=== PATIENT | male | born 1940 | race Caucasian/White ===

== ENCOUNTER 2017-12-23 12:30 | Outpatient (RCR) | payer MEDICARE, SELFPAY ==
--- NOTE | 2017-11-25 11:57 | HP.PTEVAL_ITS ---
Patient's Visit Information ANNEMARIE OROSCO is a 77 year old M referred to Physical Therapy by Wilfredo RILEY with a diagnosis of CERVICALOGENIC HEADACHES. Date of Evaluation: 11/25/17 Physical Therapist: Lloyd Rush PT, - Visit Plan Frequency: 2x /Week Duration: 4 Weeks Plan: MANUAL THERAPY -CERVICAL TRACTION ,STM,US,MHP/CP,POSTURAL EX'S/CERVICAL ROM - Subjective Subjective: This 77 y/o nale presenst to physical therpy with cervicogenic headaches. Patient has had RUBY for about 13 months and worse past 8months. Location of symtoms change and intermmtant ,currently to p of head but can nove occiput,temporal/frontal. Symptoms worse are not specfic. Symptoms not better with nothing. Patient denies nausea/tinnitus/light/noise. Patient bsleeping okay at night. Denies parathersia/tingling. Patient has seen chiropractor didnt help. All test are inconclusive ,CATSCAN -. VOCATION: ritired. SOCAIL: retired - Pain Bilateral Neck Pain Intensity (Out of 10): 2 Pain Intensity Range: 10 - Objective POSTURE: mild foward head ,head foward. NUERO: denies parathesia/tingling , reflexes C5-6-7 1/. AROM: BUE WFL. CERVICAL AROM: flexion min loss,extension mod loss,lateral flexion/rotation mod loss. PALAPTION: UT/LEVATOR/PARASPINALS - Special Tests C/S Radiculapathy - Left Upper limb tension test: Negative C/S Radiculapathy - Right Upper limb tension test: Negative C/S Radiculapathy - Left Spurlings: Negative C/S Radiculapathy - Right Spurlings: Negative C/S Radiculapathy - Left Cervical distraction: Negative C/S Radiculapathy - Right Cervical distraction: Negative C/S Radiculapathy - Left Relief test: Negative C/S Radiculapathy - Right Relief test: Negative Sharp Astrid: Negative Vertebral Artery Test: Negative Alar Ligament Test: Negative Cervical Sitting: Protrusion - Mechanical Response: No effect Cervical Sitting: Protrusion - Symptoms During Testing: No effect Cervical Sitting: Protrusion - Symptoms After Testing: No effect Cervical Sitting: Retraction - Mechanical Response: No effect Cervical Sitting: Retraction - Symptoms During Testing: No effect Cervical Sitting: Retraction - Symptoms After Testing: No effect - Goals Goal 1:: Independat with HEP Goal Time Frame: 4-6 Weeks Goal 2:: Independant with posture for ADL Goal Time Frame: 4-6 Weeks Goal 3:: Decrease RUBY by 50% or greater to improve function. Goal Time Frame: 4-6 Weeks Goal 4:: Patient to improve cervical ROM to diminish episodes of RUBY. Goal Time Frame: 4-6 Weeks - Rehabilitation Potential Physical Therapy Diagnosis: Patient has cerviacl RUBY for past 13 months with etiology unknown ,thus impairs function and ADLS' thus benifit from skilled PT Rehabilitation Potential: Good - Anticipated Interventions Patient/Client Instruction: Educate patient on: Condition, Plan of Care For the Purpose of:: To decrease pain, To increase ROM, To improve muscle performance and motor function, To increase tolerance to activity/condition/ position, To improve gait and locomotor functions, To improve health of tissue, To decrease soft tissue restriction, To increase flexibility/ROM, To improve ability to perform tasks related to life management Therapeutic Exercise to Include: Strength training, Flexibilty training, Passive ROM, Active ROM For the Purpose of:: To decrease pain, To increase ROM, To improve nutrient delivery to tissue, To increase oxygenation perfusion, To improve muscle performance and motor function, To increase tolerance to activity/condition/ position, To improve ability of physical actions for home/community/work/leisure , To improve health of tissue, To decrease soft tissue restriction, To increase flexibility/ROM, To reduce risk of recurrence Manual Therapy Techniques to Include: Mobilization Comment: CERVICAL TRACTION For the Purpose of:: To decrease pain, To increase ROM, To improve nutrient delivery to tissue, To increase oxygenation perfusion, To improve health of tissue, To decrease soft tissue restriction, To increase flexibility/ROM IF ES: Yes Cryotherapy (ice pack, ice massage): Yes Thermo therapy (hot pack): Yes Ultrasound (thermal/non thermal): Yes For the Purpose of:: To decrease pain, To improve health of tissue, To decrease soft tissue restriction, To improve ability to perform tasks related to life management Thank you for the opportunity to evaluate your patient. For Medicare and Medicare HMO plans, please review the plan of care and approve it. It will need to be FAXED BACK to us at [phone] for Medicare purposes. Please let me know if there are questions or concerns regarding this plan of care. Physician Signature: Date:
--- NOTE | 2017-12-23 13:11 | HP.PTDCSUM ---
HP - PT D/C Summary It has been my pleasure to treat ANNEMARIE OROSCO under orders from DR.VVELAS Shi for the diagnosis of CERVICALOGENIC HEADACHES for a total of 10 visit(s). Discharge Date: 12/23/17 Please see the following information for a summary of their discharge status. - Subjective Subjective: Doing better. less RUBY. Improved posture - Pain Bilateral Neck Pain Intensity (Out of 10): 1 RUBY Pain Intensity (Out of 10): 1 - Overall Improvement % Improvement: 60 - Objective Objective/Function: POSTURE: foward head. NEURO: incat ,reflexes 1/3 C5-6-7. PALPATION: tender OCCIPUT. AROM: BUE WFL. MMT: grossly 4/5. CERVICAL ROM: flexion,min loss,ext mod ,lateral/flexion. mod loss - Goals Goal 1:: Independat with HEP Goal Progress: Goal Met Goal 2:: Independant with posture for ADL Goal Progress: Goal Met Goal 3:: Decrease RUBY by 50% or greater to improve function. Goal Progress: Goal Met Goal 4:: Patient to improve cervical ROM to diminish episodes of RUBY. Goal Progress: Goal Met - Plan Plan: D/C TO HEP - D/C Information Discharge Comments: D/C TO HEP If there are questions or concerns regarding this patient's physical therapy, please feel free to call me at [phone]. Thank you for the referral of this patient. Sincerely, Lloyd Rush, PT,
== END 2017-12-23 19:00 | disposition home or self-care (01) ==
LOC: PT 12:30
PROVIDERS: Family Provider Internal Medicine; PCP Internal Medicine; Visit Provider Internal Medicine
DX: R51 Headache (principal)
CPT/HCPCS: 97012; 97035; 97110; 97140; 97162; 97530

== ENCOUNTER 2018-01-23 05:45 | Emergency (ER) | payer MEDICARE, SELFPAY ==
[2018-01-23] VITALS (8 sets, daily range): BP systolic 129–150; BP diastolic 78–99; PULSE 65–85; RESP 16–19; TEMP 36.6; O2SAT 94–98; BMI 27.3
--- NOTE | 2018-01-23 05:48 | EKG12_ITS ---
Test Reason : SOB Blood Pressure : / mmHG Vent. Rate : 069 BPM Atrial Rate : 094 BPM P-R Int : 000 ms QRS Dur : 088 ms QT Int : 376 ms P-R-T Axes : 000 057 062 degrees QTc Int : 402 ms Atrial fibrillation Abnormal ECG Confirmed by RENETTA SANTIAGO, FELIX ([id number]), rewrite editor RADHA STEPHEN ([id number]) on 01/25/2018 2:57:55 PM Referred By: SUAD Confirmed By:FELIX JACKSON MD
--- NOTE | 2018-01-23 05:50 | RAD_ITS ---
STUDY: X-RAY CHEST REASON FOR EXAM: Male, 77 years old. Shortness of breath. History of COPD TECHNIQUE: AP portable chest. COMPARISON: July 15, 2014. FINDINGS: The lungs are clear and expanded. There is no demonstrated pleural abnormality. Normal size heart. Normal mediastinum and janet. Normal visualized pulmonary arteries. Normal visualized aortic arch and descending thoracic aorta. Normal visualized thoracic spine. Old right posterior rib fractures present previously. There is no demonstrated abnormality of the visualized soft tissue structures of the upper abdomen. RAD/Chest 1 View (Portable) IMPRESSION: No acute cardiopulmonary disease. Old right posterior rib fractures. Electronically Signed: Edgar Jarrett MD at 6:26 EDT , Service support ,
[2018-01-23 06:13] LABS: Absolute Lymphocyte Count 2.63 X10^3/ul (0.83-4.51); Absolute Neutrophil Count 3.3 X10^3/uL (2.0-7.7); Basophil# 0.06 X10^3/uL; Basophil% 0.8 % (0-1); Eosinophil# 0.51 X10^3/uL; Eosinophils% 7.1 % (0-5); Hematocrit 45.8 % (40-54); Hemoglobin 15.2 g/dl (13.0-16.5); Lymphocyte # 2.63 X10^3/ul (4.0); Lymphocyte % 36.4 % (19-41); Mean Corp Hgb Conc 33.2 g/gl (32-36); Mean Corpuscular Hgb 30.6 pg (27.0-32.0); Mean Corpuscular Volume 92.3 fL (80-94); Mean Platelet Vol. 9.6 fl (6.2-12.0); Monocyte# 0.74 X10^3/uL; Monocyte% 10.2 % (0-10); Neutrophil # 3.26 X10^3/uL (2.7-7.7); Neutrophil % 45.2 % (47-70); Platelet Count 253 K/mm3 (150-450); RBC Distribution Width CV 14.2 % (11.6-14.6); RBC Distribution Width SD 47.7 fl (35.1-43.9); Red Blood Count 4.96 M/mm3 (4.6-6.2); White Blood Count 7.2 K/mm3 (4.4-11.0)
[2018-01-23 06:15] LABS: POSITIVE COUNT NO; POSITIVE DIFFERENTIAL NO; POSITIVE MORPHOLOGY NO
--- NOTE | 2018-01-23 06:22 | ED.VISSUMM ---
- ER Visit Summary Date of Service: 01/23/18 Chief Complaint: Shortness of breath. History of Present Illness: The patient is a [address] of COPD not on home O2 prior GI bleed. Hiatal hernia and sleep apnea. No reported cardiac history other than A. fib states that for the last several months she has been short of breath. This is occurred intermittently. Last night he became increasingly short of breath. Denies chest pain. Denies fever. He is a chronic nonproductive cough. The mild hemoptysis. He is never had a DVT or PE he has not recently been hospitalized denies calf pain or tenderness. Physical Examination: Older male in mild respiratory distress vital signs are stable pulse ox is 98 % that was on oxygen. The squad picked him at his home is pulse ox was 85%. HEENT exam unremarkable. Neck nontender no JVD. Lungs prolonged expiration phase. Diminished breath sounds. Expiratory wheezing. Equal symmetrical. No rhonchi. No rales. Heart irregularly irregular rate about 70 no murmur. History of A. fib. Chest nontender. Abdomen soft nontender nondistended no giving or masses normal bowel sounds no peritoneal signs. He is moving all 4 extremities his calves are nontender without edema no cords. Neurologically is awake and alert with no focal deficits. Test Results: Chest x-ray shows chronic changes no acute process read both by myself the radiologist. EKG is in A. fib rate is 69 with no acute abnormality. CBC unremarkable. BMP unremarkable. Troponin normal. BNP pending. Emergency Department Course and Treatment: Solu-Medrol IV and breathing treatments. Repeat exam the patient is improved. However he still requires admission for his overall respiratory status and hypoxia. I spoke to the hospitalist Dr. Ko segura. Treatment Plan: Admission for hypoxia. Disposition: Admission Impression: Hypoxia Exacerbation COPD Chronic A. fib This note was generated with [employer] dictation software. It may contain incorrect words, spelling, and punctuation that were not noted in review of the chart prior to signing ED Disposition - Plan for ED Patient: Chief Complaint: Shortness of Breath Referrals: Wilfredo Up MD [Primary Care Provider] -
[2018-01-23 06:27] LABS: Anion Gap 7 (5-15); BUN 10 mg/dL (7-18); BUN/Creat Ratio 14.9 RATIO (10-20); Calcium,Total 8.5 mg/dL (8.5-10.1); Chloride 100 mmol/L (98-107); Creatinine, Serum 0.67 mg/dL (0.70-1.30); EST Glomerular Filtration Rate 121 mL/min (>60); Est Glom Filt Rate - Afr Amer 147 mL/min (>60); Estimated Creatinine Clearance 57.95 ml/min; Glucose 115 mg/dL (74-106); Potassium 3.9 mmol/L (3.5-5.1); Sodium Level 137 mmol/L (136-145)
[2018-01-23] MEDS: Albuterol 2.5 MG/3 ML VIAL.NEB. INHALATION ×2 (06:34)
[2018-01-23] MEDS: Ipratropium/Albuterol Sulfate 3 ML AMPUL.NEB INHALATION (06:34)
[2018-01-23] MEDS: MethylPREDNISolone 125 MG/2 ML Vial IV (06:37)
[2018-01-23 07:55] LABS: BNP,B-Type NATRIURETIC PEPTIDE 38.4 pg/mL (0-100)
--- NOTE | 2018-01-23 08:10 | DCINST_ITS ---
You will use the following diet at home:: No restrictions Your food should be the consistency of: Regular Your liquids should be the consistency of: Regular/Thin Discharge Activity: Return to Normal Activity Call your doctor if you observe: - - worsening shortness of breath. Allergies/Adverse Reactions: Allergies No Known Allergies Allergy (Verified 01/23/18 05:45) Medications to take at Discharge Albuterol IH (ProAir) [Proair Hfa] 2 puff INHALATION Q4H PRN PRN 01/23/18 Amlodipine [Norvasc] 5 mg PO DAILY 01/23/18 Apixaban [Eliquis] 5 mg PO BID 01/23/18 Brimonidine 0.15% [Alphagan P 0.15%] 1 drop EACH EYE BID 01/23/18 Ferrous Sulfate 325 mg PO DAILY@0800 01/23/18 Gabapentin [Neurontin] 2 tab PO BREAKFAST 01/23/18 Gabapentin [Neurontin] 2 tab PO QHS 01/23/18 Gabapentin [Neurontin] 100 mg PO LUNCH 01/23/18 Hydrochlorothiazide [Hctz] 25 mg PO DAILY 01/23/18 Ipratropium/Albuterol Respimat [Combivent Respimat Inhal [place]] 1 puff INHALATION BID 01/23/18 Latanoprost 0.005% [Xalatan Opthalmic] 1 drop EACH EYE QHS 01/23/18 Lisinopril [Zestril] 20 mg PO DAILY 01/23/18 Omeprazole 40 mg PO BID 01/23/18 Simvastatin [Zocor] 20 mg PO QHS 01/23/18 Primary Care Physician: Wilfredo Up MD [Primary Care Provider] - Please follow up with your Primary Care Physician in: in 1-2 weeks Please Follow Up With: Jinny - for possible vocal cord dysfunction When: 2-4 weeks Proposed Discharge Date: 01/23/18
--- NOTE | 2018-01-23 08:10 | PCM.CONS.GEN ---
Problem List (1) Glaucoma Status: Chronic (2) Benign prostate hyperplasia Status: Chronic (3) Paiz esophagus Status: Chronic (4) Acid reflux Status: Chronic (5) COPD (chronic obstructive pulmonary disease) Status: Chronic (6) Hyperlipemia Status: Chronic (7) Atrial fibrillation Status: Chronic (8) Actinic keratosis Status: Chronic (9) Hiatal hernia Status: Chronic (10) Hypertension Status: Chronic (11) Sleep apnea Status: Chronic (12) Vocal cord dysfunction Status: Acute Comment: suspected Reason for Consult Date of Consultation: 01/23/18 Reason for Consultation: shortness of breath. History of Present Illness: The patient is a 77 year old M who was up this morning and became very suddenly short of breath. It persisted and called EMS. Apparently patient's pulse ox was 85% the patient was able to walk to the ambulance as they apparently did not go over the bridge that is in her [place] yard. Since arrival patient was notably not hypoxic. Patient is 95% on room air when he arrived. Patient states that he has had other episodes of this sudden shortness of breath that is very short-lived begins abruptly and then goes away quickly. I was asked to evaluate patient for possible admission for a COPD exacerbation. Patient did receive aerosols as well as Solu-Medrol in the emergency room. [] Past Medical History Past Medical History (Chronic Problems): Chronic Problems Glaucoma (Chronic) Benign prostate hyperplasia (Chronic) Paiz esophagus (Chronic) Acid reflux (Chronic) COPD (chronic obstructive pulmonary disease) (Chronic) Hyperlipemia (Chronic) Atrial fibrillation (Chronic) Actinic keratosis (Chronic) Hiatal hernia (Chronic) Hypertension (Chronic) Sleep apnea (Chronic) Allergies No Known Allergies Allergy (Verified 01/23/18 05:45) Home Medications: Ambulatory Orders Medication Instructions Recorded Albuterol IH (ProAir) [Proair Hfa] 2 puff INHALATION Q4H PRN PRN 01/23/18 Amlodipine [Norvasc] 5 mg PO DAILY 01/23/18 Apixaban [Eliquis] 5 mg PO BID 01/23/18 Brimonidine 0.15% [Alphagan P 1 drop EACH EYE BID 01/23/18 0.15%] Ferrous Sulfate 325 mg PO DAILY@0800 01/23/18 Gabapentin [Neurontin] 2 tab PO BREAKFAST 01/23/18 Gabapentin [Neurontin] 2 tab PO QHS 01/23/18 Gabapentin [Neurontin] 100 mg PO LUNCH 01/23/18 Hydrochlorothiazide [Hctz] 25 mg PO DAILY 01/23/18 Ipratropium/Albuterol Respimat 1 puff INHALATION BID 01/23/18 [Combivent Respimat Inhal [place]] Latanoprost 0.005% [Xalatan 1 drop EACH EYE QHS 01/23/18 Opthalmic] Lisinopril [Zestril] 20 mg PO DAILY 01/23/18 Omeprazole 40 mg PO BID 01/23/18 Simvastatin [Zocor] 20 mg PO QHS 01/23/18 Surgical History: tonsillectomy, - - colonoscopy EGD. Issac fundoplication. Psychiatric History: No pertinent psych hx Lives: Spouse/ Significant Other Smoking Status: Former smoker Tobacco Use: Non-smoker Alcohol: None Drugs: None - *Family History Paternal History Items: Pulmonary Disease - Asthma Review of Systems Constitutional: Denies: Chills, Fever, Weight Change Eyes: Denies: Blurred vision, Double vision HEENT: Reports: Difficulty Hearing Cardiovascular: Denies: Chest Pain, Palpitations Respiratory: Reports: Shortness of Breath. Denies: Cough Gastrointestinal: Denies: Abdominal Pain, Nausea, Vomiting Genitourinary: Reports: Dysuria Musculoskeletal: Denies: Joint Pain, Joint Tenderness Skin: Denies: Rash, Wounds Neurological: Denies: Numbness, Tingling, Focal weakness Psychiatric: Denies: Anxiety, Depression, Homicidal Ideations, Suicidal Ideations Hematologic/ Lymphatic: Denies: Easy Bruising, Easy Bleeding, Hx of blood clot Patient Problems: Active and Suspected Problems Vocal cord dysfunction (Acute) suspected - Physical Exam General: Alert, Oriented x3, Cooperative HEENT: Atraumatic, Normocephalic Oral: Moist Mucosa Neck: No Nodes, Thyroid Normal Size and Texture Lungs: Normal air movement, No rhonchi, - - Upper respiratory wheeze Cardiovascular: Regular rate, Regular Rhythm, Normal S1, Normal S2, No murmurs Abdomen: Bowel Sounds Present, Soft, Non Tender, Non-Distended, No Hepato-splenomegaly Extremities: No edema, No Calf Tenderness Skin: No rashes, No breakdown Psych/Mental Status: Normal Affect, Appropriate Comment: Patient was ambulated to the bathroom and when he came back patient was not Vital Signs Temp Pulse Resp BP Pulse Ox 36.6 C 76 18 148/88 H 98 01/23/18 06:43 01/23/18 07:31 01/23/18 07:31 01/23/18 07:31 01/23/18 07:31 Oxygen Flow Rate (L/min) 2 Oxygen Delivery Method Nasal Cannula Weight: 81.5 kg Body Mass Index (BMI) 27.3 Laboratory Tests Past 24 Hrs 01/23/18 01/23/18 01/23/18 05:50 05:50 05:50 WBC 7.2 RBC 4.96 Hgb 15.2 Hct 45.8 MCV 92.3 MCH 30.6 MCHC 33.2 RDW 14.2 RDW Differential 47.7 H Plt Count 253 MPV 9.6 Immature Gran % (Auto) 0.300 Neut % (Auto) 45.2 L Lymph % (Auto) 36.4 [place] % (Auto) 10.2 H Eos % (Auto) 7.1 H Baso % (Auto) 0.8 Absolute Neuts (auto) 3.3 Absolute Lymphs (auto) 2.63 Total Counted Not Reportable Sodium 137 Potassium 3.9 Chloride 100 Carbon Dioxide 30.0 Anion Gap 7 BUN 10 Creatinine 0.67 L Estim Creat Clear Calc 57.95 Est GFR (MDRD) Af Amer 147 Est GFR (MDRD) Non-Af 121 BUN/Creatinine Ratio 14.9 Glucose 115 H Calcium 8.5 Troponin I < 0.02 B-Natriuretic Peptide 38.4 EKG reviewed and showed atrial fibrillation. Chest x-ray reviewed and showed a flattening of the diaphragms but no acute process. Assessment/Plan Active and Suspected Problems Vocal cord dysfunction (Acute) suspected 1. Suspected vocal cord dysfunction This is not a new process from the patient describes but this seem to be 1 1 of his more advanced episodes. I do not feel the patient needs steroids nor do I feel that he needs an additional inpatient evaluation for this. Patient is established with Dr. Stearns and I have recommended patient follow-up with Dr. Stearns in the coming weeks for laryngoscopy to evaluate for any kind of vocal cord dysfunction I have discussed this extensively with the patient and his who expressed understanding and they are are in agreement with current plan for the patient to be discharged and to follow-up with Dr. Stearns. I did provide some information about vocal cord dysfunction to the patient's . 2. COPD: Stable Continue with home medications 3. Atrial fibrillation, chronic Stable Continue with Eliquis. Patient not had any rate controlling medications but patient will need follow-up with cardiology if that would be necessary. Patient will be discharged home with follow-ups with Dr. Up and Dr. Stearns. Code Visit Office Visits / Consults: [id number] OP Consult L3
--- NOTE | 2018-01-23 08:18 | CON.PCM_ITS ---
Problem List (1) Glaucoma Status: Chronic (2) Benign prostate hyperplasia Status: Chronic (3) Paiz esophagus Status: Chronic (4) Acid reflux Status: Chronic (5) COPD (chronic obstructive pulmonary disease) Status: Chronic (6) Hyperlipemia Status: Chronic (7) Atrial fibrillation Status: Chronic (8) Actinic keratosis Status: Chronic (9) Hiatal hernia Status: Chronic (10) Hypertension Status: Chronic (11) Sleep apnea Status: Chronic (12) Vocal cord dysfunction Status: Acute Comment: suspected Reason for Consult Date of Consultation: 01/23/18 Reason for Consultation: shortness of breath. History of Present Illness: The patient is a 77 year old M who was up this morning and became very suddenly short of breath. It persisted and called EMS. Apparently patient's pulse ox was 85% the patient was able to walk to the ambulance as they apparently did not go over the bridge that is in [place] yard. Since arrival patient was notably not hypoxic. Patient is 95% on room air when he arrived. Patient states that he has had other episodes of this sudden shortness of breath that is very short-lived begins abruptly and then goes away quickly. I was asked to evaluate patient for possible admission for a COPD exacerbation. Patient did receive aerosols as well as Solu-Medrol in the emergency room. [] Past Medical History Past Medical History (Chronic Problems): Chronic Problems Glaucoma (Chronic) Benign prostate hyperplasia (Chronic) Paiz esophagus (Chronic) Acid reflux (Chronic) COPD (chronic obstructive pulmonary disease) (Chronic) Hyperlipemia (Chronic) Atrial fibrillation (Chronic) Actinic keratosis (Chronic) Hiatal hernia (Chronic) Hypertension (Chronic) Sleep apnea (Chronic) Allergies No Known Allergies Allergy (Verified 01/23/18 05:45) Home Medications: Ambulatory Orders Medication Instructions Recorded Albuterol IH (ProAir) [Proair Hfa] 2 puff INHALATION Q4H PRN PRN 01/23/18 Amlodipine [Norvasc] 5 mg PO DAILY 01/23/18 Apixaban [Eliquis] 5 mg PO BID 01/23/18 Brimonidine 0.15% [Alphagan P 1 drop EACH EYE BID 01/23/18 0.15%] Ferrous Sulfate 325 mg PO DAILY@0800 01/23/18 Gabapentin [Neurontin] 2 tab PO BREAKFAST 01/23/18 Gabapentin [Neurontin] 2 tab PO QHS 01/23/18 Gabapentin [Neurontin] 100 mg PO LUNCH 01/23/18 Hydrochlorothiazide [Hctz] 25 mg PO DAILY 01/23/18 Ipratropium/Albuterol Respimat 1 puff INHALATION BID 01/23/18 [Combivent Respimat Inhal [place]] Latanoprost 0.005% [Xalatan 1 drop EACH EYE QHS 01/23/18 Opthalmic] Lisinopril [Zestril] 20 mg PO DAILY 01/23/18 Omeprazole 40 mg PO BID 01/23/18 Simvastatin [Zocor] 20 mg PO QHS 01/23/18 Surgical History: tonsillectomy, - - colonoscopy EGD. Issac fundoplication. Psychiatric History: No pertinent psych hx Lives: Spouse/ Significant Other Smoking Status: Former smoker Tobacco Use: Non-smoker Alcohol: None Drugs: None - *Family History Paternal History Items: Pulmonary Disease - Asthma Review of Systems Constitutional: Denies: Chills, Fever, Weight Change Eyes: Denies: Blurred vision, Double vision HEENT: Reports: Difficulty Hearing Cardiovascular: Denies: Chest Pain, Palpitations Respiratory: Reports: Shortness of Breath. Denies: Cough Gastrointestinal: Denies: Abdominal Pain, Nausea, Vomiting Genitourinary: Reports: Dysuria Musculoskeletal: Denies: Joint Pain, Joint Tenderness Skin: Denies: Rash, Wounds Neurological: Denies: Numbness, Tingling, Focal weakness Psychiatric: Denies: Anxiety, Depression, Homicidal Ideations, Suicidal Ideations Hematologic/ Lymphatic: Denies: Easy Bruising, Easy Bleeding, Hx of blood clot Patient Problems: Active and Suspected Problems Vocal cord dysfunction (Acute) suspected - Physical Exam General: Alert, Oriented x3, Cooperative HEENT: Atraumatic, Normocephalic Oral: Moist Mucosa Neck: No Nodes, Thyroid Normal Size and Texture Lungs: Normal air movement, No rhonchi, - - Upper respiratory wheeze Cardiovascular: Regular rate, Regular Rhythm, Normal S1, Normal S2, No murmurs Abdomen: Bowel Sounds Present, Soft, Non Tender, Non-Distended, No Hepato- splenomegaly Extremities: No edema, No Calf Tenderness Skin: No rashes, No breakdown Psych/Mental Status: Normal Affect, Appropriate Comment: Patient was ambulated to the bathroom and when he came back patient was not Vital Signs Temp Pulse Resp BP Pulse Ox 36.6 C 76 18 148/88 H 98 01/23/18 06:43 01/23/18 07:31 01/23/18 07:31 01/23/18 07:31 01/23/18 07:31 Oxygen Flow Rate (L/min) 2 Oxygen Delivery Method Nasal Cannula Weight: 81.5 kg Body Mass Index (BMI) 27.3 Laboratory Tests Past 24 Hrs 01/23/18 01/23/18 01/23/18 05:50 05:50 05:50 WBC 7.2 RBC 4.96 Hgb 15.2 Hct 45.8 MCV 92.3 MCH 30.6 MCHC 33.2 RDW 14.2 RDW Differential 47.7 H Plt Count 253 MPV 9.6 Immature Gran % (Auto) 0.300 Neut % (Auto) 45.2 L Lymph % (Auto) 36.4 [place] % (Auto) 10.2 H Eos % (Auto) 7.1 H Baso % (Auto) 0.8 Absolute Neuts (auto) 3.3 Absolute Lymphs (auto) 2.63 Total Counted Not Reportable Sodium 137 Potassium 3.9 Chloride 100 Carbon Dioxide 30.0 Anion Gap 7 BUN 10 Creatinine 0.67 L Estim Creat Clear Calc 57.95 Est GFR (MDRD) Af Amer 147 Est GFR (MDRD) Non-Af 121 BUN/Creatinine Ratio 14.9 Glucose 115 H Calcium 8.5 Troponin I < 0.02 B-Natriuretic Peptide 38.4 EKG reviewed and showed atrial fibrillation. Chest x-ray reviewed and showed a flattening of the diaphragms but no acute process. Assessment/Plan Active and Suspected Problems Vocal cord dysfunction (Acute) suspected 1. Suspected vocal cord dysfunction * This is not a new process from the patient describes but this seem to be 1 1 of his more advanced episodes. * I do not feel the patient needs steroids nor do I feel that he needs an additional inpatient evaluation for this. Patient is established with Dr. Stearns and I have recommended patient follow-up with Dr. Stearns in the coming weeks for laryngoscopy to evaluate for any kind of vocal cord dysfunction * I have discussed this extensively with the patient and his who expressed understanding and they are are in agreement with current plan for the patient to be discharged and to follow-up with Dr. Stearns. I did provide some information about vocal cord dysfunction to the patient's . 2. COPD: * Stable * Continue with home medications 3. Atrial fibrillation, chronic * Stable * Continue with Eliquis. Patient not had any rate controlling medications but patient will need follow-up with cardiology if that would be necessary. Patient will be discharged home with follow-ups with Dr. Up and Dr. Stearns. Code Visit Office Visits / Consults: [id number] OP Consult L3
--- NOTE | 2018-01-24 12:40 | CM.ED ---
ED CALLBACK: Patient's answered the phone and states her is not available. 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 Stearns, for this week. She states they were pleased with the care they received in the ED.
== END 2018-01-23 09:22 | disposition home or self-care (01) ==
PROVIDERS: Emergency Provider Emergency Medicine; Family Provider Internal Medicine; PCP Internal Medicine
DX: R09.02 Hypoxemia (principal); J44.1 Chronic obstructive pulmonary disease with (acute) exacerbation; I48.2 Chronic atrial fibrillation; I10 Essential (primary) hypertension; E78.5 Hyperlipidemia, unspecified; G47.30 Sleep apnea, unspecified; K21.0 Gastro-esophageal reflux disease with esophagitis; N40.0 Benign prostatic hyperplasia without lower urinary tract symptoms; H40.9 Unspecified glaucoma; Z79.01 Long term (current) use of anticoagulants; Z79.899 Other long term (current) drug therapy; Z87.19 Personal history of other diseases of the digestive system; Z87.891 Personal history of nicotine dependence
CPT/HCPCS: 71045; 80048; 83880; 84484; 85025; 93005; 94640; 96374; 99285; A4216

== ENCOUNTER 2018-01-31 22:38 | Emergency (ER) | payer MEDICARE, SELFPAY ==
[2018-01-31 22:39] VITALS: BP 196/137; PULSE 88; RESP 31; TEMP 36.5; O2SAT 80; BMI 27.3
[2018-01-31 22:40] VITALS: O2SAT 99
--- NOTE | 2018-01-31 22:46 | EKG12_ITS ---
Test Reason : SOB Blood Pressure : / mmHG Vent. Rate : 082 BPM Atrial Rate : 051 BPM P-R Int : 000 ms QRS Dur : 094 ms QT Int : 350 ms P-R-T Axes : 000 039 062 degrees QTc Int : 408 ms Atrial fibrillation Low voltage QRS (LIMB LEADS) Septal CT, age undetermined, cannot be excluded Confirmed by RENU BUSCH ([id number]), city editor RADHA STEPHEN ([id number]) on 02/02/2018 9:32:02 AM Referred By: SUKUMAR Confirmed By:RENU BUSCH
--- NOTE | 2018-01-31 22:46 | RAD_ITS ---
STUDY: X-RAY CHEST REASON FOR EXAM: Male, 77 years old. Cough. TECHNIQUE: AP portable COMPARISON: January 23, 2018 FINDINGS: The lungs are clear and expanded. There is no demonstrated pleural abnormality. Normal size heart. Normal mediastinum and janet. Normal visualized pulmonary arteries. Normal visualized aortic arch and descending thoracic aorta. There are diffuse degenerative changes of the visualized thoracic spine. There are stable right posterior rib deformities consistent with healed fractures. There is no demonstrated abnormality of the visualized soft tissue structures of the upper abdomen. RAD/Chest 1 View (Portable) IMPRESSION: No acute cardiopulmonary process. Electronically Signed: Minnie Mahoney MD at 23:27 EDT Tel , Service support ,
[2018-01-31 22:54] VITALS: PULSE 82; RESP 20
[2018-01-31] MEDS: Ipratropium/Albuterol Sulfate 3 ML AMPUL.NEB INHALATION (22:54)
[2018-01-31] MEDS: Albuterol 2.5 MG/3 ML VIAL.NEB. INHALATION ×3 (22:54)
[2018-01-31] MEDS: MethylPREDNISolone 125 MG/2 ML Vial IV (22:54)
[2018-01-31] MEDS: 0.9% Normal Saline 1,000 ML 150 ML IV (22:55)
--- NOTE | 2018-01-31 22:55 | ED.DCSUM_ITS ---
- ER Visit Summary Date of Service: 01/31/18 Chief Complaint: Shortness of breath History of Present Illness: The patient is a 77 M resents to the emergency department shortness of breath. Patient is a history of atrial fibrillation and COPD. He is not on oxygen at home. States that tonight, he got rather short of breath rather acutely. States he was coughing with some scant sputum. He did get a breathing treatment by squad which he states helped him. The patient is currently being evaluated for vocal cord dysfunction. He states that he did have a scope by Dr. Stearns and was told that his vocal cords were normal, but was also told that if he was asymptomatic at the time it will be nondiagnostic. The patient was seen here about a week ago. He was seen by the hospitalist and thought to be safe for outpatient management. He states he been doing well until tonight. He denies any chest pain. He denies orthopnea. Physical Examination: Vital signs reviewed General: Well-nourished, well-developed Head: Normocephalic, atraumatic Eyes: Pupils equal and reactive, extraocular muscles intact Neck, supple, no lymphadenopathy Heart: Regular rate and rhythm Respiratory: Mild tachypnea, wheezing in all lung dyson, no stridor. Abdomen: Soft, nontender, nondistended, no peritoneal signs Back: Nontender Extremities: Nontender, no edema, no cords Skin: Normal color no rash Neuro: Alert and oriented, no focal or lateralizing deficits Test Results: [] Emergency Department Course and Treatment: EKG was obtained on patient arrival. It does show evidence of atrial fibrillation but no acute ischemic change. Chest x-ray does not show focal infiltrate. Screening labs relatively unremarkable. The patient was given steroids and breathing treatments. On reevaluation, he is resting more comfortably. He still has some persistent bronchospasm. At this time, given his increasing dyspnea and increased work of breathing, I do for the patient will benefit from admission for COPD exacerbation. He was covered with steroids and azithromycin. Patient was discussed with the hospitalist and will be admitted. Treatment Plan: [] Disposition: Vision Impression: 1. Acute COPD exacerbation This note was generated with Lingdong.comation software. It may contain incorrect words, spelling, and punctuation that were not noted in review of the chart prior to signing ED Disposition - Plan for ED Patient: Chief Complaint: Shortness of Breath Referrals: Up,Wilfredo, MD [Primary Care Provider] -
[2018-01-31 22:58] VITALS: O2SAT 98
[2018-01-31 23:12] LABS: Absolute Lymphocyte Count 4.18 X10^3/ul (0.83-4.51); Absolute Neutrophil Count 4.1 X10^3/uL (2.0-7.7); Basophil% 0.9 % (0-1); Eosinophil# 0.68 X10^3/uL; Eosinophils% 6.5 % (0-5); Hematocrit 45.3 % (40-54); Lymphocyte # 4.18 X10^3/ul (4.0); Lymphocyte % 39.7 % (19-41); Mean Corp Hgb Conc 33.1 g/gl (32-36); Mean Corpuscular Hgb 30.7 pg (27.0-32.0); Mean Corpuscular Volume 92.6 fL (80-94); Mean Platelet Vol. 9.7 fl (6.2-12.0); Monocyte# 1.48 X10^3/uL; Monocyte% 14.1 % (0-10); Neutrophil # 4.06 X10^3/uL (2.7-7.7); Neutrophil % 38.5 % (47-70); Platelet Count 256 K/mm3 (150-450); RBC Distribution Width CV 14.1 % (11.6-14.6); RBC Distribution Width SD 47.4 fl (35.1-43.9); Red Blood Count 4.89 M/mm3 (4.6-6.2); White Blood Count 10.5 K/mm3 (4.4-11.0)
[2018-01-31 23:13] LABS: POSITIVE COUNT NO; POSITIVE DIFFERENTIAL NO; POSITIVE MORPHOLOGY NO
[2018-01-31 23:56] LABS: BNP,B-Type NATRIURETIC PEPTIDE 66.7 pg/mL (0-100)
[2018-02-01 00:05] LABS: Lactic Acid 1.2 mmol/L (0.4-2.0)
[2018-02-01 00:06] LABS: Anion Gap 7 (5-15); BUN 14 mg/dL (7-18); BUN/Creat Ratio 19.6 RATIO (10-20); Calcium,Total 8.1 mg/dL (8.5-10.1); Chloride 99 mmol/L (98-107); Creatinine, Serum 0.72 mg/dL (0.70-1.30); EST Glomerular Filtration Rate 113 mL/min (>60); Est Glom Filt Rate - Afr Amer 136 mL/min (>60); Estimated Creatinine Clearance 57.95 ml/min; Glucose 103 mg/dL (74-106); Potassium 3.4 mmol/L (3.5-5.1); Sodium Level 132 mmol/L (136-145)
[2018-02-01 00:37] VITALS: BP 133/72; PULSE 65; RESP 19; O2SAT 97
[2018-02-01 00:39] VITALS: BP 133/72; PULSE 74; RESP 15; TEMP 36.6; O2SAT 95
--- NOTE | 2018-02-01 01:58 | ED.DCSUM_ITS ---
- ER Visit Summary Date of Service: 02/01/18 Chief Complaint: [] History of Present Illness: The patient is a 77 M [] Physical Examination: [] Test Results: [] Emergency Department Course and Treatment: [] Treatment Plan: [] Disposition: [] Impression: [] This note was generated with CodeBaby dictation software. It may contain incorrect words, spelling, and punctuation that were not noted in review of the chart prior to signing ED Disposition - Plan for ED Patient: Chief Complaint: Shortness of Breath Instructions: ED COPD Flare Prescriptions: Azithromycin [Zithromax] 250 mg PO DAILY #4 tab Prednisone 10 mg PO DAILY #63 tab Referrals: Wilfredo Up MD [Primary Care Provider] -
--- NOTE | 2018-02-01 16:26 | CM.ED ---
ED Callback: Follow-up call placed to patient. Person who answers the phone states the patient is unavailable at this time. She stated that the patient is feeling better.
== END 2018-02-01 02:25 | disposition home or self-care (01) ==
PROVIDERS: Emergency Provider Emergency Medicine; Family Provider Internal Medicine; PCP Internal Medicine
DX: J44.1 Chronic obstructive pulmonary disease with (acute) exacerbation (principal); I48.91 Unspecified atrial fibrillation; Z79.01 Long term (current) use of anticoagulants; Z79.899 Other long term (current) drug therapy; Z87.891 Personal history of nicotine dependence
CPT/HCPCS: 71045; 80048; 83605; 83880; 84484; 85025; 93005; 94640; 96361; 96365; 96375; 99284; J7030; A4216

== ENCOUNTER 2018-02-10 08:53 | Outpatient (RCR) | payer MEDICARE, SELFPAY ==
--- NOTE | 2018-02-11 08:25 | HP.SP.AD_ITS ---
History - History Date of Eval: 02/10/18 Referring Doctor: Dr. 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 Hiatal hernia. Status post Issac fundoplication. Acid reflux. Sleep apnea. Hyperlipemia. Atrial fibrillation. Actinic keratosis. Hypertension. Glaucoma. 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 Patient reports waking on 01/23/2018 at night to utilize the facilities, reports becoming short of breath during ambulation back to bed, intermittent wheezing, tightness in chest, and difficulties with exhalation, with the Patients calling for ambulance. Workup at [facility] on ; hospitalist suspecting vocal fold dysfunction. 01/23/2018 CXR revealed no acute cardiopulmonary process. Patient again presenting to [facility] Emergency Department on 01/31/2018 due to shortness of breath, with suspicion for chronic obstructive pulmonary disease exacerbation; was to be admitted, though requested to be discharged against medical advice. 01/31/2018 CXR revealed no acute cardiopulmonary process. Patient reports a prolonged period of smoking states he smoked from a VERY EARLY age (born 1940, started to smoke ?during WWII?, important to note the Patient does not appear confused or delirious); further reports persistent mild headaches that has been mentioned to multiple care providers (consistent since September 2017) in addition to a stiff neck, reports feeling frustrated that no answers have been provided. Subjective Clinical Impression - Non-Phonatory Behaviors/Respiration Limited breath support for speech: Present Expiratory wheezing: Present Plan - Plan Plan: Patient reporting some symptoms similar in nature to PVFM (shortness of breath, shortness of breath with exertion / exertional dyspnea, intermittent tightness in chest, wheezing), and symptoms that are not in line with PVMF ( reports difficulty with expiration during episodes; would typically present with difficulty during inspiration; improvement in symptoms with aerosols provided by squad in route to hospital), with symptoms associated with PVMF occurring OUTSIDE of the recently encountered episodes. Patient noted to become somewhat short of breath during ambulation to therapy room, intermittently throughout session. Patient denies any recent psychosocial changes or stressors , no exposure to chemical irritants that may provoke laryngeal hyperrepsoiveness , no apparent neurological anomalies. Patient reporting workup via ENT pending , though Patient reports recent endoscopy completed 1-2 weeks prior to initial incident was unremarkable (report not available at time of assessment). Patient does report past medical history significant for chronic obstructive pulmonary disease which may present with similar symptoms. At this time, there is insufficient information to determine need / appropriateness for speech- language intervention targeting paradoxical vocal fold malfunction, with best practices indicating workup via ENT prior to initiation of intervention to establish a diagnosis and to determine appropriateness for intervention. Will plan to proceed with intervention FOLLOWING completion of ENT workup if deemed medically appropriate. Patient additionally reporting prior radiological examination targeting the Patient?s swallowing abilities, from description sounds similar to a modified barium swallow study (though more likely participated in a barium swallow / esophagram associated with Paiz?s esophagus / hiatal hernia / gastroesophageal reflux), reports that he ?failed? it, though no change in diet textures, postural adjustments, or follow up intervention was completed. Patient is notably at higher risk of aspiration ( particularly silent aspiration) with the diagnosis of chronic obstructive pulmonary disease; may consider a repeat modified barium swallow study if deemed medically appropriate. Discussed intervention strategies, with Patient in agreement with tentative treatment plan. - Recommendations Treatment Warranted: Yes - Frequency Frequency: 1x/Week Duration: 6 Weeks - Prognosis Prognosis: Excellent - Goals that are Established: Determination:: Goals will be added/modified as deemed necessary and appropriate. Therapy will be discontinued when results of re-evaluation indicate therapy is no longer needed or lack of progress has been documented. - Goal #1-5 Goal #1: Pt. will participate in further workup via ENT targeting the diagnosis of paradoxical vocal fold malfunction, with further treatment plan development pending results. Goal #2: Goal adjustment as needed. Education - Patient Instruction Patient Education: Diagnosis, Treatment Plan Person Taught: Patient Teaching Method: Discussion Response to teaching: Verbalize understanding
--- NOTE | 2018-05-19 16:36 | HP.SP.DC ---
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 At the time of assessment, the Patient had reported some symptoms similar in nature to PVFM (shortness of breath, shortness of breath with exertion / exertional dyspnea, intermittent tightness in chest, wheezing), and symptoms that are not in line with PVMF (reports difficulty with expiration during episodes; would typically present with difficulty during inspiration; improvement in symptoms with aerosols provided by squad in route to hospital), with symptoms associated with PVMF occurring OUTSIDE of the recently encountered episodes. During the assessment, the Patient was noted to become somewhat short of breath during ambulation to therapy room, intermittently throughout session. At the completion of the assessment, it was determined that there was insufficient information to determine need / appropriateness for speech-language intervention targeting paradoxical vocal fold malfunction, with best practices indicating workup via cart attendant prior to initiation of intervention to establish a diagnosis and to determine appropriateness for intervention, with plans to proceed with intervention FOLLOWING completion of workup via cart attendant if deemed medically appropriate. At this time, the Patient has not scheduled any follow up sessions after his initial intervention session. Will discharge the Patient from the caseload at this time, though would be more than willing to re-initiate intervention after obtaining a physicians order if further intervention is desired.
== END 2018-02-10 19:00 | disposition home or self-care (01) ==
LOC: SP 08:53
PROVIDERS: Family Provider Internal Medicine; PCP Internal Medicine; Visit Provider Otolaryngology
DX: J38.3 Other diseases of vocal cords (principal)
CPT/HCPCS: 92523

== ENCOUNTER 2018-04-02 22:40 | Emergency (ER) | payer MEDICARE, SELFPAY ==
[2018-04-02 22:41] VITALS: BP 133/102; PULSE 79; RESP 18; TEMP 36.7; O2SAT 95; BMI 27.7
--- NOTE | 2018-04-02 23:04 | RAD_ITS ---
STUDY: X-RAY CHEST REASON FOR EXAM: Male, 77 years old. Cough, COPD, atrial fibrillation. TECHNIQUE: PA and lateral chest. COMPARISON: January 31, 2018. July 15, 2014. FINDINGS: The lungs are clear and expanded. There is no demonstrated pleural abnormality. No pneumothorax. Moderate-sized hiatal hernia unchanged. Mild cardiomegaly. Normal mediastinum and janet. Normal visualized pulmonary arteries. Normal visualized aortic arch and descending thoracic aorta. Normal visualized thoracic spine. Old right mid posterior rib fractures. There is no demonstrated abnormality of the visualized soft tissue structures of the upper abdomen. RAD/Chest PA and Lateral IMPRESSION: No acute cardiopulmonary disease. Stable mild cardiomegaly. Hiatal hernia. Old right posterior rib fractures. Electronically Signed: Edgar Jarrett MD at 0:17 EDT , Service support ,
--- NOTE | 2018-04-02 23:04 | EKG12_ITS ---
Test Reason : SOB Blood Pressure : / mmHG Vent. Rate : 052 BPM Atrial Rate : 326 BPM P-R Int : 000 ms QRS Dur : 090 ms QT Int : 408 ms P-R-T Axes : 000 -06 018 degrees QTc Int : 379 ms Atrial fibrillation Abnormal ECG Confirmed by JAMIL SANTIAGO, WARD ([id number]), editor trade journal RADHA STEPHEN ([id number]) on 04/07/2018 3:35:21 PM Referred By: RUCIH Confirmed By:WARD NEGRON MD
--- NOTE | 2018-04-02 23:04 | RAD_ITS ---
STUDY: X-RAY - RIGHT WRIST REASON FOR EXAM: Male, 77 years old. Pain, no history of trauma. TECHNIQUE: 3 view(s) of the wrist were obtained. COMPARISON: None. FINDINGS: Normal visualized distal radius and ulna. Normal radiocarpal articulation. Normal distal radioulnar articulation. Normal carpal bones. Chondrocalcinosis lunate triquetral joint. Normal carpometacarpal articulation of the thumb. Normal second through fifth carpometacarpal articulations. Normal visualized metacarpal bones. Minimal soft tissue swelling dorsum the wrist. Calcification distal to the ulna suggestive of an old tear of the triangular fibrocartilage complex. RAD/Wrist min 3 Views IMPRESSION: Mild soft tissue swelling. Degenerative and old posttraumatic changes. Electronically Signed: Edgar Jarrett MD at 0:21 EDT , Service support ,
[2018-04-02 23:17] VITALS: PULSE 62; RESP 18
[2018-04-02] MEDS: Ipratropium/Albuterol Sulfate 3 ML AMPUL.NEB INHALATION (23:17)
[2018-04-02] MEDS: predniSONE 20 MG Tablet 60 MG PO (23:21)
[2018-04-02] MEDS: 0.9% Normal Saline 1,000 ML 150 ML IV (23:21)
[2018-04-02 23:36] LABS: Absolute Lymphocyte Count 1.75 X10^3/ul (0.83-4.51); Absolute Neutrophil Count 4.7 X10^3/uL (2.0-7.7); Basophil# 0.09 X10^3/uL; Basophil% 1.1 % (0-1); Eosinophils% 8.3 % (0-5); Hematocrit 40.5 % (40-54); Lymphocyte # 1.75 X10^3/ul (4.0); Lymphocyte % 20.9 % (19-41); Mean Corp Hgb Conc 34.6 g/gl (32-36); Mean Corpuscular Hgb 31.3 pg (27.0-32.0); Mean Corpuscular Volume 90.6 fL (80-94); Mean Platelet Vol. 9.6 fl (6.2-12.0); Monocyte# 1.18 X10^3/uL; Monocyte% 14.1 % (0-10); Neutrophil # 4.66 X10^3/uL (2.7-7.7); Neutrophil % 55.5 % (47-70); Platelet Count 236 K/mm3 (150-450); RBC Distribution Width CV 13.8 % (11.6-14.6); RBC Distribution Width SD 44.9 fl (35.1-43.9); Red Blood Count 4.47 M/mm3 (4.6-6.2); White Blood Count 8.4 K/mm3 (4.4-11.0)
[2018-04-02 23:38] LABS: POSITIVE COUNT NO; POSITIVE DIFFERENTIAL NO; POSITIVE MORPHOLOGY NO
[2018-04-02 23:44] LABS: Anion Gap 9 (5-15); BUN 8 mg/dL (7-18); BUN/Creat Ratio 13.1 RATIO (10-20); Calcium,Total 8.2 mg/dL (8.5-10.1); Chloride 99 mmol/L (98-107); Creatinine, Serum 0.61 mg/dL (0.70-1.30); EST Glomerular Filtration Rate 135 mL/min (>60); Est Glom Filt Rate - Afr Amer 163 mL/min (>60); Estimated Creatinine Clearance 57.95 ml/min; Glucose 116 mg/dL (74-106); Potassium 3.7 mmol/L (3.5-5.1); Sodium Level 134 mmol/L (136-145)
--- NOTE | 2018-04-03 00:40 | ED.DCSUM_ITS ---
- ER Visit Summary Date of Service: 04/03/18 Chief Complaint: Shortness of breath History of Present Illness: The patient is a [address] Up and Dr. Hansen. He reports he is shortness of breath that is chronic but worsened gradually over the course the past 4 months. Reports that currently is not short of breath at all. His shortness of breath is severe at worst. Is worsened by coughing or bending over. Is unchanged with lying flat. Reports he has a chronic cough that is productive of occasional clear sputum without blood. No fever, chills, or chest pain. reports that he typically has to use his rescue inhaler every 4 hours. Today throughout the day he needs this every 3 hours. Tonight he needed after 1 hour and she thought that he should be evaluated in the emergency department. Patient really denies any complaints at this time. Patient also complains of right wrist pain that began yesterday. He denies any injury. No fall, MVA, or change in activity. Physical Examination: Vitals: Stable. Afebrile. General: Well-nourished and well-developed. Head: Normocephalic atraumatic. Neck: Supple, no lymphadenopathy. No JVD. Nontender. Cardiovascular: Regular rate and rhythm. No murmurs. Respiratory: No respiratory distress. Mild wheezing bilaterally with good air movement. Abdominal: Soft, nontender, nondistended, normal bowel sounds. No guarding, rebound, or peritoneal signs. Back: Nontender. Extremities: Nontender, no edema. Right wrist has no overlying erythema or warmth to suggest a septic joint. He has full range of motion without any difficulty. Skin: Normal color, no rash. Neurologic: Alert and oriented ?3. Cranial nerves II through XII are intact. Normal strength and sensation. Psych: Normal affect. Test Results: EKG is A. fib at 52 with no acute changes. Is unchanged from January of this year. Chest x-ray shows chronic changes. Right wrist x-ray shows degenerative changes. CBC is marked for eosinophils of 8 monocytes 14. Chem-7 is more for sodium 134, creatinine 0.61, glucose 116, calcium 8.2. Emergency Department Course and Treatment: Patient was treated albuterol and Atrovent aerosols. His wheezing has resolved as has his dyspnea. He was given prednisone p.o. Treatment Plan: Patient be discharged on a prednisone taper. Instructed follow- up Dr. Up in 3-5 days if not improving. Follow-up with his instructor bridge previously scheduled. Return to the emergency department for any worsening symptoms. Disposition: To home in improved and stable condition. Impression: 1. COPD exacerbation. 2. Arthritis right wrist. 3. Coagulopathy on Eliquis. This note was generated with ChirpVision dictation software. It may contain incorrect words, spelling, and punctuation that were not noted in review of the chart prior to signing ED Disposition - Plan for ED Patient: Disposition: Home or Assisted Living Chief Complaint: Shortness of Breath Instructions: ED COPD Flare Prescriptions: Prednisone 10 mg PO DAILY #63 tablet Referrals: Wilfredo Up MD [Primary Care Provider] - 3-5 Days if not improving
[2018-04-03 00:52] VITALS: PULSE 72; RESP 18; O2SAT 99
== END 2018-04-03 00:52 | disposition home or self-care (01) ==
LOC: ED 23:29
PROVIDERS: Emergency Provider Emergency Medicine; Family Provider Internal Medicine; PCP Internal Medicine
DX: J44.1 Chronic obstructive pulmonary disease with (acute) exacerbation (principal); M19.031 Primary osteoarthritis, right wrist; R79.1 Abnormal coagulation profile; T45.515A Adverse effect of anticoagulants, initial encounter; Y92.9 Unspecified place or not applicable; R51 Headache; I48.91 Unspecified atrial fibrillation; I10 Essential (primary) hypertension; H40.9 Unspecified glaucoma; N40.0 Benign prostatic hyperplasia without lower urinary tract symptoms; G47.33 Obstructive sleep apnea (adult) (pediatric); K21.9 Gastro-esophageal reflux disease without esophagitis; Z79.01 Long term (current) use of anticoagulants; Z79.899 Other long term (current) drug therapy
CPT/HCPCS: 71046; 73110; 80048; 85025; 93005; 94640; 96360; 99284; J7030; A4216

== ENCOUNTER 2018-06-03 04:07 | Emergency (ER) | payer MEDICARE, SELFPAY ==
[2018-06-03 04:09] VITALS: BP 191/117; PULSE 78; RESP 18; TEMP 36.9; O2SAT 95; BMI 27.0
[2018-06-03] MEDS: Lidocaine Jelly 2% 20 ML Syringe (URO-JET) 20 APPLIC TOPICAL (05:24)
[2018-06-03 05:29] LABS: Bacteria 0 SEEN /hpf (None Seen); Mucous, Urine 0 SEEN /hpf (<or=2+); Red Blood Cells-Urine 0 SEEN /hpf (0-5); Squamous Epithelial Cells - UA 0 SEEN /hpf (0-5); White Blood Cells 0 SEEN /hpf (0-5)
[2018-06-03 05:34] LABS: Color, Urine Straw (Yellow); Glucose, Dipstick Normal (Normal); Ketone-Dipstick 5 mg/dl (Negative); Leukocyte Esterase-Dipstick Negative /ul (Negative); Nitrite-Dipstick Negative (Negative); Occult Blood-Urine 25 /ul (Negative); Protein-Dipstick 15 mg/dl (Negative); Urine Bilirubin Dipstick Negative (Negative); Urine Clarity Clear (Clear); Urine Urobilinogen Normal (Normal)
[2018-06-03 05:37] LABS: Anion Gap 12 (5-15); BUN 5 mg/dL (7-18); BUN/Creat Ratio 8.6 RATIO (10-20); Calcium,Total 8.7 mg/dL (8.5-10.1); Chloride 87 mmol/L (98-107); Creatinine, Serum 0.58 mg/dL (0.70-1.30); EST Glomerular Filtration Rate 143 mL/min (>60); Est Glom Filt Rate - Afr Amer 172 mL/min (>60); Estimated Creatinine Clearance 61.85 ml/min; Glucose 112 mg/dL (74-106); Potassium 3.9 mmol/L (3.5-5.1); Sodium Level 125 mmol/L (136-145)
[2018-06-03 05:39] LABS: Absolute Lymphocyte Count 1.98 X10^3/ul (0.83-4.51); Absolute Neutrophil Count 5.6 X10^3/uL (2.0-7.7); Basophil# 0.05 X10^3/uL; Basophil% 0.5 % (0-1); Eosinophil# 0.32 X10^3/uL; Eosinophils% 3.4 % (0-5); Hematocrit 44.4 % (40-54); Hemoglobin 16.1 g/dl (13.0-16.5); Lymphocyte # 1.98 X10^3/ul (4.0); Lymphocyte % 20.9 % (19-41); Mean Corp Hgb Conc 36.3 g/gl (32-36); Mean Corpuscular Hgb 31.4 pg (27.0-32.0); Mean Corpuscular Volume 86.5 fL (80-94); Mean Platelet Vol. 9.6 fl (6.2-12.0); Monocyte# 1.54 X10^3/uL; Monocyte% 16.2 % (0-10); Neutrophil # 5.57 X10^3/uL (2.7-7.7); Neutrophil % 58.8 % (47-70); Platelet Count 240 K/mm3 (150-450); RBC Distribution Width CV 13.2 % (11.6-14.6); RBC Distribution Width SD 41.6 fl (35.1-43.9); Red Blood Count 5.13 M/mm3 (4.6-6.2); White Blood Count 9.5 K/mm3 (4.4-11.0)
[2018-06-03 05:40] LABS: Differential Indicated SCAN CRITERIA MET; POSITIVE COUNT NO; POSITIVE DIFFERENTIAL YES; POSITIVE MORPHOLOGY NO
--- NOTE | 2018-06-03 06:33 | ED.VISSUMM ---
- ER Visit Summary Date of Service: 06/03/18 Chief Complaint: Urinary retention History of Present Illness: The patient is a 77 M increased urinary urgency since 7 PM 10 hours prior to arrival. No dysuria. States sweats due to her symptoms. Saw PCP office on Wednesday states a trouble urinating was taken off amitriptyline. History of BPH, is not on Flomax. Does not see a urologist. Patient takes Eliquis for history of atrial fibrillation. Presents here with significant other. Several other states had labs drawn by pulmonology to couple weeks ago was told sodium was low unclear the number. Also was told that creatinine was elevated. Physical Examination: General: Alert and oriented ?3, no acute distress HEENT: Normocephalic, atraumatic. Moist mucosa membranes Neck: supple, nontender. Cardiovascular: Regular rate and rhythm, no murmurs Respiratory: Normal breath sounds, symmetric, no distress Abdomen: Soft, suprapubic distention with mild tenderness. No guarding or rebound. Extremities: Nontender, no edema, pulses intact ?4 Neuro: no focal neurological deficits. Test Results: White count 9.5 hemoglobin 16.1. Creatinine 0.58. Sodium 125. UA with blood and ketones. No leukocytes nitrates or white blood cell counts. Emergency Department Course and Treatment: Patient with distended bladder on exam. Kirk cath was placed, urine output was 1400 mL. Significant improved symptoms. There is no infection in the urine. Due to reported kidney insufficiency history of did check labs, creatinine 0.58. Sodium 125. White count 9.5. Unclear on what his last reported sodium was. However from records in March is 134. He has no nausea or vomiting. No confusion. Discussed with patient's him other follow-up with his doctors for reevaluation due to reported low sodium history. He will maintain Kirk for 3 days, started on Flomax. Is given follow-up with urology. Discussed the cannot get in to either urology his PCP 3 days and return for Kirk catheter removal. All questions are answered. Treatment Plan: [] Disposition: Discharge Impression: 1. Urine retention 2. Hyponatremia This note was generated with vBrandation software. It may contain incorrect words, spelling, and punctuation that were not noted in review of the chart prior to signing ED Disposition - Plan for ED Patient: Disposition: Home or Assisted Living Chief Complaint: Complaint Diagnosis: Urine retention Instructions: ED Hyponatremia, ED Retention Urinary Male Prescriptions: Tamsulosin HCl [Flomax] 0.4 mg PO DAILY #7 cap.er.24h Referrals: Wilfredo Up MD [Primary Care Provider] - 3-5 Days Darin Sharma MD [STAFF PHYSICIAN] - 3-5 Days
[2018-06-03 06:51] VITALS: BP 152/99; PULSE 61; RESP 18; O2SAT 96
== END 2018-06-03 06:53 | disposition home or self-care (01) ==
PROVIDERS: Emergency Provider Emergency Medicine; Family Provider Internal Medicine; PCP Internal Medicine
DX: N40.1 Benign prostatic hyperplasia with lower urinary tract symptoms (principal); R33.8 Other retention of urine; R39.15 Urgency of urination; E87.1 Hypo-osmolality and hyponatremia; I48.91 Unspecified atrial fibrillation; I10 Essential (primary) hypertension; K21.9 Gastro-esophageal reflux disease without esophagitis; G47.33 Obstructive sleep apnea (adult) (pediatric); Z79.01 Long term (current) use of anticoagulants; Z79.899 Other long term (current) drug therapy
CPT/HCPCS: 51702; 80048; 81001; 85025; 99285; A4216

== ENCOUNTER 2018-07-08 08:34 | Emergency (ER) | payer MEDICARE, SELFPAY ==
[2018-07-08 08:35] VITALS: BP 154/85; PULSE 80; RESP 16; TEMP 36.2; O2SAT 99; BMI 28.0
[2018-07-08 08:49] VITALS: BP 157/94; PULSE 66; RESP 16; O2SAT 99
--- NOTE | 2018-07-08 09:05 | ED.VISSUMM ---
- ER Visit Summary Date of Service: 07/08/18 Chief Complaint: Elevated blood pressure History of Present Illness: The patient is a 77 M history of hypertension, glaucoma, A. fib, prior GI bleed and COPD. Patient currently is on blood pressure medications. This morning his blood pressure was running high at home at 194/104 and he had a mild headache. He denied any chest pain or shortness of breath. Took his normal morning medications. Currently he is feeling fine. He denies any headache, chest pain or shortness of breath currently. Physical Examination: Older male accompanied by his vital signs are stable afebrile. His initial blood pressure currently is 154/85. He has no complaints. H EENT exam unremarkable. Neck nontender. Lungs clear to auscultation bilaterally. Heart irregularly irregular rate about 80. Abdomen soft nontender. He is moving all 4 extremities. They are neurovascularly intact. He has normal motor function in both upper and lower extremities. 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 Dorsi and plantar flexion are intact. Neurologically is awake and alert. Normal speech. No facial droop. Fingertip to nose all within normal limits. He has no focal motor or sensory deficits currently. Test Results: None Emergency Department Course and Treatment: Long discussion with the patient is we went in for blood pressure and his medications. He does not need any testing done at this time. He has had lab work recently with normal renal function. He is going to log his blood pressures for the next 1-2 weeks. Continue to take his medications as prescribed and follow-up with his customer service cashier to have his blood pressure medications evaluated. Treatment Plan: Follow-up with his customer service cashier. Disposition: Discharge Impression: Acute on chronic hypertension This note was generated with Supersolid dictation software. It may contain incorrect words, spelling, and punctuation that were not noted in review of the chart prior to signing ED Disposition - Plan for ED Patient: Chief Complaint: Hypertension Referrals: Wilfredo Up MD [Primary Care Provider] -
--- NOTE | 2018-07-08 09:08 | ED.DCSUM_ITS ---
- ER Visit Summary Date of Service: 07/08/18 Chief Complaint: Elevated blood pressure History of Present Illness: The patient is a 77 M history of hypertension, glaucoma, A. fib, prior GI bleed and COPD. Patient currently is on blood pressure medications. This morning his blood pressure was running high at home at 194/104 and he had a mild headache. He denied any chest pain or shortness of breath. Took his normal morning medications. Currently he is feeling fine. He denies any headache, chest pain or shortness of breath currently. Physical Examination: Older male accompanied by his vital signs are stable afebrile. His initial blood pressure currently is 154/85. He has no complaints. H EENT exam unremarkable. Neck nontender. Lungs clear to auscultation bilaterally. Heart irregularly irregular rate about 80. Abdomen soft nontender. He is moving all 4 extremities. They are neurovascularly intact. He has normal motor function in both upper and lower extremities. 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 Dorsi and plantar flexion are intact. Neurologically is awake and alert. Normal speech. No facial droop. Fingertip to nose all within normal limits. He has no focal motor or sensory deficits currently. Test Results: None Emergency Department Course and Treatment: Long discussion with the patient is we went in for blood pressure and his medications. He does not need any testing done at this time. He has had lab work recently with normal renal function. He is going to log his blood pressures for the next 1-2 weeks. 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 Treatment Plan: Follow-up with his locomotive crane operator helper. Disposition: Discharge Impression: Acute on chronic hypertension This note was generated with [email or web address] dictation software. It may contain incorrect words, spelling, and punctuation that were not noted in review of the chart prior to signing ED Disposition - Plan for ED Patient: Chief Complaint: Hypertension Referrals: Wilfredo Up MD [Primary Care Provider] -
--- NOTE | 2018-07-08 09:08 | ED.DEP ---
ED Disposition - Plan for ED Patient: Disposition: Home or Assisted Living Chief Complaint: Hypertension Instructions: ED Hypertension Conf Out Of Control Referrals: Jared Holder MD [[facility]] - 1-2 Weeks Additional Instructions: Continue current medications as prescribed. Log blood pressures twice daily and follow-up with your linseed oil temperer to see if you need any medications adjusted or changed.
== END 2018-07-08 09:13 | disposition home or self-care (01) ==
PROVIDERS: Emergency Provider Emergency Medicine; Family Provider Internal Medicine; PCP Internal Medicine
DX: I10 Essential (primary) hypertension (principal); I48.91 Unspecified atrial fibrillation; J44.9 Chronic obstructive pulmonary disease, unspecified; H40.9 Unspecified glaucoma; K21.9 Gastro-esophageal reflux disease without esophagitis; Z87.19 Personal history of other diseases of the digestive system; Z79.01 Long term (current) use of anticoagulants; Z79.899 Other long term (current) drug therapy; Z87.891 Personal history of nicotine dependence
CPT/HCPCS: 99282

== ENCOUNTER → 2019-06-29 10:18 | Outpatient (CLI) | payer MEDICARE, SELFPAY ==
[2019-06-15 10:45] VITALS: BMI 28.4
--- NOTE | 2019-06-29 10:21 | STEWCON_ITS ---
Reason For Study: Atrial Fibrillation; Chest Pain Stress Results Protocol: Modified Jose Protocol Maximum Predicted HR: 140 bpm Target HR: 119 bpm % Maximum Predicted HR: 101 % DurationHeart Rate Stage (mm:ss) (bpm) BP Comment Baseline 61 118/70No Chest Pain; 4 ML Diluted Definity Given Modified Jose Protocol Stage 0 3:00 110 130/74No Chest Pain Modified Jose Protocol Stage 1/2 3:00 109 140/72No Chest Pain Modified Jose Protocol Stage 1 3:00 126 152/72No Chest Pain; Mild Dyspnea Modified Jose Protocol Stage 2 1:30 141 / No Chest Pain; Mild to Moderate Dyspnea Recovery 69 130/74No Chest Pain Stress Duration: 10:30 mm:ss Maximum Stress HR: 141 bpm METS: 7 Baseline Echocardiogram Findings The estimated ejection fraction is 65 %. Stress Echo Wall motion Data Resting WM Intermediate WM Stress WM Resting Wall Motion Wall Motion Stress No regional wall motion No regional wall motion abnormalities noted. abnormalities noted. EKG Data Atrial fibrillation with controlled ventricular response. During stress, there were no ST or T wave changes noted to suggest ischemia. No clinical angina was noted. Interpretation Summary The estimated ejection fraction is 65 %. Normal, adequate, modified Jose treadmill echocardiogram. Negative for ischemia by EKG and echocardiographic criteria. No anginal symptoms noted. Baseline atrial fibrillation with controlled ventricular response with adequate heart rate response to exercise. Appropriate blood pressure response to exercise. Average exercise capacity for age. Test terminated due to the attainment of target heart rate. Decreased sensitivity due to poor echo windows requiring Definity agent. Final LVEF is 75%. No complications. The study was technically difficult. Contrast injection was performed. Ordering Physician: Brenden Borden Referring Physician: Wilfredo Up Performed By: Cody Bunn RCS
== END ==
PROVIDERS: Family Provider Internal Medicine; PCP Internal Medicine; Referring Provider Internal Medicine Cardiovascular Disease; Visit Provider Internal Medicine Cardiovascular Disease
DX: R07.9 Chest pain, unspecified (principal); I48.91 Unspecified atrial fibrillation
CPT/HCPCS: 93017; 93350; Q9957; A4216; C8928

== ENCOUNTER → 2019-10-26 06:57 | Outpatient (CLI) | payer MEDICARE, SELFPAY ==
[2019-10-19 11:15] VITALS: BMI 28.8
[2019-10-26 07:42] LABS: AST(SGOT) 30 U/L (15-37); Alanine Aminotransfer ALT/SGPT 29 U/L (16-61); Albumin, Serum 3.3 g/dL (3.2-5.0); Alkaline Phosphatase 52 U/L (45-117); Bilirubin, Direct 0.19 mg/dL (0.00-0.30); Cholesterol 120 mg/dL (200); Globulin 3.6 g/dL (2.2-4.2); High Density Lipoprotein 69 mg/dL; Protein, Total 6.9 g/dL (6.4-8.2); Triglycerides 52 mg/dL; Very Low Density Lipoprotein 10 mg/dL (5-40)
== END ==
PROVIDERS: PCP Internal Medicine; Referring Provider Internal Medicine Cardiovascular Disease; Visit Provider Internal Medicine Cardiovascular Disease
DX: E78.5 Hyperlipidemia, unspecified (principal)
CPT/HCPCS: 36415; 80061; 80076

== ENCOUNTER → 2019-11-07 12:51 | Outpatient (CLI) | payer MEDICARE, SELFPAY ==
[2019-10-19 11:15] VITALS: BMI 28.8
--- NOTE | 2019-11-07 12:52 | ECHOD_ITS ---
Reason For Study: VALVE REPLACEMENT EVAL, GABBIE Procedure This was a 2D Doppler, Color Flow transthoracic echocardiogram. Exam performed in department. Left Ventricle Moderate concentric left ventricular hypertrophy. The estimated ejection fraction is 65-75 %. Unable to assess diastolic dysfunction due to arrhythmia. No regional wall motion abnormalities noted. Right Ventricle Moderately dilated right ventricle. Normal systolic function. Atria The left atrium is severely enlarged. The right atrium is severely enlarged. Normal atrial septum. Mitral Valve Moderate focal mitral valve thickening. Mild mitral valve stenosis. Trivial mitral valve insufficiency. Tricuspid Valve Normal tricuspid valve. Mild (1+) tricuspid valve insufficiency. Right ventricular systolic pressure estimated to be 55 mmHg. Moderate pulmonary hypertension. Aortic Valve Trisinus/trileaflet aortic valve. Moderate focal aortic valve thickening. There is no aortic stenosis. Pulmonic Valve Normal pulmonic valve. Trivial pulmonic valve insufficiency. Great Vessels Normal aortic root. Normal arch. Normal inferior vena cava. Inferior vena cava collapse with sniff. Pericardium/Pleural Trivial pericardial effusion. There are no echocardiographic indications of cardiac tamponade. MMode/2D Measurements & Calculations LVIDd: 4.7 cm IVSd: 1.4 cm Ao root diam: 3.6 cm LVIDs: 2.7 cm LVPWd: 1.2 cm RVDd: 4.0 cm FS: 41.8 % LAV(MOD-bp): 134.8 ml LA A4 area: 29.0 cm2 LA dimension(2D): 5.1 cm LAV(MOD-bp) Indexed: 67.4 ml/m2 LAV(MOD-sp2): 156.1 ml LAV(MOD-sp4): 102.9 ml RA A4 area: 25.5 cm2 Doppler Measurements & Calculations MV E max nidia: 135.3 cm/sec MV V2 max: 172.0 cm/sec Ao V2 max: 146.1 cm/sec MV max P.9 mmHg Ao max P.6 mmHg MV V2 mean: 77.5 cm/sec MV mean P.3 mmHg MV V2 VTI: 37.5 cm LV V1 max: 94.5 cm/sec PA V2 max: 87.1 cm/sec PI end-d nidia: 111.9 cm/sec LV V1 max P.6 mmHg TR max nidia: 311.1 cm/sec TR max P.8 mmHg Interpretation Summary Moderate concentric left ventricular hypertrophy. The estimated ejection fraction is 65-75 %. Unable to assess diastolic dysfunction due to arrhythmia. Moderately dilated right ventricle. The left atrium is severely enlarged. The right atrium is severely enlarged. Trivial mitral valve insufficiency. Mild (1+) tricuspid valve insufficiency. Right ventricular systolic pressure estimated to be 55 mmHg. Moderate pulmonary hypertension. Moderate focal aortic valve thickening on noncoronary cusp. Mild mitral valve stenosis. Trivial posterior pericardial effusion. There are no echocardiographic indications of cardiac tamponade. Patient appears to be in atrial fibrillation. There is no comparison study available. Ordering Physician: Michi^Brenden^^^ Referring Physician: Wilfredo Up Performed By: Jennyfer Hunter, INNA, RVT
== END ==
PROVIDERS: PCP Internal Medicine; Referring Provider Internal Medicine Cardiovascular Disease; Visit Provider Internal Medicine Cardiovascular Disease
DX: G47.33 Obstructive sleep apnea (adult) (pediatric) (principal)
CPT/HCPCS: 93306

== ENCOUNTER → 2020-08-16 08:00 | Outpatient (CLI) | payer MEDICARE, SELFPAY ==
[2020-08-14 09:22] VITALS: BMI 28.4
[2020-08-16 12:56] LABS: Absolute Lymphocyte Count 1.98 X10^3/uL (0.83-4.51); Absolute Neutrophil Count 3.4 X10^3/uL (2.0-7.7); Basophil# 0.03 X10^3/uL; Basophil% 0.5 % (0-1); Eosinophil# 0.08 X10^3/uL; Eosinophils% 1.3 % (0-5); Hematocrit 47.9 % (40-54); Hemoglobin 15.6 g/dL (13.0-16.5); Lymphocyte # 1.98 X10^3/ul (4.0); Lymphocyte % 31.3 % (19-41); Mean Corp Hgb Conc 32.6 g/dL (32-36); Mean Corpuscular Hgb 31.1 pg (27.0-32.0); Mean Corpuscular Volume 95.4 fL (80-94); Monocyte# 0.85 X10^3/uL; Monocyte% 13.4 % (0-10); NRBC Flagged by Analyzer 0 % (0-5); Neutrophil # 3.36 X10^3/uL (2.7-7.7); Platelet Count 271 K/mm3 (150-450); RBC Distribution Width CV 14.1 % (11.6-14.6); RBC Distribution Width SD 49.6 fl (35.1-43.9); Red Blood Count 5.02 M/mm3 (4.6-6.2); White Blood Count 6.3 K/mm3 (4.4-11.0)
[2020-08-16 13:11] LABS: AST(SGOT) 33 U/L (15-37); Alanine Aminotransfer ALT/SGPT 36 U/L (16-61); Albumin, Serum 3.6 g/dL (3.2-5.0); Alkaline Phosphatase 62 U/L (45-117); Anion Gap 5 (5-15); BUN 10 mg/dL (7-18); BUN/Creat Ratio 15.2 RATIO (10-20); Calcium,Total 8.8 mg/dL (8.5-10.1); Chloride 100 mmol/L (98-107); Cholesterol 136 mg/dL (200); Creatinine, Serum 0.66 mg/dL (0.70-1.30); EST Glomerular Filtration Rate 123 mL/min (>60); Est Glom Filt Rate - Afr Amer 149 mL/min (>60); Globulin 3.7 g/dL (2.2-4.2); Glucose 100 mg/dL (74-106); High Density Lipoprotein 71 mg/dL; PSA,Total - Annual Screen 1.91 ng/mL (0.00-4.00); Potassium 4.2 mmol/L (3.5-5.1); Protein, Total 7.3 g/dL (6.4-8.2); Sodium Level 136 mmol/L (136-145); Triglycerides 61 mg/dL; Very Low Density Lipoprotein 12 mg/dL (5-40)
== END ==
PROVIDERS: PCP Internal Medicine; Referring Provider Internal Medicine; Visit Provider Internal Medicine
DX: I48.91 Unspecified atrial fibrillation (principal); E78.5 Hyperlipidemia, unspecified; I10 Essential (primary) hypertension; N40.1 Benign prostatic hyperplasia with lower urinary tract symptoms; N13.8 Other obstructive and reflux uropathy; K21.9 Gastro-esophageal reflux disease without esophagitis; G47.33 Obstructive sleep apnea (adult) (pediatric)
CPT/HCPCS: 36415; 80053; 80061; 84153; 84443; 85025; G0103

== ENCOUNTER 2020-10-24 13:19 | Outpatient (RCR) | payer MEDICARE, SELFPAY ==
[2020-08-14 09:22] VITALS: BMI 28.4
== END 2020-10-24 23:59 ==
LOC: IMMUN 13:19
PROVIDERS: PCP Internal Medicine; Visit Provider Family Medicine
DX: Z23 Encounter for immunization (principal)
CPT/HCPCS: 0011A; 0012A; 91301

== ENCOUNTER → 2020-12-11 15:10 | Outpatient (CLI) | payer MEDICARE, SELFPAY ==
[2020-12-11 09:56] VITALS: BMI 28.4
[2020-12-11 17:18] LABS: Erythrocyte Sedimentation Rate 10 mm/hr (0-20)
[2020-12-11 17:40] LABS: CRP < 2.90 mg/L (0.0-3.0)
== END ==
PROVIDERS: PCP Internal Medicine; Referring Provider Internal Medicine; Visit Provider Internal Medicine
DX: R51.9 Headache, unspecified (principal)
CPT/HCPCS: 36415; 85652; 86140

== ENCOUNTER → 2021-01-02 06:38 | Outpatient (CLI) | payer MEDICARE, SELFPAY ==
[2020-12-19 09:59] VITALS: BMI 29.0
--- NOTE | 2021-01-02 10:56 | STRESSREP_ITS ---
Stress Test Report Exercise myocardial perfusion stress test. 80-year-old man with a history of chest pain. Stress protocol: Resting EKG demonstrates atrial fibrillation with a rate of 66 bpm normal intervals are noted resting blood pressure 130/78 mmHg. The patient exercised according to the modified Jose protocol for a total duration of 11 minutes. T he maximum heart rate attained was 153 bpm which was other than 10% of max impacted heart rate the maximum workload was 7 metabolic equivalents. The patient maintained atrial fibrillation throughout the recording. At rest there were no ST or T wave changes noted to suggest ischemia and at peak exercise upsloping ST changes were noted with did not meet the criteria for ischemia. No clinical angina was noted the test was terminated due to dyspnea. Myocardial perfusion protocol. 11.6 mCi of technetium 99m sestamibi was injected at rest. The patient exercised according to the modified Jose protocol and at peak exercise 33.7 mCi of technetium 99m sestamibi was injected stress images were obtained stress and rest images were reconstructed and compared in the short axis vertical long and horizontal long axis. Gated images were also obtained. Perfusion SPECT analysis: Review of the stress images demonstrate normal uptake of tracer noted in all areas of the myocardium. The resting images similarly demonstrate normal uptake of tracer noted in all areas of the myocardium. No reversibility is noted to suggest ischemia. Gated SPECT analysis: The gated ejection fraction is 78%. Conclusion: Normal exercise myocardial perfusion stress test at a moderate workload. Atrial fibrillation noted. Preserved ejection fraction.
== END ==
PROVIDERS: PCP Internal Medicine; Referring Provider Internal Medicine Cardiovascular Disease; Visit Provider Internal Medicine Cardiovascular Disease
DX: I25.10 Atherosclerotic heart disease of native coronary artery without angina pectoris (principal); I48.11 Longstanding persistent atrial fibrillation; R07.9 Chest pain, unspecified
CPT/HCPCS: 78452; 93017; A9500; A4216

== ENCOUNTER 2021-04-04 08:14 | Day surgery (SDC) | payer MEDICARE, SELFPAY ==
[2021-03-11 14:21] VITALS: BMI 28.7
[2021-04-04] VITALS (7 sets, daily range): BP systolic 122–148; BP diastolic 73–93; PULSE 57–85; RESP 16–18; TEMP 36.1–36.5; O2SAT 94–99; BMI 27.6
[2021-04-04] MEDS: Lactated Ringers 1,000 ML 100 ML IV (08:35)
--- NOTE | 2021-04-04 08:50 | HP.PCM_ITS ---
History and Physical Date of Admission: 04/04/21 Intake Visit Reasons: EGD Chief Complaint: repeat EGD Emulsion Operator Required: No Accompanied by: Is patient in pain?: No Allergies ondansetron [From Zofran] Adverse Reaction (Intermediate, Verified 03/11/21 14:23) Restless legs, twitchy Medications albuterol sulfate 2 puff INHALATION Q4H PRN PRN 01/23/18 [History Confirmed 02/20/21] brimonidine 1 drp EACH EYE BID 01/23/18 [History Confirmed 03/11/21] ipratropium-albuterol 1 puff INHALATION BID 01/23/18 [History Confirmed 02/20] latanoprost 1 drp EACH EYE QHS 01/23/18 [History Confirmed 03/11/21] omeprazole 40 mg PO BID 01/23/18 [History Confirmed 03/11/21] tamsulosin 0.4 mg PO DAILY #7 cap.er.24h 06/03/18 [Rx Confirmed 03/11/21] aspirin 81 mg tablet,delayed release 81 mg PO DAILY 01/30/19 [History Confirmed 03/11/21] nitroglycerin 0.4 mg sublingual tablet 0.4 mg SUBLINGUAL Q5-15M PRN 01/30/19 [History Confirmed 03/11/21] riboflavin (vitamin B2) 100 mg tablet 100 mg PO DAILY 02/03/19 [History Confirmed 03/11/21] budesonide-formoterol HFA 160 mcg-4.5 mcg/actuation aerosol inhaler 2 puff INHALATION BID 06/15/19 [History Confirmed 03/11/21] tiotropium bromide 18 mcg capsule with inhalation device 1 cap INHALATION DAILY 06/15/19 [History Confirmed 03/11/21] apixaban 5 mg tablet 5 mg PO BID #180 tab 10/19/19 [Rx Confirmed 03/11/21] simvastatin 20 mg tablet 20 mg PO DAILY 08/15/20 [History Confirmed 03/11/21] hydrochlorothiazide 12.5 mg tablet 12.5 mg PO DAILY #90 tab 11/06/20 [Rx Confirmed 03/11/21] gabapentin 100 mg capsule 100 mg PO .COMPLEX #150 cap 12/19/20 [Rx Confirmed 03/11/21] isosorbide mononitrate 30 mg tablet,extended release 24 hr 30 mg PO DAILY #90 tab 12/19/20 [Rx Confirmed 03/11/21] magnesium 250 mg tablet 250 mg PO BID tab 12/19/20 [History Confirmed 03/11/21] amlodipine 10 mg tablet 10 mg PO DAILY #90 tablet 01/17/21 [Rx Confirmed 03/11/21] lisinopril 30 mg tablet 30 mg PO DAILY #90 tab 02/12/21 [Rx Confirmed 03/11/21] compress.stocking,knee,reg,med #2 ea 02/20/21 [Rx Confirmed 03/11/21] ferrous sulfate 325 mg (65 mg iron) tablet 325 mg PO DAILY 03/11/21 [History Confirmed 03/11/21] fluorometholone 0.1 % eye drops,suspension 1 drp OPHTHALMIC (EYE) BID ml 03/11/21 [History Confirmed 03/11/21] triamcinolone acetonide 55 mcg/actuation nasal spray,aerosol mcg INTRANASAL 03/11/21 [History Confirmed 03/11/21] FOR[facility]LY [facility], [facility] Medical History (Updated 03/11/21 @ 16:[address] Andrei Gupta MD) Actinic keratosis Arthritis Paiz esophagus Benign prostate hyperplasia Carotid artery disease COPD (chronic obstructive pulmonary disease) Essential (primary) hypertension GERD (gastroesophageal reflux disease) Glaucoma Hiatal hernia History of upper gastrointestinal bleeding (12/2013) Hyperlipidemia Longstanding persistent atrial fibrillation Obstructive sleep apnea Secondary pulmonary arterial hypertension Sleep apnea SOB (shortness of breath) Vocal cord dysfunction Surgical History (Updated 03/11/21 @ 14:19 by Annie Torres) History of esophagogastroduodenoscopy (EGD) History of repair of hiatal hernia Hx of tonsillectomy Family History Father Asthma CVA (cerebral vascular accident) Mother Hypertension Cancer Sister Hypertension Diabetes Grandfather Myocardial infarction Social History (Updated 03/11/21 @ 14:32 by Annie Torres) Smoking Status: Former smoker quit date: 10/04/94 second hand exposure: No alcohol intake: current alcohol intake frequency: a few times a month Alcohol type: beer substance use type: does not use caffeine: Yes what type of physical activity do you participate in: none frequency: does not exercise HPI HPI HPI: ANNEMARIE OROSCO, is a 80 M who presents to the office today for surgical consultation because of a personal history of Paiz's esophagus. The patient is referred by his primary care physician Dr. Mariaa Collazo intermittent copy my from surgical consult will be returned to him. The patient has been able to achieve full vaccination to COVID-19. It is of particular note that he is on anticoagulation in the form of aspirin 81 g daily and Eliquis 5 mg twice daily. The Eliquis is in treatment of atrial fibrillation. The patient a previous echocardiogram November 07, 2019 with an ejection fraction of 65 to 75% moderate concentric left ventricular hypertrophy His most recent upper endoscopy was performed by Dr. Corey Lenz on March 07, 2018. That demonstrated findings consistent with short segment Paiz's esophagus 1 cm in length. The patient also had a colonoscopy at that time and no further colonoscopy was felt to be indicated. It was but recommended the patient however that he have a follow-up upper endoscopy in 2 years. COVID-19 did interfere with that scheduling. The pathology from the biopsies showed focal erosion with reactive epithelial change and inflamed cardiac fundic type mucosa The patient goes on to describe previous surgery that he had at [facility]. He states that because of the size of his hernia and his chronic pulmonary disease that I referred him several years back to the clinic. The patient however states that he has severe reflux symptoms and vomiting if he does not stay on his omeprazole. I do not have access to the procedure that was performed. ROS General General: No weight change, appetite, fatigue, colon cancer or breast cancer HEENT HEENT: No difficulty swallowing, eye injury, eye surgery, swollen glands or hoarseness Endo Endocrine: No thyroid disease, diabetes mellitus, thyroid cancer, Hair loss, heat intolerance or cold intolerance Skin Skin: No rash or changing moles Musc Musculoskeletal: Yes arthritis; No back problems, rheumatoid arthritis, gout or joint pain Cardio Cardiovascular: Yes atrial fibrillation and high blood pressure; No murmur, pacemaker, heart disease, heart attack, heart stent, palpitations, shortness of breat with exertion or chest pain Psych Psychiatric: No depression, anxiety or hearing voices Resp Respiratory: Yes shortness of breath, Yes sleep apnea, No cough, Yes COPD, No asthma, Yes emphysema and No wheezing Gastro Gastrointestinal: No abdominal pain, No nausea or vomiting, No diarrhea, Yes constipation, No blood in stool, Yes acid reflux, No hemorrhoids, No ulcers, No gallbladder problem and No black,tarry stools Lucius Hematologic: Yes blood thinners, No blood disorders, No bleeding, No anemia and No blood clots Exam Const General: cooperative, comfortable and no acute distress Orientation: alert, awake and oriented x3 HENMT Head: normal to inspection Eyes General: appearance normal, both eyes and all related structures Chest Other: Increased anterior posterior diameter Resp Other: Slightly diminished respiratory excursion bilaterally, Cardio Rate: regular rate Rhythm: regular rhythm Other: 2/6 systolic ejection murmur GI Palpation: soft and no hepatosplenomegaly Auscultation: normal bowel sounds Musc Other: Mild cervical kyphosis Skin General: no rashes or lesions noted Neuro General: patient alert and patient awake Extrem General: no calf tenderness bilaterally Psych Appearance: grossly normal COVID (Procedure Consent) Procedure Criteria Procedure Criteria: Yes Elective The surgeon/proceduralist and patient have discussed in detail the risk of exposure to and/or potential harm posed by the COVID-19 virus with having a surgery/procedure at this time versus the risk of delaying the surgery/procedure. It is not possible to know either the risk of delaying the surgery or procedure or chance of getting an infection with perfect accuracy, but a joint decision was made between the patient and the surgeon/proceduralist to proceed at this time with the scheduled surgery/procedure as indicated on the consent form. Assessment and Plan Assessment and Plan (1) History of repair of hiatal hernia: Status: Acute (2) Paiz esophagus: Status: Chronic Qualifiers: Paiz's esophagus type: without dysplasia Qualified Code(s): K22.70 - Paiz's esophagus without dysplasia Plan Details Additional Comments: 80-year-old gentleman with biopsy-proven Paiz's esophagus short segment. 2-year follow-up recommended from his March 2018 upper endoscopy. Covid-19 interfered with appropriate scheduling. I recommended the patient a esophagogastroduodenoscopy with biopsy. He is aware of the technique, benefit, risk, alternatives. He has had an opportunity to ask and have questions answered. We will schedule proceed at his discretion. He does carry increased interventional risk. We will proceed with monitored anesthesia care. We will have him hold his Eliquis 2 days preprocedure. He may remain on his aspirin therapy. I appreciate the opportunity of assisting with the surgical care. Copy: Dr. Mariaa Gupta M.D., Dg [place] have re-examined the patient. There are no clinical changes since date of exam.
--- NOTE | 2021-04-04 09:30 | IMM_PTH ---
PATIENT: ANNEMARIE OROSCO LOC: [facility] U#:[id number] AGE/SX: 80/M ROOM: RE04/04/[address]: Dr. Andrei Gupta MD : 1940 BED: DIS: 04/04/2021 SPEC #: [id number] RECD: 04/04/21 14:10 STATUS: ALYSSA KATHERINE #: [id number] DICK: 04/04/21 09:[address]: Andrei Gupta DEPT: IMMUNOHISTOCHEMISTRY RECD BY: Kristy Mohr ENTERED: 04/04/21 14:10 SP TYPE: IMMUNO OTHR DR: Dr. Mariaa Collazo MD Tissues: B - Stomach, NOS Procedures: H Pylori (initial) PHYSICIAN & INSTITUTION [place] [address] SPECIMEN INFORMATION: Tissue Source: B ? Antrum biopsy Clinical Info: Paiz?s esophagus Specimen Number: [id number] CPT code: 86220 METHODOLOGY: Deparaffinized sections of prefer/formalin-fixed tissue or PAP/DQ stained slides are incubated with monoclonal/polyclonal antibodies/oligonucleotide probes. Localization is made via biotin free immunoperoxidase method. Appropriate controls are performed and reacted as expected. Results on target cell population are indicated in the following table: RESULTS: ANTIBODY / CLONE RESULT Block B H Pylori (polyclonal) negative These tests were developed and their performance characteristics determined by [facility]. They may not have been cleared or approved by the U.S. Food and Drug Administration. The FDA has determined that such clearance or approval is not necessary. INTERPRETATION: B. Antrum biopsy: Negative for Helicobacter pylori organisms. AM:nanette 04/08/2021
--- NOTE | 2021-04-04 09:30 | EGD_PTH ---
PATIENT: ANNEMARIE OROSCO LOC: EN U#:[id number] AGE/SX: 80/M ROOM: RE04/04/[address]: Dr. Andrei Gupta MD : 1940 BED: DIS: 04/04/2021 SPEC #: [id number] RECD: 04/04/21 13:07 STATUS: ALYSSA BAPTISTEDamir #: [id number] DICK: 04/04/21 09:[address]: Andrei Gupta DEPT: SURGICAL PATHOLOGY RECD BY: Chrystal Spence ENTERED: 04/04/21 13:22 SP TYPE: EGD BIOPSY OT DR: Dr. Mariaa Collazo MD Tissues: A - Duodenum, NOS B - Gastric mucous membrane C - Esophagus, NOS Procedures: Special Stain Group II Special Stain Group I Surgery Specimen Level IV GMS Stain (control) Alcian Blue/PAS (control) HEADER OPERATION: EGD (MAC) PRE-OP DIAGNOSIS: Paiz?s esophagus TISSUE SUBMITTED: A - Duodenum biopsy, B - Antrum biopsy for histo and H. pylori, C - Distal esophagus biopsy MICROSCOPIC DIAGNOSIS A. Duodenum, biopsy: Minimal nonspecific chronic inflammation. B. Gastric antrum, biopsy: Chronic gastritis. See comment. C. Distal esophagus biopsy: Focal changes of reflux. Gastroesophageal junction mucosa with acute and chronic inflammation. No evidence of intestinal metaplasia. See comment. AM:nanette 04/08/2021 COMMENT B. The results of immunohistochemistry for Helicobacter pylori will be reported separately ([id number]). C. Alcian blue/PAS stain with matched control supports the above diagnosis. GMS stain with matched control was used in the evaluation of this case. MICROSCOPIC DESCRIPTION Slides are reviewed. GROSS DESCRIPTION A - Received in fixative is one container labeled with the patient's name and designated duodenum biopsy. The specimen consists of one irregular fragment of light frausto soft tissue that measures 0.3 x 0.3 x 0.1 cm. The specimen is totally submitted in one cassette. B - Received in fixative is one container labeled with the patient's name and designated antrum biopsy. The specimen consists of one irregular fragment of light frausto soft tissue that measures 0.6 x 0.2 x 0.1 cm. The specimen is totally submitted in one cassette. C - Received in fixative is one container labeled with the patient's name and designated distal esophagus biopsy. The specimen consists of multiple irregular fragments of light frausto soft tissue that in aggregate measure 2 x 0.5 x 0.1 cm. The specimen is totally submitted in one cassette. / SJ:rg 04/04/21 TC:2 CPT: 00337 x3, 75128, 47887
--- NOTE | 2021-04-04 09:54 | OP.CCLET_ITS ---
04/04/2021 Mariaa Collazo [facility] [address] [place] [address] Re : Upper GI endoscopy procedure for Eddi Suggs Dear Dr. Collazo This procedure was performed on Sunday, April 04, 2021. My impressions and recommendations are as follows: Impressions : - Esophageal mucosal changes consistent with short-segment Paiz's esophagus. Biopsied. - Small hiatal hernia. - Food in the middle third of the esophagus and in the lower third of the esophagus. - Erythematous mucosa in the antrum. Biopsied. - A large amount of food (residue) in the stomach. - Normal examined duodenum. Biopsied. Recommendations : - Discharge patient to home. - Resume previous diet. - Continue present medications. - Telephone my office for pathology results in 1 week. My findings are described in the full procedure note, which is enclosed. If I can be of further assistance, please feel free to contact me at Doctor phone number(s): Work: . Sincerely, Andrei Gupta MD 04/04/2021 9:54:09 AM This report has been signed electronically.
--- NOTE | 2021-04-04 09:54 | OP.EGD_ITS ---
Patient Name: Eddi Suggs Procedure Date: 04/04/2021 9:28 AM Date of : 1940 Age: 80 Procedure: Upper GI endoscopy Indications: Follow-up of Paiz's esophagus Providers: Andrei Gupta MD Referring MD: Mariaa Collazo Medicines: See the Anesthesia note for documentation of the administered medications Complications: No immediate complications. Procedure: Pre-Anesthesia Assessment: - Prior to the procedure, a History and Physical was performed, and patient medications and allergies were reviewed. The patient's tolerance of previous anesthesia was also reviewed. The risks and benefits of the procedure and the sedation options and risks were discussed with the patient. All questions were answered, and informed consent was obtained. Prior Anticoagulants: The patient has taken no previous anticoagulant or antiplatelet agents. ASA Grade Assessment: II - A patient with mild systemic disease. After reviewing the risks and benefits, the patient was deemed in satisfactory condition to undergo the procedure. After obtaining informed consent, the endoscope was passed under direct vision. Throughout the procedure, the patient's blood pressure, pulse, and oxygen saturations were monitored continuously. The gastroscope was introduced through the mouth, and advanced to the second part of duodenum. The upper GI endoscopy was accomplished without difficulty. The patient tolerated the procedure well. Scope In: 9:37:11 AM Scope Out: 9:47:58 AM Total Procedure Duration Time 0 hours 10 minutes 47 seconds Findings: There were esophageal mucosal changes consistent with short-segment Paiz's esophagus present at the gastroesophageal junction. The maximum longitudinal extent of these mucosal changes was 1 cm in length. Mucosa was biopsied with a cold forceps for histology. A small hiatal hernia was present. Food was found in the middle third of the esophagus and in the lower third of the esophagus. Diffuse mildly erythematous mucosa without bleeding was found in the gastric antrum. Biopsies were taken with a cold forceps for histology. A large amount of food (residue) was found in the entire examined stomach. The examined duodenum was normal. Biopsies were taken with a cold forceps for histology. Impression: - Esophageal mucosal changes consistent with short-segment Paiz's esophagus. Biopsied. - Small hiatal hernia. - Food in the middle third of the esophagus and in the lower third of the esophagus. - Erythematous mucosa in the antrum. Biopsied. - A large amount of food (residue) in the stomach. - Normal examined duodenum. Biopsied. Recommendation: - Discharge patient to home. - Resume previous diet. - Continue present medications. - Telephone my office for pathology results in 1 week. Procedure Code(s): --- Professional --- 39848, Esophagogastroduodenoscopy, flexible, transoral; with biopsy, single or multiple Diagnosis Code(s): --- Professional --- K22.70, Paiz's esophagus without dysplasia K44.9, Diaphragmatic hernia without obstruction or gangrene T18.128A, Food in esophagus causing other injury, initial encounter K31.89, Other diseases of stomach and duodenum CPT copyright 2017 [employer]. All rights reserved. The codes documented in this report are preliminary and upon academic services coordinator review may be revised to meet current compliance requirements. Andrei Gupta MD 04/04/2021 9:54:09 AM This report has been signed electronically. Number of Addenda: 0 Note Initiated On: 04/04/2021 9:28 AM
== END 2021-04-04 11:00 ==
LOC: EN 08:14 → AC 08:16
PROVIDERS: PCP Internal Medicine; Referring Provider Internal Medicine; Visit Provider Surgery
PROC: 0DJ08ZZ Inspection of Upper Intestinal Tract, Via Natural or Artificial Opening Endoscopic (ICD-10-PCS; CPT 43235; principal; 2021-04-04 09:25)
DX: K22.70 Barrett's esophagus without dysplasia (principal); K29.50 Unspecified chronic gastritis without bleeding; K44.9 Diaphragmatic hernia without obstruction or gangrene; J44.9 Chronic obstructive pulmonary disease, unspecified; I48.11 Longstanding persistent atrial fibrillation; I27.21 Secondary pulmonary arterial hypertension; E78.5 Hyperlipidemia, unspecified; N40.0 Benign prostatic hyperplasia without lower urinary tract symptoms; M19.90 Unspecified osteoarthritis, unspecified site; G47.33 Obstructive sleep apnea (adult) (pediatric); K21.9 Gastro-esophageal reflux disease without esophagitis; Z79.01 Long term (current) use of anticoagulants; Z79.82 Long term (current) use of aspirin; Z79.899 Other long term (current) drug therapy; Z87.891 Personal history of nicotine dependence; Z87.19 Personal history of other diseases of the digestive system
CPT/HCPCS: 43239; 88305; 88312; 88313; 88342; J7120; J2405

== ENCOUNTER → 2021-08-18 08:02 | Outpatient (CLI) | payer MEDICARE, SELFPAY ==
[2021-08-18 12:28] LABS: Vitamin D,25 Hydroxy 13.4 ng/mL
[2021-08-18 12:30] LABS: Absolute Lymphocyte Count 1.43 X10^3/uL (0.83-4.51); Absolute Neutrophil Count 3.7 X10^3/uL (2.0-7.7); Basophil# 0.04 X10^3/uL; Basophil% 0.7 % (0-1); Eosinophil# 0.09 X10^3/uL; Eosinophils% 1.5 % (0-5); Hematocrit 42.5 % (40-54); Hemoglobin 14.6 g/dL (13.0-16.5); Lymphocyte # 1.43 X10^3/ul (0.83-4.51); Lymphocyte % 23.3 % (19-41); Mean Corp Hgb Conc 34.4 g/dL (32-36); Mean Corpuscular Volume 90.2 fL (80-94); Mean Platelet Vol. 9.6 fl (6.2-12.0); Monocyte# 0.88 X10^3/uL; Monocyte% 14.3 % (0-10); NRBC Flagged by Analyzer 0 % (0-5); Neutrophil # 3.68 X10^3/uL (2.7-7.7); Neutrophil % 59.9 % (47-70); Platelet Count 288 K/mm3 (150-450); RBC Distribution Width SD 46.3 fl (35.1-43.9); Red Blood Count 4.71 M/mm3 (4.6-6.2); White Blood Count 6.1 K/mm3 (4.4-11.0)
[2021-08-18 12:39] LABS: ALB/GLOB Ratio 0.9 RATIO (0.9-2.4); AST(SGOT) 33 U/L (15-37); Alanine Aminotransfer ALT/SGPT 32 U/L (16-61); Albumin, Serum 3.2 g/dL (3.2-5.0); Alkaline Phosphatase 57 U/L (45-117); Anion Gap 6 (5-15); BUN 11 mg/dL (7-18); Calcium,Total 8.7 mg/dL (8.5-10.1); Chloride 99 mmol/L (98-107); Cholesterol 122 mg/dL (200); Creatinine, Serum 0.61 mg/dL (0.70-1.30); EST Glomerular Filtration Rate 134 mL/min (>60); Est Glom Filt Rate - Afr Amer 162 mL/min (>60); Ferritin 53 ng/mL (26-388); Globulin 3.6 g/dL (2.2-4.2); Glucose 97 mg/dL (74-106); High Density Lipoprotein 70 mg/dL; Iron 86 ug/dL (65-175); Iron Binding Capacity,Total 390 ug/dL (250-450); PERCENT IRON SATURATION 22.1 % (15.0-55.0); PSA,Total - Annual Screen 2.26 ng/mL (0.00-4.00); Protein, Total 6.8 g/dL (6.4-8.2); Sodium Level 132 mmol/L (136-145); Triglycerides 48 mg/dL; Very Low Density Lipoprotein 10 mg/dL (5-40)
== END ==
PROVIDERS: PCP Internal Medicine; Referring Provider Internal Medicine; Visit Provider Internal Medicine
DX: I10 Essential (primary) hypertension (principal); E78.5 Hyperlipidemia, unspecified; E55.9 Vitamin D deficiency, unspecified; Z12.5 Encounter for screening for malignant neoplasm of prostate; I27.21 Secondary pulmonary arterial hypertension; I48.11 Longstanding persistent atrial fibrillation; J44.9 Chronic obstructive pulmonary disease, unspecified; K22.70 Barrett's esophagus without dysplasia; G47.33 Obstructive sleep apnea (adult) (pediatric); Z86.39 Personal history of other endocrine, nutritional and metabolic disease
CPT/HCPCS: 36415; 80053; 80061; 82306; 82728; 83540; 83550; 84153; 84443; 85025; G0103

== ENCOUNTER → 2022-02-11 | Outpatient (CLI) | payer MEDICARE, SELFPAY ==
[2022-02-11 12:32] LABS: Absolute Lymphocyte Count 2.11 X10^3/uL (0.83-4.51); Absolute Neutrophil Count 3.6 X10^3/uL (2.0-7.7); Basophil# 0.05 X10^3/uL; Basophil% 0.7 % (0-1); Eosinophil# 0.11 X10^3/uL; Eosinophils% 1.6 % (0-5); Hematocrit 43.7 % (40-54); Hemoglobin 14.5 g/dL (13.0-16.5); Lymphocyte # 2.11 X10^3/ul (0.83-4.51); Lymphocyte % 30.9 % (19-41); Mean Corp Hgb Conc 33.2 g/dL (32-36); Mean Corpuscular Hgb 30.7 pg (27.0-32.0); Mean Corpuscular Volume 92.6 fL (80-94); Mean Platelet Vol. 9.7 fl (6.2-12.0); Monocyte# 0.98 X10^3/uL; Monocyte% 14.4 % (0-10); NRBC Flagged by Analyzer 0 % (0-5); Neutrophil # 3.56 X10^3/uL (2.7-7.7); Neutrophil % 52.3 % (47-70); Platelet Count 237 K/mm3 (150-450); RBC Distribution Width CV 13.6 % (11.6-14.6); RBC Distribution Width SD 46.5 fl (35.1-43.9); Red Blood Count 4.72 M/mm3 (4.6-6.2); White Blood Count 6.8 K/mm3 (4.4-11.0)
[2022-02-11 12:46] LABS: ALB/GLOB Ratio 1.1 RATIO (0.9-2.4); AST(SGOT) 31 U/L (15-37); Alanine Aminotransfer ALT/SGPT 35 U/L (16-61); Albumin, Serum 3.6 g/dL (3.2-5.0); Alkaline Phosphatase 59 U/L (45-117); Anion Gap 5 (5-15); BUN 14 mg/dL (7-18); BUN/Creat Ratio 22.4 RATIO (10-20); Calcium,Total 9.2 mg/dL (8.5-10.1); Chloride 98 mmol/L (98-107); Creatinine, Serum 0.62 mg/dL (0.70-1.30); EST Glomerular Filtration Rate 131 mL/min (>60); Est Glom Filt Rate - Afr Amer 158 mL/min (>60); Globulin 3.4 g/dL (2.2-4.2); Glucose 104 mg/dL (74-106); Potassium 4.4 mmol/L (3.5-5.1); Sodium Level 134 mmol/L (136-145)
== END | disposition home or self-care (01) ==
LOC: BIMLAB 11:11
PROVIDERS: PCP Internal Medicine; Referring Provider Internal Medicine; Visit Provider Internal Medicine
DX: R06.00 Dyspnea, unspecified (principal); J44.9 Chronic obstructive pulmonary disease, unspecified; I48.11 Longstanding persistent atrial fibrillation; I10 Essential (primary) hypertension; E78.5 Hyperlipidemia, unspecified; E55.9 Vitamin D deficiency, unspecified; Z86.39 Personal history of other endocrine, nutritional and metabolic disease
CPT/HCPCS: 36415; 80053; 82306; 85025

== ENCOUNTER → 2022-09-02 | Outpatient (CLI) | payer MEDICARE, SELFPAY ==
[2022-09-02 08:00] LABS: Absolute Lymphocyte Count 1.78 X10^3/uL (0.83-4.51); Absolute Neutrophil Count 4.2 X10^3/uL (2.0-7.7); Basophil# 0.05 X10^3/uL; Basophil% 0.7 % (0-1); Eosinophils% 1.4 % (0-5); Hematocrit 46.2 % (40-54); Hemoglobin 15.2 g/dL (13.0-16.5); Lymphocyte # 1.78 X10^3/ul (0.83-4.51); Lymphocyte % 24.9 % (19-41); Mean Corp Hgb Conc 32.9 g/dL (32-36); Mean Corpuscular Hgb 30.5 pg (27.0-32.0); Mean Corpuscular Volume 92.8 fL (80-94); Mean Platelet Vol. 9.4 fl (6.2-12.0); Monocyte# 1.04 X10^3/uL; Monocyte% 14.5 % (0-10); NRBC Flagged by Analyzer 0 % (0-5); Neutrophil # 4.15 X10^3/uL (2.7-7.7); Neutrophil % 57.9 % (47-70); Platelet Count 223 K/mm3 (150-450); RBC Distribution Width CV 13.9 % (11.6-14.6); RBC Distribution Width SD 47.4 fl (35.1-43.9); Red Blood Count 4.98 M/mm3 (4.6-6.2); White Blood Count 7.2 K/mm3 (4.4-11.0)
[2022-09-02 08:35] LABS: ALB/GLOB Ratio 0.9 RATIO (0.9-2.4); AST(SGOT) 27 U/L (15-37); Alanine Aminotransfer ALT/SGPT 36 U/L (16-61); Albumin, Serum 3.3 g/dL (3.2-5.0); Alkaline Phosphatase 59 U/L (45-117); Anion Gap 3 (5-15); BUN 10 mg/dL (7-18); BUN/Creat Ratio 15.1 RATIO (10-20); Calcium,Total 8.9 mg/dL (8.5-10.1); Chloride 100 mmol/L (98-107); Cholesterol 150 mg/dL (200); Creatinine, Serum 0.66 mg/dL (0.70-1.30); EST Glomerular Filtration Rate 121 mL/min (>60); Est Glom Filt Rate - Afr Amer 147 mL/min (>60); Globulin 3.6 g/dL (2.2-4.2); Glucose 109 mg/dL (74-106); High Density Lipoprotein 83 mg/dL; PSA,Total - Annual Screen 2.12 ng/mL (0.00-4.00); Protein, Total 6.9 g/dL (6.4-8.2); Sodium Level 136 mmol/L (136-145); Triglycerides 43 mg/dL; Very Low Density Lipoprotein 9 mg/dL (5-40)
[2022-09-02 08:49] LABS: Vitamin D,25 Hydroxy 28.6 ng/mL
== END | disposition home or self-care (01) ==
LOC: LAB 07:32
PROVIDERS: PCP Internal Medicine; Visit Provider Internal Medicine
DX: E78.5 Hyperlipidemia, unspecified (principal); J44.9 Chronic obstructive pulmonary disease, unspecified; I48.11 Longstanding persistent atrial fibrillation; M19.90 Unspecified osteoarthritis, unspecified site; I10 Essential (primary) hypertension; Z86.39 Personal history of other endocrine, nutritional and metabolic disease; Z79.01 Long term (current) use of anticoagulants; Z12.5 Encounter for screening for malignant neoplasm of prostate; E55.9 Vitamin D deficiency, unspecified
CPT/HCPCS: 36415; 80053; 80061; 82306; 84153; 85025; G0103

== ENCOUNTER 2022-12-07 09:19 | Emergency (ER) | payer MEDICARE, SELFPAY ==
[2022-12-07 09:20] VITALS: BP 150/84; PULSE 70; RESP 18; TEMP 35.6; O2SAT 92; BMI 27.9
--- NOTE | 2022-12-07 09:34 | EKG12_ITS ---
Test Reason : Blood Pressure : / mmHG Vent. Rate : 076 BPM Atrial Rate : 000 BPM P-R Int : 000 ms QRS Dur : 094 ms QT Int : 382 ms P-R-T Axes : 000 -29 015 degrees QTc Int : 429 ms Atrial fibrillation with premature ventricular or aberrantly conducted complexes Incomplete right bundle branch block Cannot rule out Anterior infarct , age undetermined Abnormal ECG Confirmed by JAMIL SANTIAGO, WARD ([id number]), scientific editor OLIVIA FRAIRE ([id number]) on 12/08/2022 7:59:26 AM Referred By: MALVIN Confirmed By:WARD NEGRON MD
[2022-12-07 10:08] VITALS: PULSE 88; RESP 20
[2022-12-07] MEDS: Ipratropium/Albuterol Sulfate 3 ML AMPUL.NEB INHALATION (10:08)
--- NOTE | 2022-12-07 10:30 | RAD_ITS ---
STUDY: X-RAY CHEST REASON FOR EXAM: Male, 82 years old. Shortness of breath TECHNIQUE: Single AP portable view of the chest. COMPARISON: Comparison is made with prior study dated April 02, 2018. FINDINGS: EKG electrodes are seen. Hyperinflation. Mild degree of increased linear markings at the lung bases suggestive of a atelectasis and/or scarring. There is no demonstrated pleural abnormality. There is moderate cardiac enlargement. Normal mediastinum and janet. Normal visualized pulmonary arteries. There is atherosclerotic calcification of the aortic arch with tortuosity. There are diffuse degenerative changes of the visualized thoracic spine. Healed right rib fractures. There is degenerative osteoarthritis of the bilateral shoulders. Hiatal hernia. RAD/Chest 1 View (Portable) IMPRESSION: Cardiomegaly. Hyperinflation. Increased interstitial markings at the lung bases suggestive of mild atelectasis and/or scarring. Electronically Signed: Yakov Dc MD at 10:50 EST ,
[2022-12-07 10:39] LABS: Absolute Lymphocyte Count 1.48 X10^3/uL (0.83-4.51); Absolute Neutrophil Count 4.4 X10^3/uL (2.0-7.7); Basophil# 0.04 X10^3/uL; Basophil% 0.6 % (0-1); Eosinophil# 0.02 X10^3/uL; Eosinophils% 0.3 % (0-5); Hematocrit 39.8 % (40-54); Hemoglobin 14.1 g/dL (13.0-16.5); Lymphocyte # 1.48 X10^3/ul (0.83-4.51); Lymphocyte % 20.6 % (19-41); Mean Corp Hgb Conc 35.4 g/dL (32-36); Mean Corpuscular Hgb 31.3 pg (27.0-32.0); Mean Corpuscular Volume 88.4 fL (80-94); Mean Platelet Vol. 9.5 fl (6.2-12.0); Monocyte# 1.27 X10^3/uL; Monocyte% 17.7 % (0-10); NRBC Flagged by Analyzer 0 % (0-5); Neutrophil # 4.36 X10^3/uL (2.7-7.7); Neutrophil % 60.5 % (47-70); Platelet Count 195 K/mm3 (150-450); RBC Distribution Width CV 13.4 % (11.6-14.6); RBC Distribution Width SD 44.2 fl (35.1-43.9); White Blood Count 7.2 K/mm3 (4.4-11.0)
[2022-12-07 10:53] LABS: Anion Gap 8 (5-15); BNP,B-Type NATRIURETIC PEPTIDE 98.3 pg/mL (0-100); BUN 12 mg/dL (7-18); BUN/Creat Ratio 23.8 RATIO (10-20); Calcium,Total 8.6 mg/dL (8.5-10.1); Chloride 94 mmol/L (98-107); EST Glomerular Filtration Rate 166 mL/min (>60); Est Glom Filt Rate - Afr Amer 201 mL/min (>60); Glucose 135 mg/dL (74-106); Potassium 3.8 mmol/L (3.5-5.1); Sodium Level 128 mmol/L (136-145)
[2022-12-07 11:08] VITALS: PULSE 67; RESP 22; O2SAT 95
[2022-12-07 11:11] VITALS: BP 136/92; PULSE 77; RESP 20; TEMP 35.5; O2SAT 95
[2022-12-07] MEDS: 0.9% Normal Saline 1,000 ML 999 ML IV (12:07)
[2022-12-07 12:18] VITALS: BP 146/82; PULSE 79; RESP 20; O2SAT 94
[2022-12-07 13:13] VITALS: O2SAT 94
--- NOTE | 2022-12-07 13:27 | EDS_ITS ---
HPI History of Present Illness Chief Complaint: Shortness of Breath Narrative Narrative: 82-year-old male past medical history of COPD, atrial fibrillation, presents with increasing shortness of breath. Has had a cough, but his main concern is that he feels more short of breath over the last few days. There are sick contacts in his home. He is coughing more. He denies any chest pain but states he is also having dyspnea on exertion. No leg swelling. His is concerned that he may have pneumonia. [facility] Medical History Actinic keratosis Alcohol use Anemia Arthritis Asthma Paiz esophagus Benign prostate hyperplasia Cardiology follow-up encounter Carotid artery disease COPD (chronic obstructive pulmonary disease) COPD (chronic obstructive pulmonary disease) CPAP (continuous positive airway pressure) dependence Essential (primary) hypertension Former smoker GERD (gastroesophageal reflux disease) Glaucoma Hiatal hernia High cholesterol History of atrial fibrillation History of edema History of stress test History of upper gastrointestinal bleeding (12/2013) Hx of echocardiogram Hyperlipidemia Hypertension Longstanding persistent atrial fibrillation Loss of hearing Obstructive sleep apnea Secondary pulmonary arterial hypertension Shortness of breath on exertion Sleep apnea SOB (shortness of breath) Vocal cord dysfunction Wears glasses Home Medications albuterol sulfate 90 mcg/actuation aerosol inhaler 2 puff inhalation Q4H PRN PRN WHEEZING/SOB 01/23/18 [History Last Taken 04/04/21 05:30] brimonidine 0.15 % eye drops 1 drp EACH EYE BID 01/23/18 [History Last Taken Unknown] latanoprost 0.005 % eye drops 1 drp EACH EYE QHS 01/23/18 [History Last Taken Unknown] aspirin 81 mg tablet,delayed release (Adult Aspirin Regimen) 81 mg PO DAILY 01/30/19 [History Last Taken Unknown] riboflavin (vitamin B2) 100 mg tablet 100 mg PO DAILY 02/03/19 [History Last Taken Unknown] magnesium 250 mg tablet 250 mg PO BID 12/19/20 [History Last Taken Unknown] compress.stocking,knee,reg,med #2 ea 02/20/21 [Rx Last Taken Unknown] fluorometholone 0.1 % eye drops,suspension 1 drp ophthalmic (eye) BID 03/11/21 [History Last Taken Unknown] cholecalciferol (vitamin D3) 25 mcg (1,000 unit) capsule 25 mcg PO DAILY 12/18/21 [History Last Taken Unknown] multivitamin with minerals 1 tab PO DAILY 12/18/21 [History Last Taken Unknown] isosorbide mononitrate 30 mg tablet,extended release 24 hr 30 mg PO DAILY #90 tabs 03/05/22 [Rx Last Taken Unknown] lisinopril 30 mg tablet 30 mg PO DAILY #90 tabs 03/05/22 [Rx Last Taken Unknown] simvastatin 20 mg tablet 20 mg PO DAILY #90 tabs 05/07/22 [Rx Last Taken Unknown] omeprazole 40 mg capsule,delayed release 40 mg PO BID #180 caps 06/16/22 [Rx Last Taken Unknown] apixaban 5 mg tablet 5 mg PO BID #180 tabs 06/29/22 [Rx Last Taken Unknown] hydrochlorothiazide 12.5 mg tablet 12.5 mg PO DAILY #90 tabs 08/07/22 [Rx Last Taken Unknown] budesonide-formoterol HFA 160 mcg-4.5 mcg/actuation aerosol inhaler (Symbicort) 2 puff inhalation BID 90 days #30.4 grams 08/17/22 [Rx Last Taken Unknown] ipratropium 20 mcg-albuterol 100 mcg/actuation mist for inhalation 1 puff inhalation BID #4 grams 09/23/22 [Rx Last Taken Unknown] amlodipine 10 mg tablet 5 mg PO DAILY #90 tabs 10/16/22 [Rx Last Taken Unknown] nitroglycerin 0.4 mg sublingual tablet 0.4 mg sublingual Q5-15M PRN CP #25 tabs 10/16/22 [Rx Last Taken Unknown] tiotropium bromide 18 mcg capsule with inhalation device (Spiriva with HandiHaler) 1 cap inhalation DAILY #90 inhalations 11/12/22 [Rx Last Taken Unknown] gabapentin 100 mg capsule See Rx Instructions PO .COMPLEX #150 caps 11/16/22 [Rx Last Taken Unknown] Allergy/AdvReac Type Severity Reaction Status Date / Time ondansetron [From Zofran] AdvReac Intermediate Restless Verified 08/26/22 10:02 legs, twitchy Family History Father Asthma CVA (cerebral vascular accident) Mother Hypertension Cancer Sister Hypertension Diabetes Grandfather Myocardial infarction Surgical History History of esophagogastroduodenoscopy (EGD) History of repair of hiatal hernia Hx of oral surgery Hx of tonsillectomy Social History Smoking Status: Former smoker quit date: 10/04/94 second hand exposure: No alcohol intake: current alcohol intake frequency: a few times a month Alcohol type: beer substance use type: does not use caffeine: Yes Type: tea Number of servings: 1 what type of physical activity do you participate in: none frequency: does not exercise ROS ROS ED ROS Narrative Constitutional: No fever, no chills. HEENT: No sore throat. No neck pain. No loss of vision. No rhinorrhea. Cardiovascular: No chest pain. No palpitations. No pedal edema. Respiratory: Positive cough, increasing shortness of breath. Abdominal: No abdominal pain. No nausea. No vomiting. Genitourinary: No dysuria. No hematuria. Musculoskeletal: No myalgias. No arthralgias. Neurologic: No headaches. No dizziness. No lightheadedness. Skin: No rash. No change in color. Psychiatric: No depression. No anxiety. EXAM Physical Exam Narrative Exam Narrative: Afebrile. Vital signs noted. HEENT: Normocephalic. Atraumatic. PERRL, EOMI. Neck soft and supple. No point tenderness or step off. Cardiovascular: Regular rate and rhythm. No murmurs, rubs, or gallops appreciated. Respiratory: No tachypnea. Moving a good amount of air. No accessory muscle use. Occasional expiratory wheeze. Gastrointestinal: Abdomen soft, nontender, with normoactive bowel sounds. No rebound or guarding. Neurological: Awake. Alert. Nonfocal, nonlateralizing. Skin: No rash. Normal color. No pallor. Musculoskeletal: No pedal edema. Full range of motion extremities. Const Vital Signs: 12/07/22 09:20 12/07/22 11:08 12/07/22 11:10 Temperature 96.0 F L Temperature Source Temporal Pulse Rate 70 67 Respiratory Rate 18 22 H Respiratory Effort Normal Non-Labored Respiratory Depth Normal Respiratory Pattern Normal Blood Pressure 150/84 H Blood Pressure Mean 106 Pulse Ox 92 95 Oxygen Delivery Method Room Air Room Air 12/07/22 11:11 12/07/22 10:08 12/07/22 12:18 Temperature 96 F L Temperature Source Temporal Pulse Rate 77 88 79 Respiratory Rate 20 H 20 H 20 H Respiratory Effort Respiratory Depth Respiratory Pattern Normal Blood Pressure 136/92 H 146/82 H Blood Pressure Mean 106 103 Pulse Ox 95 94 Oxygen Delivery Method Room Air MDM MDM MDM Narrative Medical decision making narrative: In the differential diagnosis is COPD exacerbation versus pneumonia versus upper respiratory infection that is viral. Given his age, I will perform laboratory work. Laboratory work was obtained and reviewed, he has a normal white count of 7.2, hemoglobin normal at 14.1. I do not feel anemia is the cause of his shortness of breath. He has a normal platelet count of 13.4. Patient is mildly dehydrated with a sodium of 128 and a chloride of 94. He was bolused normal saline 1 L intravenously. Glucose is appropriately elevated at 135 with a normal anion gap of 8. BNP to rule out CHF was obtained along with chest x-ray, and BNP is normal at 98. Patient tolerated his fluid bolus well. Chest x-ray in 1 view was interpreted by myself which shows hyperinflation and chronic changes/scarring. I reviewed the radiology report which confirms my independent interpretation. EKG was also obtained and interpreted by myself which shows atrial fibrillation with PVCs at 76 bpm, rate controlled, no significant change from EKG dated April 02, 2018. After DuoNeb aerosolized treatment, patient states he feels improved. He was able to ambulate without significant drop in his pulse ox. I feel he be discharged safely home with follow-up to his primary care provider. He states that he prefers nebulizer treatments, so he was told to discuss this with his primary care provider. He was also told that he may need follow-up with a microwave technician. I do not feel antibiotics are indicated. Once again, I feel he can be discharged safely home with follow-up. Return instructions to the emergency department were reviewed. Disposition is discharged home in stable condition. History & Record Review Discussion w/independent historian: Patient and Significant other Additional record(s) reviewed:: Prior ED visit and Prior labs Lab Data Labs: Laboratory Results - last 24 hr 12/07/22 12/07/22 12/07/22 10:25 10:25 10:25 WBC 7.2 RBC 4.50 L Hgb 14.1 Hct 39.8 L MCV 88.4 MCH 31.3 MCHC 35.4 RDW Std Deviation 44.2 H RDW Coeff of [place] 13.4 Plt Count 195 MPV 9.5 Immature Gran % (Auto) 0.300 Neut % (Auto) 60.5 Lymph % (Auto) 20.6 [place] % (Auto) 17.7 H Eos % (Auto) 0.3 Baso % (Auto) 0.6 Absolute Neuts (auto) 4.4 Absolute Lymphs (auto) 1.48 Nucleated RBC % 0 Sodium 128 L Potassium 3.8 Chloride 94 L Carbon Dioxide 26.0 Anion Gap 8 BUN 12 Creatinine 0.50 L Estim Creat Clear Calc 53.20 Est GFR (MDRD) Af Amer 201 Est GFR (MDRD) Non-Af 166 BUN/Creatinine Ratio 23.8 H Glucose 135 H Calcium 8.6 B-Natriuretic Peptide 98.3 Radiography Diagnostic Testing: Clinical Impression(s) from Imaging Studies Chest X-Ray 12/07/22 10:30 IMPRESSION: Cardiomegaly. Hyperinflation. Increased interstitial markings at the lung bases suggestive of mild atelectasis and/or scarring. Electronically Signed: Yakov Dc MD at 10:50 EST , Discharge Plan Triage Chief Complaint: Shortness of Breath ED Provider: Jan Kaba Dx/Rx/DC Orders Clinical Impression: COPD exacerbation, Dehydration, SOB (shortness of breath) Instructions: ED COPD Flare, ED Dehydration (Adult), ED Dyspnea Prescriptions: No Action aspirin [Adult Aspirin Regimen] 81 mg tablet,delayed release (DR/EC) 81 mg PO DAILY riboflavin (vitamin B2) 100 mg tablet 100 mg PO DAILY magnesium 250 mg tablet 250 mg PO BID (DME) compress.stocking,knee,reg,med Misc See Rx Instructions .ROUTE .MEDSUPPLY Qty: 2 0RF Rx Instructions: On AM, off bedtime. fluorometholone 0.1 % drops,suspension 1 drp ophthalmic (eye) BID multivitamin with minerals Tablet 1 tab PO DAILY cholecalciferol (vitamin D3) 25 mcg (1,000 unit) capsule 25 mcg PO DAILY latanoprost 1 DROP bottle 1 drp EACH EYE QHS albuterol sulfate 1 PUFF inhaler 2 puff inhalation Q4H PRN PRN (Reason: WHEEZING/SOB) brimonidine 1 DROP bottle 1 drp EACH EYE BID isosorbide mononitrate 30 mg tablet extended release 24 hr 30 mg PO DAILY Qty: 90 3RF lisinopril 30 mg tablet 30 mg PO DAILY Qty: 90 3RF simvastatin 20 mg tablet 20 mg PO DAILY Qty: 90 3RF omeprazole 40 mg capsule,delayed release(DR/EC) 40 mg PO BID Qty: 180 3RF apixaban 5 mg tablet 5 mg PO BID Qty: 180 3RF hydrochlorothiazide 12.5 mg tablet 12.5 mg PO DAILY Qty: 90 3RF Symbicort 160-4.5 mcg/actuation HFA aerosol inhaler 2 puff INHALATION BID 90 Days Qty: 30.4 3RF Hold Instructions: side effects ipratropium-albuterol 20-100 mcg/actuation mist 1 puff inhalation BID Qty: 4 3RF amlodipine 10 mg tablet 5 mg PO DAILY Qty: 90 3RF nitroglycerin 0.4 mg tablet, sublingual 0.4 mg SUBLINGUAL Q5-15M PRN (Reason: CP) Qty: 25 2RF Spiriva with HandiHaler 18 mcg capsule, w/inhalation device 1 cap INHALATION DAILY Qty: 90 3RF gabapentin 100 mg capsule See Rx Instructions PO .COMPLEX Qty: 150 3RF Rx Instructions: Take two 100 mg capsules in the AM, 1 capsule mid day, and 2 capsules at bedtime; Primary Care Provider: Mariaa Collazo Referrals: Mariaa Collazo MD [Primary Care Provider] - 3-5 Days if not improving Activity Restrictions/Additional Instructions: You may use [id number] cough medication like Robitussin as needed. Use your albuterol inhaler every 4-6 hours, 1 to 2 puffs inhaled. Speak with your primary care provider about home nebulizer treatments. Disposition Disposition: Home, Self Care
== END 2022-12-07 13:33 | disposition home or self-care (01) ==
PROVIDERS: Emergency Provider Emergency Medicine; PCP Internal Medicine; Visit Provider Emergency Medicine
DX: J44.1 Chronic obstructive pulmonary disease with (acute) exacerbation (principal); I48.91 Unspecified atrial fibrillation; E86.0 Dehydration; E78.00 Pure hypercholesterolemia, unspecified; I10 Essential (primary) hypertension; Z87.891 Personal history of nicotine dependence
CPT/HCPCS: 71045; 80048; 83880; 85025; 87428; 93005; 94640; 96360; 99283; J7030

== ENCOUNTER 2022-12-28 13:42 | Emergency (ER) | payer MEDICARE, SELFPAY ==
[2022-12-28 13:42] VITALS: BP 122/81; PULSE 75; RESP 16; TEMP 36.4; O2SAT 98; BMI 27.2
--- NOTE | 2022-12-28 14:23 | EX.ED.GENINJ ---
HPI History of Present Illness Chief Complaint: Head Injury Informant: patient Onset/Context/Timing Onset: Days (3) Mechanism/Context: Fall Quality of Pain: Dull Location: Right frontal scalp Worsened by: Nothing Relieved by: Nothing Associated Symptoms Associated Symptoms: Negative for Parasthesias, Weakness, Loss of function, Inability to ambulate, Loss of consciousness or Amnesia Narrative Narrative: Patient presents with a fall that occurred 3 days ago. Patient fell forward and hit his head. Patient also landed on his knees. Patient denies any loss of consciousness. Patient fell forward and hit the front of his head. Patient noted increased bruising to his forehead and periorbital areas over the last couple days. Patient denies any paresthesias or weakness. Patient denies any difficulty ambulating. Patient denies any neck or back pain. Patient denies any chest pain or shortness of breath. [facility] Medical History Actinic keratosis Alcohol use Anemia Arthritis Asthma Paiz esophagus Benign prostate hyperplasia Cardiology follow-up encounter Carotid artery disease COPD (chronic obstructive pulmonary disease) COPD (chronic obstructive pulmonary disease) CPAP (continuous positive airway pressure) dependence Essential (primary) hypertension Former smoker GERD (gastroesophageal reflux disease) Glaucoma Hiatal hernia High cholesterol History of atrial fibrillation History of edema History of stress test History of upper gastrointestinal bleeding (12/2013) Hx of echocardiogram Hyperlipidemia Hypertension Longstanding persistent atrial fibrillation Loss of hearing Obstructive sleep apnea Secondary pulmonary arterial hypertension Shortness of breath on exertion Sleep apnea SOB (shortness of breath) Vocal cord dysfunction Wears glasses Home Medications albuterol sulfate 90 mcg/actuation aerosol inhaler 2 puff inhalation Q4H PRN PRN WHEEZING/SOB 01/23/18 [History Last Taken 04/04/21 05:30] latanoprost 0.005 % eye drops 1 drp EACH EYE QHS 01/23/18 [History Last Taken Unknown] aspirin 81 mg tablet,delayed release (Adult Aspirin Regimen) 81 mg PO DAILY 01/30/19 [History Last Taken Unknown] riboflavin (vitamin B2) 100 mg tablet 100 mg PO DAILY 02/03/19 [History Last Taken Unknown] compress.stocking,knee,reg,med #2 ea 02/20/21 [Rx Last Taken Unknown] fluorometholone 0.1 % eye drops,suspension 1 drp ophthalmic (eye) BID 03/11/21 [History Last Taken Unknown] cholecalciferol (vitamin D3) 25 mcg (1,000 unit) capsule 25 mcg PO DAILY 12/18/21 [History Last Taken Unknown] multivitamin with minerals 1 tab PO DAILY 12/18/21 [History Last Taken Unknown] isosorbide mononitrate 30 mg tablet,extended release 24 hr 30 mg PO DAILY #90 tabs 03/05/22 [Rx Last Taken Unknown] lisinopril 30 mg tablet 30 mg PO DAILY #90 tabs 03/05/22 [Rx Last Taken Unknown] simvastatin 20 mg tablet 20 mg PO DAILY #90 tabs 05/07/22 [Rx Last Taken Unknown] omeprazole 40 mg capsule,delayed release 40 mg PO BID #180 caps 06/16/22 [Rx Last Taken Unknown] apixaban 5 mg tablet 5 mg PO BID #180 tabs 06/29/22 [Rx Last Taken Unknown] hydrochlorothiazide 12.5 mg tablet 12.5 mg PO DAILY #90 tabs 08/07/22 [Rx Last Taken Unknown] budesonide-formoterol HFA 160 mcg-4.5 mcg/actuation aerosol inhaler (Symbicort) 2 puff inhalation BID 90 days #30.4 grams 08/17/22 [Rx Last Taken Unknown] ipratropium 20 mcg-albuterol 100 mcg/actuation mist for inhalation 1 puff inhalation BID #4 grams 09/23/22 [Rx Last Taken Unknown] amlodipine 10 mg tablet 5 mg PO DAILY #90 tabs 10/16/22 [Rx Last Taken Unknown] nitroglycerin 0.4 mg sublingual tablet 0.4 mg sublingual Q5-15M PRN CP #25 tabs 10/16/22 [Rx Last Taken Unknown] tiotropium bromide 18 mcg capsule with inhalation device (Spiriva with HandiHaler) 1 cap inhalation DAILY #90 inhalations 11/12/22 [Rx Last Taken Unknown] gabapentin 100 mg capsule See Rx Instructions PO .COMPLEX #150 caps 11/16/22 [Rx Last Taken Unknown] ascorbic acid (vitamin C) 500 mg tablet 500 mg PO DAILY 12/24/22 [History Last Taken Unknown] carboxymethylcellulose 0.5 %-glycerin 0.9 % eye drops (Refresh Relieva) 1 drp ophthalmic (eye) BID-QID PRN 12/24/22 [History Last Taken Unknown] magnesium 250 mg tablet 250 mg PO DAILY 12/24/22 [History Last Taken Unknown] tamsulosin 0.4 mg capsule 0.4 mg PO QHS 12/24/22 [History Last Taken Unknown] triamcinolone acetonide 55 mcg nasal spray aerosol (Nasacort) 1 spray intranasal DAILY 12/24/22 [History Last Taken Unknown] Allergy/AdvReac Type Severity Reaction Status Date / Time ondansetron [From Zofran] AdvReac Intermediate Restless Verified 12/28/22 13:47 legs, twitchy Family History Father Asthma CVA (cerebral vascular accident) Mother Hypertension Cancer Sister Hypertension Diabetes Grandfather Myocardial infarction Surgical History History of bilateral cataract extraction History of esophagogastroduodenoscopy (EGD) History of repair of hiatal hernia Hx of oral surgery Hx of tonsillectomy Social History Smoking Status: Former smoker quit date: 10/04/94 second hand exposure: No alcohol intake: current alcohol intake frequency: a few times a month Alcohol type: beer substance use type: does not use caffeine: Yes Type: tea Number of servings: 1 what type of physical activity do you participate in: none frequency: does not exercise ROS ROS ED Constitutional Constitutional ED: Denies chills or fever(s) Eyes Eyes: Denies blurry vision or change in vision ENT ENT ED: Denies rhinorrhea or sore throat Cardiovascular Cardiovascular: Denies chest pain or palpitations Respiratory/Chest Respiratory/Chest: Denies cough or dyspnea Gastrointestinal Gastrointestinal: Denies nausea or vomiting Genitourinary Genitourinary ED: Reports urinary frequency; Denies dysuria or hematuria Musculoskeletal Musculoskeletal: Denies back pain or neck pain Integumentary Reports Abrasions; Denies abscess or rash Neurologic Neurologic: Denies headache(s) or weakness Allergic/Immunologic Allergic/Immunologic ED: Denies mouth swelling or urticaria EXAM Physical Exam Const Vital Signs: 12/28/22 13:42 12/28/22 14:31 Temperature 97.6 F L Temperature Source Temporal Pulse Rate 75 Respiratory Rate 16 Respiratory Effort Normal Non-Labored Respiratory Depth Normal Respiratory Pattern Normal Blood Pressure 122/81 H Blood Pressure Mean 94 Pulse Ox 98 Oxygen Delivery Method Room Air Positive well nourished and well developed General Appearance ED: well developed and NAD HEENT HEENT Narrative: There is a superficial abrasion over the right frontal scalp. There is no active bleeding noted. There is a small hematoma over the forehead. There is some periorbital ecchymosis. There is no bony crepitance or step-off. Eyes PERRL and EOMs intact bilaterally Neck full ROM Resp normal respiratory effort and clear to auscultation bilaterally Cardio Rate: regular rate Rhythm: abnormal rhythm irregularly irregular GI non-tender and non-distended Palpation: soft Back/Spine no thoracic nor lumbar tenderness Lumbar Spine / Lower Back: straight leg raise negative bilaterally Extremity Extremity Narrative: There are superficial abrasions to the anterior aspect of the right knee. There is no active bleeding. There is no effusion. There is full range of motion of the lower extremities bilaterally. Strength is 5/5 bilaterally in the lower extremities. Sensation was intact to light touch bilaterally in the lower extremities. Neuro oriented x3, CN's II-XII intact bilaterally, moves all extremities, no focal motor deficits and no sensory deficits noted Mateo Coma Scale: document GCS findings Spontaneous Obeys Commands Oriented 15 Sensorium / Orientation: alert Motor Exam: strength 5/5 throughout Psych mental status grossly normal MDM MDM MDM Narrative Medical decision making narrative: Differential diagnosis includes intracranial bleeding, closed head injury, and COPD exacerbation. CT scan of the brain will be obtained to assess for intracranial bleeding. Chest x-ray will be obtained to assess for COPD and pneumonia. CBC will be obtained to assess for anemia and leukocytosis. Basic metabolic profile will be obtained to assess for electrolyte abnormality and renal function. PT was INR will be obtained to assess for coagulopathy due to Eliquis. Lab Data Attestation: I reviewed the patient's lab results. Lab results narrative: CBC was reviewed and was within normal limits. Basic metabolic profile was reviewed. There is a mild hyponatremia of 131. The remainder was within normal limits. PT was INR was reviewed. PT was 15.0 and INR is 1.2. Labs: Laboratory Results - last 24 hr 12/28/22 12/28/22 12/28/22 14:43 14:43 14:43 WBC 5.6 RBC 4.37 L Hgb 13.6 Hct 39.7 L MCV 90.8 MCH 31.1 MCHC 34.3 RDW Std Deviation 46.1 H RDW Coeff of [place] 13.8 Plt Count 213 MPV 8.9 Immature Gran % (Auto) 0.500 Neut % (Auto) 58.4 Lymph % (Auto) 25.0 [place] % (Auto) 14.7 H Eos % (Auto) 0.9 Baso % (Auto) 0.5 Absolute Neuts (auto) 3.3 Absolute Lymphs (auto) 1.41 Nucleated RBC % 0 PT 15.0 H INR 1.2 Sodium 131 L Potassium 4.2 Chloride 99 Carbon Dioxide 27.0 Anion Gap 5 BUN 9 Creatinine 0.46 L Estim Creat Clear Calc 53.20 Est GFR (MDRD) Af Amer 221 Est GFR (MDRD) Non-Af 183 BUN/Creatinine Ratio 19.4 Glucose 94 Calcium 8.4 L Radiography Diagnostic Testing: Clinical Impression(s) from Imaging Studies Brain CT 12/28/22 14:29 IMPRESSION: Chronic involutional changes of the brain. Sinusitis. Scalp hematoma overlying the right frontal bone. Electronically Signed: Yakov Dc MD at 15:38 EDT , Chest X-Ray 12/28/22 14:52 IMPRESSION: Hyperinflation. Cardiomegaly. I''ll hernia. Electronically Signed: Yakov Dc MD at 15:10 EDT , PA and lateral chest x-ray was obtained. There are 2 views. On my independent interpretation, lung dyson are clear. There is cardiomegaly noted. There is a hiatal hernia noted. Bony thorax is normal. There is no acute process noted. Radiologist also interpreted the x-ray and agrees. CT scan of the brain was obtained. There is no acute intracranial abnormality. There are chronic involutional changes noted. There is a scalp hematoma noted. This was interpreted by the radiologist and was also independently reviewed by myself. Discharge Plan Triage Chief Complaint: Head Injury ED Provider: Sony Carlisle Dx/Rx/DC Orders Clinical Impression: Closed head injury, Longstanding persistent atrial fibrillation, Head contusion, Fall, Chronic anticoagulation Instructions: ED Head Injury (Adult) Prescriptions: No Action aspirin [Adult Aspirin Regimen] 81 mg tablet,delayed release (DR/EC) 81 mg PO DAILY riboflavin (vitamin B2) 100 mg tablet 100 mg PO DAILY magnesium 250 mg tablet 250 mg PO DAILY (DME) compress.stocking,knee,reg,med Misc See Rx Instructions .ROUTE .MEDSUPPLY Qty: 2 0RF Rx Instructions: On AM, off bedtime. fluorometholone 0.1 % drops,suspension 1 drp ophthalmic (eye) BID multivitamin with minerals Tablet 1 tab PO DAILY cholecalciferol (vitamin D3) 25 mcg (1,000 unit) capsule 25 mcg PO DAILY ascorbic acid (vitamin C) 500 mg tablet 500 mg PO DAILY tamsulosin 0.4 mg capsule 0.4 mg PO QHS triamcinolone acetonide [Nasacort] 55 mcg aerosol,spray 1 spray intranasal DAILY Rx Instructions: administer into each nostril Refresh Relieva 0.5-0.9 % drops 1 drp ophthalmic (eye) BID-QID PRN latanoprost 1 DROP bottle 1 drp EACH EYE QHS albuterol sulfate 1 PUFF inhaler 2 puff inhalation Q4H PRN PRN (Reason: WHEEZING/SOB) isosorbide mononitrate 30 mg tablet extended release 24 hr 30 mg PO DAILY Qty: 90 3RF lisinopril 30 mg tablet 30 mg PO DAILY Qty: 90 3RF simvastatin 20 mg tablet 20 mg PO DAILY Qty: 90 3RF omeprazole 40 mg capsule,delayed release(DR/EC) 40 mg PO BID Qty: 180 3RF apixaban 5 mg tablet 5 mg PO BID Qty: 180 3RF hydrochlorothiazide 12.5 mg tablet 12.5 mg PO DAILY Qty: 90 3RF Symbicort 160-4.5 mcg/actuation HFA aerosol inhaler 2 puff INHALATION BID 90 Days Qty: 30.4 3RF Hold Instructions: side effects ipratropium-albuterol 20-100 mcg/actuation mist 1 puff inhalation BID Qty: 4 3RF amlodipine 10 mg tablet 5 mg PO DAILY Qty: 90 3RF nitroglycerin 0.4 mg tablet, sublingual 0.4 mg SUBLINGUAL Q5-15M PRN (Reason: CP) Qty: 25 2RF Spiriva with HandiHaler 18 mcg capsule, w/inhalation device 1 cap INHALATION DAILY Qty: 90 3RF gabapentin 100 mg capsule See Rx Instructions PO .COMPLEX Qty: 150 3RF Rx Instructions: Take two 100 mg capsules in the AM, 1 capsule mid day, and 2 capsules at bedtime; Primary Care Provider: Mariaa Collazo Referrals: Mariaa Collazo MD [Primary Care Provider] - 5-7 Days Disposition Disposition: Home, Self Care
--- NOTE | 2022-12-28 14:29 | CT_ITS ---
STUDY: CT BRAIN WITHOUT CONTRAST REASON FOR EXAM: Male, 82 years old. Facial injury due to a fall. Patient is on anticoagulation. RADIATION DOSAGE (If Supplied By Facility): CTDIvol = ( 47.06 ) mGy, DLP = ( 925.62 ) mGycm TECHNIQUE: Transaxial CT imaging of the brain was performed without administration of intravenous contrast material. Individualized dose optimization techniques were used for this CT. COMPARISON: No relevant priors. FINDINGS: Scalp hematoma overlying the right frontal bone. Normal calvarium. There is mild cerebral atrophy with widening of the extra-axial spaces and ventricular dilatation. There are areas of decreased attenuation within the white matter tracts of the supratentorial brain, consistent with microvascular disease changes. Normal basal ganglia and thalami. Normal brainstem. Normal cerebellum. There is no intracranial hemorrhage. There are no findings of an acute ischemic infarction. Partial opacification of the maxillary sinuses bilaterally. Air-fluid levels in both maxillary sinuses. Partial opacification of the ethmoid sinuses bilaterally. CT/Brain/Head without Contrast IMPRESSION: Chronic involutional changes of the brain. Sinusitis. Scalp hematoma overlying the right frontal bone. Electronically Signed: Yakov Dc MD at 15:38 EDT ,
[2022-12-28 14:48] LABS: Absolute Lymphocyte Count 1.41 X10^3/uL (0.83-4.51); Absolute Neutrophil Count 3.3 X10^3/uL (2.0-7.7); Basophil# 0.03 X10^3/uL; Basophil% 0.5 % (0-1); Eosinophil# 0.05 X10^3/uL; Eosinophils% 0.9 % (0-5); Hematocrit 39.7 % (40-54); Hemoglobin 13.6 g/dL (13.0-16.5); Lymphocyte # 1.41 X10^3/ul (0.83-4.51); Mean Corp Hgb Conc 34.3 g/dL (32-36); Mean Corpuscular Hgb 31.1 pg (27.0-32.0); Mean Corpuscular Volume 90.8 fL (80-94); Mean Platelet Vol. 8.9 fl (6.2-12.0); Monocyte# 0.83 X10^3/uL; Monocyte% 14.7 % (0-10); NRBC Flagged by Analyzer 0 % (0-5); Neutrophil # 3.28 X10^3/uL (2.7-7.7); Neutrophil % 58.4 % (47-70); Platelet Count 213 K/mm3 (150-450); RBC Distribution Width CV 13.8 % (11.6-14.6); RBC Distribution Width SD 46.1 fl (35.1-43.9); Red Blood Count 4.37 M/mm3 (4.6-6.2); White Blood Count 5.6 K/mm3 (4.4-11.0)
--- NOTE | 2022-12-28 14:52 | RAD_ITS ---
STUDY: X-RAY CHEST REASON FOR EXAM: Male, 82 years old. Cough TECHNIQUE: AP and lateral views of the chest. COMPARISON: Comparison is made with prior study dated December 07, 2022. FINDINGS: Hyperinflation. There is no demonstrated pleural abnormality. There is moderate cardiac enlargement. Normal mediastinum and janet. Normal visualized pulmonary arteries. There is atherosclerotic calcification of the aortic arch with tortuosity. Normal visualized thoracic spine. There is degenerative osteoarthritis of the bilateral shoulders. Healed right rib fractures. Large hiatal hernia. RAD/Chest PA and Lateral IMPRESSION: Hyperinflation. Cardiomegaly. I''ll hernia. Electronically Signed: Yakov Dc MD at 15:10 EDT ,
[2022-12-28 14:58] LABS: International Normalized Ratio 1.2
[2022-12-28 15:01] LABS: Anion Gap 5 (5-15); BUN 9 mg/dL (7-18); BUN/Creat Ratio 19.4 RATIO (10-20); Calcium,Total 8.4 mg/dL (8.5-10.1); Chloride 99 mmol/L (98-107); Creatinine, Serum 0.46 mg/dL (0.70-1.30); EST Glomerular Filtration Rate 183 mL/min (>60); Est Glom Filt Rate - Afr Amer 221 mL/min (>60); Glucose 94 mg/dL (74-106); Potassium 4.2 mmol/L (3.5-5.1); Sodium Level 131 mmol/L (136-145)
== END 2022-12-28 16:09 | disposition home or self-care (01) ==
PROVIDERS: Emergency Provider Emergency Medicine; PCP Internal Medicine; Visit Provider Emergency Medicine
DX: S00.03XA Contusion of scalp, initial encounter (principal); J44.9 Chronic obstructive pulmonary disease, unspecified; I48.19 Other persistent atrial fibrillation; Z87.891 Personal history of nicotine dependence; E78.00 Pure hypercholesterolemia, unspecified; I10 Essential (primary) hypertension; R35.0 Frequency of micturition; Z79.01 Long term (current) use of anticoagulants; W19.XXXA Unspecified fall, initial encounter
CPT/HCPCS: 70450; 71046; 80048; 85025; 85610; 99283; A4216

== ENCOUNTER 2023-01-30 16:52 | Emergency (ER) | payer MEDICARE, SELFPAY ==
[2023-01-30 16:53] VITALS: BP 151/98; PULSE 76; RESP 16; TEMP 36.9; O2SAT 96; BMI 27.9
--- NOTE | 2023-01-30 17:35 | EDS_ITS ---
HPI <TEJAL Lemus - Last Filed: 01/30/23 18:38> History of Present Illness Chief Complaint: Edema Narrative Narrative: Patient is a 82-year-old male with history of atrial fibrillation on Eliquis, COPD, hyperlipidemia, frequent falls who presents to the emergency department with 2 weeks of worsening pain to the left foot. Patient states that over the last 3 to 4 days began much worse. Is more swollen. Patient states got more red. He states the pain is not all the time however he does have severe shooting pains. He does have history of neuropathy however he states this is different and more severe. He denies any fever or chills. Denies any nausea or vomiting. He is here with his [facility] <TEJAL Lemus - Last Filed: 01/30/23 18:38> [facility] Medical History Actinic keratosis Alcohol use Anemia Arthritis Asthma Paiz esophagus Benign prostate hyperplasia Cardiology follow-up encounter Carotid artery disease COPD (chronic obstructive pulmonary disease) COPD (chronic obstructive pulmonary disease) CPAP (continuous positive airway pressure) dependence Essential (primary) hypertension Former smoker GERD (gastroesophageal reflux disease) Glaucoma Hiatal hernia High cholesterol History of atrial fibrillation History of edema History of stress test History of upper gastrointestinal bleeding (12/2013) Hx of echocardiogram Hyperlipidemia Hypertension Longstanding persistent atrial fibrillation Loss of hearing Obstructive sleep apnea Secondary pulmonary arterial hypertension Shortness of breath on exertion Sleep apnea SOB (shortness of breath) Vocal cord dysfunction Wears glasses Home Medications albuterol sulfate 90 mcg/actuation aerosol inhaler 2 puff inhalation Q4H PRN PRN WHEEZING/SOB 01/23/18 [History Last Taken 04/04/21 05:30] aspirin 81 mg tablet,delayed release (Adult Aspirin Regimen) 81 mg PO DAILY 01/30/19 [History Last Taken Unknown] riboflavin (vitamin B2) 100 mg tablet 100 mg PO DAILY 02/03/19 [History Last Taken Unknown] compress.stocking,knee,reg,med #2 ea 02/20/21 [Rx Last Taken Unknown] fluorometholone 0.1 % eye drops,suspension 1 drp ophthalmic (eye) BID 03/11/21 [History Last Taken Unknown] cholecalciferol (vitamin D3) 25 mcg (1,000 unit) capsule 25 mcg PO DAILY 12/18/21 [History Last Taken Unknown] multivitamin with minerals 1 tab PO DAILY 12/18/21 [History Last Taken Unknown] isosorbide mononitrate 30 mg tablet,extended release 24 hr 30 mg PO DAILY #90 tabs 03/05/22 [Rx Last Taken Unknown] lisinopril 30 mg tablet 30 mg PO DAILY #90 tabs 03/05/22 [Rx Last Taken Unknown] simvastatin 20 mg tablet 20 mg PO DAILY #90 tabs 05/07/22 [Rx Last Taken Unknown] omeprazole 40 mg capsule,delayed release 40 mg PO BID #180 caps 06/16/22 [Rx Last Taken Unknown] apixaban 5 mg tablet 5 mg PO BID #180 tabs 06/29/22 [Rx Last Taken Unknown] hydrochlorothiazide 12.5 mg tablet 12.5 mg PO DAILY #90 tabs 08/07/22 [Rx Last Taken Unknown] budesonide-formoterol HFA 160 mcg-4.5 mcg/actuation aerosol inhaler (Symbicort) 2 puff inhalation BID 90 days #30.4 grams 08/17/22 [Rx Last Taken Unknown] ipratropium 20 mcg-albuterol 100 mcg/actuation mist for inhalation 1 puff inhalation BID #4 grams 09/23/22 [Rx Last Taken Unknown] amlodipine 10 mg tablet 5 mg PO DAILY #90 tabs 10/16/22 [Rx Last Taken Unknown] nitroglycerin 0.4 mg sublingual tablet 0.4 mg sublingual Q5-15M PRN CP #25 tabs 10/16/22 [Rx Last Taken Unknown] tiotropium bromide 18 mcg capsule with inhalation device (Spiriva with HandiHaler) 1 cap inhalation DAILY #90 inhalations 11/12/22 [Rx Last Taken Unknown] gabapentin 100 mg capsule See Rx Instructions PO .COMPLEX #150 caps 11/16/22 [Rx Last Taken Unknown] ascorbic acid (vitamin C) 500 mg tablet 500 mg PO DAILY 12/24/22 [History Last Taken Unknown] magnesium 250 mg tablet 250 mg PO DAILY 12/24/22 [History Last Taken Unknown] tamsulosin 0.4 mg capsule 0.4 mg PO QHS 12/24/22 [History Last Taken Unknown] triamcinolone acetonide 55 mcg nasal spray aerosol (Nasacort) 1 spray intranasal DAILY 12/24/22 [History Last Taken Unknown] cephalexin 500 mg capsule 500 mg PO Q6 #40 CAPSULES 01/30/23 [Rx Last Taken Unknown] Allergy/AdvReac Type Severity Reaction Status Date / Time ondansetron [From Zofran] AdvReac Intermediate Restless Verified 01/30/23 16:56 legs, twitchy Family History Father Asthma CVA (cerebral vascular accident) Mother Hypertension Cancer Sister Hypertension Diabetes Grandfather Myocardial infarction Surgical History History of bilateral cataract extraction History of esophagogastroduodenoscopy (EGD) History of repair of hiatal hernia Hx of oral surgery Hx of tonsillectomy Social History Smoking Status: Former smoker quit date: 10/04/94 second hand exposure: No alcohol intake: current alcohol intake frequency: a few times a month Alcohol type: beer substance use type: does not use caffeine: Yes Type: tea Number of servings: 1 what type of physical activity do you participate in: none frequency: does not exercise ROS <TEJAL Lemus - Last Filed: 01/30/23 18:38> ROS ED ROS Narrative Constitutional: Negative for fever, chills, weight loss, weakness Eyes: Negative for vision loss, vision change, double vision ENT: Negative for any sore throat, ear pain, congestion Cardiovascular: Negative for any chest pain, tightness, palpitations Respiratory: Negative for any cough, sputum production, hemoptysis, dyspnea, dyspnea on exertion, orthopnea Gastrointestinal: Negative for any abdominal pain, nausea, vomiting, diarrhea, constipation, blood in stool, blood in vomit : Negative for any urinary frequency, dysuria, retention, blood in urine Muscle skeletal: Negative for any muscle joint pain, stiffness, myalgias, arthralgias, neck pain, back pain. Positive for left foot pain, left foot swelling Neurological: Negative for any headache, syncope, numbness or tingling, dizziness Skin: Negative for any rashes, lumps, itching, abrasions, lacerations Psychiatric: Negative for any depression, anxiety, stress, suicidal ideation, homicidal ideation Hematologic: Negative for any easy bruising, excessive bruising, easy bleeding Allergies: Negative for any eczema, hives, rash EXAM <TEJAL Lemus - Last Filed: 01/30/23 18:38> Physical Exam Narrative Exam Narrative: Vital signs reviewed. HEET: Head normocephalic atraumatic, TMs clear bilaterally. Posterior pharynx is clear, moist mucous membranes. Nares clear bilaterally. Neck: Supple with no lymphadenopathy or tenderness. No signs of meningismus, negative jolt sign. Cardiac: Regular rate and rhythm no murmurs gallops or rubs, equal peripheral pulses bilaterally. Respiratory: Lungs clear to auscultation bilaterally. No chest tenderness. Abdomen: Soft, nontender, nondistended. No abdominal bruit or pulsatile masses. No hepatosplenomegaly Extremities: Patient does have some edema pitting to the left foot. It is slightly larger than the right foot. There is some redness and warmth. Concern for cellulitis versus inflammation. Patient does have edema up to the knee. However this is bilateral. Patient has +2 pitting edema to the left foot however +1 pitting edema to bilateral shins, there is no obvious sign of gross drainage. Patient has minimal pain on palpation. Patient has full range of motion good feeling no numbness or tingling. No signs of gross trauma or deformity. Active full range of motion of all extremities. Neuro: Cranial nerves II through XII intact, no focal neurological deficits. Skin: Clean dry and intact with no rash, purpura, petechiae, vesicles or pustules. Backs/flank: No CVA tenderness, no midline spinal tenderness, no deformity. Psych: Normal mood and affect. No SI, HI or acute psychosis. Const Vital Signs: 01/30/23 16:53 01/30/23 17:25 Temperature 98.4 F Temperature Source Temporal Pulse Rate 76 Respiratory Rate 16 Respiratory Pattern Normal Blood Pressure 151/98 H Blood Pressure Mean 115 Pulse Ox 96 Oxygen Delivery Method Room Air <Dr. Sony Carlisle DO - Last Filed: 01/30/23 19:01> Physical Exam Const Vital Signs: 01/30/23 16:53 01/30/23 17:25 Temperature 98.4 F Temperature Source Temporal Pulse Rate 76 Respiratory Rate 16 Respiratory Pattern Normal Blood Pressure 151/98 H Blood Pressure Mean 115 Pulse Ox 96 Oxygen Delivery Method Room Air MDM <TEJAL Lemus - Last Filed: 01/30/23 18:38> MDM Lab Data Labs: Laboratory Results - last 24 hr 01/30/23 01/30/23 17:44 17:44 WBC 6.0 RBC 4.66 Hgb 14.2 Hct 42.9 MCV 92.1 MCH 30.5 MCHC 33.1 RDW Std Deviation 47.9 H RDW Coeff of Polo 14.3 Plt Count 215 MPV 9.6 Immature Gran % (Auto) 0.700 Neut % (Auto) 52.2 Lymph % (Auto) 27.0 Sumner % (Auto) 17.9 H Eos % (Auto) 1.5 Baso % (Auto) 0.7 Absolute Neuts (auto) 3.2 Absolute Lymphs (auto) 1.63 Nucleated RBC % 0 Sodium 131 L Potassium 4.5 Chloride 96 L Carbon Dioxide 27.0 Anion Gap 8 BUN 13 Creatinine 0.63 L Estim Creat Clear Calc 53.20 Est GFR (MDRD) Af Amer 156 Est GFR (MDRD) Non-Af 129 BUN/Creatinine Ratio 20.7 H Glucose 117 H Calcium 8.5 Radiography Diagnostic Testing: Clinical Impression(s) from Imaging Studies Foot X-Ray 01/30/23 17:45 IMPRESSION: No acute fracture or dislocation. Electronically Signed: Parag Snow MD at 18:35 EDT , Treatment and Re-Evaluation :: All radiologic examinations were read, reviewed by the emergency department attending. From these reads, a plan of care will be put in place. Patient's x-ray of the left foot was unremarkable, did show some soft tissue swelling. Patient's lab values showed no leukocytosis, normal CBC, normal chemistries, patient did have some slight hyponatremia however this is chronic over the last year. Glucose is 117. At this time, I do believe that the physical examination is consistent with a cellulitis. Differential diagnosis include fracture, DVT. These are unlikely secondary to be no trauma as well as the patient being on Eliquis. The pain could be likely coming from the infection, he placed on Keflex 4 times a day for 10 days. He was given 1 g of IV Ancef here. He will follow-up closely with his PCP. I I was able speak with the patient as well as the patient's . All questions answered, return precautions given. <Dr. Sony Carlisle, DO - Last Filed: 01/30/23 19:01> [facility] Narrative Medical decision making narrative: I have personally performed a face to face assessment of the patient and have reviewed the DHAVAL Note. I performed a substantive portion of the visit including all aspects of the following. My jensen findings include: History: Patient presents with redness and swelling to his left foot that has been getting progressively worse. Patient denies any fevers or chills. Patient states he fell a couple weeks ago and was seen here at that time. Patient states that his foot did not hurt at that time and x-rays were not done. Patient states the pain is getting progressively worse. Patient states it is worse with ambulation. Patient denies any recent trauma or injury. Patient denies any fevers or chills. Patient noted some redness to his left foot. Patient denies any discharge or drainage. Exam: Vital signs are stable. Patient is afebrile. Patient is in no acute distress. There is erythema and warmth over the dorsal medial aspect of the left foot. There is no abscess formation. There is no fluctuance. Pedal pulses are equal bilaterally. Sensation was intact to light touch in all digits. Capillary refill was less than 2 seconds in all digits. There is good range of motion of the left foot and ankle. There is no obvious deformity noted. Medical Decision Making: Differential diagnosis includes cellulitis, sprain, and fracture. X-rays of the left foot will be obtained to assess for fracture. CBC will be obtained to assess for leukocytosis and anemia. Basic metabolic profile will be obtained to assess for electrolyte abnormality and renal function. Patient was given a dose of Ancef here. CBC was reviewed and was within normal limits. Basic metabolic profile was reviewed. Sodium was slightly low at 131. Chloride was 96. Glucose was borderline at 117. X-rays of the right foot were obtained. There are 3 views. On my independent interpretation, there is no acute fracture or dislocation. There is no evidence of osteomyelitis. There is no soft tissue swelling. Radiologist also interpreted the x-rays and agrees. Patient was given a dose of Ancef here. Patient was given a prescription for Keflex. Patient was instructed to follow-up with his primary care physician in 5 to 7 days. Patient understood and was agreeable with the plan. All questions were answered. Lab Data Labs: Laboratory Results - last 24 hr 01/30/23 01/30/23 17:44 17:44 WBC 6.0 RBC 4.66 Hgb 14.2 Hct 42.9 MCV 92.1 MCH 30.5 MCHC 33.1 RDW Std Deviation 47.9 H RDW Coeff of Polo 14.3 Plt Count 215 MPV 9.6 Immature Gran % (Auto) 0.700 Neut % (Auto) 52.2 Lymph % (Auto) 27.0 Sumner % (Auto) 17.9 H Eos % (Auto) 1.5 Baso % (Auto) 0.7 Absolute Neuts (auto) 3.2 Absolute Lymphs (auto) 1.63 Nucleated RBC % 0 Sodium 131 L Potassium 4.5 Chloride 96 L Carbon Dioxide 27.0 Anion Gap 8 BUN 13 Creatinine 0.63 L Estim Creat Clear Calc 53.20 Est GFR (MDRD) Af Amer 156 Est GFR (MDRD) Non-Af 129 BUN/Creatinine Ratio 20.7 H Glucose 117 H Calcium 8.5 Radiography Diagnostic Testing: Clinical Impression(s) from Imaging Studies Foot X-Ray 01/30/23 17:45 IMPRESSION: No acute fracture or dislocation. Electronically Signed: Parag Snow MD at 18:35 EDT , Discharge Plan Triage Chief Complaint: Edema ED Midlevel Provider: Ariel De Leon ED Provider: Sony Carlisle Dx/Rx/DC Orders Clinical Impression: Cellulitis of foot Instructions: ED Cellulitis Prescriptions: New cephalexin 500 mg capsule 500 mg PO Q6 Qty: 40 0RF No Action aspirin [Adult Aspirin Regimen] 81 mg tablet,delayed release (DR/EC) 81 mg PO DAILY riboflavin (vitamin B2) 100 mg tablet 100 mg PO DAILY magnesium 250 mg tablet 250 mg PO DAILY (DME) compress.stocking,knee,reg,med Misc See Rx Instructions .ROUTE .MEDSUPPLY Qty: 2 0RF Rx Instructions: On AM, off bedtime. fluorometholone 0.1 % drops,suspension 1 drp ophthalmic (eye) BID multivitamin with minerals Tablet 1 tab PO DAILY cholecalciferol (vitamin D3) 25 mcg (1,000 unit) capsule 25 mcg PO DAILY ascorbic acid (vitamin C) 500 mg tablet 500 mg PO DAILY tamsulosin 0.4 mg capsule 0.4 mg PO QHS triamcinolone acetonide [Nasacort] 55 mcg aerosol,spray 1 spray intranasal DAILY Rx Instructions: administer into each nostril albuterol sulfate 1 PUFF inhaler 2 puff inhalation Q4H PRN PRN (Reason: WHEEZING/SOB) isosorbide mononitrate 30 mg tablet extended release 24 hr 30 mg PO DAILY Qty: 90 3RF lisinopril 30 mg tablet 30 mg PO DAILY Qty: 90 3RF simvastatin 20 mg tablet 20 mg PO DAILY Qty: 90 3RF omeprazole 40 mg capsule,delayed release(DR/EC) 40 mg PO BID Qty: 180 3RF apixaban 5 mg tablet 5 mg PO BID Qty: 180 3RF hydrochlorothiazide 12.5 mg tablet 12.5 mg PO DAILY Qty: 90 3RF Symbicort 160-4.5 mcg/actuation HFA aerosol inhaler 2 puff INHALATION BID 90 Days Qty: 30.4 3RF Hold Instructions: side effects ipratropium-albuterol 20-100 mcg/actuation mist 1 puff inhalation BID Qty: 4 3RF amlodipine 10 mg tablet 5 mg PO DAILY Qty: 90 3RF nitroglycerin 0.4 mg tablet, sublingual 0.4 mg SUBLINGUAL Q5-15M PRN (Reason: CP) Qty: 25 2RF Spiriva with HandiHaler 18 mcg capsule, w/inhalation device 1 cap INHALATION DAILY Qty: 90 3RF gabapentin 100 mg capsule See Rx Instructions PO .COMPLEX Qty: 150 3RF Rx Instructions: Take two 100 mg capsules in the AM, 1 capsule mid day, and 2 capsules at bedtime; Primary Care Provider: Mariaa Collazo Referrals: Mariaa Collazo MD [Primary Care Provider] - Activity Restrictions/Additional Instructions: Take antibiotics as prescribed, breakfast lunch dinner as well as at nighttime. Please follow-up with her PCP Disposition Disposition: Home, Self Care
--- NOTE | 2023-01-30 17:45 | RAD_ITS ---
STUDY: X-RAY - LEFT FOOT CLINICAL: Male, 82 years old. swelling TECHNIQUE: 3 view(s) of the foot. COMPARISON: None. FINDINGS: No definite fracture or dislocation. Normal talus, and tarsal bones. Prominent heterogeneity of the calcaneus which could represent previous fracture. 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 Normal visualized subtalar, talonavicular, calcaneocuboid, tarsal and tarsometatarsal articulations. Normal metatarsi. 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 Moderately prominent bunion. Normal tibial and fibular sesamoid bones. Normal interphalangeal joint of the great toe. Normal phalanges of the great toe. Normal second through fifth metatarsophalangeal joints. Normal interphalangeal joints and phalanges of the lesser toes. The soft tissue structures are unremarkable. There is no demonstrated fracture. RAD/Foot min 3 Views IMPRESSION: No acute fracture or dislocation. Electronically Signed: Parag Snow MD at 18:35 EDT ,
[2023-01-30 18:00] LABS: Absolute Lymphocyte Count 1.63 X10^3/uL (0.83-4.51); Absolute Neutrophil Count 3.2 X10^3/uL (2.0-7.7); Basophil# 0.04 X10^3/uL; Basophil% 0.7 % (0-1); Eosinophil# 0.09 X10^3/uL; Eosinophils% 1.5 % (0-5); Hematocrit 42.9 % (40-54); Hemoglobin 14.2 g/dL (13.0-16.5); Lymphocyte # 1.63 X10^3/ul (0.83-4.51); Mean Corp Hgb Conc 33.1 g/dL (32-36); Mean Corpuscular Hgb 30.5 pg (27.0-32.0); Mean Corpuscular Volume 92.1 fL (80-94); Mean Platelet Vol. 9.6 fl (6.2-12.0); Monocyte# 1.08 X10^3/uL; Monocyte% 17.9 % (0-10); NRBC Flagged by Analyzer 0 % (0-5); Neutrophil # 3.15 X10^3/uL (2.7-7.7); Neutrophil % 52.2 % (47-70); Platelet Count 215 K/mm3 (150-450); RBC Distribution Width CV 14.3 % (11.6-14.6); RBC Distribution Width SD 47.9 fl (35.1-43.9); Red Blood Count 4.66 M/mm3 (4.6-6.2)
[2023-01-30 18:06] LABS: Anion Gap 8 (5-15); BUN 13 mg/dL (7-18); BUN/Creat Ratio 20.7 RATIO (10-20); Calcium,Total 8.5 mg/dL (8.5-10.1); Chloride 96 mmol/L (98-107); Creatinine, Serum 0.63 mg/dL (0.70-1.30); EST Glomerular Filtration Rate 129 mL/min (>60); Est Glom Filt Rate - Afr Amer 156 mL/min (>60); Glucose 117 mg/dL (74-106); Potassium 4.5 mmol/L (3.5-5.1); Sodium Level 131 mmol/L (136-145)
[2023-01-30] MEDS: Cefazolin 1 GM/50 ML BAG IV (18:31)
== END 2023-01-30 19:05 | disposition home or self-care (01) ==
PROVIDERS: Nurse Practitioner; Emergency Provider Emergency Medicine; PCP Internal Medicine; Visit Provider Emergency Medicine
DX: L03.116 Cellulitis of left lower limb (principal); J44.9 Chronic obstructive pulmonary disease, unspecified; I27.21 Secondary pulmonary arterial hypertension; I48.11 Longstanding persistent atrial fibrillation; R29.6 Repeated falls; E78.00 Pure hypercholesterolemia, unspecified; R60.9 Edema, unspecified; I10 Essential (primary) hypertension; J45.909 Unspecified asthma, uncomplicated; N40.0 Benign prostatic hyperplasia without lower urinary tract symptoms; G47.33 Obstructive sleep apnea (adult) (pediatric); Z79.01 Long term (current) use of anticoagulants; Z79.82 Long term (current) use of aspirin; Z79.899 Other long term (current) drug therapy; Z87.891 Personal history of nicotine dependence
CPT/HCPCS: 73630; 80048; 85025; 96365; 99282; A4216

== ENCOUNTER 2023-02-05 12:22 | Emergency (ER) | payer MEDICARE, SELFPAY ==
[2023-02-05 12:23] VITALS: BP 131/92; PULSE 104; RESP 16; TEMP 35.8; O2SAT 96; BMI 27.8
[2023-02-05 12:47] VITALS: BP 137/75; PULSE 57; RESP 18; TEMP 36.6; O2SAT 97
--- NOTE | 2023-02-05 13:02 | VDLE_ITS ---
Reason For Study: LLE PAIN RIGHT LEFT CFV is compressible, spontaneous, phasic, GSV is normal. competent and demonstrates normal CFV is compressible, spontaneous, phasic, augmentation. competent, and demonstrates normal Procedure augmentation. This is a venous duplex using B-mode, color FV is compressible, spontaneous, phasic, flow and spectral Doppler. competent and demonstrates normal Exam performed portable in ED. augmentation. The study was technically difficult. POP V is compressible, spontaneous, phasic, A preliminary report was called and/or faxed competent and demonstrates normal to DR. Ornelas @ 1:45 pm. augmentation. T/P Trunk is compressible. PTV is compressible. LT PerV is compressible. VL/Venous Duplex US, Unilateral Interpretation Summary Deep veins of the left lower extremity are patent and compressible segmentally. There is no evidence of left lower extremity deep vein thrombosis. Valvular competence appears intac t within the proximal deep venous system on the left . The left great saphenous vein appears patent a nd compressible segmentally. The right common femoral vein is patent and compressible . Ordering Physician: Seda Ornelas Referring Physician: Mariaa Collazo Performed By: Jennyfer Hunter, INNA, RVT
--- NOTE | 2023-02-05 13:32 | EX.ED.DYSGE1 ---
HPI History of Present Illness Chief Complaint: Cellulitis Informant: patient and spouse/S.O. Narrative Narrative: Blake is an 82 year old male with history of atrial fibrillation on Eliquis, hyperlipidemia, hypertension, COPD and osteoarthritis presenting with continued swelling, redness and warmth of his left ankle/foot. Patient was seen in our ER about 1 week ago on 01/30 for the same complaint. That time he had a work-up including blood work and an x-ray which was largely normal. He had edema as well as skin changes to the top of his foot and was placed on Keflex. He took that course of antibiotics however is not really improved completely so the family came back for further evaluation. He continues to have episodes of sharp pain in his ankle however they have been improving since he has been taking Tylenol. They note the redness on the top of his foot is better but it still red and warm on the inside of his foot/ankle area and his foot is still swollen. Patient states has not missed any doses of his Eliquis. Denies any trauma but did have a fall about 3 weeks ago. His symptoms overall started about 3 weeks ago. No systemic complaints such as fever, chills or change in appetite. [facility] Medical History Actinic keratosis Alcohol use Anemia Arthritis Asthma Paiz esophagus Benign prostate hyperplasia Cardiology follow-up encounter Carotid artery disease COPD (chronic obstructive pulmonary disease) COPD (chronic obstructive pulmonary disease) CPAP (continuous positive airway pressure) dependence Essential (primary) hypertension Former smoker GERD (gastroesophageal reflux disease) Glaucoma Hiatal hernia High cholesterol History of atrial fibrillation History of edema History of stress test History of upper gastrointestinal bleeding (12/2013) Hx of echocardiogram Hyperlipidemia Hypertension Longstanding persistent atrial fibrillation Loss of hearing Obstructive sleep apnea Secondary pulmonary arterial hypertension Shortness of breath on exertion Sleep apnea SOB (shortness of breath) Vocal cord dysfunction Wears glasses Home Medications albuterol sulfate 90 mcg/actuation aerosol inhaler 2 puff inhalation Q4H PRN PRN WHEEZING/SOB 01/23/18 [History Last Taken 04/04/21 05:30] aspirin 81 mg tablet,delayed release (Adult Aspirin Regimen) 81 mg PO DAILY 01/30/19 [History Last Taken Unknown] riboflavin (vitamin B2) 100 mg tablet 100 mg PO DAILY 05/03/19 [History Last Taken Unknown] compress.stocking,knee,reg,med #2 ea 02/20/21 [Rx Last Taken Unknown] fluorometholone 0.1 % eye drops,suspension 1 drp ophthalmic (eye) BID 03/11/21 [History Last Taken Unknown] cholecalciferol (vitamin D3) 25 mcg (1,000 unit) capsule 25 mcg PO DAILY 12/18/21 [History Last Taken Unknown] multivitamin with minerals 1 tab PO DAILY 12/18/21 [History Last Taken Unknown] isosorbide mononitrate 30 mg tablet,extended release 24 hr 30 mg PO DAILY #90 tabs 03/05/22 [Rx Last Taken Unknown] lisinopril 30 mg tablet 30 mg PO DAILY #90 tabs 03/05/22 [Rx Last Taken Unknown] simvastatin 20 mg tablet 20 mg PO DAILY #90 tabs 05/07/22 [Rx Last Taken Unknown] omeprazole 40 mg capsule,delayed release 40 mg PO BID #180 caps 06/16/22 [Rx Last Taken Unknown] apixaban 5 mg tablet 5 mg PO BID #180 tabs 06/29/22 [Rx Last Taken Unknown] hydrochlorothiazide 12.5 mg tablet 12.5 mg PO DAILY #90 tabs 08/07/22 [Rx Last Taken Unknown] budesonide-formoterol HFA 160 mcg-4.5 mcg/actuation aerosol inhaler (Symbicort) 2 puff inhalation BID 90 days #30.4 grams 08/17/22 [Rx Last Taken Unknown] ipratropium 20 mcg-albuterol 100 mcg/actuation mist for inhalation 1 puff inhalation BID #4 grams 09/23/22 [Rx Last Taken Unknown] amlodipine 10 mg tablet 5 mg PO DAILY #90 tabs 10/16/22 [Rx Last Taken Unknown] nitroglycerin 0.4 mg sublingual tablet 0.4 mg sublingual Q5-15M PRN CP #25 tabs 10/16/22 [Rx Last Taken Unknown] tiotropium bromide 18 mcg capsule with inhalation device (Spiriva with HandiHaler) 1 cap inhalation DAILY #90 inhalations 11/12/22 [Rx Last Taken Unknown] gabapentin 100 mg capsule See Rx Instructions PO .COMPLEX #150 caps 11/16/22 [Rx Last Taken Unknown] ascorbic acid (vitamin C) 500 mg tablet 500 mg PO DAILY 12/24/22 [History Last Taken Unknown] magnesium 250 mg tablet 250 mg PO DAILY 12/24/22 [History Last Taken Unknown] tamsulosin 0.4 mg capsule 0.4 mg PO QHS 12/24/22 [History Last Taken Unknown] triamcinolone acetonide 55 mcg nasal spray aerosol (Nasacort) 1 spray intranasal DAILY 12/24/22 [History Last Taken Unknown] cephalexin 500 mg capsule 500 mg PO Q6 #40 CAPSULES 01/30/23 [Rx Last Taken Unknown] doxycycline hyclate 100 mg capsule 100 mg PO BID #20 caps 02/05/23 [Rx Last Taken Unknown] Allergy/AdvReac Type Severity Reaction Status Date / Time ondansetron [From Zofran] AdvReac Intermediate Restless Verified 02/05/23 12:47 legs, twitchy Family History Father Asthma CVA (cerebral vascular accident) Mother Hypertension Cancer Sister Hypertension Diabetes Grandfather Myocardial infarction Surgical History History of bilateral cataract extraction History of esophagogastroduodenoscopy (EGD) History of repair of hiatal hernia Hx of oral surgery Hx of tonsillectomy Social History Smoking Status: Former smoker quit date: 10/04/94 second hand exposure: No alcohol intake: current alcohol intake frequency: a few times a month Alcohol type: beer substance use type: does not use caffeine: Yes Type: tea Number of servings: 1 what type of physical activity do you participate in: none frequency: does not exercise ROS ROS ED Constitutional Constitutional ED: Denies chills or fever(s) Cardiovascular Cardiovascular: Denies chest pain or palpitations Respiratory/Chest Respiratory/Chest: Denies cough Gastrointestinal Gastrointestinal: Denies abdominal pain, nausea or vomiting Musculoskeletal Musculoskeletal: Reports other Details: left ankle pain Integumentary Reports rash Neurologic Neurologic: Denies headache(s), paresthesias or weakness Psychiatric Psychiatric: Denies anxiety Hematologic/Lymphatic Hematologic/Lymphatic: Reports easy bleeding and easy bruising EXAM Physical Exam Const Vital Signs: 02/05/23 12:23 02/05/23 12:47 02/05/23 14:51 Temperature 96.5 F L 97.9 F 98.2 F Temperature Source Temporal Oral Oral Pulse Rate 104 H 57 L 64 Respiratory Rate 16 18 18 Blood Pressure 131/92 H 137/75 H 150/103 H Blood Pressure Mean 105 95 118 Pulse Ox 96 97 98 Oxygen Delivery Method Room Air Room Air Room Air Positive well nourished and well developed General Appearance ED: well developed and NAD HEENT Reports moist mucous membranes HEENT Narrative: healing ecchymosis to bilateral cheeks from fall 3 weeks ago. Eyes PERRL and EOMs intact bilaterally Neck supple and no JVD Resp normal respiratory effort and clear to auscultation bilaterally Cardio regular rate GI normal to inspection, nondistended, normoactive bowel sounds Extremity Extremity Narrative: nonpitting edema of the left lower leg up to the mid hurt. No short arch ROM pain with the left ankle. No deformity. Mild TTP of the medial malleolus and the head of the first metatarsal General Extremety ED: Yes edema and tenderness General Extremity: edema Neuro oriented x3 Sensorium / Orientation: alert Motor Exam: strength 5/5 throughout; Negative for general weakness Psych mental status grossly normal Skin Skin Narrative: Erythema with slight warmth localized around the left medial ankle and medial proximal foot. It is blanching. There is a small area of ecchymosis tracking down to the base of the left foot. No tenderness with light palpation of the skin. No associated lymphangitic streaking. No well demarcated edges. MDM MDM MDM Narrative Medical decision making narrative: Patient is evaluated for continued redness and pain of his left ankle. Patient had a fall about 3 weeks ago and the pain did seem to start around then. He has been on 6 days of Keflex. Its not getting worse but he also feels is not getting better. He continues to have pain. This is improved with Tylenol. Patient cannot take NSAIDs secondary to his anticoagulation with Eliquis. On exam he does have erythema and also some ecchymosis and I am not sure if this is more inflammatory changes versus true infection. I also considered gout however he does not have pain with light touch. I did check a uric acid as well as a CRP, ESR and white blood cell count. These were all normal. No significant electrolyte abnormalities. He has no short arc range of motion pain I do not suspect septic joint. Discussed that since he is chronically anticoagulated I think the risk of performing arthrocentesis to truly diagnose or exclude gout outweigh the benefits due to the risk of hemarthrosis. Patient and verbalized agreement understanding with this. Given that he is not has no systemic symptoms his labs are normal I think we can just switch him to doxycycline for the time being. 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 They do know how to contact her. Instructed to follow-up on Wednesday. As patient is chronically anticoagulated on Eliquis I think DVT is less likely however venous duplex was obtained just to double check. This was also negative. Patient is given an Kush wrap as well to help with the swelling. We will continue to wear his compression stockings. Counseled on using ice and RICe therapy. Patient and verbalized agreement understands plan. Patient discharged home in stable condition. Lab Data Attestation: I reviewed the patient's lab results. Labs: Laboratory Results - last 24 hr 02/05/23 02/05/23 02/05/23 13:27 13:27 14:10 WBC 5.5 RBC 4.51 L Hgb 13.9 Hct 41.1 MCV 91.1 MCH 30.8 MCHC 33.8 RDW Std Deviation 48.2 H RDW Coeff of Polo 14.3 Plt Count 207 MPV 9.5 Immature Gran % (Auto) 0.400 Neut % (Auto) 60.0 Lymph % (Auto) 23.1 Clark % (Auto) 14.9 H Eos % (Auto) 0.9 Baso % (Auto) 0.7 Absolute Neuts (auto) 3.3 Absolute Lymphs (auto) 1.27 Nucleated RBC % 0 ESR 8 Sodium Cancelled 132 L Potassium Cancelled 4.1 Chloride Cancelled 98 Carbon Dioxide Cancelled 27.0 Anion Gap Cancelled 7 BUN Cancelled 10 Creatinine Cancelled 0.55 L Estim Creat Clear Calc Cancelled 53.20 Est GFR (MDRD) Af Amer Cancelled 184 Est GFR (MDRD) Non-Af Cancelled 152 BUN/Creatinine Ratio Cancelled 18.3 Glucose Cancelled 102 Uric Acid Cancelled 4.1 Calcium Cancelled 8.6 C-React Prot Ext Range Cancelled < 2.90 Discharge Plan Triage Chief Complaint: Cellulitis ED Provider: Seda Ornelas Dx/Rx/DC Orders Clinical Impression: Edema of left lower extremity, Ankle pain, left, Cellulitis of foot without toes, left Instructions: ED Bandage Elastic Wrap, ED Arthralgia, ED Cellulitis Prescriptions: New doxycycline hyclate 100 mg capsule 100 mg PO BID Qty: 20 0RF No Action aspirin [Adult Aspirin Regimen] 81 mg tablet,delayed release (DR/EC) 81 mg PO DAILY riboflavin (vitamin B2) 100 mg tablet 100 mg PO DAILY magnesium 250 mg tablet 250 mg PO DAILY (DME) compress.stocking,knee,reg,med Misc See Rx Instructions .ROUTE .MEDSUPPLY Qty: 2 0RF Rx Instructions: On AM, off bedtime. fluorometholone 0.1 % drops,suspension 1 drp ophthalmic (eye) BID multivitamin with minerals Tablet 1 tab PO DAILY cholecalciferol (vitamin D3) 25 mcg (1,000 unit) capsule 25 mcg PO DAILY ascorbic acid (vitamin C) 500 mg tablet 500 mg PO DAILY tamsulosin 0.4 mg capsule 0.4 mg PO QHS triamcinolone acetonide [Nasacort] 55 mcg aerosol,spray 1 spray intranasal DAILY Rx Instructions: administer into each nostril albuterol sulfate 1 PUFF inhaler 2 puff inhalation Q4H PRN PRN (Reason: WHEEZING/SOB) cephalexin 500 mg capsule 500 mg PO Q6 Qty: 40 0RF isosorbide mononitrate 30 mg tablet extended release 24 hr 30 mg PO DAILY Qty: 90 3RF lisinopril 30 mg tablet 30 mg PO DAILY Qty: 90 3RF simvastatin 20 mg tablet 20 mg PO DAILY Qty: 90 3RF omeprazole 40 mg capsule,delayed release(DR/EC) 40 mg PO BID Qty: 180 3RF apixaban 5 mg tablet 5 mg PO BID Qty: 180 3RF hydrochlorothiazide 12.5 mg tablet 12.5 mg PO DAILY Qty: 90 3RF Symbicort 160-4.5 mcg/actuation HFA aerosol inhaler 2 puff INHALATION BID 90 Days Qty: 30.4 3RF Hold Instructions: side effects ipratropium-albuterol 20-100 mcg/actuation mist 1 puff inhalation BID Qty: 4 3RF amlodipine 10 mg tablet 5 mg PO DAILY Qty: 90 3RF nitroglycerin 0.4 mg tablet, sublingual 0.4 mg SUBLINGUAL Q5-15M PRN (Reason: CP) Qty: 25 2RF Spiriva with HandiHaler 18 mcg capsule, w/inhalation device 1 cap INHALATION DAILY Qty: 90 3RF gabapentin 100 mg capsule See Rx Instructions PO .COMPLEX Qty: 150 3RF Rx Instructions: Take two 100 mg capsules in the AM, 1 capsule mid day, and 2 capsules at bedtime; Primary Care Provider: Mariaa Collazo Referrals: Mariaa Collazo MD [Primary Care Provider] - Activity Restrictions/Additional Instructions: Stop taking the initial antibiotic, Keflex (cephalexin). Take the next dose of doxycycline tomorrow morning. Please call your evaporator operator molasses this afternoon or Wednesday to arrange for close outpatient follow-up and a wound check. Your DVT study was negative today and your lab work was are largely normal. Continue take Tylenol, ice your ankle, use Kush wrap/compression and elevate your leg. It is okay for you to walk on it. Disposition Disposition: Home, Self Care
[2023-02-05 13:36] LABS: Absolute Lymphocyte Count 1.27 X10^3/uL (0.83-4.51); Absolute Neutrophil Count 3.3 X10^3/uL (2.0-7.7); Basophil# 0.04 X10^3/uL; Basophil% 0.7 % (0-1); Eosinophil# 0.05 X10^3/uL; Eosinophils% 0.9 % (0-5); Hematocrit 41.1 % (40-54); Hemoglobin 13.9 g/dL (13.0-16.5); Lymphocyte # 1.27 X10^3/ul (0.83-4.51); Lymphocyte % 23.1 % (19-41); Mean Corp Hgb Conc 33.8 g/dL (32-36); Mean Corpuscular Hgb 30.8 pg (27.0-32.0); Mean Corpuscular Volume 91.1 fL (80-94); Mean Platelet Vol. 9.5 fl (6.2-12.0); Monocyte# 0.82 X10^3/uL; Monocyte% 14.9 % (0-10); NRBC Flagged by Analyzer 0 % (0-5); Platelet Count 207 K/mm3 (150-450); RBC Distribution Width CV 14.3 % (11.6-14.6); RBC Distribution Width SD 48.2 fl (35.1-43.9); Red Blood Count 4.51 M/mm3 (4.6-6.2); White Blood Count 5.5 K/mm3 (4.4-11.0)
[2023-02-05 13:57] LABS: Erythrocyte Sedimentation Rate 8 mm/hr (0-20)
[2023-02-05 14:42] LABS: Anion Gap 7 (5-15); BUN 10 mg/dL (7-18); BUN/Creat Ratio 18.3 RATIO (10-20); CRP < 2.90 mg/L (0.0-3.0); Calcium,Total 8.6 mg/dL (8.5-10.1); Chloride 98 mmol/L (98-107); Creatinine, Serum 0.55 mg/dL (0.70-1.30); EST Glomerular Filtration Rate 152 mL/min (>60); Est Glom Filt Rate - Afr Amer 184 mL/min (>60); Glucose 102 mg/dL (74-106); Potassium 4.1 mmol/L (3.5-5.1); Sodium Level 132 mmol/L (136-145); Uric Acid 4.1 mg/dL (3.5-7.2)
[2023-02-05 14:51] VITALS: BP 150/103; PULSE 64; RESP 18; TEMP 36.8; O2SAT 98
[2023-02-05] MEDS: Doxycycline 100 MG CAPSULE PO (15:19)
== END 2023-02-05 15:30 | disposition home or self-care (01) ==
PROVIDERS: Emergency Provider Emergency Medicine; PCP Internal Medicine; Visit Provider Emergency Medicine
DX: L03.116 Cellulitis of left lower limb (principal); J44.9 Chronic obstructive pulmonary disease, unspecified; I27.21 Secondary pulmonary arterial hypertension; I48.11 Longstanding persistent atrial fibrillation; R60.0 Localized edema; I10 Essential (primary) hypertension; M25.572 Pain in left ankle and joints of left foot; E78.00 Pure hypercholesterolemia, unspecified; G47.33 Obstructive sleep apnea (adult) (pediatric); Z79.82 Long term (current) use of aspirin; Z79.01 Long term (current) use of anticoagulants; Z87.891 Personal history of nicotine dependence
CPT/HCPCS: 36415; 80048; 84550; 85025; 85652; 86140; 93971; 99283; A4216

== ENCOUNTER → 2023-03-15 | Outpatient (CLI) | payer MEDICARE, SELFPAY ==
--- NOTE | 2023-03-15 14:53 | ART_ITS ---
Reason For Study: PVD Procedure A bilateral lower extremity continuous wave Doppler with analog waveform analysis,segmental pressures,and ankle brachial indexes without exercise. Left Segmental Pressures Left brachial= 135mmHg. Left posterior tibial artery = 155mmHg. Left dorsalis pedis artery = 161mmHg. Left digit = 124 mmHg. The left posterior tibial artery waveforms are triphasic. The left dorsalis pedis waveforms are biphasic. Right Segmental Pressures Right brachial= 127mmHg. Right posterior tibial artery = 175mmHg. Right dorsalis pedis artery = 140mmHg. Right digit = 139 mmHg. The right posterior tibial artery waveforms are triphasic. The right dorsalis pedis waveforms are biphasic. Indices The right ankle brachial index by the posterior tibial artery is 1.30. The right ankle brachial index by the dorsalis pedis is 1.04. The right digital-brachial index is 1.03. The left ankle brachial index by the posterior tibial artery is 1.15. The left ankle brachial index by the dorsalis pedis is 1.19. The left digital-brachial index is 0.92. VL/Lower Ext Art Exam w/o Exercis Interpretation Summary Triphasic and biphasic Doppler waveforms are noted at ankle level bilaterally. Pulse-volume recordings appear satisfactory at all levels bilaterally. Resting ankle-brachia l indices are normal bilaterally. Digital-brachial indices are normal bilaterally. There is no evidence of significant arterial occlusive disease in the lower ext remities bilaterally. Ordering Physician: Rachele Plata Referring Physician: Mariaa Collazo M.D. Performed By: Sandeep Ortiz RVT
== END | disposition home or self-care (01) ==
LOC: CVS 14:44
PROVIDERS: PCP Internal Medicine; Referring Provider Podiatrist; Visit Provider Podiatrist
DX: I73.9 Peripheral vascular disease, unspecified (principal)
CPT/HCPCS: 93923

== ENCOUNTER 2023-04-07 11:30 | Outpatient (RCR) | payer MEDICARE, SELFPAY ==
--- NOTE | 2023-01-15 12:54 | HP.PTEVAL ---
Patient's Visit Information ANNEMARIE OROSCO is a 82 year old M referred to Physical Therapy by Dr. Rachele Plata DPM with a diagnosis of UNSTABLE GAIT. Date of Evaluation: 01/15/23 Physical Therapist: Lloyd Rush, PT, Cert MDT, [facility] - Visit Plan Frequency: 2x /Week Duration: 4 Weeks Plan: PT INTERVETIONS BALANCE PROGRAM ,ENDURANCE TRAINING ,BLE STRENGTHENIG AND FUNCTIONAL STRENGTHENING - Subjective This 82 y/o male presents to physical therapy with unstable gait. Patient fell ~ 2weeks ago falling in driveway mechanical fall . Patient hit face ,patient ER at [facility] after calling . Patient had CATSCAN - ,x-rays -. Patient also had blood work. Patient developed bruising on face and around eyes. Patient denies dizziness/RUBY/tinnitus/nausea. Patient denies pain. Patient denies paresthesia/tingling . Patient doesn't use device for gait. Patient lines 1 story home with one step. Patient is is I with dress and bathing. Patient sleeps good. Patient gaols to increase balance. SOCIAL: . VOCATION: retired - Objective POSTURE: hips/knees flexed ,bilateral knee valgus. GAIT: reciprocal pattern with mild forward posture mild unsteady bilateral knee Varus wider JEAN. STAIRS: one step at time with rail. MMT: quads 4/5 , hamstrings 4/5 ,hip flexion 4-/5 ,hip abduction 4-/5 ,ankle 4/5. FLEXABILITY: hamstrings min tight - Balance/Special Test Scores Functional Gait Assessment Score: 15 % Disability: 50.0000 CATSIB Score (Max score 120 seconds): 54 Lower Extremity Functional Score: 29 - Goals Goal 1:: Patient to be I with HEP strengthening and balance Goal Time Frame: 4-6 Weeks Goal 2:: Patient to demonstrate 50% improvement with improved balance Goal Time Frame: 4-6 Weeks Goal 3:: Patient to improve gait CATSIB by 10 points to decrease risk of falls Goal Time Frame: 4-6 Weeks Goal 4:: Patient to improve functional gait assessment score by 5-10 points to decrease risk of falls Goal Time Frame: 4-6 Weeks Goal 5:: Patient to improve LFES score by 5-10points to improve gait and decrease risk of falls Goal Time Frame: 4-6 Weeks - Rehabilitation Potential Physical Therapy Diagnosis: Patient displays with decrease balance ,decrease CATSIB ,functional gait assessment with a unsteady gait pattern thus will benefit from skilled PT Rehabilitation Potential: Good - Anticipated Interventions Patient/Client Instruction: Educate patient on: Condition, Plan of Care For the Purpose of:: To decrease pain, To increase ROM, To improve muscle performance and motor function, To improve ability to perform ADL's, To increase tolerance to activity/condition/position, To improve ability of physical actions for home/community/work/leisure, To improve health of tissue, To decrease soft tissue restriction, To increase flexibility/ROM Therapeutic Exercise to Include: Strength training, Endurance training, Balance training, Postural training, Gait and locomotor training, Active ROM Comment: BLE For the Purpose of:: To decrease pain, To increase ROM, To improve muscle performance and motor function, To increase tolerance to activity/condition/position, To improve ability of physical actions for home/community/work/leisure, To improve health of tissue, To decrease soft tissue restriction, To increase flexibility/ROM, To improve endurance Thank you for the opportunity to evaluate your patient. For Medicare and Medicare HMO plans, please review the plan of care and approve it. It will need to be FAXED BACK to us at [phone] for Medicare purposes. For Medicare only, by signing this I certify the plan of care. Please let me know if there are questions or concerns regarding this plan of care. Physician Signature: Date:
--- NOTE | 2023-03-08 12:26 | HP.PTREVAL_ITS ---
Dr. Rachele Plata, DPM, It has been my pleasure to treat ANNEMARIE OROSCO over the last 11 visits for UNSTABLE GAIT. Please see the progress note below for an update on the physical therapy plan of care! Subjective: Doing okay Objective/Function: POSTURE: hips/knees flexed ,bilateral knee valgus. GAIT: reciprocal pattern with mild forward posture mild unsteady bilateral knee Varus wider JEAN. STAIRS: one step at time with rail. MMT: quads 4/5 , hamstrings 4/5 ,hip flexion 4-/5 ,hip abduction 4-/5 ,ankle 4/5. FLEXABILITY: hamstrings min tight Plan Plan: cont with POC. PT INTERVETIONS BALANCE PROGRAM, ENDURANCE TRAINING, BLE STRENGTHENIG AND FUNCTIONAL STRENGTHENING Balance/Gait/Functional tests - Balance/Special Test Scores Functional Gait Assessment Score: 16 % Disability: 46.6700 CATSIB Score (Max score 120 seconds): 60 Lower Extremity Functional Score: 30 Goals Goal 1:: Patient to be I with HEP strengthening and balance Goal Time Frame: 4-6 Weeks Goal Progress: Progressing Goal 2:: Patient to demonstrate 80% improvement with improved balance. ( New Goal) Goal Time Frame: 4-6 Weeks Goal 3:: Patient to improve gait CATSIB by 10 points to decrease risk of falls Goal Time Frame: 4-6 Weeks Goal Progress: Progressing Goal 4:: Patient to improve functional gait assessment score by 5-10 points to d ecrease risk of falls Goal Time Frame: 4-6 Weeks Goal Progress: Progressing Goal 5:: Patient to improve LFES score by 5-10points to improve gait and decrease risk of falls Goal Time Frame: 4-6 Weeks Goal Progress: Progressing Anticipated Interventions Patient/Client Instruction: Educate patient on: Condition, Plan of Care For the Purpose of:: To decrease pain, To increase ROM, To improve muscle performance and motor function, To improve ability to perform ADL's, To increase tolerance to activity/condition/position, To improve ability of physical actions for home/community/work/leisure, To improve health of tissue, To decrease soft tissue restriction, To increase flexibility/ROM Therapeutic Exercise to Include: Strength training, Endurance training, Balance training, Postural training, Gait and locomotor training, Active ROM Comment: BLE For the Purpose of:: To decrease pain, To increase ROM, To improve muscle performance and motor function, To increase tolerance to activity/condition/position, To improve ability of physical actions for home/community/work/leisure, To improve health of tissue, To decrease soft tissue restriction, To increase flexibility/ROM, To improve endurance Please do not hesitate to contact me at [phone] by phone or if you have questions or concerns regarding this new plan of care! Sincerely, Lloyd Rush, PT, Cert MDT, OCS
--- NOTE | 2023-04-07 12:05 | HP.PTDCSUM ---
Discharge Summary D/C summary: It has been my pleasure to treat ANNEMARIE OROSCO referred by Dr. Rachele Plata, MATTY, with the diagnosis of UNSTABLE GAIT for a total of 20 visit(s). Discharge Date: 04/07/23 Please see the following information for a summary of their discharge status. Subjective Subjective: Ready for d/c Pain Left foot/ankle: Pain Intensity (Out of 10): 0 Overall Improvement % Improvement: 80 Objective Objective/Function: OSTURE: hips/knees flexed ,bilateral knee valgus. GAIT: reciprocal pattern with mild forward posture mild unsteady bilateral knee Varus wider JEAN. STAIRS: one step at time with rail. MMT: quads 4/5 , hamstrings 4/5 ,hip flexion 4-/5 ,hip abduction 4-/5 ,ankle 4/5. FLEXABILITY: hamstrings min tight Goals Goal 1:: Patient to be I with HEP strengthening and balance Goal Progress: Goal Met Goal 2:: Patient to demonstrate 80% improvement with improved balance ( New Goal) Goal Progress: Goal Met Goal 3:: Patient to improve gait CATSIB by 10 points to decrease risk of falls Goal Progress: Goal Met Goal 4:: Patient to improve functional gait assessment score by 5-10 points to decrease risk of falls Goal Progress: Goal Met Goal 5:: Patient to improve LFES score by 5-10points to improve gait and decrease risk of falls Goal Progress: Goal Met Plan Plan: D/C TO HEP D/C Information Discharge Comments: HEP d/c sentence: If there are questions or concerns regarding this patient's physical therapy, please feel free to call me at [phone]. Thank you for the referral of this patient. Sincerely, Lloyd Rush, PT, Cert MDT, OCS Balance/Gait/Functional tests Balance/Special Test Scores Functional Gait Assessment Score: 16 % Disability: 100 CATSIB Score (Max score 120 seconds): 110 Lower Extremity Functional Score: 39 TUG Test Time Seconds: 9.71 Tug Test: <10 sec.=free mobile 30 Second Chair Rise Test Seconds: 15
== END 2023-04-07 19:00 | disposition home or self-care (01) ==
LOC: PT 11:30
PROVIDERS: PCP Internal Medicine; Referring Provider Podiatrist; Visit Provider Podiatrist
DX: R26.89 Other abnormalities of gait and mobility (principal)
CPT/HCPCS: 97110; 97162; 97164; 97530

== ENCOUNTER 2023-04-19 15:51 | Emergency (ER) | payer MEDICARE, SELFPAY ==
[2023-04-19 15:52] VITALS: BP 139/77; PULSE 54; RESP 16; TEMP 36.7; O2SAT 95; BMI 27.6
--- NOTE | 2023-04-19 16:16 | EDS_ITS ---
HPI History of Present Illness HPI Narrative: Patient presents with redness and swelling to his left great toe that has been getting worse over the past few days. Patient states it is gradually getting worse. Patient states it is constant. Patient states the redness started to spread to the proximal phalanx of his left great toe. Patient denies any fevers or chills. Patient describes his pain as mild. Patient states it is dull. Patient denies any paresthesias or weakness. Patient denies any trauma or injury. Chief Complaint: Wound Informant: patient Onset/Context/Timing Onset: Days Context: Gradual Onset Timing: Continuous Quality of Pain: Dull Location: Left great toe Current Severity: Mild Maximum Severity: Mild Worsened by: Nothing Relieved by: Nothing Associated Symptoms Associated Symptoms: Negative for Parasthesia, Weakness or Loss of Funtion PFSH PFSH Medical History Actinic keratosis Alcohol use Anemia Arthritis Asthma Paiz esophagus Benign prostate hyperplasia Cardiology follow-up encounter Carotid artery disease COPD (chronic obstructive pulmonary disease) COPD (chronic obstructive pulmonary disease) CPAP (continuous positive airway pressure) dependence Essential (primary) hypertension Former smoker GERD (gastroesophageal reflux disease) Glaucoma Hiatal hernia High cholesterol History of atrial fibrillation History of edema History of stress test History of upper gastrointestinal bleeding (12/2013) Hx of echocardiogram Hyperlipidemia Hypertension Longstanding persistent atrial fibrillation Loss of hearing Obstructive sleep apnea Secondary pulmonary arterial hypertension Shortness of breath on exertion Sleep apnea SOB (shortness of breath) Vocal cord dysfunction Wears glasses Home Medications albuterol sulfate 90 mcg/actuation aerosol inhaler 2 puff inhalation Q4H PRN PRN WHEEZING/SOB 01/23/18 [History Last Taken 04/04/21 05:30] aspirin 81 mg tablet,delayed release (Adult Aspirin Regimen) 81 mg PO DAILY 01/30/19 [History Last Taken Unknown] riboflavin (vitamin B2) 100 mg tablet 100 mg PO DAILY 02/03/19 [History Last Taken Unknown] compress.stocking,knee,reg,med #2 ea 02/20/21 [Rx Last Taken Unknown] fluorometholone 0.1 % eye drops,suspension 1 drp ophthalmic (eye) BID 03/11/21 [History Last Taken Unknown] cholecalciferol (vitamin D3) 25 mcg (1,000 unit) capsule 25 mcg PO DAILY 12/18/21 [History Last Taken Unknown] multivitamin with minerals 1 tab PO DAILY 12/18/21 [History Last Taken Unknown] simvastatin 20 mg tablet 20 mg PO DAILY #90 tabs 05/07/22 [Rx Last Taken Unknown] omeprazole 40 mg capsule,delayed release 40 mg PO BID #180 caps 06/16/22 [Rx Last Taken Unknown] apixaban 5 mg tablet 5 mg PO BID #180 tabs 06/29/22 [Rx Last Taken Unknown] hydrochlorothiazide 12.5 mg tablet 12.5 mg PO DAILY #90 tabs 08/07/22 [Rx Last Taken Unknown] budesonide-formoterol HFA 160 mcg-4.5 mcg/actuation aerosol inhaler (Symbicort) 2 puff inhalation BID 90 days #30.4 grams 08/17/22 [Rx Last Taken Unknown] ipratropium 20 mcg-albuterol 100 mcg/actuation mist for inhalation 1 puff inhalation BID #4 grams 09/23/22 [Rx Last Taken Unknown] amlodipine 10 mg tablet 5 mg (1/2 x 10 mg) PO DAILY #90 tabs 10/16/22 [Rx Last Taken Unknown] nitroglycerin 0.4 mg sublingual tablet 0.4 mg sublingual Q5-15M PRN CP #25 tabs 10/16/22 [Rx Last Taken Unknown] tiotropium bromide 18 mcg capsule with inhalation device (Spiriva with HandiHaler) 1 cap inhalation DAILY #90 inhalations 11/12/22 [Rx Last Taken Unknown] ascorbic acid (vitamin C) 500 mg tablet 500 mg PO DAILY 12/24/22 [History Last Taken Unknown] magnesium 250 mg tablet 250 mg PO DAILY 12/24/22 [History Last Taken Unknown] tamsulosin 0.4 mg capsule 0.4 mg PO QHS 12/24/22 [History Last Taken Unknown] triamcinolone acetonide 55 mcg nasal spray aerosol (Nasacort) 1 spray intranasal DAILY 12/24/22 [History Last Taken Unknown] doxycycline hyclate 100 mg capsule 100 mg PO BID #20 caps 02/05/23 [Rx Last Taken Unknown] isosorbide mononitrate 30 mg tablet,extended release 24 hr 30 mg PO DAILY #90 tabs 02/24/23 [Rx Last Taken Unknown] lisinopril 30 mg tablet 30 mg PO DAILY #90 tabs 03/10/23 [Rx Last Taken Unknown] gabapentin 100 mg capsule See Rx Instructions PO .COMPLEX #150 caps 03/29/23 [Rx Last Taken Unknown] doxycycline monohydrate 100 mg capsule 100 mg PO BID #20 CAPSULES 04/19/23 [Rx Last Taken Unknown] Allergy/AdvReac Type Severity Reaction Status Date / Time ondansetron [From Zofran] AdvReac Intermediate Restless Verified 04/19/23 15:54 legs, twitchy Family History Father Asthma CVA (cerebral vascular accident) Mother Hypertension Cancer Sister Hypertension Diabetes Grandfather Myocardial infarction Surgical History History of bilateral cataract extraction History of esophagogastroduodenoscopy (EGD) History of repair of hiatal hernia Hx of oral surgery Hx of tonsillectomy Social History Smoking Status: Former smoker quit date: 10/04/94 second hand exposure: No alcohol intake: current alcohol intake frequency: a few times a month Alcohol type: beer substance use type: does not use caffeine: Yes Type: tea Number of servings: 1 what type of physical activity do you participate in: none frequency: does not exercise ROS ROS ED Constitutional Constitutional ED: Denies chills or fever(s) Eyes Eyes: Denies blurry vision or change in vision ENT ENT ED: Denies rhinorrhea or sore throat Cardiovascular Cardiovascular: Denies chest pain or palpitations Respiratory/Chest Respiratory/Chest: Denies cough or dyspnea Gastrointestinal Gastrointestinal: Denies nausea or vomiting Genitourinary Genitourinary ED: Denies dysuria or hematuria Musculoskeletal Musculoskeletal: Denies back pain or neck pain Integumentary Denies abscess or rash Neurologic Neurologic: Denies headache(s) or weakness Allergic/Immunologic Allergic/Immunologic ED: Denies mouth swelling or urticaria EXAM Physical Exam Const Vital Signs: 04/19/23 15:52 Temperature 98.1 F Temperature Source Temporal Pulse Rate 54 L Respiratory Rate 16 Blood Pressure 139/77 H Blood Pressure Mean 97 Pulse Ox 95 Oxygen Delivery Method Room Air Positive well nourished and well developed General Appearance ED: well developed and NAD HEENT Reports moist mucous membranes Neck full ROM and supple Extremity Extremity Narrative: There is some erythema and tenderness over the left great toe. There is mild wa rmth over the left great toe and distal first metatarsal. There is questionable fluctuance along the eponychium. There is no active discharge or drainage. Sensation was intact to light touch in all digits. Capillary refill is less than 2 seconds in all digits. There is full range of motion of all digits. Pedal pulses are equal bilaterally. Neuro oriented x3, CN's II-XII intact bilaterally, moves all extremities and no sensory deficits noted Sensorium / Orientation: alert Motor Exam: strength 5/5 throughout MDM MDM MDM Narrative Medical decision making narrative: Differential diagnosis includes osteomyelitis, cellulitis, and paronychia. X- rays of the left foot will be obtained to assess for osteomyelitis. CBC will be obtained to assess for leukocytosis and anemia. Basic metabolic profile will be obtained to assess for electrolyte abnormality and renal function. Blood cultures were obtained to assess for bacteremia and sepsis. History & Record Review Discussion w/independent historian: Patient and Family Lab Data Attestation: I reviewed the patient's lab results. Lab results narrative: CBC was reviewed and was within normal limits. Basic metabolic profile was reviewed. Sodium was slightly low at 132. The remainder is within normal limits. Labs: Laboratory Results - last 24 hr 04/19/23 16:20 WBC 5.0 RBC 4.43 L Hgb 13.6 Hct 40.7 MCV 91.9 MCH 30.7 MCHC 33.4 RDW Std Deviation 46.4 H RDW Coeff of Polo 13.6 Plt Count 205 MPV 9.4 Immature Gran % (Auto) 0.400 Neut % (Auto) 51.7 Lymph % (Auto) 30.5 [place] % (Auto) 15.2 H Eos % (Auto) 1.4 Baso % (Auto) 0.8 Absolute Neuts (auto) 2.6 Absolute Lymphs (auto) 1.53 Nucleated RBC % 0 Sodium 132 L Potassium 4.0 Chloride 101 Carbon Dioxide 27.0 Anion Gap 4 L BUN 10 Creatinine 0.58 L Estim Creat Clear Calc 53.20 Est GFR (MDRD) Af Amer 173 Est GFR (MDRD) Non-Af 143 BUN/Creatinine Ratio 17.4 Glucose 116 H Calcium 8.6 Radiography Diagnostic Testing: Clinical Impression(s) from Imaging Studies Foot X-Ray 04/19/23 16:25 IMPRESSION: 1. No acute osseous abnormalities. There has been no significant change from the reference exam. 2. Stable moderate hallux valgus deformity. There is also deformity of the calcaneus which may be fracture. There are degenerative changes in the posterior talocalcaneal joint. Electronically Signed: Harvey Michael MD at 16:55 EDT , X-rays of the left foot were obtained. There are 3 views. On my independent interpretation, there is no acute fracture. There is no evidence of osteomyelitis. There is no soft tissue swelling. Radiologist also interpreted the x-ray and agrees. Treatment and Re-Evaluation Narrative: Patient was given a dose of Unasyn here. The eponychia of the left great toe was cleaned and prepped in a sterile manner. A small incision was made using the tip of an 18-gauge needle. Some bloody drainage was expressed. There is no purulent drainage noted. Dressing was applied. Patient was given a prescription for doxycycline. Patient was instructed to follow-up with his primary care physician and patient access representative in 5 to 7 days. Patient was instructed return if worse in any way. Patient understood and was agreeable with the plan. All questions were answered. Discharge Plan Triage Chief Complaint: Wound ED Provider: Sony Carlisle Dx/Rx/DC Orders Clinical Impression: Cellulitis of great toe of left foot Instructions: ED Cellulitis Prescriptions: New doxycycline monohydrate 100 mg capsule 100 mg PO BID Qty: 20 0RF No Action aspirin [Adult Aspirin Regimen] 81 mg tablet,delayed release (DR/EC) 81 mg PO DAILY riboflavin (vitamin B2) 100 mg tablet 100 mg PO DAILY magnesium 250 mg tablet 250 mg PO DAILY (DME) compress.stocking,knee,reg,med Misc See Rx Instructions .ROUTE .MEDSUPPLY Qty: 2 0RF Rx Instructions: On AM, off bedtime. fluorometholone 0.1 % drops,suspension 1 drp ophthalmic (eye) BID multivitamin with minerals Tablet 1 tab PO DAILY cholecalciferol (vitamin D3) 25 mcg (1,000 unit) capsule 25 mcg PO DAILY ascorbic acid (vitamin C) 500 mg tablet 500 mg PO DAILY tamsulosin 0.4 mg capsule 0.4 mg PO QHS triamcinolone acetonide [Nasacort] 55 mcg aerosol,spray 1 spray intranasal DAILY Rx Instructions: administer into each nostril albuterol sulfate 1 PUFF inhaler 2 puff inhalation Q4H PRN PRN (Reason: WHEEZING/SOB) doxycycline hyclate 100 mg capsule 100 mg PO BID Qty: 20 0RF simvastatin 20 mg tablet 20 mg PO DAILY Qty: 90 3RF omeprazole 40 mg capsule,delayed release(DR/EC) 40 mg PO BID Qty: 180 3RF apixaban 5 mg tablet 5 mg PO BID Qty: 180 3RF hydrochlorothiazide 12.5 mg tablet 12.5 mg PO DAILY Qty: 90 3RF Symbicort 160-4.5 mcg/actuation HFA aerosol inhaler 2 puff INHALATION BID 90 Days Qty: 30.4 3RF Hold Instructions: side effects ipratropium-albuterol 20-100 mcg/actuation mist 1 puff inhalation BID Qty: 4 3RF amlodipine 10 mg tablet 5 mg PO DAILY Qty: 90 3RF nitroglycerin 0.4 mg tablet, sublingual 0.4 mg SUBLINGUAL Q5-15M PRN (Reason: CP) Qty: 25 2RF Spiriva with HandiHaler 18 mcg capsule, w/inhalation device 1 cap INHALATION DAILY Qty: 90 3RF isosorbide mononitrate 30 mg tablet extended release 24 hr 30 mg PO DAILY Qty: 90 3RF lisinopril 30 mg tablet 30 mg PO DAILY Qty: 90 3RF gabapentin 100 mg capsule See Rx Instructions PO .COMPLEX Qty: 150 3RF Rx Instructions: Take two 100 mg capsules in the AM, 1 capsule mid day, and 2 capsules at bedtime; Primary Care Provider: Mariaa Collazo Referrals: Mariaa Collazo MD [Primary Care Provider] - 5-7 Days Rachele Plata DPM [Med Staff - Active Staff] - 3-5 Days Disposition Disposition: Home, Self Care
--- NOTE | 2023-04-19 16:25 | RAD_ITS ---
EXAM: XR LEFT FOOT COMPLETE, 3 OR MORE VIEWS CLINICAL INDICATION: Injury/Pain TECHNIQUE: Frontal, lateral and oblique views of the left foot. COMPARISON: 01/30/2023 FINDINGS: BONES/JOINTS: There is a moderate hallux valgus deformity. Bones are osteopenic. Preliminary arthritic change in the posterior talocalcaneal joint possibly from an old calcaneal fracture. No sclerotic or destructive changes observed. SOFT TISSUES: Unremarkable. No soft tissue swelling or gas. No radiopaque foreign body. RAD/Foot min 3 Views IMPRESSION: 1. No acute osseous abnormalities. There has been no significant change from the reference exam. 2. Stable moderate hallux valgus deformity. There is also deformity of the calcaneus which may be fracture. There are degenerative changes in the posterior talocalcaneal joint. Electronically Signed: Harvey Michael MD at 16:55 EDT ,
[2023-04-19 16:40] LABS: Absolute Lymphocyte Count 1.53 X10^3/uL (0.83-4.51); Absolute Neutrophil Count 2.6 X10^3/uL (2.0-7.7); Basophil# 0.04 X10^3/uL; Basophil% 0.8 % (0-1); Eosinophil# 0.07 X10^3/uL; Eosinophils% 1.4 % (0-5); Hematocrit 40.7 % (40-54); Hemoglobin 13.6 g/dL (13.0-16.5); Lymphocyte # 1.53 X10^3/ul (0.83-4.51); Lymphocyte % 30.5 % (19-41); Mean Corp Hgb Conc 33.4 g/dL (32-36); Mean Corpuscular Hgb 30.7 pg (27.0-32.0); Mean Corpuscular Volume 91.9 fL (80-94); Mean Platelet Vol. 9.4 fl (6.2-12.0); Monocyte# 0.76 X10^3/uL; Monocyte% 15.2 % (0-10); NRBC Flagged by Analyzer 0 % (0-5); Neutrophil # 2.59 X10^3/uL (2.7-7.7); Neutrophil % 51.7 % (47-70); Platelet Count 205 K/mm3 (150-450); RBC Distribution Width CV 13.6 % (11.6-14.6); RBC Distribution Width SD 46.4 fl (35.1-43.9); Red Blood Count 4.43 M/mm3 (4.6-6.2)
[2023-04-19 16:44] LABS: Anion Gap 4 (5-15); BUN 10 mg/dL (7-18); BUN/Creat Ratio 17.4 RATIO (10-20); Calcium,Total 8.6 mg/dL (8.5-10.1); Chloride 101 mmol/L (98-107); Creatinine, Serum 0.58 mg/dL (0.70-1.30); EST Glomerular Filtration Rate 143 mL/min (>60); Est Glom Filt Rate - Afr Amer 173 mL/min (>60); Glucose 116 mg/dL (74-106); Sodium Level 132 mmol/L (136-145)
[2023-04-19 19:11] VITALS: BP 181/88; PULSE 60; RESP 16; O2SAT 99
== END 2023-04-19 19:11 | disposition home or self-care (01) ==
PROVIDERS: Emergency Provider Emergency Medicine; PCP Internal Medicine; Visit Provider Emergency Medicine
DX: L03.116 Cellulitis of left lower limb (principal); J44.9 Chronic obstructive pulmonary disease, unspecified; I27.20 Pulmonary hypertension, unspecified; I48.11 Longstanding persistent atrial fibrillation; Q84.6 Other congenital malformations of nails; I10 Essential (primary) hypertension; E78.00 Pure hypercholesterolemia, unspecified; Z79.01 Long term (current) use of anticoagulants; Z79.82 Long term (current) use of aspirin; Z79.899 Other long term (current) drug therapy; Z87.891 Personal history of nicotine dependence
CPT/HCPCS: 10060; 73630; 80048; 85025; 87040; 96365; 99283; J7050; A4216; J0295

== ENCOUNTER → 2023-08-31 | Outpatient (CLI) | payer MEDICARE, SELFPAY ==
[2023-08-31 14:24] LABS: Absolute Lymphocyte Count 1.65 X10^3/uL (0.83-4.51); Absolute Neutrophil Count 4.1 X10^3/uL (2.0-7.7); Basophil# 0.04 X10^3/uL; Basophil% 0.6 % (0-1); Eosinophil# 0.09 X10^3/uL; Eosinophils% 1.3 % (0-5); Hematocrit 42.7 % (40-54); Hemoglobin 14.7 g/dL (13.0-16.5); Lymphocyte # 1.65 X10^3/ul (0.83-4.51); Lymphocyte % 23.8 % (19-41); Mean Corp Hgb Conc 34.4 g/dL (32-36); Mean Corpuscular Hgb 32.4 pg (27.0-32.0); Mean Corpuscular Volume 94.1 fL (80-94); Mean Platelet Vol. 9.1 fl (6.2-12.0); Monocyte# 1.01 X10^3/uL; Monocyte% 14.6 % (0-10); NRBC Flagged by Analyzer 0 % (0-5); Neutrophil # 4.11 X10^3/uL (2.7-7.7); Neutrophil % 59.3 % (47-70); Platelet Count 253 K/mm3 (150-450); RBC Distribution Width SD 48.3 fl (35.1-43.9); Red Blood Count 4.54 M/mm3 (4.6-6.2); White Blood Count 6.9 K/mm3 (4.4-11.0)
[2023-08-31 14:51] LABS: BNP,B-Type NATRIURETIC PEPTIDE 86.3 pg/mL (0-100)
[2023-08-31 14:58] LABS: Anion Gap 3 (5-15); BUN 16 mg/dL (7-18); BUN/Creat Ratio 22.3 RATIO (10-20); Calcium,Total 8.8 mg/dL (8.5-10.1); Chloride 97 mmol/L (98-107); Creatinine, Serum 0.72 mg/dL (0.70-1.30); EST Glomerular Filtration Rate 111 mL/min (>60); Est Glom Filt Rate - Afr Amer 134 mL/min (>60); Glucose 111 mg/dL (74-106); Potassium 4.3 mmol/L (3.5-5.1); Sodium Level 130 mmol/L (136-145); Thyroid Stim Hormone (TSH) 1.19 uIU/mL (0.358-3.74)
== END | disposition home or self-care (01) ==
LOC: LAB 14:03
PROVIDERS: PCP Internal Medicine; Visit Provider Nurse Practitioner Gerontology
DX: R06.09 Other forms of dyspnea (principal); R53.83 Other fatigue
CPT/HCPCS: 36415; 80048; 83880; 84443; 85025

== ENCOUNTER → 2023-09-01 | Outpatient (CLI) | payer MEDICARE, SELFPAY ==
[2023-09-01 10:31] LABS: AST(SGOT) 29 U/L (15-37); Alanine Aminotransfer ALT/SGPT 34 U/L (16-61); Albumin, Serum 3.1 g/dL (3.2-5.0); Alkaline Phosphatase 55 U/L (45-117); Bilirubin, Direct 0.24 mg/dL (0.00-0.30); Cholesterol 124 mg/dL (200); Globulin 3.6 g/dL (2.2-4.2); High Density Lipoprotein 78 mg/dL; Protein, Total 6.7 g/dL (6.4-8.2); Triglycerides 34 mg/dL; Very Low Density Lipoprotein 7 mg/dL (5-40)
== END | disposition home or self-care (01) ==
LOC: LAB 08:20
PROVIDERS: PCP Internal Medicine; Referring Provider Nurse Practitioner Gerontology; Visit Provider Nurse Practitioner Gerontology
DX: E78.5 Hyperlipidemia, unspecified (principal)
CPT/HCPCS: 36415; 80061; 80076

== ENCOUNTER → 2023-09-07 | Outpatient (CLI) | payer MEDICARE, SELFPAY ==
[2023-09-07 09:45] LABS: Anion Gap 4 (5-15); BUN 13 mg/dL (7-18); BUN/Creat Ratio 19.9 RATIO (10-20); Calcium,Total 8.8 mg/dL (8.5-10.1); Chloride 101 mmol/L (98-107); Creatinine, Serum 0.65 mg/dL (0.70-1.30); EST Glomerular Filtration Rate 123 mL/min (>60); Est Glom Filt Rate - Afr Amer 149 mL/min (>60); Glucose 101 mg/dL (74-106); Sodium Level 132 mmol/L (136-145)
== END | disposition home or self-care (01) ==
LOC: LAB 07:58
PROVIDERS: PCP Internal Medicine; Referring Provider Nurse Practitioner Gerontology; Visit Provider Nurse Practitioner Gerontology
DX: E87.1 Hypo-osmolality and hyponatremia (principal)
CPT/HCPCS: 36415; 80048

== ENCOUNTER → 2023-10-11 | Outpatient (CLI) | payer MEDICARE, SELFPAY ==
--- NOTE | 2023-10-11 08:36 | ECHOD_ITS ---
Reason For Study: SOB, Chronic A. fib Procedure This was a 2D Doppler, Color Flow transthoracic echocardiogram. Exam performed in department. Left Ventricle Normal LV size. Severe concentric left ventricular hypertrophy. Left ventricular systolic function is normal. The estimated ejection fraction is 65 %. No regional wall motion abnormalities noted. Right Ventricle Normal RV size. Normal systolic function. Atria The left atrium is severely enlarged. The right atrium is severely enlarged. 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 Mitral Valve There is mild to moderate mitral annular calcification. Moderate focal mitral valve calcification. Mild (1+) eccentric mitral valve insufficiency. Tricuspid Valve Normal tricuspid valve. Mild to moderate (1-2+) tricuspid valve insufficiency. Pulmonary artery systolic pressure is 50 mmHg. Moderate pulmonary hypertension. Aortic Valve Trisinus/trileaflet aortic valve. Mild focal aortic valve calcification. Peak aortic valve gradient 15.6 mmHg. Mean aortic valve gradient 8 mmHg. Pulmonic Valve Normal pulmonic valve. Mild (1+) pulmonic valve insufficiency. Great Vessels Calcified aortic root. The pulmonary artery is normal size. Pericardium/Pleural Moderate pericardial effusion. MMode/2D Measurements & Calculations LVIDd: 3.1 cm IVSd: 2.0 cm LVOT diam: 1.9 cm LVIDs: 2.2 cm LVPWd: 2.1 cm LVOT area: 3.0 cm2 RVDd: 3.8 cm FS: 29.2 % Ao root diam: 3.8 cm LAV(MOD-bp): 167.6 ml LVAd ap4: 28.2 cm2 LAV(MOD-bp) Indexed: 84.8 ml/m2 LVLd ap4: 7.7 cm LAV(MOD-sp2): 133.9 ml EDV(MOD-sp4): 83.4 ml LAV(MOD-sp4): 193.6 ml EDV(sp4-el): 86.9 ml LVAs ap4: 15.3 cm2 LVLs ap4: 7.0 cm ESV(MOD-sp4): 29.7 ml ESV(sp4-el): 28.6 ml EF(MOD-sp4): 64.4 % EF(sp4-el): 67.0 % LVAd ap2: 28.7 cm2 SV(MOD-sp4): 53.7 ml SV(MOD-sp2): 48.3 ml LVLd ap2: 8.9 cm EDV(MOD-sp2): 77.0 ml EDV(sp2-el): 78.3 ml LVAs ap2: 16.0 cm2 LVLs ap2: 8.1 cm ESV(MOD-sp2): 28.7 ml ESV(sp2-el): 26.9 ml EF(MOD-sp2): 62.7 % SV(sp4-el): 58.2 ml LA dimension(2D): 5.6 cm LA A4 area: 43.2 cm2 RA A4 area: 31.1 cm2 TAPSE: 1.1 cm Time Measurements MV dec time: 0.19 sec Doppler Measurements & Calculations MV E max nidia: 128.4 cm/sec MV V2 max: 166.3 cm/sec MV P1/2t max nidia: 162.7 cm/sec MV max P.1 mmHg MV P1/2t: 74.2 msec MV V2 mean: 67.9 cm/sec MV mean P.9 mmHg MV dec slope: 642.4 cm/sec2 MV V2 VTI: 34.3 cm MVA(P1/2t): 3.0 cm2 MVA(VTI): 1.5 cm2 Ao V2 max: 196.5 cm/sec LV V1 max: 93.5 cm/sec SV(LVOT): 52.6 ml Ao max P.6 mmHg LV V1 max P.6 mmHg Ao V2 mean: 131.1 cm/sec LV V1 mean P.7 mmHg Ao mean P.9 mmHg LV V1 mean: 59.8 cm/sec Ao V2 VTI: 38.4 cm LV V1 VTI: 17.8 cm AV (velocity ratio): 0.46 ROSALINDA(I,D): 1.4 cm2 ROSALINDA(V,D): 1.4 cm2 PA V2 max: 84.1 cm/sec TR max nidia: 339.2 cm/sec TR max P.0 mmHg ECHO/Echo Complete Interpretation Summary Normal LV size. Severe concentric left ventricular hypertrophy. Left ventricular systolic function is normal. The estimated ejection fraction is 65 %. The left atrium is severely enlarged. The right atrium is severely enlarged. Moderate pulmonary hypertension. Moderate pericardial effusion. Ordering Physician: Mattie Reyes Referring Physician: Mariaa Collazo Performed By: Kanwal Canas RDCS
--- OUTSIDE RECORDS SUMMARY | 2023-10-11 08:54 | XMS RPT_ITS | CCD ---
Author Name Unknown Address [address] [place] [address] Organization [facility] Care Team Providers Care Disbursement Clerk Name Role Phone VJ COPE Attending Unavailable VJ COPE Referring Unavailable Up, Wilfredo Primary Care Unavailable VJ COPE Attending Unavailable VJ COPE Referring Unavailable Up, Wilfredo Primary Care Unavailable AMANDA JAVIER Attending Unavailable Up, Wilfredo Referring Unavailable Up, Wilfredo Primary Care Unavailable AMANDA JAVIER Referring Unavailable Up, Wilfredo Primary Care Unavailable AMANDA JAVIER Referring Unavailable Up, Wilfredo Primary Care Unavailable Mariaa Collazo MD Primary Care Provider MARIAA COLLAZO Primary Care Unavailable Allergies Allergy Classification Reported Allergen(s) Allergy Type Date of Onset Reaction(s) Facility (4 sources) Ondansetron; Translations: [ONDANSETRON HCL (PF)] Drug Allergy 4 Other: See Comments [facility] (4 sources) PINEAPPLE; Translations: [PINEAPPLE] Propensity to adverse reactions (disorder) 9 Intolerance [facility] Medications Current Medications Medication Drug Class(es) Dates Sig (Normalized) Sig (Original) valACYclovir 1000 mg oral tablet (2 sources) Herpesvirus Nucleoside Analog DNA Polymerase Inhibitor, Herpes Simplex Virus Nucleoside Analog DNA Polymerase Inhibitor, Herpes Zoster Virus Nucleoside Analog DNA Polymerase Inhibitor Start: 06-14-2023 End: 06-21-2023 take 1 tablet by mouth twice daily valACYclovir (VALTREX) 1 gram Take 1 tablet by mouth twice daily for 7 days. 14 tablet 0 06/14/2023 06/21/2023 Active Completed/Discontinued Medications Medication Drug Class(es) Dates Sig (Normalized) Sig (Original) 120 actuat albuterol 0.1 mg/actuat / ipratropium bromide 0.02 mg/actuat inhalation spray (2 sources) Anticholinergic, beta2-Adrenergic Agonist Start: 04-24-2020 take 20-100 ug by inhalation four times daily as needed ipratropium 20 mcg-albuterol 100 mcg (COMBIVENT RESPIMAT) 20-100 mcg/actuation inhaler Indications: Chronic obstructive pulmonary disease, unspecified COPD type (HCC) Inhale 1 Puff as instructed four times daily as needed. 3 Inhaler 3 04/24/2020 Active Problems Active Problems Problem Classification Problem Date Documented Date Episodic/Chronic Cardiac dysrhythmias (2 sources) Chronic atrial fibrillation; Translations: [Chronic atrial fibrillation, unspecified] Onset: 08-30-2015 08-30-2015 Chronic Chronic obstructive pulmonary disease and bronchiectasis (2 sources) Chronic obstructive lung disease; Translations: [Chronic obstructive pulmonary disease, unspecified] Onset: 06-15-2013 05-24-2018 Chronic Disorders of lipid metabolism (2 sources) Hyperlipidemia; Translations: [Hyperlipidemia, unspecified] Onset: 01-18-2009 08-30-2015 Chronic Esophageal disorders (2 sources) Paiz's esophagus; Translations: [Paiz's esophagus without dysplasia] 02-24-2013 Chronic Essential hypertension (2 sources) Essential hypertension; Translations: [Essential (primary) hypertension] Onset: 02-14-2016 02-14-2016 Chronic Glaucoma (2 sources) Glaucoma; Translations: [Unspecified glaucoma] Onset: 12-12-2009 12-12-2009 Chronic Headache; including migraine (2 sources) Headache; including migraine Onset: 10-26-2017 Hyperplasia of prostate (2 sources) Benign prostatic hypertrophy with outflow obstruction; Translations: [Benign prostatic hyperplasia with lower urinary tract symptoms] Onset: 04-08-2006 09-24-2017 Chronic Osteoarthritis (2 sources) Bilateral arthritis of knees; Translations: [Bilateral primary osteoarthritis of knee] Onset: 07-30-2014 07-30-2014 Chronic Other nervous system disorders (2 sources) Peripheral nerve disease ; Translations: [Polyneuropathy, unspecified] Onset: 11-23-2011 01-31-2013 Chronic Other skin disorders (1 source) Eruption; Translations: [Rash and other nonspecific skin eruption] 06-14-2023 Episodic Other upper respiratory disease (2 sources) Chronic rhinitis; Translations: [Chronic rhinitis] Onset: 01-15-2009 01-15-2009 Chronic Residual codes; unclassified (2 sources) Obstructive sleep apnea syndrome; Translations: [Obstructive sleep apnea (adult) (pediatric)] Onset: 01-15-2009 06-27-2014 Chronic Past or Other Problems Problem Classification Problem Date Documented Date Episodic/Chronic Abdominal hernia (2 sources) Paraesophageal hernia; Translations: [Diaphragmatic hernia without obstruction or gangrene] Onset: 04-27-2013 04-27-2013 Episodic Headache; including migraine (2 sources) Headache; Translations: [Chronic nonintractable headache] Onset: 10-26-2017 10-26-2017 Episodic Other disorders of stomach and duodenum (2 sources) Gastroparesis syndrome; Translations: [Gastroparesis] Onset: 03-16-2017 03-16-2017 Episodic Other skin disorders (2 sources) Actinic keratosis; Translations: [Actinic keratosis] Onset: 01-21-2010 09-29-2021 Episodic Other skin disorders (2 sources) Seborrheic keratosis; Translations: [Other seborrheic keratosis] Onset: 01-21-2010 12-09-2011 Episodic Results Test Name Value Interpretation Reference Range Facil ity Vital Signs Date Time Vital Sign Value Performing Clinician Faci lity 06-14-2023 16:26-0400 Body temperature 97.5 [degF] Joy Claire PALLET SORTER.POST ADOPTION COORDINATOR Work Phone: [facility] 06-14-2023 16:26-0400 Body weight 83.73 kg Joy Claire PALLET SORTER.POST ADOPTION COORDINATOR Work Phone: [facility] 06-14-2023 16:26-0400 Diastolic blood pressure 72 mm[Hg] Joy Claire PALLET SORTER.POST ADOPTION COORDINATOR Work Phone: [facility] 06-14-2023 16:26-0400 Heart rate 70 /min Joy Claire PALLET SORTER.POST ADOPTION COORDINATOR Work Phone: [facility] 06-14-2023 16:26-0400 Respiratory rate 20 /min Joy Claire PALLET SORTER.POST ADOPTION COORDINATOR Work Phone: [facility] 06-14-2023 16:26-0400 SaO2% (BldA) [Mass fraction] 95 % Joy Claire PALLET SORTER.POST ADOPTION COORDINATOR Work Phone: [facility] 06-14-2023 16:26-0400 Systolic blood pressure 110 mm[Hg] Joy Claire PALLET SORTER.POST ADOPTION COORDINATOR Work Phone: [facility] Encounters Encounter Date Encounter Type Care Provider Facility Start: 06-14-2023 End: 06-14-2023 ambulatory MARIAA Hernandez JOHANNY Facility:[facility] Start: 06-14-2023 End: 06-14-2023 Patient encounter procedure Joybrenna Claire PALLET SORTER.POST ADOPTION COORDINATOR Work Phone: [facility] Plan of Treatment Date Care Activity Detail Author Start: 06-14-2023 End: 08-14-2023 Herpes simplex virus+Varicella zoster virus DNA [Presence] in Unspecified specimen by RIAN with probe detection [facility] Work Phone: Immunizations Immunization Date Immunization Notes Care Provider Fa cility 06-17-2022 influenza virus vacc ine, unspecified formulation Joy Claire PALLET SORTER.POST ADOPTION COORDINATOR Work Phone: [facility] 06-28-2019 influenza, high dose seasonal, preservative-free Joy Claire PALLET SORTER.POST ADOPTION COORDINATOR Work Phone: [facility] 06-13-2019 zoster vaccine recombinant Joy Claire PALLET SORTER.POST ADOPTION COORDINATOR Work Phone: [facility] Work Phone: 02-03-2019 zoster vaccine recombinant Joy Claire PALLET SORTER.POST ADOPTION COORDINATOR Work Phone: [facility] Work Phone: 06-29-2018 influenza, high dose seasonal, preservative-free Joy Claire PALLET SORTER.POST ADOPTION COORDINATOR Work Phone: [facility] 07-10-2017 influenza, high dose seasonal, preservative-free Joy Claire PALLET SORTER.POST ADOPTION COORDINATOR Work Phone: [facility] Work Phone: 07-28-2016 influenza, seasonal, injectable Joy Claire PALLET SORTER.POST ADOPTION COORDINATOR Work Phone: [facility] 07-02-2015 influenza, high dose seasonal, preservative-free Joy Claire PALLET SORTER.POST ADOPTION COORDINATOR Work Phone: [facility] 03-04-2015 pneumococcal conjuga te vaccine, 13 valent Joy Claire PALLET SORTER.POST ADOPTION COORDINATOR Work Phone: [facility] 06-07-2014 influenza, high dose seasonal, preservative-free Joy Claire PALLET SORTER.POST ADOPTION COORDINATOR Work Phone: [facility] 07-02-2013 influenza virus vacc ine, unspecified formulation Joy Claire PALLET SORTER.POST ADOPTION COORDINATOR Work Phone: [facility] 07-02-2012 influenza virus vacc ine, unspecified formulation Joy Claire PALLET SORTER.[facility] Work Phone: [facility] 07-06-2011 zoster vaccine, live Joy Claire PALLET SORTER.[facility] Work Phone: [facility] Work Phone: 06-19-2011 influenza virus vacc ine, unspecified formulation Joy Claire PALLET SORTER.[facility] Work Phone: [facility] Work Phone: 07-08-2010 influenza virus vacc ine, unspecified formulation Joy Claire PALLET SORTER.[facility] Work Phone: [facility] 01-15-2009 tetanus and diphther ia toxoids, adsorbed, preservative free, for adult use (2 Lf of tetanus toxoid and 2 Lf of diphtheria toxoid) Joy Claire PALLET SORTER.[facility] Work Phone: [facility] Work Phone: 09-13-2008 influenza virus vacc ine, unspecified formulation Joy Claire PALLET SORTER.POST ADOPTION COORDINATOR Work Phone: [facility] 09-14-2007 influenza virus vacc ine, unspecified formulation Joy Claire PALLET SORTER.[facility] Work Phone: [facility] 09-17-2006 influenza virus vacc ine, unspecified formulation Joy Claire PALLET SORTER.[facility] Work Phone: [facility] Work Phone: 09-18-2005 influenza virus vacc ine, unspecified formulation Joy Claire PALLET SORTER.POST ADOPTION COORDINATOR Work Phone: [facility] Work Phone: 09-18-2005 pneumococcal polysaccharide vaccine, 23 valent Joy Claire PALLET SORTER.POST ADOPTION COORDINATOR Work Phone: [facility] Work Phone: Payers Date Payer Category Payer Medicare AETNA MEDICARE A ETNA MEDICARE PPO [id number] 2017-Present [phone] [address] [place] [address] PPO [id number] 2017 Medicare [id number] 1940 Unknown [id number] 1940 Unknown [id number] 1940 Unknown [id number] 1940 Unknown [id number] 1940 Unknown [id number] Medicare [id number] Social History Date Type Detail Facility Start: [facility]14-2023 [facility] Start: 1960 End: 10-04-1994 History of tobacco use Current smoker [facility] Start: 1960 End: 10-04-1994 History of tobacco use Cigarette Smoker [facility] History of tobacco use Pipe Smoker [facility] Start: 09-10-2020 End: 06-14-2023 Cigarettes smoked current (pack per day) - Reported 1 [facility] Start: 06-14-2023 Tobacco use and exposure Smoke less tobacco non-user [facility] Start: 06-14-2023 Alcohol intake Current drinke r of alcohol (finding) [facility] Start: 09-10-2020 End: 06-14-2023 Tobacco use panel [facility] Adult Depression Scr eening Assessment 0 [facility] Start: 06-14-2023 Tobacco Comment Father smoked in childhood home. [facility] Start: 03-04-2015 Alcohol Comment 2 beers per month [facility] Start: 1940 [facility] Assigned At [facility] Progress note 06-14-2023 Note Date & Type Note Facility 06-14-2023 Note HNO ID: [id number] Author: Joy Claire APRN.POST ADOPTION COORDINATOR Service: ? Author Type: Nurse Practitioner Type: Progress Notes Filed: 06/14/2023 5:09 PM Note Text: This note was created using NoteWriter. Subjective Eddi Suggs is a 82 year old male. 82 year old male with PMH COPD, afib (Eliquis), HTN, hyperlipidemia, BPH, gastroparesis, and arthritis presents for complaints of rash. Acute onset today @ 1100 Left anterior chest States it started as red +painful Denies trauma or injury Denies fever or chills Denies URI sx Denies malaise or fatigue Denies new lotions, soaps or medicines The history is provided by the patient. No foreign language stenographer was used. Rash This is a new problem. The current episode started today. The problem is unchanged. Location: left chest. The rash is characterized by pain and redness. He was exposed to nothing. Pertinent negatives include no anorexia, congestion, cough, diarrhea, eye pain, facial edema, fatigue, fever, joint pain, nail changes, rhinorrhea, shortness of breath, sore throat or vomiting. Past treatments include nothing. The treatment provided no relief. There is no history of allergies, asthma, eczema or varicella. PAST MEDICAL HISTORY Diagnosis Date Acid reflux 09/16/2010 Anemia, unspecified Atrial fibrillation (HCC) Paiz's esophagus Benign neoplasm of colon Bladder neck obstruction 04/08/2006 Chronic rhinitis 01/15/2009 Declined the need for nasal steroids as of 01-10 COPD (chronic obstructive pulmonary disease) (HCC) 06/15/2013 05/16/18 FEV1 1.44L, 54%. Diverticulitis of colon (without mention of hemorrhage)(562.11) Diverticulosis of colon (without mention of hemorrhage) Esophagitis, unspecified GI bleed EGD 12/2013 with pablo reyez Glaucoma 12/12/2009 Dr. Mccoy HYPERLIPIDEMIA NEC/NOS 01/18/2009 Hypertension HYPERTROPHY PROSTATE WITH OBST 04/08/2006 PSA 1 in 05-11, 1.4 in 04-11 Internal hemorrhoids without mention of complication GABBIE on CPAP x 15 yrs. 01/15/2009 Using CPAP since about age 58 Overweight(278.02) 04/17/2009 Pt lost 15 pounds as of 04-11: pt's goal is 160 pounds Peripheral neuropathy 11/23/2011 Personal history of colonic polyps SLEEP APNEA NOS 01/15/2009 Using CPAP since about age 58 Snoring Tobacco use disorder 01/15/2009 Smoked a pipe for more than 35 years: he did not inhale it CXR 04-11: large hiatal hernia with old right sided rib fractures Unspecified disorder of skin and subcutaneous tissue Unspecified essential hypertension PAST SURGICAL HISTORY Procedure Laterality Date COLONOSCOPY FLX DX W/COLLJ SPEC WHEN PFRMD 01/12/00 Colonoscopy COLONOSCOPY FLX DX W/COLLJ SPEC WHEN PFRMD 03/13/02 Colonoscopy COLONOSCOPY FLX DX W/COLLJ SPEC WHEN PFRMD 12/16/07 COLONOSCOPY FLX DX W/COLLJ SPEC WHEN PFRMD 02/20/13 Colonoscopy COLONOSCOPY FLX DX W/COLLJ SPEC WHEN PFRMD 03/07/2018 Colonoscopy EGD TRANSORAL BIOPSY SINGLE/MULTIPLE 12/20/13 paraesophageal hernia and ulcer EGD TRANSORAL BIOPSY SINGLE/MULTIPLE 12/22/2016 gastritis ESOPHAGOGASTRODUODENOSCOPY TRANSORAL DIAGNOSTIC 01/02/00 EGD ESOPHAGOGASTRODUODENOSCOPY TRANSORAL DIAGNOSTIC 02/20/13 EGD ESOPHAGOGASTRODUODENOSCOPY TRANSORAL DIAGNOSTIC 12/19/13 blood in stomach, no active bleeding ESOPHAGOGASTRODUODENOSCOPY TRANSORAL DIAGNOSTIC 04/01/2014 EGD ESOPHAGOGASTRODUODENOSCOPY TRANSORAL DIAGNOSTIC 03/07/2018 EGD PAST SURGICAL HISTORY OF polyps removed under lip PAST SURGICAL HISTORY OF 06/19/2014 pulled stomach down TONSILLECTOMY PRIMARY/SECONDARY Tonsillectomy ALLERGIES Pineapple and Zofran [Ondansetron Hcl (Pf)] MEDICATIONS isosorbide mononitrate ER (IMDUR) 30 mg 24 hr tablet Take by mouth. fluorometholone (FML LIQUID FILM) 0.1 % ophthalmic suspension Use in eyes. Cholecalciferol, Vitamin D3, 25 mcg (1,000 unit) cap Take by mouth. omeprazole (PRILOSEC) 40 mg capsule Take 1 capsule by mouth twice daily. tamsulosin ER (FLOMAX) 0.4 mg Take 1 capsule by mouth once daily. gabapentin (NEURONTIN) 100 mg capsule Take 2 tablets morning and 1 tablet midday and 2 tablets at evening bedtime. apixaban (ELIQUIS) 5 mg tab(s) Take 1 tablet by mouth twice daily. simvastatin (ZOCOR) 20 mg tablet Take 1 tablet by mouth daily at bedtime. tiotropium (SPIRIVA WITH HANDIHALER) 18 mcg inhalation capsule Inhale 1 capsule as instructed once daily. USE WITH HANDIHALER. ipratropium 20 mcg-albuterol 100 mcg (COMBIVENT RESPIMAT) 20-100 mcg/actuation inhaler Inhale 1 Puff as instructed four times daily as needed. budesonide-formoterol (SYMBICORT) 160-4.5 mcg/actuation inhaler Inhale 2 Puffs as instructed twice daily. amLODIPine (NORVASC) 10 mg tablet Take 1 tablet by mouth once daily. hydroCHLOROthiazide (HYDRODIURIL, ESIDRIX) 12.5 mg tablet Take 1 tablet by mouth once daily. lisinopril (ZESTRIL,PRINIVIL) 30 mg tablet Take 1 tablet by mouth once daily. nitroglycerin sublingual (NITROQUICK) 0.4 mg SL tablet Dissolve 1 tablet (more content not included)... [facility] History of Present illness Narrative 06-14-2023 Joy Claire APRN.[facility] - 06/14/2023 4:32 PM EDT Note Date & Type Note Facility 06-14-2023 History of Presen t illness Narrative This note was created using NoteWriter. Subjective Eddi Suggs is a 82 year old male. 82 year old male with PMH COPD, afib (Eliquis), HTN, hyperlipidemia, BPH, gastroparesis, and arthritis presents for complaints of rash. Acute onset today @ 1100 Left anterior chest States it started as red +painful Denies trauma or injury Denies fever or chills Denies URI sx Denies malaise or fatigue Denies new lotions, soaps or medicines The history is provided by the patient. No foreign language stenographer was used. Rash This is a new problem. The current episode started today. The problem is unchanged. Location: left chest. The rash is characterized by pain and redness. He was exposed to nothing. Pertinent negatives include no anorexia, congestion, cough, diarrhea, eye pain, facial edema, fatigue, fever, joint pain, nail changes, rhinorrhea, shortness of breath, sore throat or vomiting. Past treatments include nothing. The treatment provided no relief. There is no history of allergies, asthma, eczema or varicella. PAST MEDICAL HISTORY Diagnosis Date Acid reflux 09/16/2010 Anemia, unspecified Atrial fibrillation (HCC) Paiz's esophagus Benign neoplasm of colon Bladder neck obstruction 04/08/2006 Chronic rhinitis 01/15/2009 Declined the need for nasal steroids as of 01-10 COPD (chronic obstructive pulmonary disease) ([facility]) 06/15/2013 05/16/18 FEV1 1.44L, 54%. Diverticulitis of colon (without mention of hemorrhage)(562.11) Diverticulosis of colon (without mention of hemorrhage) Esophagitis, unspecified GI bleed EGD 12/2013 with pablo reyez Glaucoma 12/12/2009 Dr. Mccoy HYPERLIPIDEMIA NEC/NOS 01/18/2009 Hypertension HYPERTROPHY PROSTATE WITH OBST 04/08/2006 PSA 1 in 05-11, 1.4 in 04-11 Internal hemorrhoids without mention of complication GABBIE on CPAP x 15 yrs. 01/15/2009 Using CPAP since about age 58 Overweight(278.02) 04/17/2009 Pt lost 15 pounds as of 04-11: pt's goal is 160 pounds Peripheral neuropathy 11/23/2011 Personal history of colonic polyps SLEEP APNEA NOS 01/15/2009 Using CPAP since about age 58 Snoring Tobacco use disorder 01/15/2009 Smoked a pipe for more than 35 years: he did not inhale it CXR 04-11: large hiatal hernia with old right sided rib fractures Unspecified disorder of skin and subcutaneous tissue Unspecified essential hypertension PAST SURGICAL HISTORY Procedure Laterality Date COLONOSCOPY FLX DX W/COLLJ SPEC WHEN PFRMD 01/12/00 Colonoscopy COLONOSCOPY FLX DX W/COLLJ SPEC WHEN PFRMD 03/13/02 Colonoscopy COLONOSCOPY FLX DX W/COLLJ SPEC WHEN PFRMD 12/16/07 COLONOSCOPY FLX DX W/COLLJ SPEC WHEN PFRMD 02/20/13 Colonoscopy COLONOSCOPY FLX DX W/COLLJ SPEC WHEN PFRMD 03/07/2018 Colonoscopy EGD TRANSORAL BIOPSY SINGLE/MULTIPLE 12/20/13 paraesophageal hernia and ulcer EGD TRANSORAL BIOPSY SINGLE/MULTIPLE 12/22/2016 gastritis ESOPHAGOGASTRODUODENOSCOPY TRANSORAL DIAGNOSTIC 01/02/00 EGD ESOPHAGOGASTRODUODENOSCOPY TRANSORAL DIAGNOSTIC 02/20/13 EGD ESOPHAGOGASTRODUODENOSCOPY TRANSORAL DIAGNOSTIC 12/19/13 blood in stomach, no active bleeding ESOPHAGOGASTRODUODENOSCOPY TRANSORAL DIAGNOSTIC 04/01/2014 EGD ESOPHAGOGASTRODUODENOSCOPY TRANSORAL DIAGNOSTIC 03/07/2018 EGD PAST SURGICAL HISTORY OF polyps removed under lip PAST SURGICAL HISTORY OF 06/19/2014 pulled stomach down TONSILLECTOMY PRIMARY/SECONDARY <AGE 10 1948 Tonsillectomy ALLERGIES Pineapple and Zofran [Ondansetron Hcl (Pf)] MEDICATIONS isosorbide mononitrate ER (IMDUR) 30 mg 24 hr tablet Take by mouth. fluorometholone (FML LIQUID FILM) 0.1 % ophthalmic suspension Use in eyes. Cholecalciferol, Vitamin D3, 25 mcg (1,000 unit) cap Take by mouth. omeprazole (PRILOSEC) 40 mg capsule Take 1 capsule by mouth twice daily. tamsulosin ER (FLOMAX) 0.4 mg Take 1 capsule by mouth once daily. gabapentin (NEURONTIN) 100 mg capsule Take 2 tablets morning and 1 tablet midday and 2 tablets at evening bedtime. apixaban (ELIQUIS) 5 mg tab(s) Take 1 tablet by mouth twice daily. simvastatin (ZOCOR) 20 mg tablet Take 1 tablet by mouth daily at bedtime. tiotropium (SPIRIVA WITH HANDIHALER) 18 mcg inhalation capsule Inhale 1 capsule as instructed once daily. USE WITH HANDIHALER. ipratropium 20 mcg-albuterol 100 mcg (COMBIVENT RESPIMAT) 20-100 mcg/actuation inhaler Inhale 1 Puff as instructed four times daily as needed. budesonide-formoterol (SYMBICORT) 160-4.5 mcg/actuation inhaler Inhale 2 Puffs as instructed twice daily. amLODIPine (NORVASC) 10 mg tablet Take 1 tablet by mouth once daily. hydroCHLOROthiazide (HYDRODIURIL, ESIDRIX) 12.5 mg tablet Take 1 tablet by mouth once daily. lisinopril (ZESTRIL,PRINIVIL) 30 mg tablet Take 1 tablet by mouth once daily. nitroglycerin sublingual (NITROQUICK) 0.4 mg SL tablet Dissolve 1 tablet under the tongue as needed. FOR CHEST PAIN. IF NO RELIEF CALL 911 aspirin, enteric coated (ECOTRIN LOW STRENGTH) 81 mg EC tablet Take 1 tablet by mouth once daily. CPAP valACYclovir (VALTREX) 1 gram Take 1 tablet by mouth twice daily for 7 days. latanoprost (XALATAN) 0.005 % ophthalmic solution Use 1 Drop in both eyes daily at bedtime. TO AFFECTED EYE(S) (Patient not taking: Reported on 06/14/2023) brimonidine (ALPHAGAN P) 0.1 % OPHTHALMIC Drop Use 1 Drop in both eyes twice daily. (Patient not taking: Reported on 06/14/2023) FERROUS SULFATE 325 MG (65 MG IRON) TAB Take one(1) tablet daily with food BY MOUTH. (Patient not taking: Reported on 06/14/2023) FAMILY HISTORY Problem Relation Age of Onset Asthma Father Stroke Father Hypertension Mother Cancer Mother liver, GB cancer, Hypertension Sister Social History Tobacco Use Smoking status: Former Packs/day: 1.00 Years: 37.00 Additional pack years: 0.00 Total pack years: 37.00 Types: Cigarettes, Pipe Start date: 1960 Quit date: 10/04/1994 Years since quittin.7 Smokeless tobacco: Never Tobacco comments: Father smoked in childhood home. Substance Use Topics Alcohol use: Yes Alcohol/week: 0.0 standard drinks of alcohol Comment: 2 beers per month Drug use: No Review of Systems Constitutional: Negative for fatigue and fever. HENT: Negative for congestion, mouth sores, rhinorrhea and sore throat. Eyes: Negative for pain. Respiratory: Negative for apnea, cough, chest tightness and shortness of breath. Cardiovascular: Negative for chest pain, palpitations and leg swelling. Gastrointestinal: Negative for abdominal pain, anorexia, diarrhea and vomiting. Musculoskeletal: Negative for back pain, gait problem and joint pain. Skin: Positive for rash. Negative for color change, nail changes and pallor. Neurological: Negative for dizziness, seizures, facial asymmetry, light-headedness, numbness and headaches. Hematological: Negative for adenopathy. Does not bruise/bleed easily. Psychiatric/Behavioral: Negative for agitation and behavioral problems. Objective BP 110/72 Pulse 70 Temp 36.4 C (97.5 F) Resp 20 Wt 83.7 kg (184 lb 9.6 oz) SpO2 95% BMI 28.07 kg/m Physical Exam Vitals and nursing note reviewed. Constitutional: General: He is not in acute distress. Appearance: Normal appearance. He is not ill-appearing, toxic-appearing or diaphoretic. HENT: Head: Normocephalic and atraumatic. Right Ear: External ear normal. Left Ear: External ear normal. Nose: Nose normal. No congestion or rhinorrhea. Mouth/Throat: Mouth: Mucous membranes are moist. Pharynx: Oropharynx is clear. No oropharyngeal exudate or posterior oropharyngeal erythema. Eyes: General: Right eye: No discharge. Left eye: No discharge. Extraocular Movements: Extraocular movements intact. Conjunctiva/sclera: Conjunctivae normal. Pupils: Pupils are equal, round, and reactive to light. Cardiovascular: Rate and Rhythm: Normal rate and regular rhythm. Pulses: Normal pulses. Heart sounds: Normal heart sounds. No murmur heard. No friction rub. No gallop. Pulmonary: Effort: Pulmonary effort is normal. No respiratory distress. Breath sounds: Normal breath sounds. No stridor. No wheezing, rhonchi or rales. Chest: Chest wall: No tenderness. Abdominal: General: Abdomen is flat. There is no distension. Palpations: Abdomen is soft. There is no mass. Tenderness: There is no abdominal tenderness. There is no guarding or rebound. Hernia: No hernia is present. Musculoskeletal: General: No swelling, tenderness, deformity or signs of injury. Normal range of motion. Cervical back: Normal range of motion and neck supple. No rigidity or tenderness. Right lower leg: No edema. Left lower leg: No edema. Lymphadenopathy: Cervical: No cervical adenopathy. Skin: General: Skin is warm and dry. Capillary Refill: Capillary refill takes less than 2 seconds. Coloration: Skin is not jaundiced or pale. Findings: Rash (left anterior chest wtih grouped vesicles to erythematous base) present. No bruising or lesion. Neurological: General: No focal deficit present. Mental Status: He is alert and oriented to person, place, and time. Cranial Nerves: No cranial nerve deficit. Sensory: No sensory deficit. Motor: No weakness. Coordination: Coordination normal. Gait: Gait normal. Deep Tendon Reflexes: Reflexes normal. Psychiatric: Mood and Affect: Mood normal. Behavior: Behavior normal. Thought Content: Thought content normal. Assessment and Plan ASSESSMENT/PLAN: 1. Rash - ICD9: 782.1, ICD10: R21 Acute onset today @ 1100 Left anterior chest with x 1 grouped on erythematous base. 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,2/VZV NAAT LESION-obtained and pending RX Valtrex Supportive measures Follow up with PCP Jyo Claire APRN.POST ADOPTION COORDINATOR documented in this encounter [facility] History of Past illness Narrative 02-15-2018 Note Date & Type Note Facility documented as of this encounter (statuses as of 06/15/2023) [facility] History of Past illness Narrative 02-15-2018 Note Date & Type Note Facility documented as of this encounter (statuses as of 06/15/2023) [facility] Evaluation note Note Date & Type Note Facility documented in this encounter [facility] Summary Purpose Family History No Family History Records FoundNo Family History Records FoundNo Family History Records Found Advance Directives No Advanced Directives Records FoundNo Advanced Directives Records FoundNo Advanced Directives Records Found Additional Source Comments (unrecognized sect ion and content) No Status Records FoundNo Status Records FoundNo Status Records Found INFORMATION SOURCE (unrecogn ized section and content) DATE CREATED AUTHOR AUTHOR'S ORGANIZ ATION 06/11/2019 [facility] DATE CREATED AUTHOR AUTHOR'S ORGANIZ ATION 06/15/2023 [facility] Source Comments (unrecognize d section and content) In the event this informatio n is protected by the Federal Confidentiality of Alcohol and Drug Abuse Patient Records regulations: The Federal rules restrict any use of the information to criminally investigate or prosecute any alcohol or drug abuse patient.[facility] the event this information is protected by the Federal Confidentiality of Alcohol and Drug Abuse Patient Records regulations: The Federal rules restrict any use of the information to criminally investigate or prosecute any alcohol or drug abuse patient.[facility] Reason for Visit (unrecogniz ed section and content) Reason Comments Refill Request Care Teams (unrecognized sec tion and content) Disbursement Clerk Relationship Specialty Start Date End Date Mariaa Collazo MD [address] [place] [address] PCP - General Internal Medicine 02/19/21 FOR RECORDS PERTAINING TO PATIENTS WHO ARE OR HAVE BEEN ENROLLED IN A CHEMICAL DEPENDENCY/SUBSTANCEABUSE PROGRAM, SOME INFORMATION MAY BE OMITTED. This clinical summary was aggregated from multiple sources. Caution should be exercised in using it in the provision of clinical care. This summary normalizes information from multiple sources, and as a consequence, information in this document may materially change the coding, format and clinical context of patient data. In addition, data may be omitted in some cases. CLINICAL DECISIONS SHOULD BE BASED ON THE PRIMARY CLINICAL RECORDS. [employer] [facility]. provides no warranty or guarantee of the accuracy or completeness of information in this document.
== END | disposition home or self-care (01) ==
LOC: CVS 08:33
PROVIDERS: PCP Internal Medicine; Referring Provider Nurse Practitioner Gerontology; Visit Provider Nurse Practitioner Gerontology
DX: R06.02 Shortness of breath (principal); I48.11 Longstanding persistent atrial fibrillation
CPT/HCPCS: 93306

== ENCOUNTER → 2023-10-20 | Outpatient (CLI) | payer MEDICARE, SELFPAY ==
--- OUTSIDE RECORDS SUMMARY | 2023-10-20 12:25 | XMS RPT_ITS | CCD ---
Author Name Unknown Address [address] [place] [address] Organization [facility] Care Team Providers Care Gamma Facilities Operator Name Role Phone JV COPE Attending Unavailable VJ COPE Referring Unavailable Up, Wilfredo Primary Care Unavailable VJ COPE Attending Unavailable VJ COPE Referring Unavailable Up, Wilfredo Primary Care Unavailable AMANDA JAVIER Attending Unavailable Up, Wilfredo Referring Unavailable Up, Wilfredo Primary Care Unavailable AMANDA JAVIER Referring Unavailable Up, Wilfredo Primary Care Unavailable AMANDA JAVIER Referring Unavailable Up, Wilfredo Primary Care Unavailable Mariaa Collazo MD Primary Care Provider [phone] MARIAA COLLAZO Primary Care Unavailable Allergies Allergy Classification Reported Allergen(s) Allergy Type Date of Onset Reaction(s) Facility (4 sources) Ondansetron; Translations: [ONDANSETRON HCL (PF)] Drug Allergy 4 Other: See Comments [facility] Repository (4 sources) PINEAPPLE; Translations: [PINEAPPLE] Propensity to adverse reactions (disorder) 9 Intolerance [facility] Repository Medications Current Medications Medication Drug Class(es) [...] 16:26-0400 Body temperature 97.5 [degF] Joy Claire SQL PROGRAMMER.[employer] Work Phone: [facility] 06-14-2023 16:26-0400 Body weight 83.73 kg Joy Claire SQL PROGRAMMER.[employer] Work Phone: [facility] 06-14-2023 16:26-0400 Diastolic blood pressure 72 mm[Hg] Joy Claire SQL PROGRAMMER.[employer] Work Phone: [facility] 06-14-2023 16:26-0400 Heart rate 70 /min Joy Claire SQL PROGRAMMER.[employer] Work Phone: [facility] 06-14-2023 16:26-0400 Respiratory rate 20 /min Joy Claire SQL PROGRAMMER.[employer] Work Phone: [facility] 06-14-2023 16:26-0400 SaO2% (BldA) [Mass fraction] 95 % Joy Claire SQL PROGRAMMER.[employer] Work Phone: [facility] 06-14-2023 16:26-0400 Systolic blood pressure 110 mm[Hg] Joy Claire SQL PROGRAMMER.[employer] Work Phone: [facility] Encounters Encounter Date Encounter Type Care Provider Facility Start: 06-14-2023 End: 06-14-2023 ambulatory MARIAA Hernandez JOHANNY Facility:[facility] Start: 06-14-2023 End: 06-14-2023 Patient encounter procedure Joybrenna Claire SQL PROGRAMMER.HOOKER LASTER Work Phone: [facility] Plan of Treatment Date Care Activity Detail Author Start: 06-14-2023 End: 08-14-2023 Herpes simplex virus+Varicella zoster virus DNA [Presence] in Unspecified specimen by RIAN with probe detection [facility] Work Phone: Immunizations Immunization Date Immunization Notes Care Provider Fa cility 06-17-2022 influenza virus vacc ine, unspecified formulation Joy Claire SQL PROGRAMMER.[employer] Work Phone: [facility] 06-28-2019 influenza, high dose seasonal, preservative-free Joy Claire SQL PROGRAMMER.[employer] Work Phone: [facility] 06-13-2019 zoster vaccine recombinant Joy Claire SQL PROGRAMMER.[employer] Work Phone: [facility] Work Phone: 02-03-2019 zoster vaccine recombinant Joy Claire SQL PROGRAMMER.[employer] Work Phone: [facility] Work Phone: 06-29-2018 influenza, high dose seasonal, preservative-free Joy Claire SQL PROGRAMMER.[employer] Work Phone: [facility] 07-10-2017 influenza, high dose seasonal, preservative-free Joy Claire SQL PROGRAMMER.[employer] Work Phone: [facility] Work Phone: 07-28-2016 influenza, seasonal, injectable Joy Claire SQL PROGRAMMER.[employer] Work Phone: [facility] 07-02-2015 influenza, high dose seasonal, preservative-free Joy Claire SQL PROGRAMMER.[employer] Work Phone: [facility] 03-04-2015 pneumococcal conjuga te vaccine, 13 valent Joy Claire SQL PROGRAMMER.[employer] Work Phone: [facility] 06-07-2014 influenza, high dose seasonal, preservative-free Joy Claire SQL PROGRAMMER.[employer] Work Phone: [facility] 07-02-2013 influenza virus vacc ine, unspecified formulation Joy Claire SQL PROGRAMMER.[employer] Work Phone: [facility] 07-02-2012 influenza virus vacc ine, unspecified formulation Joy Claire SQL PROGRAMMER.[facility] Work Phone: [facility] 07-06-2011 zoster vaccine, live Joy Claire SQL PROGRAMMER.[facility] Work Phone: [facility] Work Phone: 06-19-2011 influenza virus vacc ine, unspecified formulation Joy Claire SQL PROGRAMMER.[facility] Work Phone: [facility] Work Phone: 07-08-2010 influenza virus vacc ine, unspecified formulation Joy Claire SQL PROGRAMMER.[facility] Work Phone: [facility] 01-15-2009 tetanus and diphther ia toxoids, adsorbed, preservative free, for adult use (2 Lf of tetanus toxoid and 2 Lf of diphtheria toxoid) Joy Claire SQL PROGRAMMER.[facility] Work Phone: [facility] Work Phone: 09-13-2008 influenza virus vacc ine, unspecified formulation Joy Claire SQL PROGRAMMER.[employer] Work Phone: [facility] 09-14-2007 influenza virus vacc ine, unspecified formulation Joy Claire SQL PROGRAMMER.[facility] Work Phone: [facility] 09-17-2006 influenza virus vacc ine, unspecified formulation Joy Claire SQL PROGRAMMER.[facility] Work Phone: [facility] Work Phone: 09-18-2005 influenza virus vacc ine, unspecified formulation Joy Claire SQL PROGRAMMER.[employer] Work Phone: [facility] Work Phone: 09-18-2005 pneumococcal polysaccharide vaccine, 23 valent Joy Claire SQL PROGRAMMER.[employer] Work Phone: [facility] Work Phone: Payers Date Payer Category Payer Medicare [employer] MEDICARE A ETNA MEDICARE PPO [id number] 2017-Present [phone] [address] [place] [address] PPO [id number] 2017 Medicare [id number] 1940 Unknown [id number] 1940 Unknown [id number] 1938 Unknown [id number] 1938 Unknown [id number] 1940 Unknown [id number] Medicare [id number] Social History Date Type Detail Facility Start: 06-14-2023 [facility] Start: 1960 End: 10-04-1994 History of tobacco use Current smoker [facility] Start: 1960 End: 10-04-1994 History of tobacco use Cigarette Smoker [facility] History of tobacco use Pipe Smoker [facility] Start: 09-10-2020 End: 06-14-2023 Cigarettes smoked current (pack per day) - Reported 1 [facility] Start: 06-14-2023 Tobacco use and exposure Smoke less tobacco non-user [facility] Start: 06-14-2023 Alcohol intake Current drinke r of alcohol (finding) [facility] Start: 09-10-2020 End: 06-14-2023 Tobacco use panel [facility] Adult Depression Scr eening Assessment 0 [facility] Start: 06-14-2023 Tobacco Comment Father smoked in childhood home. [facility] Start: 03-04-2015 Alcohol Comment 2 beers per month Cl [facility] Start: 1940 [facility] Assigned At [facility] on file [facility] note 06-14-2023 Note Date & Type Note Facility 06-14-2023 Note HNO ID: [id number] Author: Joy Claire APRN.HOOKER LASTER Service: ? Author Type: Nurse Practitioner Type: [...] history is provided by the patient. No translator and interpreter was used. Rash This is a new [...] Dissolve 1 tablet (more content not included)... [facility] History of Present illness Narrative 06-14-2023 Joy Claire APRN.[facility] - 06/14/2023 4:32 PM EDT Note [...] history is provided by the patient. No translator and interpreter was used. Rash This is a new [...] of 01-10 COPD (chronic obstructive pulmonary disease) ([facility]) 06/15/2013 05/16/18 FEV1 1.44L, 54%. Diverticulitis of [...] Valtrex Supportive measures Follow up with PCP Joy Claire APRN.HOOKER LASTER documented in this encounter [facility] History of Past illness Narrative 02-15-2018 Note Date & Type Note Facility documented as of this encounter (statuses as of 06/15/2023) [facility] History of Past illness Narrative 02-15-2018 Note Date & Type Note Facility documented as of this encounter (statuses as of 06/15/2023) [facility] Evaluation note Note Date & Type Note Facility documented in this encounter [facility] Summary Purpose Family History No Family History [...] DATE CREATED AUTHOR AUTHOR'S ORGANIZ ATION 06/11/2019 [facility] DATE CREATED AUTHOR AUTHOR'S ORGANIZ ATION 06/15/2023 [facility] Source Comments (unrecognize d section and content) In the event this informatio n is protected by the Federal Confidentiality of Alcohol and Drug Abuse Patient Records regulations: The Federal rules restrict any use of the information to criminally investigate or prosecute any alcohol or drug abuse patient.[facility] the event this information is protected by the Federal Confidentiality of Alcohol and Drug Abuse Patient Records regulations: The Federal rules restrict any use of the information to criminally investigate or prosecute any alcohol or drug abuse patient.[facility] Reason for Visit (unrecogniz ed section and content) Reason Comments Refill Request Care Teams (unrecognized sec tion and content) Gamma Facilities Operator Relationship Specialty Start Date End Date Mariaa Collazo MD [address] [place] [address] PCP - General Internal Medicine 02/19/21 FOR [...] BE BASED ON THE PRIMARY CLINICAL RECORDS. [employer] [facility]. provides no warranty or guarantee of the accuracy or completeness of information in this document.
[2023-10-20 13:22] LABS: Anion Gap 5 (5-15); BUN 14 mg/dL (7-18); BUN/Creat Ratio 21.9 RATIO (10-20); Calcium,Total 8.8 mg/dL (8.5-10.1); Chloride 99 mmol/L (98-107); Creatinine, Serum 0.64 mg/dL (0.70-1.30); EST Glomerular Filtration Rate 127 mL/min (>60); Est Glom Filt Rate - Afr Amer 153 mL/min (>60); Glucose 101 mg/dL (74-106); Potassium 3.6 mmol/L (3.5-5.1); Sodium Level 134 mmol/L (136-145)
== END | disposition home or self-care (01) ==
LOC: LAB 12:20
PROVIDERS: Nurse Practitioner Gerontology; PCP Internal Medicine; Referring Provider Internal Medicine; Visit Provider Internal Medicine
DX: I31.39 Other pericardial effusion (noninflammatory) (principal)
CPT/HCPCS: 36415; 80048

== ENCOUNTER 2023-10-28 05:59 | Day surgery (SDC) | payer MEDICARE, SELFPAY ==
[2023-10-25 09:19] LABS: Hematocrit 40.6 % (40-54); Hemoglobin 13.6 g/dL (13.0-16.5); Mean Corp Hgb Conc 33.5 g/dL (32-36); Mean Corpuscular Hgb 31.1 pg (27.0-32.0); Mean Corpuscular Volume 92.7 fL (80-94); Mean Platelet Vol. 9.6 fl (6.2-12.0); Platelet Count 250 K/mm3 (150-450); RBC Distribution Width CV 14.1 % (11.6-14.6); RBC Distribution Width SD 47.8 fl (35.1-43.9); Red Blood Count 4.38 M/mm3 (4.6-6.2); White Blood Count 11.7 K/mm3 (4.4-11.0)
[2023-10-28] VITALS (9 sets, daily range): BP systolic 90–130; BP diastolic 59–86; PULSE 52–89; RESP 16–24; TEMP 36.4–36.9; O2SAT 90–99; BMI 28.5
--- OUTSIDE RECORDS SUMMARY | 2023-10-28 06:02 | XMS RPT_ITS | CCD ---
Author Name Unknown Address [address] [place] [address] Organization [facility] Care Team Providers Care Internist Medical Doctor Md Name Role Phone VJ COPE Attending Unavailable VJ COPE Referring Unavailable Up, Wilfredo Primary Care Unavailable VJ COPE Attending Unavailable VJ COPE Referring Unavailable Up, Wilfredo Primary Care Unavailable AMANDA JAVIER Attending Unavailable Up, Wilfredo Referring Unavailable Up, Wilfredo Primary Care Unavailable AMANDA JAVIER Referring Unavailable Up, Wilfredo Primary Care Unavailable AMANDA JAVIER Referring Unavailable Up, Wilfredo Primary Care Unavailable Maraia Collazo MD Primary Care Provider MARIAA COLLAZO Primary Care Unavailable Allergies Allergy Classification Reported Allergen(s) Allergy Type Date of Onset Reaction(s) Facility (4 sources) Ondansetron; Translations: [ONDANSETRON HCL (PF)] Drug Allergy 4 Other: See Comments [facility] Repository (4 sources) PINEAPPLE; Translations: [PINEAPPLE] Propensity to adverse reactions (disorder) 9 Intolerance [facility] Repository Medications Current Medications Medication Drug Class(es) [...] 16:26-0400 Body temperature 97.5 [degF] Joy Claire SOLDERING MACHINE TENDER.RENEWABLE ENERGY TRADER Work Phone: [facility] 06-14-2023 16:26-0400 Body weight 83.73 kg Joy Claire SOLDERING MACHINE TENDER.RENEWABLE ENERGY TRADER Work Phone: [facility] 06-14-2023 16:26-0400 Diastolic blood pressure 72 mm[Hg] Joy Claire SOLDERING MACHINE TENDER.RENEWABLE ENERGY TRADER Work Phone: [facility] 06-14-2023 16:26-0400 Heart rate 70 /min Joy Claire SOLDERING MACHINE TENDER.RENEWABLE ENERGY TRADER Work Phone: [facility] 06-14-2023 16:26-0400 Respiratory rate 20 /min Joy Claire SOLDERING MACHINE TENDER.RENEWABLE ENERGY TRADER Work Phone: [facility] 06-14-2023 16:26-0400 SaO2% (BldA) [Mass fraction] 95 % Joy Claire SOLDERING MACHINE TENDER.RENEWABLE ENERGY TRADER Work Phone: [facility] 06-14-2023 16:26-0400 Systolic blood pressure 110 mm[Hg] Joy Claire SOLDERING MACHINE TENDER.RENEWABLE ENERGY TRADER Work Phone: [facility] Encounters Encounter Date Encounter Type Care Provider Facility Start: 06-14-2023 End: 06-14-2023 ambulatory MARIAA Hernandez JOHANNY Facility:[facility] Start: 06-14-2023 End: 06-14-2023 Patient encounter procedure Joybrenna Claire SOLDERING MACHINE TENDER.RENEWABLE ENERGY TRADER Work Phone: [facility] Plan of Treatment Date Care Activity Detail Author Start: 06-14-2023 End: 08-14-2023 Herpes simplex virus+Varicella zoster virus DNA [Presence] in Unspecified specimen by RIAN with probe detection [facility] Work Phone: Immunizations Immunization Date Immunization Notes Care Provider Fa cility 06-17-2022 influenza virus vacc ine, unspecified formulation Joy Claire SOLDERING MACHINE TENDER.RENEWABLE ENERGY TRADER Work Phone: [facility] 06-28-2019 influenza, high dose seasonal, preservative-free Joy Claire SOLDERING MACHINE TENDER.RENEWABLE ENERGY TRADER Work Phone: [facility] 06-13-2019 zoster vaccine recombinant Joy Claire SOLDERING MACHINE TENDER.RENEWABLE ENERGY TRADER Work Phone: [facility] Work Phone: 02-03-2019 zoster vaccine recombinant Joy Claire SOLDERING MACHINE TENDER.RENEWABLE ENERGY TRADER Work Phone: [facility] Work Phone: 06-29-2018 influenza, high dose seasonal, preservative-free Joy Claire SOLDERING MACHINE TENDER.RENEWABLE ENERGY TRADER Work Phone: [facility] 07-10-2017 influenza, high dose seasonal, preservative-free Joy Claire SOLDERING MACHINE TENDER.RENEWABLE ENERGY TRADER Work Phone: [facility] Work Phone: 07-28-2016 influenza, seasonal, injectable Joy Claire SOLDERING MACHINE TENDER.RENEWABLE ENERGY TRADER Work Phone: [facility] 07-02-2015 influenza, high dose seasonal, preservative-free Joy Claire SOLDERING MACHINE TENDER.RENEWABLE ENERGY TRADER Work Phone: [facility] 03-04-2015 pneumococcal conjuga te vaccine, 13 valent Joy Claire SOLDERING MACHINE TENDER.RENEWABLE ENERGY TRADER Work Phone: [facility] 06-07-2014 influenza, high dose seasonal, preservative-free Joy Claire SOLDERING MACHINE TENDER.RENEWABLE ENERGY TRADER Work Phone: [facility] 07-02-2013 influenza virus vacc ine, unspecified formulation Joy Claire SOLDERING MACHINE TENDER.RENEWABLE ENERGY TRADER Work Phone: [facility] 07-02-2012 influenza virus vacc ine, unspecified formulation Joy Claire SOLDERING MACHINE TENDER.[facility] Work Phone: [facility] 07-06-2011 zoster vaccine, live Joy Claire SOLDERING MACHINE TENDER.[facility] Work Phone: [facility] Work Phone: 06-19-2011 influenza virus vacc ine, unspecified formulation Joy Claire SOLDERING MACHINE TENDER.[facility] Work Phone: [facility] Work Phone: 07-08-2010 influenza virus vacc ine, unspecified formulation Joy Claire SOLDERING MACHINE TENDER.[facility] Work Phone: [facility] 01-15-2009 tetanus and diphther ia toxoids, adsorbed, preservative free, for adult use (2 Lf of tetanus toxoid and 2 Lf of diphtheria toxoid) Joy Claire SOLDERING MACHINE TENDER.[facility] Work Phone: [facility] Work Phone: 09-13-2008 influenza virus vacc ine, unspecified formulation Joy Claire SOLDERING MACHINE TENDER.RENEWABLE ENERGY TRADER Work Phone: [facility] 09-14-2007 influenza virus vacc ine, unspecified formulation Joy Claire SOLDERING MACHINE TENDER.[facility] Work Phone: [facility] 09-17-2006 influenza virus vacc ine, unspecified formulation Joy Claire SOLDERING MACHINE TENDER.[facility] Work Phone: [facility] Work Phone: 09-18-2005 influenza virus vacc ine, unspecified formulation Joy Claire SOLDERING MACHINE TENDER.RENEWABLE ENERGY TRADER Work Phone: [facility] Work Phone: 09-18-2005 pneumococcal polysaccharide vaccine, 23 valent Joy Claire SOLDERING MACHINE TENDER.RENEWABLE ENERGY TRADER Work Phone: [facility] Work Phone: Payers Date Payer Category Payer Medicare [employer] MEDICARE A ETNA MEDICARE PPO [id number] 2017-Present [phone] [address] [place] [address] PPO [id number] 2017 Medicare [id number] 1940 Unknown [id number] 1940 Unknown [id number] 1938 Unknown [id number] 1938 Unknown [id number] 1940 Unknown [id number] Medicare [id number] Social History Date Type Detail Facility Start: 06-14-2023 [facility] Start: 1960 End: 10-04-1994 History of tobacco use Current smoker [facility] Start: 1960 End: 10-04-1994 History of tobacco use Cigarette Smoker [facility] History of tobacco use Pipe Smoker [facility] Start: 09-10-2020 End: 06-14-2023 Cigarettes smoked current (pack per day) - Reported 1 [facility] Start: 06-14-2023 Tobacco use and exposure Smoke less tobacco non-user [facility] Start: 06-14-2023 Alcohol intake Current drinke r of alcohol (finding) [facility] Start: 09-10-2020 End: 06-14-2023 Tobacco use panel [facility] Adult Depression Scr eening Assessment 0 [facility] Start: 06-14-2023 Tobacco Comment Father smoked in childhood home. [facility] Start: 03-04-2015 Alcohol Comment 2 beers per month [facility] Start: 1940 [facility] 06-14-2023 Note Date & Type Note Facility 06-14-2023 Note HNO ID: [id number] Author: Joy Claire APRN.RENEWABLE ENERGY TRADER Service: ? Author Type: Nurse Practitioner Type: [...] history is provided by the patient. No manager security was used. Rash This is a new [...] Dissolve 1 tablet (more content not included)... [facility] History of Present illness Narrative 06-14-2023 Joy Claire APRN.[facility] - 06/14/2023 4:32 PM EDT Note Date [...] history is provided by the patient. No manager security was used. Rash This is a new [...] of 01-10 COPD (chronic obstructive pulmonary disease) ([facility]) 06/15/2013 05/16/18 FEV1 1.44L, 54%. Diverticulitis of [...] measures Follow up with PCP Joy Claire APRN.RENEWABLE ENERGY TRADER documented in this encounter [facility] History of Past illness Narrative 02-15-2018 Note Date & Type Note Facility documented as of this encounter (statuses as of 06/15/2023) [facility] History of Past illness Narrative 02-15-2018 Note Date & Type Note Facility documented as of this encounter (statuses as of 06/15/2023) [facility] Evaluation note Note Date & Type Note Facility documented in this encounter [facility] Summary Purpose Family History No Family History [...] DATE CREATED AUTHOR AUTHOR'S ORGANIZ ATION 06/15/2023 [facility] Source Comments (unrecognize d section and content) In the event this informatio n is protected by the Federal Confidentiality of Alcohol and Drug Abuse Patient Records regulations: The Federal rules restrict any use of the information to criminally investigate or prosecute any alcohol or drug abuse patient[facility] event this information is protected by the Federal Confidentiality of Alcohol and Drug Abuse Patient Records regulations: The Federal rules restrict any use of the information to criminally investigate or prosecute any alcohol or drug abuse patient.[facility] Reason for Visit (unrecogniz ed section and content) Reason Comments Refill Request Care Teams (unrecognized sec tion and content) Internist Medical Doctor Md Relationship Specialty Start Date End Date Mariaa Collazo MD [address] [place] [address] PCP - General Internal Medicine 02/19/21 FOR [...] BE BASED ON THE PRIMARY CLINICAL RECORDS. [facility]) [facility]. provides no warranty or guarantee of the accuracy or completeness of information in this document.
--- NOTE | 2023-10-28 06:39 | HP.PCM_ITS ---
History and Physical Date of Admission: 10/28/23 Visit Reasons: INGUINAL HERNIA Chief Complaint: inguinal hernia Accompanied by: Is patient in pain?: No Allergies ondansetron [From Zofran] Adverse Reaction (Intermediate, Verified 10/05/23 13:22) Restless legs, twitchy Medications albuterol sulfate 90 mcg/actuation aerosol inhaler 2 puff inhalation Q4H PRN PRN WHEEZING/SOB 01/23/18 [History Confirmed 10/05/23] aspirin 81 mg tablet,delayed release (Adult Aspirin Regimen) 81 mg PO DAILY 01/30/19 [History Confirmed 10/05/23] riboflavin (vitamin B2) 100 mg tablet 100 mg PO DAILY 02/03/19 [History Confirmed 10/05/23] compress.stocking,knee,reg,med #2 ea 02/20/21 [Rx Confirmed 10/05/23] fluorometholone 0.1 % eye drops,suspension 1 drp ophthalmic (eye) BID 03/11/21 [History Confirmed 10/05/23] cholecalciferol (vitamin D3) 25 mcg (1,000 unit) capsule 25 mcg PO DAILY 12/18/21 [History Confirmed 10/05/23] multivitamin with minerals 1 tab PO DAILY 12/18/21 [History Confirmed 10/05/23] hydrochlorothiazide 12.5 mg tablet 12.5 mg PO DAILY #90 tabs 08/07/22 [Rx Conf irmed 10/05/23] ipratropium 20 mcg-albuterol 100 mcg/actuation mist for inhalation 1 puff inhalation BID #4 grams 09/23/22 [Rx Confirmed 10/05/23] nitroglycerin 0.4 mg sublingual tablet 0.4 mg sublingual Q5-15M PRN CP #25 tabs 10/16/22 [Rx Confirmed 10/05/23] tiotropium bromide 18 mcg capsule with inhalation device (Spiriva with HandiHaler) 1 cap inhalation DAILY #90 inhalations 11/12/22 [Rx Confirmed 10/05/23] ascorbic acid (vitamin C) 500 mg tablet 500 mg PO DAILY 12/24/22 [History Confirmed 10/05/23] magnesium 250 mg tablet 250 mg PO DAILY 12/24/22 [History Confirmed 10/05/23] triamcinolone acetonide 55 mcg nasal spray aerosol (Nasacort) 1 spray intranasal DAILY 12/24/22 [History Confirmed 10/05/23] isosorbide mononitrate 30 mg tablet,extended release 24 hr 30 mg PO DAILY #90 tabs 02/24/23 [Rx Confirmed 10/05/23] lisinopril 30 mg tablet 30 mg PO DAILY #90 tabs 03/10/23 [Rx Confirmed 10/05/23] simvastatin 20 mg tablet 20 mg PO DAILY #90 tabs 05/31/23 [Rx Confirmed 10/05/23] omeprazole 40 mg capsule,delayed release 40 mg PO BID #180 caps 06/17/23 [Rx Confirmed 10/05/23] tamsulosin 0.4 mg capsule 0.4 mg PO QHS #90 caps 06/17/23 [Rx Confirmed 10/05/23] apixaban 5 mg tablet 5 mg PO BID #180 tabs 07/08/23 [Rx Confirmed 10/05/23] gabapentin 100 mg capsule See Rx Instructions PO .COMPLEX #150 caps 08/05/23 [Rx Confirmed 10/05/23] amlodipine 5 mg tablet 5 mg PO DAILY This is a dose decrease #90 tabs 09/08/23 [Rx Confirmed 10/05/23] albuterol sulfate 90 mcg/actuation aerosol inhaler 1 inh inhalation Q6H PRN shortness of breath or wheezing #8.5 grams 09/22/23 [Rx Confirmed 10/05/23] budesonide-formoterol HFA 160 mcg-4.5 mcg/actuation aerosol inhaler (Symbicort) 2 puff inhalation BID 90 days #30.4 grams 09/28/23 [Rx Confirmed 10/05/23] PFSH Medical History Actinic keratosis Alcohol use Anemia Arthritis Asthma Paiz esophagus Benign prostate hyperplasia Cardiology follow-up encounter Carotid artery disease COPD (chronic obstructive pulmonary disease) COPD (chronic obstructive pulmonary disease) CPAP (continuous positive airway pressure) dependence Essential (primary) hypertension Former smoker GERD (gastroesophageal reflux disease) Glaucoma Hiatal hernia High cholesterol History of atrial fibrillation History of edema History of stress test History of upper gastrointestinal bleeding (12/2013) Hx of echocardiogram Hyperlipidemia Hypertension Longstanding persistent atrial fibrillation Loss of hearing Obstructive sleep apnea Secondary pulmonary arterial hypertension Shortness of breath on exertion Sleep apnea SOB (shortness of breath) Vocal cord dysfunction Wears glasses Surgical History History of bilateral cataract extraction History of esophagogastroduodenoscopy (EGD) History of repair of hiatal hernia Hx of oral surgery Hx of tonsillectomy Family History Father Asthma CVA (cerebral vascular accident)Mother Hypertension CancerSister Hypertension DiabetesGrandfather Myocardial infarction Social History Smoking Status: Former smoker quit date: 10/04/94 second hand exposure: No alcohol intake: current alcohol intake frequency: a few times a month Alcohol type: beer substance use type: does not use caffeine: Yes Type: tea Number of servings: 1 what type of physical activity do you participate in: none frequency: does not exercise HPI HPI HPI: The [id number] gentleman is being referred by Dr. Mariaa Collazo for surgical consultation regarding a right inguinal hernia and a written copy my surgical consult recommendations will be returned to him. It is of additional note that the patient carries a history of Paiz's esophagus. The patient has longstanding atrial fibrillation and is on chronic anticoagulation currently on apixaban 5 mg orally twice daily and 81 mg aspirin therapy in addition to his other medications. This would include omeprazole 40 mg orally twice daily. I have most recently assisted him April 04, 2021 with an esophagogastroduodenoscopy demonstrating a small hiatal hernia and findings consistent with short segment Paiz's. Pathology demonstrated some chronic gastritis and focal changes of reflux with acute and chronic inflammation at the GE junction but interestingly on those biopsy no Paiz's was identified. H. pylori was negative. I have therefore based upon his age recommended ongoing medical treatment but that further surveillance upper endoscopy should not be required and could be based upon symptomatology. The patient states that due to of months when he stands and coughs he will have discomfort in the right groin. He has no similar discomfort on the left. He recants that many years ago I sent him to [place] to have his hiatal hernia repaired. He has atrial fibrillation is noted and is on Eliquis. He does have long-term history of pipe smoking. Long-term shortness of breath and obstructive sleep apnea and COPD. He states he does not use home oxygen therapy. ROS General General: Yes fatigue HEENT HEENT: Yes difficulty swallowing, eye injury and eye surgery Skin Skin: Yes rash and changing moles [facility] Musculoskeletal: Yes arthritis Cardio Cardiovascular: Yes atrial fibrillation and high blood pressure Resp Respiratory: Yes shortness of breath, Yes sleep apnea, Yes cough and Yes COPD Gastro Gastrointestinal: Yes acid reflux Lucius Hematologic: Yes blood thinners Additional Details: apixaban Exam Const General: cooperative and no acute distress Nutritional Appearance: average body habitus Orientation: alert and awake Other: Pursed lip breathing noted HENOR Head: normal to inspection Eyes General: appearance normal, both eyes and all related structures Neck Neck: normal visual inspection Chest Other: Increased AP diameter Resp Other: Decreased respiratory excursion, clear though throughout the lungs bilaterally Cardio Other: Irregular rate and rhythm GI Palpation: soft and no hepatosplenomegaly Other: Testicles are descended bilaterally. Small indirect left inguinal hernia nontender and easily reducible. Larger suspected indirect right inguinal hernia with bowel involvement. Reduces with manipulation when supine. [facility] Cervical Spine: normal cervical lordosis Skin General: no rashes or lesions noted Neuro General: patient alert, patient awake and patient oriented x3 Extrem General: no calf tenderness Assessment and Plan Assessment and Plan (1) Right inguinal hernia: Status: Acute Plan: 83-year-old gentleman who clearly is an increased operative risk candidate. However with him on Eliquis for his atrial fibrillation he would almost be a prohibitive surgical candidate for emergency surgery. I do believe that we should consider pursuing a Jose M right inguinal herniorrhaphy with mesh performed with monitored anesthesia care and local anesthetic. I believe that this would be a very dual procedure with hopefully minimizing the intervention. I would not propose that we attempt a bilateral hernia repair at that time he is only symptomatic on the right and the left is quite small. We would need to have him hold his Eliquis for 3 days. He and his are aware of the technique, benefit, risk, alternatives. He is aware of the risk of bleeding and infection and recurrence and difficulties with anesthesia etc. At this point he is interested in scheduling and proceeding at a time where risk factors can be controlled. I appreciate the ongoing opportunity of assisting with the surgical care Copy: Dr. Mariaa Gupta M.D., F.A.C.S I have examined the patient and the H&P has been reviewed. There are no clinical changes since date of exam. Andrei Gupta M.D., F.A.C.S.
--- NOTE | 2023-10-28 06:40 | DCINST_ITS ---
Discharge Instructions Procedure General Surgery Diet Discharge Diet: Light diet - advance as tolerated (if you have questions about your diet instructions, please talk to you doctor.) Activity Discharge Activity: May Not Drive (for 3-5 days or while taking narcotic pain medicine.) May shower in (days): 1 Lifting Restrictions: 10 pounds Dressing / Incision Call your doctor if your incision/area has: Continuous Slow Oozing, Sudden Increased Bleeding, Increased Pain/ Swelling, Increased Redness and Foul Smelling Discharge Call your doctor if you observe: Fever of 101 or Higher Suture Line Care: Avoid Pulling/Pushing and Avoid Pinching/Bending Additional Dressing/Incision Instructions:: Change or remove dressing in 4 days. Leave steri-strips in place for 1 week. Follow Up Care Please Follow Up With: Andrei Gupta MD When: Call [phone] to make an appointment to be seen in about 10 days. You may resume your apixaban therapy on Wednesday, November 01, 2023 as long as you have not had any bleeding problems. Test Results: Test results from this visit will be discussed in further detail at your follow- up appointment, if applicable. Discharge Plan Admission Attending Provider: Andrei Gupta Primary Care Provider: Mariaa Collazo Discharge Orders/Prescriptions Prescriptions: No Action aspirin [Adult Aspirin Regimen] 81 mg tablet,delayed release (DR/EC) 81 mg PO DAILY riboflavin (vitamin B2) 100 mg tablet 100 mg PO DAILY magnesium 250 mg tablet 250 mg PO DAILY (DME) compress.stocking,knee,reg,med Misc See Rx Instructions .ROUTE .MEDSUPPLY Qty: 2 0RF Rx Instructions: On AM, off bedtime. fluorometholone 0.1 % drops,suspension 1 drp ophthalmic (eye) BID multivitamin with minerals Tablet 1 tab PO DAILY cholecalciferol (vitamin D3) 25 mcg (1,000 unit) capsule 25 mcg PO DAILY ascorbic acid (vitamin C) 500 mg tablet 500 mg PO DAILY triamcinolone acetonide [Nasacort] 55 mcg aerosol,spray 1 spray intranasal DAILY Rx Instructions: administer into each nostril albuterol sulfate 90 mcg/actuation HFA aerosol inhaler 1 inh inhalation Q6H PRN (Reason: shortness of breath or wheezing) Qty: 8.5 1RF albuterol sulfate 1 PUFF inhaler 2 puff inhalation Q4H PRN PRN (Reason: WHEEZING/SOB) ipratropium-albuterol 20-100 mcg/actuation mist 1 puff inhalation BID Qty: 4 3RF nitroglycerin 0.4 mg tablet, sublingual 0.4 mg SUBLINGUAL Q5-15M PRN (Reason: CP) Qty: 25 2RF isosorbide mononitrate 30 mg tablet extended release 24 hr 30 mg PO DAILY Qty: 90 3RF lisinopril 30 mg tablet 30 mg PO DAILY Qty: 90 3RF simvastatin 20 mg tablet 20 mg PO DAILY Qty: 90 3RF omeprazole 40 mg capsule,delayed release(DR/EC) 40 mg PO BID Qty: 180 3RF tamsulosin 0.4 mg capsule 0.4 mg PO QHS Qty: 90 3RF apixaban 5 mg tablet 5 mg PO BID Qty: 180 3RF gabapentin 100 mg capsule See Rx Instructions PO .COMPLEX Qty: 150 3RF Rx Instructions: Take two 100 mg capsules in the AM, 1 capsule mid day, and 2 capsules at bedtime; amlodipine 5 mg tablet 5 mg PO DAILY Qty: 90 3RF Symbicort 160-4.5 mcg/actuation HFA aerosol inhaler 2 puff INHALATION BID 90 Days Qty: 30.4 3RF Hold Instructions: side effects furosemide [Lasix] 40 mg tablet 40 mg PO DAILY Qty: 30 6RF tiotropium bromide [Spiriva with HandiHaler] 18 mcg capsule, w/inhalation device 1 cap INHALATION DAILY Qty: 90 3RF Other Ambulatory Orders: 12 Lead EKG (Routine) Timeframe: 20231025 Location: None Selected Ordered By: Dr. Andrei Gupta Referrals / Follow Up: Mariaa Collazo MD [Primary Care Provider] - Disposition Disposition (needs filled in before D/C Order can be placed): Home, Self Care
[2023-10-28] MEDS: Lactated Ringers 1,000 ML 15 ML IV (06:54)
[2023-10-28] MEDS: Cefazolin 2 GM in 0.9% Normal Saline (100mL Bag) 100 ML IV (08:21)
[2023-10-28] MEDS: Bupivacaine Mpf 0.5% 30 ML VIAL (09:33)
[2023-10-28] MEDS: Lidocaine 1% (5 ml sdv) 5 ML Vial (09:34)
[2023-10-28] MEDS: Lidocaine 1% (20 ml mdv) 20 ML Vial (09:34)
--- NOTE | 2023-10-28 09:35 | PCM.OPRPT ---
Report of Operation Date of Procedure: 10/28/23 Pre-Operative Diagnosis: Symptomatic right inguinal hernia Post-Operative Diagnosis: Symptomatic direct and indirect right inguinal hernia Surgery/Procedure Performed:: Jose M right inguinal herniorrhaphy with Bard keyhole appreciated to mesh. Lot [id number], reference [id number], expiry date 07/31/2027 Description of Surgical Findings:: Timeout and informed consent was obtained. 83-year-old gentleman was taken to the op room placed upon the table underwent monitored anesthesia care. Ancef 2 g were given intravenously. The right groin was sterilely prepped and draped. 1% lidocaine mixed 50-50 with 0.5% Marcaine was used as a local anesthetic. Throughout the procedure of 30 cc was used. Local was instilled a transverse incision was created sharp dissection carried down through the subtenons tissue subfascial nerve block injection performed with the local the external bleak was incised in line with its fascia ileal nerve identified and protected circumferential control obtained of the cord structures dissection was performed to the pubic tubercle and then to the internal ring. There was an indirect inguinal hernia and then additional diffuse weakness and herniation of the direct space. Having cleared the anatomy I then used a 3-0 Ethibond suture and at the pubic tubercle approximated the transversalis fascia laterally then to the internal ring to reapproximate the inguinal floor and help reduce the indirect defect. Good securement of the direct floor and complete reduction of the internal ring was achieved. I then placed a Bard keyhole preshaped mesh secured to itself around the internal ring trim the lateral origins of the mesh and placed that beneath the external oblique I then secured the mesh in place to the pubic tubercle aponeurosis of the internal/external bleak and shelving edge of Poupart's with multiple interrupted 3-0 Ethibond sutures. I felt that I had very good apposition of the mesh and good securement. The external oblique was approximated a running 3-0 Vicryl. Subcutaneous tissues approximated with several interrupted 4-0 Monocryl. The skin edges proximal antiseptic of 4 Monocryl. Steri-Strips Telfa OpSite dressings applied. Sponge and instrument and needle counts were reported the surgeon to be correct. Specimen none. Drains none. Blood loss minimal. The patient was taken to the recovery room in satisfied condition without apparent complication Andrei Gupta M.D., F.A.C.S. Surgeon: Andrei Gupta Type of Anesthesia: Local MAC Anesthesiologist: Melinda Godinez
== END 2023-10-28 12:51 | disposition home or self-care (01) ==
LOC: SDC 06:00 → AC 06:00
PROVIDERS: PCP Internal Medicine; Referring Provider Surgery; Visit Provider Surgery
PROC: (CPT 49505; principal; 2023-10-28 08:00)
DX: K40.90 Unilateral inguinal hernia, without obstruction or gangrene, not specified as recurrent (principal); J44.9 Chronic obstructive pulmonary disease, unspecified; I48.11 Longstanding persistent atrial fibrillation; I10 Essential (primary) hypertension; Z87.891 Personal history of nicotine dependence; Z79.01 Long term (current) use of anticoagulants; E78.00 Pure hypercholesterolemia, unspecified; K21.9 Gastro-esophageal reflux disease without esophagitis; Z79.899 Other long term (current) drug therapy; Z79.82 Long term (current) use of aspirin
CPT/HCPCS: 49505; 00830; 36415; 85027; 93005; J7120; C1781

== ENCOUNTER → 2023-11-02 | Outpatient (CLI) | payer MEDICARE, SELFPAY ==
--- NOTE | 2023-11-02 10:31 | RAD_ITS ---
STUDY: X-RAY CHEST REASON FOR EXAM: Male, 83 years old. Two-week history of cough. TECHNIQUE: PA and lateral views of the chest. COMPARISON: Comparison is made with prior study dated December 28, 2022. FINDINGS: Hyperinflation. Increased markings at the lung bases slightly worse on the right side suggestive of early infiltrates superimposed on chronic scarring. Blunting of both cosmetic angles. There is borderline cardiomegaly. Normal mediastinum and janet. Normal visualized pulmonary arteries. There is atherosclerotic calcification of the aortic arch with tortuosity. There are diffuse degenerative changes of the visualized thoracic spine. Increased kyphosis. There is degenerative osteoarthritis of the bilateral shoulders. Right sided rib fractures. Hiatal hernia. RAD/Chest PA and Lateral IMPRESSION: Hyperinflation with evidence of a early infiltrates at both lung bases superimposed on scarring. Right-sided rib fractures. Electronically Signed: Yakov Dc MD at 11:02 EST ,
--- OUTSIDE RECORDS SUMMARY | 2023-11-02 11:10 | XMS RPT_ITS | CCD ---
Author Name Unknown Address [address] [place] [address] Organization [facility] Care Team Providers Care Train Engineer Name Role Phone VJ COPE Attending Unavailable [...] 16:26-0400 Body temperature 97.5 [degF] Joy Claire PROPOSAL MANAGER.PERSONAL CLOTHING LAUNDRY AIDE Work Phone: [facility] 06-14-2023 16:26-0400 Body weight 83.73 kg Joy Claire PROPOSAL MANAGER.PERSONAL CLOTHING LAUNDRY AIDE Work Phone: [facility] 06-14-2023 16:26-0400 Diastolic blood pressure 72 mm[Hg] Joy Claire PROPOSAL MANAGER.PERSONAL CLOTHING LAUNDRY AIDE Work Phone: [facility] 06-14-2023 16:26-0400 Heart rate 70 /min Joy Claire PROPOSAL MANAGER.PERSONAL CLOTHING LAUNDRY AIDE Work Phone: [facility] 06-14-2023 16:26-0400 Respiratory rate 20 /min Joy Claire PROPOSAL MANAGER.PERSONAL CLOTHING LAUNDRY AIDE Work Phone: [facility] 06-14-2023 16:26-0400 SaO2% (BldA) [Mass fraction] 95 % Joy Claire PROPOSAL MANAGER.PERSONAL CLOTHING LAUNDRY AIDE Work Phone: [facility] 06-14-2023 16:26-0400 Systolic blood pressure 110 mm[Hg] Joy Claire PROPOSAL MANAGER.PERSONAL CLOTHING LAUNDRY AIDE Work Phone: [facility] Encounters Encounter Date Encounter Type Care Provider Facility Start: 06-14-2023 End: 06-14-2023 ambulatory MARIAA Hernandez JOHANNY Facility:[place] Start: 06-14-2023 End: 06-14-2023 Patient encounter procedure Joybrenna Claire PROPOSAL MANAGER.PERSONAL CLOTHING LAUNDRY AIDE Work Phone: [facility] Plan of Treatment Date Care Activity Detail Author Start: 06-14-2023 End: 08-14-2023 Herpes simplex virus+Varicella zoster virus DNA [Presence] in Unspecified specimen by RIAN with probe detection [facility] Work Phone: Immunizations Immunization Date Immunization Notes Care Provider Fa cility 06-17-2022 influenza virus vacc ine, unspecified formulation Joy Claire PROPOSAL MANAGER.PERSONAL CLOTHING LAUNDRY AIDE Work Phone: [facility] 06-28-2019 influenza, high dose seasonal, preservative-free Joy Claire PROPOSAL MANAGER.PERSONAL CLOTHING LAUNDRY AIDE Work Phone: [facility] 06-13-2019 zoster vaccine recombinant Joy Claire PROPOSAL MANAGER.PERSONAL CLOTHING LAUNDRY AIDE Work Phone: [facility] Work Phone: 02-03-2019 zoster vaccine recombinant Joy Claire PROPOSAL MANAGER.PERSONAL CLOTHING LAUNDRY AIDE Work Phone: [facility] Work Phone: 06-29-2018 influenza, high dose seasonal, preservative-free Joy Claire PROPOSAL MANAGER.PERSONAL CLOTHING LAUNDRY AIDE Work Phone: [facility] 07-10-2017 influenza, high dose seasonal, preservative-free Joy Claire PROPOSAL MANAGER.PERSONAL CLOTHING LAUNDRY AIDE Work Phone: [facility] Work Phone: 07-28-2016 influenza, seasonal, injectable Joy Claire PROPOSAL MANAGER.PERSONAL CLOTHING LAUNDRY AIDE Work Phone: [facility] 07-02-2015 influenza, high dose seasonal, preservative-free Joy Claire PROPOSAL MANAGER.PERSONAL CLOTHING LAUNDRY AIDE Work Phone: [facility] 03-04-2015 pneumococcal conjuga te vaccine, 13 valent Joy Claire PROPOSAL MANAGER.PERSONAL CLOTHING LAUNDRY AIDE Work Phone: [facility] 06-07-2014 influenza, high dose seasonal, preservative-free Joy Claire PROPOSAL MANAGER.PERSONAL CLOTHING LAUNDRY AIDE Work Phone: [facility] 07-02-2013 influenza virus vacc ine, unspecified formulation Joy Claire PROPOSAL MANAGER.PERSONAL CLOTHING LAUNDRY AIDE Work Phone: [facility] 07-02-2012 influenza virus vacc ine, unspecified formulation Joy Claire PROPOSAL MANAGER.[facility] Work Phone: [facility] 07-06-2011 zoster vaccine, live Joy Claire PROPOSAL MANAGER.[facility] Work Phone: [facility] Work Phone: 06-19-2011 influenza virus vacc ine, unspecified formulation Joy Claire PROPOSAL MANAGER.[facility] Work Phone: [facility] Work Phone: 07-08-2010 influenza virus vacc ine, unspecified formulation Joy Claire PROPOSAL MANAGER.[facility] Work Phone: [facility] 01-15-2009 tetanus and diphther ia toxoids, adsorbed, preservative free, for adult use (2 Lf of tetanus toxoid and 2 Lf of diphtheria toxoid) Joy Claire PROPOSAL MANAGER.[facility] Work Phone: [facility] Work Phone: 09-13-2008 influenza virus vacc ine, unspecified formulation Joy Claire PROPOSAL MANAGER.PERSONAL CLOTHING LAUNDRY AIDE Work Phone: [facility] 09-14-2007 influenza virus vacc ine, unspecified formulation Joy Claire PROPOSAL MANAGER.[facility] Work Phone: [facility] 09-17-2006 influenza virus vacc ine, unspecified formulation Joy Claire PROPOSAL MANAGER.[facility] Work Phone: [facility] Work Phone: 09-18-2005 influenza virus vacc ine, unspecified formulation Joy Claire PROPOSAL MANAGER.PERSONAL CLOTHING LAUNDRY AIDE Work Phone: [facility] Work Phone: 09-18-2005 pneumococcal polysaccharide vaccine, 23 valent Joy Claire PROPOSAL MANAGER.PERSONAL CLOTHING LAUNDRY AIDE Work Phone: [facility] Work Phone: Payers Date Payer Category Payer Medicare [employer] MEDICARE A ETNA MEDICARE PPO [id number] 2017-Present [phone] [address] [place] [address] PPO [id number] 2017 Medicare [id number] 1940 Unknown [id number] 1940 Unknown [id number] 1938 Unknown [id number] 1938 Unknown [id number] 1938 Unknown [id number] Medicare [id number] Social History Date Type Detail Facility Start: [facility]14[facility] Start: 1960 End: 10-04-1994 History of tobacco use Current smoker [facility] Start: 1960 End: 10-04-1994 History of tobacco use Cigarette Smoker [facility] History of tobacco use Pipe Smoker [facility] Start: 09-10-2020 End: 06-14-2023 Cigarettes smoked current (pack per day) - Reported 1 [facility] Start: 06-14-2023 Tobacco use and exposure Smoke less tobacco non-user [facility] Start: 06-14-2023 Alcohol intake Current drinke r of alcohol (finding) [facility] Start: 09-10-2020 End: 06-14-2023 Tobacco use panel [facility] Adult Depression Scr eening Assessment 0 [facility] Start: 06-14-2023 Tobacco Comment Father smoked in childhood home. [facility] Start: 03-04-2015 Alcohol Comment 2 beers per month [facility] Start: 1940 [facility] 06-14-2023 Note Date & Type Note Facility 06-14-2023 Note HNO ID: [id number] Author: Joy Claire APRN.PERSONAL CLOTHING LAUNDRY AIDE Service: ? Author Type: Nurse Practitioner Type: [...] history is provided by the patient. No sign language teacher was used. Rash This is a new [...] Dissolve 1 tablet (more content not included)... [facility] History of Present illness Narrative 06-14-2023 Joy Claire APRN.[facility] - 06/14/2023 4:32 PM EDT Note [...] history is provided by the patient. No sign language teacher was used. Rash This is a new [...] of 01-10 COPD (chronic obstructive pulmonary disease) ([facility]) 06/15/2013 05/16/18 FEV1 1.44L, 54%. [...] measures Follow up with PCP Joy Claire APRN.PERSONAL CLOTHING LAUNDRY AIDE documented in this encounter [facility] History of Past illness Narrative 02-15-2018 Note Date & Type Note Facility documented as of this encounter (statuses as of 06/15/2023) [facility] History of Past illness Narrative 02-15-2018 Note Date & Type Note Facility documented as of this encounter (statuses as of 06/15/2023) [facility] Evaluation note Note Date & Type Note Facility documented in this encounter [facility] Summary Purpose Family History No [...] AUTHOR AUTHOR'S ORGANIZ ATION 06/11/2019 [facility] DATE CREATED AUTHOR AUTHOR'S ORGANIZ ATION 06/15/2023 [facility] Source Comments (unrecognize d section and content) In the event this informatio n is protected by the Federal Confidentiality of Alcohol and Drug Abuse Patient Records regulations: The Federal rules restrict any use of the information to criminally investigate or prosecute any alcohol or drug abuse patient.[facility] the event this information is protected by the Federal Confidentiality of Alcohol and Drug Abuse Patient Records regulations: The Federal rules restrict any use of the information to criminally investigate or prosecute any alcohol or drug abuse patient.[facility] Reason for Visit (unrecogniz ed section and content) Reason Comments Refill Request Care Teams (unrecognized sec tion and content) Train Engineer Relationship Specialty Start Date End Date Mariaa Collazo MD [address] [place] [address] PCP - General Internal Medicine 02/19/21 FOR [...] BE BASED ON THE PRIMARY CLINICAL RECORDS. [facility]. provides no warranty or guarantee of the accuracy or completeness of information in this document.
== END | disposition home or self-care (01) ==
LOC: MTRAD 10:31
PROVIDERS: PCP Internal Medicine; Referring Provider Physician Assistant; Visit Provider Physician Assistant
DX: R05.9 Cough, unspecified (principal)
CPT/HCPCS: 71046

== ENCOUNTER 2023-11-04 15:16 | Emergency (ER) | payer MEDICARE, SELFPAY ==
[2023-11-04 15:18] VITALS: BP 110/94; PULSE 93; RESP 24; TEMP 36.3; O2SAT 94
--- NOTE | 2023-11-04 15:38 | CT_ITS ---
We are attempting to reach an attending provider to discuss findings. An addendum with communication details will be sent when the communication is complete. STUDY: CT ABDOMEN AND PELVIS WITH CONTRAST REASON FOR EXAM: Male, 83 years old. abdominal pain RADIATION DOSAGE (If Supplied By Facility): CTDIvol = ( 16.65 ) mGy, DLP = ( 812.49 ) mGycm TECHNIQUE: Transaxial images were obtained from the dome of the diaphragm to the symphysis pubis without oral contrast. IV 100mL Isovue-370 was administered. Sagittal and coronal images were reconstructed. Individualized dose optimization techniques were used for this CT. COMPARISON: None. FINDINGS: The visualized lung bases demonstrate interstitial thickening. Possible focal left basilar consolidation. Mild pericardial effusion. Normal liver. Normal gallbladder and extrahepatic biliary system. Normal spleen. Normal pancreas. Normal bilateral adrenal glands. Up to 3 cm cysts in the right kidney. Up to 2.5 cm cysts in the left kidney. Hiatal hernia. Mildly fluid distended small intestine. Fecal retention in the colon. The appendix is visualized and appears normal. Normal abdominal aorta. Normal inferior vena cava. Normal retroperitoneum. Normal urinary bladder. There is a left inguinal hernia containing loop of small bowel. Small fatty umbilical hernia. There is a heterogeneous irregular 7.6 x 8.3 cm mass of the right lower anterior abdominal wall at the level of the pubis symphysis with surrounding subcutaneous stranding/edema. There is a curvilinear hyperdensity within this mass as well as a focal small gas collection. A focal small abscess cannot be excluded. Normal osseous structures. CT/Abdomen/Pelvis W IV Cont ONLY IMPRESSION: There is a heterogeneous irregular mass of the right lower anterior abdominal wall at the level of the pubis symphysis with surrounding subcutaneous stranding/edema. This is likely a hematoma. There is a curvilinear hyperdensity within this mass as well as a focal small gas collection. A focal small abscess and active bleeding cannot be excluded. Interstitial thickening. Focal left basilar consolidation/atelectasis. Pericardial effusion. Bilateral renal cysts. Hiatal hernia. Colonic fecal retention. Left inguinal hernia containing a loop of small bowel. Small fatty umbilical hernia. Electronically Signed: Michael Ayala DO at 17:59 EST Reading Location ID and State: [facility] / [place] Tel [phone], Service support ,
--- NOTE | 2023-11-04 15:45 | EDS_ITS ---
HPI <TEJAL Lemus - Last Filed: 11/04/23 19:49> History of Present Illness Chief Complaint: Male Pain/Injury Narrative Narrative: Patient is a 83-year-old male with history of atrial fibrillation on Eliquis, GERD, hyperlipidemia, hypertension who presents to the emergency department for reevaluation of his right inguinal hernia repair. Patient had his right inguinal hernia repaired on October 28, [address] Gupta. Patient was off his Eliquis, restarted on November 01, 2023. Patient is currently on antibiotics for a pneumonia that was found at [facility]. Patient states that he has worsening swelling over the incision site of the right inguinal hernia, he is having more pain and is unable to sleep. He is still passing flatus, he still is having bowel movement last 1 was 11:30 PM last evening. Patient denies any nausea vomiting fever chills. PFSH <TEJAL Lemus - Last Filed: 11/04/23 19:49> PFSH Medical History Actinic keratosis Acute bronchitis, unspecified Alcohol use Anemia Arthritis Asthma Paiz esophagus Benign prostate hyperplasia Cancer Cardiology follow-up encounter Carotid artery disease COPD (chronic obstructive pulmonary disease) COPD (chronic obstructive pulmonary disease) CPAP (continuous positive airway pressure) dependence Essential (primary) hypertension Former smoker GERD (gastroesophageal reflux disease) Glaucoma Hiatal hernia High cholesterol History of atrial fibrillation History of edema History of hiatal hernia History of stress test History of upper gastrointestinal bleeding (12/2013) Hx of echocardiogram Hyperlipidemia Hypertension Longstanding persistent atrial fibrillation Loss of hearing Obstructive sleep apnea Prostate disease Restless legs Secondary pulmonary arterial hypertension Shortness of breath on exertion Sleep apnea SOB (shortness of breath) Vocal cord dysfunction Wears glasses Home Medications albuterol sulfate 90 mcg/actuation aerosol inhaler 2 puff inhalation Q4H PRN PRN WHEEZING/SOB 01/23/18 [History Last Taken 10/28/23] aspirin 81 mg tablet,delayed release (Adult Aspirin Regimen) 81 mg PO DAILY 01/30/19 [History Last Taken 10/25/23] riboflavin (vitamin B2) 100 mg tablet 100 mg PO DAILY 02/03/19 [History Last Taken 10/27/23] compress.stocking,knee,reg,med #2 ea 02/20/21 [Rx Last Taken Unknown] fluorometholone 0.1 % eye drops,suspension 1 drp ophthalmic (eye) BID 03/11/21 [History Last Taken 10/27/23] cholecalciferol (vitamin D3) 25 mcg (1,000 unit) capsule 25 mcg PO DAILY 12/18/21 [History Last Taken 10/27/23] multivitamin with minerals 1 tab PO DAILY 12/18/21 [History Last Taken 10/27/23] ipratropium 20 mcg-albuterol 100 mcg/actuation mist for inhalation 1 puff inhalation BID #4 grams 09/23/22 [Rx Last Taken 10/28/23] nitroglycerin 0.4 mg sublingual tablet 0.4 mg sublingual Q5-15M PRN CP #25 tabs 10/16/22 [Rx Last Taken Unknown] ascorbic acid (vitamin C) 500 mg tablet 500 mg PO DAILY 12/24/22 [History Last Taken 10/27/23] magnesium 250 mg tablet 250 mg PO DAILY 12/24/22 [History Last Taken 10/27/23] triamcinolone acetonide 55 mcg nasal spray aerosol (Nasacort) 1 spray intranasal DAILY 12/24/22 [History Last Taken 10/28/23] isosorbide mononitrate 30 mg tablet,extended release 24 hr 30 mg PO DAILY #90 tabs 02/24/23 [Rx Last Taken 10/28/23] lisinopril 30 mg tablet 30 mg PO DAILY #90 tabs 03/10/23 [Rx Last Taken 10/28/23] simvastatin 20 mg tablet 20 mg PO DAILY #90 tabs 05/31/23 [Rx Last Taken 10/28/23] omeprazole 40 mg capsule,delayed release 40 mg PO BID #180 caps 06/17/23 [Rx Last Taken 10/28/23] tamsulosin 0.4 mg capsule 0.4 mg PO QHS #90 caps 06/17/23 [Rx Last Taken 10/28/23] apixaban 5 mg tablet 5 mg PO BID #180 tabs 07/08/23 [Rx Last Taken 10/24/23] gabapentin 100 mg capsule See Rx Instructions PO .COMPLEX #150 caps 08/05/23 [Rx Last Taken 10/28/23] amlodipine 5 mg tablet 5 mg PO DAILY This is a dose decrease #90 tabs 09/08/23 [ Rx Last Taken 10/28/23] albuterol sulfate 90 mcg/actuation aerosol inhaler 1 inh inhalation Q6H PRN shortness of breath or wheezing #8.5 grams 09/22/23 [Rx Last Taken 10/27/23] budesonide-formoterol HFA 160 mcg-4.5 mcg/actuation aerosol inhaler (Symbicort) 2 puff inhalation BID 90 days #30.4 grams 09/28/23 [Rx Last Taken 10/28/23] furosemide 40 mg tablet (Lasix) 40 mg PO DAILY #30 tabs 10/11/23 [Rx Last Taken 10/27/23] tiotropium bromide 18 mcg capsule with inhalation device (Spiriva with HandiHaler) 1 cap inhalation DAILY #90 inhalations 10/25/23 [Rx Last Taken 10/28/23] hydrocodone-acetaminophen 5-325mg 5mg-325mg 1 tab PO Q6H PRN pain 2 days #6 tabs 10/28/23 [Rx Last Taken Unknown] benzonatate 200 mg capsule 200 mg PO TID PRN cough #14 caps 11/02/23 [Rx Last Taken Unknown] levofloxacin 750 mg tablet 750 mg PO DAILY #10 tabs 11/02/23 [Rx Last Taken Unknown] Allergy/AdvReac Type Severity Reaction Status Date / Time ondansetron [From Zofran] AdvReac Intermediate Restless Verified 11/04/23 15:18 legs, twitchy Family History Father Asthma CVA (cerebral vascular accident) Mother Hypertension Cancer Sister Hypertension Diabetes Grandfather Myocardial infarction Surgical History History of bilateral cataract extraction History of esophagogastroduodenoscopy (EGD) History of repair of hiatal hernia History of skin surgery Hx of oral surgery Hx of tonsillectomy Social History Smoking Status: Former smoker quit date: 10/04/94 second hand exposure: No alcohol intake: current alcohol intake frequency: a few times a month Alcohol type: beer substance use type: does not use caffeine: Yes Type: tea Number of servings: 1 what type of physical activity do you participate in: none frequency: does not exercise ROS <Raiel Aslanides, [employer] - Last Filed: 11/04/23 19:49> ROS ED ROS Narrative Constitutional: Negative for fever, chills, weight loss, weakness Eyes: Negative for vision loss, vision change, double vision ENT: Negative for any sore throat, ear pain, congestion Cardiovascular: Negative for any chest pain, tightness, palpitations Respiratory: Negative for any cough, sputum production, hemoptysis, dyspnea, dyspnea on exertion, orthopnea Gastrointestinal: Negative for any nausea, vomiting, diarrhea, constipation, b lood in stool, blood in vomit. Positive for abdominal pain : Negative for any urinary frequency, dysuria, retention, blood in urine Muscle skeletal: Negative for any myalgias, arthralgias, neck pain, back pain Neurological: Negative for any headache, syncope, paresthesias, dizziness Skin: Negative for any rashes, lumps, itching, abrasions, lacerations Psychiatric: Negative for any depression, anxiety, stress, suicidal ideation, homicidal ideation Hematologic: Negative for any easy bruising, excessive bruising, easy bleeding Allergies: Negative for any eczema, hives, rash EXAM <TEJAL Lemus - Last Filed: 11/04/23 19:49> Physical Exam Narrative Exam Narrative: Vital signs reviewed. HEET: Head normocephalic atraumatic, TMs clear bilaterally. Posterior pharynx is clear, moist mucous membranes. Nares clear bilaterally. Neck: Supple with no lymphadenopathy or tenderness. No signs of meningismus. Cardiac: Regular rate and rhythm no murmurs gallops or rubs, equal peripheral pulses bilaterally. Respiratory: Lungs clear to auscultation bilaterally. No chest tenderness. Abdomen: Soft, patient's right inguinal hernia pair shows no signs of cellulitis, there is significant edema, ecchymosis, there is ecchymosis all the way to the penis. There is concern for possible hematoma in the area, patient has worsening pain with palpation over the area. No abdominal bruit or pulsatile masses. No hepatosplenomegaly. Active bowel sounds in all quadrants Extremities: No peripheral edema, no signs of gross trauma or deformity. Active full range of motion of all extremities. Neuro: Cranial nerves II through XII intact, no focal neurological deficits. Skin: Clean dry and intact with no rash, purpura, petechiae, vesicles or pustules. Backs/flank: No CVA tenderness, no midline spinal tenderness, no deformity. Psych: Normal mood and affect. No SI, HI or acute psychosis. Const Vital Signs: 11/04/23 15:18 11/04/23 15:57 11/04/23 17:17 Temperature 97.3 F L 97.3 F L Temperature Source Temporal Temporal Pulse Rate 93 93 Respiratory Rate 24 H 24 H 22 H Blood Pressure 110/94 H 110/94 H 156/91 H Blood Pressure Mean 99 99 112 Pulse Ox 94 94 95 Oxygen Delivery Method Room Air Room Air Room Air <Dr. Nikhil Quiros MD - Last Filed: 11/04/23 19:24> Physical Exam Const Vital Signs: 11/04/23 15:18 11/04/23 15:57 11/04/23 17:17 Temperature 97.3 F L 97.3 F L Temperature Source Temporal Temporal Pulse Rate 93 93 Respiratory Rate 24 H 24 H 22 H Blood Pressure 110/94 H 110/94 H 156/91 H Blood Pressure Mean 99 99 112 Pulse Ox 94 94 95 Oxygen Delivery Method Room Air Room Air Room Air MDM <TEJAL Lemus - Last Filed: 11/04/23 19:49> [facility] Lab Data Labs: Laboratory Results - last 24 hr 11/04/23 11/04/23 15:49 16:50 WBC 10.9 RBC 4.00 L Hgb 12.2 L Hct 36.6 L MCV 91.5 MCH 30.5 MCHC 33.3 RDW Std Deviation 46.3 H RDW Coeff of [place] 13.7 Plt Count 290 MPV 9.4 Immature Gran % (Auto) 0.700 Neut % (Auto) 74.0 H Lymph % (Auto) 11.9 L [place] % (Auto) 12.2 H Eos % (Auto) 0.8 Baso % (Auto) 0.4 Absolute Neuts (auto) 8.0 H Absolute Lymphs (auto) 1.29 Nucleated RBC % 0 PT 16.8 H INR 1.4 Sodium 125 L Potassium 3.9 Chloride 93 L Carbon Dioxide 30.0 Anion Gap 2 L BUN 12 Creatinine 0.55 L Estim Creat Clear Calc 72.07 Est GFR (MDRD) Af Amer 182 Est GFR (MDRD) Non-Af 150 BUN/Creatinine Ratio 21.8 H Glucose 156 H Lactic Acid 1.3 Calcium 8.2 L Total Bilirubin 0.70 AST 30 ALT 36 Alkaline Phosphatase 54 Total Protein 6.0 L Albumin 2.8 L Globulin 3.2 Albumin/Globulin Ratio 0.9 Urine Color Yellow Urine Clarity Clear Urine pH 6.5 Ur Specific [employer] 1.015 Urine Protein 15 H Urine Glucose (UA) Normal Urine Ketones Negative Urine Occult Blood Negative Urine Nitrite Negative Urine Bilirubin Negative Urine Urobilinogen 4 H Ur Leukocyte Esterase Negative Urine RBC 0 SEEN Urine WBC 0 SEEN Ur Squamous Epith Cells 0 SEEN Urine Bacteria 0 SEEN Urine Mucus 0 SEEN Radiography Diagnostic Testing: Clinical Impression(s) from Imaging Studies Abdomen/Pelvis CT 11/04/23 15:38 IMPRESSION: There is a heterogeneous irregular mass of the right lower anterior abdominal wall at the level of the pubis symphysis with surrounding subcutaneous stranding/edema. This is likely a hematoma. There is a curvilinear hyperdensity within this mass as well as a focal small gas collection. A focal small abscess and active bleeding cannot be excluded. Interstitial thickening. Focal left basilar consolidation/atelectasis. Pericardial effusion. Bilateral renal cysts. Hiatal hernia. Colonic fecal retention. Left inguinal hernia containing a loop of small bowel. Small fatty umbilical hernia. Electronically Signed: Michael Ayala DO at 17:59 EST Reading Location ID and State: [facility] / [place] Tel [phone], Service support , ADDENDUM: 11/04/23 7424 IMPRESSION: There is a heterogeneous irregular mass of the right lower anterior abdominal wall at the level of the pubis symphysis with surrounding subcutaneous stranding/edema. This is likely a hematoma. There is a curvilinear hyperdensity within this mass as well as a focal small gas collection. A focal small abscess and active bleeding cannot be excluded. Interstitial thickening. Focal left basilar consolidation/atelectasis. Pericardial effusion. Bilateral renal cysts. Hiatal hernia. Colonic fecal retention. Left inguinal hernia containing a loop of small bowel. Small fatty umbilical hernia. N.B. : The above Results were Read Back by Michael Ayala DO to Ariel De Leon NP, and understanding confirmed on 11/04/2023 18:01:22 (ET). Electronically Signed: Michael Ayala DO at 17:59 EST , Chest X-Ray 11/04/23 17:30 IMPRESSION: Mild right pulmonary infiltrate. Interstitial prominence. Cardiomegaly. Electronically Signed: Michael Ayala, DO at 18:02 EST , Treatment and Re-Evaluation Narrative: Patient appears to be in no obvious distress, vital signs are stable. Presenting to the emergency department for worsening pain, swelling to his inguinal hernia that was repaired on 28 October. Patient presents the emergency department with edema, swelling, pain to the right lower quadrant. Differential diagnosis includes hematoma, incarcerated hernia, abscess formation. Patient received a CT scan of the abdomen pelvis with IV contrast as well as chest x- ray, patient is currently being treated for pneumonia at this time. He will be given 2.5 mg of Reglan, as well as 2 mg of morphine. Patient will also receive basic laboratory values. Patient CBC was unremarkable, patient's chemistries show hyponatremia with a sodium of 125, creatinine 0.55 which is baseline. Patient's lactic acid was negative. PT 16.8 with INR 1.4. Patient's chest x-ray that was interpreted by the ER physician shows mild right pulmonary infiltrate no central prominence. Patient is currently on antibiotics for this pneumonia. Patient CT scan of the abdomen pelvis was discussed with me by radiologist. It shows that there is a heterogeneous irregular mass in the right lower anterior abdominal wall at the level of the pubic symphysis with surrounding subcutaneous stranding/edema. This is likely hematoma. There is a curvilinear hyperdensity within the mass as well is a focal small gas collection. A focal small abscess and active bleeding cannot be excluded. Interstitial thickening. Focal left basilar consolidation/alkalosis. Slight pericardial effusion. Large hiatal hernia. Left inguinal hernia containing loop of small bowel. Patient remained stable. I will need to speak to surgery. I spoke with surgery, they will come down and evaluate the patient. I did let the patient know, patient is still having some pain, I did order 4 more milligrams of morphine. On reevaluation, patient was feeling much better. Patient did talk to surgery. At this time, patient will continue to put ice and heat. He will follow-up closely with surgery on Wednesday of this upcoming week, he will stop his Eliquis for 1 week however continue the aspirin. He is instructed return for any worsening symptoms, patient stable for discharge. <Dr. Nikhil Quiros MD - Last Filed: 11/04/23 19:24> [facility] Narrative Medical decision making narrative: I have personally performed a face to face assessment of the patient and have reviewed the DHAVAL Note. I performed a substantive portion of the visit including all aspects of the following. My jensen findings include: History is patient 1 week postoperative right inguinal herniorrhaphy, he has a history of A-fib, he takes aspirin and Eliquis, he restarted his Eliquis about 4 days ago, and has had some minor coughing and pain and swelling have significantly increased since about yesterday. No fevers. No drainage. Pain and swelling are in the lower abdomen wall/groin but not into the scrotum. No trouble having bowel movements. No nausea or vomiting. Exam is focal tender swollen area directly over the operative site without any dehiscence or expressible discharge/bleeding. There is ecchymosis down into the penile shaft and the scrotum out of which is tender. There is no subcutaneous emphysema palpable. Medical Decison Making suspect hematoma given the history. CT obtained, I re viewed the images and the report, radiology in agreement that this is probably hematoma but not able to rule out abscess or active bleed. We had an ice pack placed on this since seeing and evaluating him. Discussed with surgery who will evaluate. Other additions or changes: [None] Lab Data Labs: Laboratory Results - last 24 hr 11/04/23 11/04/23 15:49 16:50 WBC 10.9 RBC 4.00 L Hgb 12.2 L Hct 36.6 L MCV 91.5 MCH 30.5 MCHC 33.3 RDW Std Deviation 46.3 H RDW Coeff of [place] 13.7 Plt Count 290 MPV 9.4 Immature Gran % (Auto) 0.700 Neut % (Auto) 74.0 H Lymph % (Auto) 11.9 L [place] % (Auto) 12.2 H Eos % (Auto) 0.8 Baso % (Auto) 0.4 Absolute Neuts (auto) 8.0 H Absolute Lymphs (auto) 1.29 Nucleated RBC % 0 PT 16.8 H INR 1.4 Sodium 125 L Potassium 3.9 Chloride 93 L Carbon Dioxide 30.0 Anion Gap 2 L BUN 12 Creatinine 0.55 L Estim Creat Clear Calc 72.07 Est GFR (MDRD) Af Amer 182 Est GFR (MDRD) Non-Af 150 BUN/Creatinine Ratio 21.8 H Glucose 156 H Lactic Acid 1.3 Calcium 8.2 L Total Bilirubin 0.70 AST 30 ALT 36 Alkaline Phosphatase 54 Total Protein 6.0 L Albumin 2.8 L Globulin 3.2 Albumin/Globulin Ratio 0.9 Urine Color Yellow Urine Clarity Clear Urine pH 6.5 Ur Specific [employer] 1.015 Urine Protein 15 H Urine Glucose (UA) Normal Urine Ketones Negative Urine Occult Blood Negative Urine Nitrite Negative Urine Bilirubin Negative Urine Urobilinogen 4 H Ur Leukocyte Esterase Negative Urine RBC 0 SEEN Urine WBC 0 SEEN Ur Squamous Epith Cells 0 SEEN Urine Bacteria 0 SEEN Urine Mucus 0 SEEN Radiography Diagnostic Testing: Clinical Impression(s) from Imaging Studies Abdomen/Pelvis CT 11/04/23 15:38 IMPRESSION: There is a heterogeneous irregular mass of the right lower anterior abdominal wall at the level of the pubis symphysis with surrounding subcutaneous stranding/edema. This is likely a hematoma. There is a curvilinear hyperdensity within this mass as well as a focal small gas collection. A focal small abscess and active bleeding cannot be excluded. Interstitial thickening. Focal left basilar consolidation/atelectasis. Pericardial effusion. Bilateral renal cysts. Hiatal hernia. Colonic fecal retention. Left inguinal hernia containing a loop of small bowel. Small fatty umbilical hernia. Electronically Signed: Michael Ayala DO at 17:59 EST Reading Location ID and State: [facility] / [place] Tel [phone], Service support , ADDENDUM: 11/04/23 7620 IMPRESSION: There is a heterogeneous irregular mass of the right lower anterior abdominal wall at the level of the pubis symphysis with surrounding subcutaneous stranding/edema. This is likely a hematoma. There is a curvilinear hyperdensity within this mass as well as a focal small gas collection. A focal small abscess and active bleeding cannot be excluded. Interstitial thickening. Focal left basilar consolidation/atelectasis. Pericardial effusion. Bilateral renal cysts. Hiatal hernia. Colonic fecal retention. Left inguinal hernia containing a loop of small bowel. Small fatty umbilical hernia. N.B. : The above Results were Read Back by Michael Ayala DO to Ariel De Leon NP, and understanding confirmed on 11/04/2023 18:01:22 (ET). Electronically Signed: Michael Ayaal DO at 17:59 EST , Chest X-Ray 11/04/23 17:30 IMPRESSION: Mild right pulmonary infiltrate. Interstitial prominence. Cardiomegaly. Electronically Signed: Michael Ayala DO at 18:02 EST , Discharge Plan Triage Chief Complaint: Male Pain/Injury ED Midlevel Provider: Ariel De Leon ED Provider: Nikhil Quiros Dx/Rx/DC Orders Clinical Impression: Hematoma, Post-op pain, H/O bilateral inguinal hernia repair Instructions: ED Hematoma Prescriptions: No Action aspirin [Adult Aspirin Regimen] 81 mg tablet,delayed release (DR/EC) 81 mg PO DAILY riboflavin (vitamin B2) 100 mg tablet 100 mg PO DAILY magnesium 250 mg tablet 250 mg PO DAILY (DME) compress.stocking,knee,reg,med Misc See Rx Instructions .ROUTE .MEDSUPPLY Qty: 2 0RF Rx Instructions: On AM, off bedtime. fluorometholone 0.1 % drops,suspension 1 drp ophthalmic (eye) BID multivitamin with minerals Tablet 1 tab PO DAILY cholecalciferol (vitamin D3) 25 mcg (1,000 unit) capsule 25 mcg PO DAILY ascorbic acid (vitamin C) 500 mg tablet 500 mg PO DAILY triamcinolone acetonide [Nasacort] 55 mcg aerosol,spray 1 spray intranasal DAILY Rx Instructions: administer into each nostril albuterol sulfate 90 mcg/actuation HFA aerosol inhaler 1 inh inhalation Q6H PRN (Reason: shortness of breath or wheezing) Qty: 8.5 1RF levofloxacin 750 mg tablet 750 mg PO DAILY Qty: 10 0RF benzonatate 200 mg capsule 200 mg PO TID PRN (Reason: cough) Qty: 14 0RF albuterol sulfate 1 PUFF inhaler 2 puff inhalation Q4H PRN PRN (Reason: WHEEZING/SOB) hydrocodone-acetaminophen 5-325 mg tablet 1 tab PO Q6H PRN (Reason: pain) 2 Days Qty: 6 0RF ipratropium-albuterol 20-100 mcg/actuation mist 1 puff inhalation BID Qty: 4 3RF nitroglycerin 0.4 mg tablet, sublingual 0.4 mg SUBLINGUAL Q5-15M PRN (Reason: CP) Qty: 25 2RF isosorbide mononitrate 30 mg tablet extended release 24 hr 30 mg PO DAILY Qty: 90 3RF lisinopril 30 mg tablet 30 mg PO DAILY Qty: 90 3RF simvastatin 20 mg tablet 20 mg PO DAILY Qty: 90 3RF omeprazole 40 mg capsule,delayed release(DR/EC) 40 mg PO BID Qty: 180 3RF tamsulosin 0.4 mg capsule 0.4 mg PO QHS Qty: 90 3RF apixaban 5 mg tablet 5 mg PO BID Qty: 180 3RF gabapentin 100 mg capsule See Rx Instructions PO .COMPLEX Qty: 150 3RF Rx Instructions: Take two 100 mg capsules in the AM, 1 capsule mid day, and 2 capsules at bedtime; amlodipine 5 mg tablet 5 mg PO DAILY Qty: 90 3RF Symbicort 160-4.5 mcg/actuation HFA aerosol inhaler 2 puff INHALATION BID 90 Days Qty: 30.4 3RF Hold Instructions: side effects furosemide [Lasix] 40 mg tablet 40 mg PO DAILY Qty: 30 6RF tiotropium bromide [Spiriva with HandiHaler] 18 mcg capsule, w/inhalation device 1 cap INHALATION DAILY Qty: 90 3RF Primary Care Provider: Mariaa Collazo Referrals: Mariaa Collazo MD [Primary Care Provider] - Activity Restrictions/Additional Instructions: You are going to use the aspirin however hold your Eliquis for 1 week. You may use heat and ice. Use the pain medicine that you were given. Disposition Disposition: Home, Self Care
[2023-11-04 15:52] VITALS: BMI 28.8
--- NOTE | 2023-11-04 15:54 | ED.RN ---
surgical site is swollen and painful to touch
[2023-11-04 15:57] VITALS: BP 110/94; PULSE 93; RESP 24; TEMP 36.3; O2SAT 94
[2023-11-04] MEDS: Metoclopramide 10 MG/2 ML Vial 2.5 MG IV (16:10)
[2023-11-04] MEDS: Morphine 2 MG/ML Syringe IV (16:11)
[2023-11-04 16:25] LABS: Absolute Lymphocyte Count 1.29 X10^3/uL (0.83-4.51); Basophil# 0.04 X10^3/uL; Basophil% 0.4 % (0-1); Eosinophil# 0.09 X10^3/uL; Eosinophils% 0.8 % (0-5); Hematocrit 36.6 % (40-54); Hemoglobin 12.2 g/dL (13.0-16.5); Lymphocyte # 1.29 X10^3/ul (0.83-4.51); Lymphocyte % 11.9 % (19-41); Mean Corp Hgb Conc 33.3 g/dL (32-36); Mean Corpuscular Hgb 30.5 pg (27.0-32.0); Mean Corpuscular Volume 91.5 fL (80-94); Mean Platelet Vol. 9.4 fl (6.2-12.0); Monocyte# 1.33 X10^3/uL; Monocyte% 12.2 % (0-10); NRBC Flagged by Analyzer 0 % (0-5); Neutrophil # 8.04 X10^3/uL (2.7-7.7); Platelet Count 290 K/mm3 (150-450); RBC Distribution Width CV 13.7 % (11.6-14.6); RBC Distribution Width SD 46.3 fl (35.1-43.9); White Blood Count 10.9 K/mm3 (4.4-11.0)
[2023-11-04 16:36] LABS: International Normalized Ratio 1.4; Prothrombin Time (Protime)PT. 16.8 SECONDS (11.7-14.9)
[2023-11-04 16:37] LABS: Lactic Acid 1.3 mmol/L (0.4-1.9)
[2023-11-04 16:42] LABS: ALB/GLOB Ratio 0.9 RATIO (0.9-2.4); AST(SGOT) 30 U/L (15-37); Alanine Aminotransfer ALT/SGPT 36 U/L (16-61); Albumin, Serum 2.8 g/dL (3.2-5.0); Alkaline Phosphatase 54 U/L (45-117); Anion Gap 2 (5-15); BUN 12 mg/dL (7-18); BUN/Creat Ratio 21.8 RATIO (10-20); Calcium,Total 8.2 mg/dL (8.5-10.1); Chloride 93 mmol/L (98-107); Creatinine, Serum 0.55 mg/dL (0.70-1.30); EST Glomerular Filtration Rate 150 mL/min (>60); Est Glom Filt Rate - Afr Amer 182 mL/min (>60); Estimated Creatinine Clearance 72.07 ml/min; Globulin 3.2 g/dL (2.2-4.2); Glucose 156 mg/dL (74-106); Potassium 3.9 mmol/L (3.5-5.1); Sodium Level 125 mmol/L (136-145)
[2023-11-04 16:55] LABS: Bacteria 0 SEEN /hpf (None Seen); Mucous, Urine 0 SEEN /hpf (<or=2+); Red Blood Cells-Urine 0 SEEN /hpf (0-5); Squamous Epithelial Cells - UA 0 SEEN /hpf (0-5); White Blood Cells 0 SEEN /hpf (0-5)
[2023-11-04 17:03] LABS: Color, Urine Yellow (Yellow); Glucose, Dipstick Normal (Normal); Ketone-Dipstick Negative (Negative); Leukocyte Esterase-Dipstick Negative /ul (Negative); Nitrite-Dipstick Negative (Negative); Occult Blood-Urine Negative /ul (Negative); Protein-Dipstick 15 mg/dl (Negative); Specific Gravity, Urine 1.015 (1.002-1.030); Urine Bilirubin Dipstick Negative (Negative); Urine Clarity Clear (Clear); Urine Urobilinogen 4 mg/dl (Normal); Urine pH 6.5 (5.0 - 8.0)
[2023-11-04] MEDS: 0.9% Normal Saline (1000mL) 1,000 ML 999 ML IV (17:13)
[2023-11-04 17:17] VITALS: BP 156/91; RESP 22; O2SAT 95
--- NOTE | 2023-11-04 17:30 | RAD_ITS ---
INDICATION: cough EXAMINATION/TECHNIQUE: X-RAY - XR Chest 2 Views COMPARISON: November 02, 2023 FINDINGS: LINES/DEVICES: None. LUNGS: Mild right pulmonary infiltrate. Interstitial prominence. No pneumothorax. MEDIASTINUM AND CARDIOVASCULAR STRUCTURES: Cardiac silhouette is enlarged. Central airways and mediastinal contour are unremarkable. BONES AND SOFT TISSUES: Unremarkable. RAD/Chest PA and Lateral IMPRESSION: Mild right pulmonary infiltrate. Interstitial prominence. Cardiomegaly. Electronically Signed: Michael Ayala DO at 18:02 EST ,
[2023-11-04] MEDS: Morphine 4 MG/ML Syringe IV (19:03)
--- NOTE | 2023-11-04 19:43 | HP.PCM_ITS ---
HPI - General General Date of Service: 11/04/23 Chief Complaint: Postoperative right groin bulge/pain HPI Narrative ANNEMARIE SUGGS, is a 83 M who presents to [facility] ER after being advised to do so by our office when they are contacted earlier today about his complaints of swelling and pain over his surgical site following a Jose M type right inguinal herniorrhaphy 10/28/[address] Gupta. Mr. Arreola shares that for the first few days after his operation everything was perfect but approximately 3 days ago he noticed that there was some progressive swelling and he had continued to hope that it would simply go down spontaneously. His then chimes in that he developed some associated pain to the point that last night he had such significant pain he did not get any sleep and only informed her of this this morning. It was at that point they contacted the surgical office and were advised to begin icing. He shares that he has done so nearly continuously since 8 AM this morning. Mr. Arreola does confess to developing a cough in the aftermath of his surgery. His shares that they presented to the now clinic where he underwent a number of tests and there was reportedly evidence of a possible pneumonia so he was begun on antibiotics and Tessalon Perles. They report that this did improve his cough. They also confirm that he managed his Eliquis perioperatively just as instructed?discontinuing it on the and resuming it on the . Patient's ER workup is notable for hemoglobin of 12.2 (down from prior level of 13.6), white blood cell count of 10.9, and CT imaging that shows probable hematoma but abscess could not be excluded on the account of some air adjacent patient's recently placed hernia mesh. [facility] Medical History Actinic keratosis Acute bronchitis, unspecified Alcohol use Anemia Arthritis Asthma Paiz esophagus Benign prostate hyperplasia Cancer Cardiology follow-up encounter Carotid artery disease COPD (chronic obstructive pulmonary disease) COPD (chronic obstructive pulmonary disease) CPAP (continuous positive airway pressure) dependence Essential (primary) hypertension Former smoker GERD (gastroesophageal reflux disease) Glaucoma Hiatal hernia High cholesterol History of atrial fibrillation History of edema History of hiatal hernia History of stress test History of upper gastrointestinal bleeding (12/2013) Hx of echocardiogram Hyperlipidemia Hypertension Longstanding persistent atrial fibrillation Loss of hearing Obstructive sleep apnea Prostate disease Restless legs Secondary pulmonary arterial hypertension Shortness of breath on exertion Sleep apnea SOB (shortness of breath) Vocal cord dysfunction Wears glasses Home Medications albuterol sulfate 90 mcg/actuation aerosol inhaler 2 puff inhalation Q4H PRN PRN WHEEZING/SOB 01/23/18 [History Last Taken 10/28/23] aspirin 81 mg tablet,delayed release (Adult Aspirin Regimen) 81 mg PO DAILY 01/30/19 [History Last Taken 10/25/23] riboflavin (vitamin B2) 100 mg tablet 100 mg PO DAILY 02/03/19 [History Last Taken 10/27/23] compress.stocking,knee,reg,med #2 ea 02/20/21 [Rx Last Taken Unknown] fluorometholone 0.1 % eye drops,suspension 1 drp ophthalmic (eye) BID 03/11/21 [History Last Taken 10/27/23] cholecalciferol (vitamin D3) 25 mcg (1,000 unit) capsule 25 mcg PO DAILY 12/18/21 [History Last Taken 10/27/23] multivitamin with minerals 1 tab PO DAILY 12/18/21 [History Last Taken 10/27/23] ipratropium 20 mcg-albuterol 100 mcg/actuation mist for inhalation 1 puff inh alation BID #4 grams 09/23/22 [Rx Last Taken 10/28/23] nitroglycerin 0.4 mg sublingual tablet 0.4 mg sublingual Q5-15M PRN CP #25 tabs 10/16/22 [Rx Last Taken Unknown] ascorbic acid (vitamin C) 500 mg tablet 500 mg PO DAILY 12/24/22 [History Last Taken 10/27/23] magnesium 250 mg tablet 250 mg PO DAILY 12/24/22 [History Last Taken 10/27/23] triamcinolone acetonide 55 mcg nasal spray aerosol (Nasacort) 1 spray intranasal DAILY 12/24/22 [History Last Taken 10/28/23] isosorbide mononitrate 30 mg tablet,extended release 24 hr 30 mg PO DAILY #90 tabs 02/24/23 [Rx Last Taken 10/28/23] lisinopril 30 mg tablet 30 mg PO DAILY #90 tabs 03/10/23 [Rx Last Taken 10/28/23] simvastatin 20 mg tablet 20 mg PO DAILY #90 tabs 05/31/23 [Rx Last Taken 10/28/23] omeprazole 40 mg capsule,delayed release 40 mg PO BID #180 caps 06/17/23 [Rx Last Taken 10/28/23] tamsulosin 0.4 mg capsule 0.4 mg PO QHS #90 caps 06/17/23 [Rx Last Taken 10/28/23] apixaban 5 mg tablet 5 mg PO BID #180 tabs 07/08/23 [Rx Last Taken 10/24/23] gabapentin 100 mg capsule See Rx Instructions PO .COMPLEX #150 caps 08/05/23 [Rx Last Taken 10/28/23] amlodipine 5 mg tablet 5 mg PO DAILY This is a dose decrease #90 tabs 09/08/23 [Rx Last Taken 10/28/23] albuterol sulfate 90 mcg/actuation aerosol inhaler 1 inh inhalation Q6H PRN shortness of breath or wheezing #8.5 grams 09/22/23 [Rx Last Taken 10/27/23] budesonide-formoterol HFA 160 mcg-4.5 mcg/actuation aerosol inhaler (Symbicort) 2 puff inhalation BID 90 days #30.4 grams 09/28/23 [Rx Last Taken 10/28/23] furosemide 40 mg tablet (Lasix) 40 mg PO DAILY #30 tabs 10/11/23 [Rx Last Taken 10/27/23] tiotropium bromide 18 mcg capsule with inhalation device (Spiriva with HandiHaler) 1 cap inhalation DAILY #90 inhalations 10/25/23 [Rx Last Taken 10/28/23] hydrocodone-acetaminophen 5-325mg 5mg-325mg 1 tab PO Q6H PRN pain 2 days #6 tabs 10/28/23 [Rx Last Taken Unknown] benzonatate 200 mg capsule 200 mg PO TID PRN cough #14 caps 11/02/23 [Rx Last Taken Unknown] levofloxacin 750 mg tablet 750 mg PO DAILY #10 tabs 11/02/23 [Rx Last Taken Unknown] Allergy/AdvReac Type Severity Reaction Status Date / Time ondansetron [From Zofran] AdvReac Intermediate Restless Verified 11/04/23 15:18 legs, twitchy Family History Father Asthma CVA (cerebral vascular accident) Mother Hypertension Cancer Sister Hypertension Diabetes Grandfather Myocardial infarction Surgical History History of bilateral cataract extraction History of esophagogastroduodenoscopy (EGD) History of repair of hiatal hernia History of skin surgery Hx of oral surgery Hx of tonsillectomy Social History Smoking Status: Former smoker quit date: 10/04/94 second hand exposure: No alcohol intake: current alcohol intake frequency: a few times a month Alcohol type: beer substance use type: does not use caffeine: Yes Type: tea Number of servings: 1 what type of physical activity do you participate in: none frequency: does not exercise ROS Constitutional Constitutional: Denies anorexia, chills or fever(s) Respiratory/Chest Respiratory/Chest: Reports cough Gastrointestinal Gastrointestinal: Reports abdominal pain Genitourinary Genitourinary: Denies dysuria Vital Signs Vital Signs Vital Signs: 11/04/23 15:18 11/04/23 15:57 11/04/23 17:17 Temperature 97.3 F L 97.3 F L Temperature Source Temporal Temporal Pulse Rate 93 93 Respiratory Rate 24 H 24 H 22 H Blood Pressure 110/94 H 110/94 H 156/91 H Blood Pressure Mean 99 99 112 Pulse Ox 94 94 95 Oxygen Delivery Method Room Air Room Air Room Air Weight Weight: 189 lb 13.088 oz Body Mass Index (BMI) 28.8 Physical Exam Const alert, oriented x3 and no apparent distress General Appearance: cooperative Eyes Eyes Narrative: Contusion to infraorbital region GI GI Narrative: Nondistended, soft, nontender to palpation Narrative: Large, right groin bulge estimated at 9 cm in diameter. Significant ecchymosis with discoloration extending well throughout the penile and scrotal soft tissues. Patient has Steri-Strips still intact. There is no drainage from the wound. Patient has mild tenderness with palpation in the area remains firm. Results Lab / Micro Data 11/04/23 15:49 11/04/23 15:49 Labs: Laboratory Results - last 24 hr 11/04/23 15:49: WBC 10.9, RBC 4.00 L, Hgb 12.2 L, Hct 36.6 L, MCV 91.5, MCH 30.5, MCHC 33.3, RDW Std Deviation 46.3 H, RDW Coeff of [place] 13.7, Plt Count 290, MPV 9.4, Immature Gran % (Auto) 0.700, Neut % (Auto) 74.0 H, Lymph % (Auto) 11.9 L, [place] % (Auto) 12.2 H, Eos % (Auto) 0.8, Baso % (Auto) 0.4, Absolute Neuts (auto) 8.0 H, Absolute Lymphs (auto) 1.29, Nucleated RBC % 0, PT 16.8 H, INR 1.4, Sodium 125 L, Potassium 3.9, Chloride 93 L, Carbon Dioxide 30.0, Anion Gap 2 L, BUN 12, Creatinine 0.55 L, Estim Creat Clear Calc 72.07, Est GFR (MDRD) Af Amer 182, Est GFR (MDRD) Non-Af 150, BUN/Creatinine Ratio 21.8 H, Glucose 156 H, Lactic Acid 1.3, Calcium 8.2 L, Total Bilirubin 0.70, AST 30, ALT 36, Alkaline Phosphatase 54, Total Protein 6.0 L, Albumin 2.8 L, Globulin 3.2, Albumin/Globulin Ratio 0.9 11/04/23 16:50: Urine Color Yellow, Urine Clarity Clear, Urine pH 6.5, Ur Specific [place] 1.015, Urine Protein 15 H, Urine Glucose (UA) Normal, Urine Ketones Negative, Urine Occult Blood Negative, Urine Nitrite Negative, Urine Bilirubin Negative, Urine Urobilinogen 4 H, Ur Leukocyte Esterase Negative, Urine RBC 0 SEEN, Urine WBC 0 SEEN, Ur Squamous Epith Cells 0 SEEN, Urine Bacteria 0 SEEN, Urine Mucus 0 SEEN Imaging Radiology Impression Abdomen/Pelvis CT 11/04/23 15:38 IMPRESSION: There is a heterogeneous irregular mass of the right lower anterior abdominal wall at the level of the pubis symphysis with surrounding subcutaneous stranding/edema. This is likely a hematoma. There is a curvilinear hyperdensity within this mass as well as a focal small gas collection. A focal small abscess and active bleeding cannot be excluded. Interstitial thickening. Focal left basilar consolidation/atelectasis. Pericardial effusion. Bilateral renal cysts. Hiatal hernia. Colonic fecal retention. Left inguinal hernia containing a loop of small bowel. Small fatty umbilical hernia. Electronically Signed: Michael Ayala DO at 17:59 EST Reading Location ID and State: [facility] / [place] Tel [phone], Service support , ADDENDUM: 11/04/23 1808 IMPRESSION: There is a heterogeneous irregular mass of the right lower anterior abdominal wall at the level of the pubis symphysis with surrounding subcutaneous stranding/edema. This is likely a hematoma. There is a curvilinear hyperdensity within this mass as well as a focal small gas collection. A focal small abscess and active bleeding cannot be excluded. Interstitial thickening. Focal left basilar consolidation/atelectasis. Pericardial effusion. Bilateral renal cysts. Hiatal hernia. Colonic fecal retention. Left inguinal hernia containing a loop of small bowel. Small fatty umbilical hernia. N.B. : The above Results were Read Back by Michael Ayala DO to Ariel De Leon NP, and understanding confirmed on 11/04/2023 18:01:22 (ET). Electronically Signed: Michael Ayala DO at 17:59 EST , Chest X-Ray 11/04/23 17:30 IMPRESSION: Mild right pulmonary infiltrate. Interstitial prominence. Cardiomegaly. Electronically Signed: Michael Ayala DO at 18:02 EST , Assessment & Plan Assessment/Plan (1) Postoperative hematoma: QUALIFIERS: Surgical complication system/body Area: subcutaneous tissue PLAN: Patient is an 83-year-old male who presents following right inguinal herniorrhaphy with mesh placement 10/28/2023 with signs and symptoms of developing a right surgical site hematoma. The timing of developing a cough and resuming his anticoagulation with his history provide a more than plausible cause for this complication. It is evident that the patient abided by recommendations for management of his anticoagulation, but unfortunately he did develop symptoms of a possible pneumonia. Patient's exam supports this diagnosis without findings of drainage or other signs of infection. In my independent review of patient's CT I do confirm the presence of air directly adjacent to his inguinal mesh, however, I suspect this is air that remains trapped from the date of his operation and unlikely to represent anaerobic metabolism of a microbial origin. Based on this assessment and his clinical stability I recommend a conservative course of action. More specifically, I have recommended that he begin a hold of his anticoagulation x 1 week. I asked that he continue diligently icing the area for full 48 hours and then begin alternating ice and heat of the area. He already has appointments pending with his primary care provider, Dr. Nix, as well as our office on 11/08/2023. Lastly, I did leave and Mrs. Suggs with red flag signs to be cognizant of that could indicate a developing infection of the area. Care plan was reviewed with emergency medicine. Charges/Coding Visit Charges Office Visits / Consults: [id number] ED Visit; Moderate Severity
[2023-11-04 19:51] VITALS: BP 153/82; PULSE 89; RESP 24; O2SAT 95
== END 2023-11-04 20:09 | disposition home or self-care (01) ==
PROVIDERS: Nurse Practitioner; Emergency Provider Emergency Medicine; PCP Internal Medicine; Visit Provider Emergency Medicine
DX: L76.32 Postprocedural hematoma of skin and subcutaneous tissue following other procedure (principal); I48.91 Unspecified atrial fibrillation; J18.9 Pneumonia, unspecified organism; Y83.8 Other surgical procedures as the cause of abnormal reaction of the patient, or of later complication, without mention of misadventure at the time of the procedure; K59.00 Constipation, unspecified; E78.5 Hyperlipidemia, unspecified; N40.0 Benign prostatic hyperplasia without lower urinary tract symptoms; K21.9 Gastro-esophageal reflux disease without esophagitis; I10 Essential (primary) hypertension; Z79.01 Long term (current) use of anticoagulants; Z79.82 Long term (current) use of aspirin; Z79.899 Other long term (current) drug therapy; Z79.51 Long term (current) use of inhaled steroids; Z87.891 Personal history of nicotine dependence
CPT/HCPCS: 71046; 74177; 80053; 81001; 83605; 85025; 85610; 96361; 96374; 96375; 96376; 99283; J7030; Q9967; A4216

== ENCOUNTER 2023-12-09 09:16 | Emergency (ER) | payer MEDICARE, SELFPAY ==
[2023-12-09 09:18] VITALS: BP 118/73; PULSE 68; RESP 14; TEMP 36.8; O2SAT 96
[2023-12-09 09:49] VITALS: O2SAT 97
[2023-12-09 09:50] VITALS: BMI 28.6
--- NOTE | 2023-12-09 11:04 | EKG12_ITS ---
Test Reason : Blood Pressure : / mmHG Vent. Rate : 055 BPM Atrial Rate : 000 BPM P-R Int : 000 ms QRS Dur : 086 ms QT Int : 420 ms P-R-T Axes : 000 -24 033 degrees QTc Int : 401 ms Atrial fibrillation with slow ventricular response CAN NOT RULE OUT Septal infarct (cited on or before 07-DEC-2022) Abnormal ECG Confirmed by Bryson Manzano ([id number]), research editor RAZA ASTORGA ([id number]) on 12/13/2023 1:56:40 PM Referred By: REANNA Confirmed By:Bryson Manzano
[2023-12-09 11:31] VITALS: BP 123/88; PULSE 56; RESP 14; O2SAT 94
--- NOTE | 2023-12-09 11:35 | RAD_ITS ---
INDICATION: chest pain EXAMINATION/TECHNIQUE: X-RAY - XR Chest 1 View COMPARISON: Prior study dated: 11/04/2023 FINDINGS: LINES/DEVICES: None. LUNGS: Hypoventilatory and atelectatic changes in the lung bases. No evidence of pleural effusions. MEDIASTINUM AND CARDIOVASCULAR STRUCTURES: Stable cardiomediastinal silhouette. BONES AND SOFT TISSUES: Unchanged. RAD/Chest 1 View (Portable) IMPRESSION: Atelectatic changes in the right lung base. Electronically Signed: Curt Cornelius MD at 12:29 EST ,
[2023-12-09 12:03] LABS: Anion Gap 6 (5-15); BUN 11 mg/dL (7-18); BUN/Creat Ratio 19.1 RATIO (10-20); Calcium,Total 8.7 mg/dL (8.5-10.1); Chloride 101 mmol/L (98-107); Creatinine, Serum 0.58 mg/dL (0.70-1.30); EST Glomerular Filtration Rate 143 mL/min (>60); Est Glom Filt Rate - Afr Amer 173 mL/min (>60); Estimated Creatinine Clearance 71.84 ml/min; Glucose 94 mg/dL (74-106); Potassium 4.1 mmol/L (3.5-5.1); Sodium Level 135 mmol/L (136-145); Troponin-I HS 54 pg/mL (3.0-78.0)
[2023-12-09 12:09] LABS: BNP,B-Type NATRIURETIC PEPTIDE 170.9 pg/mL (0-100)
[2023-12-09 12:16] LABS: Absolute Lymphocyte Count 1.43 X10^3/uL (0.83-4.51); Absolute Neutrophil Count 4.8 X10^3/uL (2.0-7.7); Basophil# 0.06 X10^3/uL; Basophil% 0.8 % (0-1); Eosinophil# 0.06 X10^3/uL; Eosinophils% 0.8 % (0-5); Hematocrit 40.3 % (40-54); Hemoglobin 13.1 g/dL (13.0-16.5); Lymphocyte # 1.43 X10^3/ul (0.83-4.51); Mean Corp Hgb Conc 32.5 g/dL (32-36); Mean Corpuscular Volume 89.4 fL (80-94); Mean Platelet Vol. 9.4 fl (6.2-12.0); Monocyte# 1.13 X10^3/uL; NRBC Flagged by Analyzer 0 % (0-5); Neutrophil # 4.82 X10^3/uL (2.7-7.7); Neutrophil % 63.9 % (47-70); Platelet Count 307 K/mm3 (150-450); RBC Distribution Width CV 14.5 % (11.6-14.6); RBC Distribution Width SD 47.1 fl (35.1-43.9); Red Blood Count 4.51 M/mm3 (4.6-6.2); White Blood Count 7.5 K/mm3 (4.4-11.0)
--- NOTE | 2023-12-09 12:39 | CT_ITS ---
INDICATION: neck pain EXAMINATION: CT NECK WITH CONTRAST - CT Soft Tissue Neck W/ Contrast Injection TECHNIQUE: Helically acquired images were obtained of the neck following IV contrast. A radiation dose optimization technique was used for this scan. IV Contrast dosage and agent: 100 cc of Isovue-300 RADIATION DOSAGE (If Supplied By Facility): CTDIvol = ( 16.95 ) mGy, DLP = ( 971.96 ) mGycm COMPARISON: No relevant prior comparison study available FINDINGS: NASOPHARYNX: Unremarkable. SUPRAHYOID NECK: Unremarkable oropharynx, oral cavity, parapharyngeal space, and retropharyngeal space. INFRAHYOID NECK: Unremarkable larynx, hypopharynx, and supraglottis. THYROID: No focal lesions. SALIVARY GLANDS: Unremarkable. LYMPH NODES: No cervical or supraclavicular lymphadenopathy. VASCULAR STRUCTURES: Atherosclerotic calcifications in the right bulb and proximal right internal carotid artery without significant stenosis. VISUALIZED PORTIONS OF THE ORBITS, PARANASAL SINUSES, MASTOID AIR CELLS AND SKULL BASE: Unremarkable. BONES: Multilevel degenerative changes of the cervical spine THORACIC INLET: Clear lung apices. CT/Soft Tissue Neck WITH Contrast IMPRESSION: 1. Unremarkable airway. 2. No focal mass is seen. 3. Atherosclerotic calcifications of the right carotid artery without significant stenosis. Electronically Signed: Curt Cornelius MD at 13:17 EST ,
--- NOTE | 2023-12-09 12:39 | CT_ITS ---
INDICATION: hemoptysis EXAMINATION: CT CHEST WITH CONTRAST - CT Chest W/ Contrast Injection TECHNIQUE: Helically acquired images were obtained of the chest following IV contrast. A radiation dose optimization technique was used for this scan. IV Contrast dosage and agent: 100 cc of Isovue-300 RADIATION DOSAGE (If Supplied By Facility): CTDIvol = ( 16.95 ) mGy, DLP = ( 971.96 ) mGycm COMPARISON: CT scan of the abdomen and pelvis of 11/04/2023. FINDINGS: LUNGS, PLEURA AND LARGE AIRWAYS: Emphysematous changes predominantly in the lower lungs. Moderate stranding/scarring. Persistent left lower lobe density measuring about 2 cm. Mild left lower infiltrate/atelectasis. Small bilateral pleural effusions larger on the right side. No evidence of pneumothorax. THYROID: 6 mm hyperdense nodule in the right lobe of the thyroid gland. HEART AND PERICARDIUM: Mild cardiomegaly. Small pericardial effusion unchanged. Coronary calcifications. VESSELS: Atherosclerotic calcifications and tortuosity of the thoracic aorta without evidence of aneurysm. No aortic dissection. No obvious central pulmonary embolism although this study was not performed with the pulmonary embolism protocol. MEDIASTINUM AND PAULETTE: No mediastinal or hilar adenopathy. Esophagus is unremarkable. Large hiatal hernia. UPPER ABDOMEN: Fecal retention concerning for constipation. Simple cyst in the visualized left kidney for which no further follow-up exam is needed. BONES: Demineralization of the osseous structures. Multilevel degenerative changes. CT/Chest WITH Contrast IMPRESSION: 1. Left lower lobe infiltrate/atelectasis. 2. Pleural-based 2 cm density in the medial aspect of the left lower lobe could be due to focal atelectasis. Tumor cannot be excluded. Follow-up exam in 3 months is recommended. 3. Small bilateral pleural effusions larger on the right side. 4. Cardiomegaly and small pericardial effusion. 5. Large hiatal hernia. Electronically Signed: Curt Cornelius MD at 13:43 EST ,
--- NOTE | 2023-12-09 12:43 | EX.ED.DYSGE1 ---
HPI History of Present Illness Chief Complaint: Cough Narrative Narrative: 83-year-old male presenting for hemoptysis. He states he had a small amount of blood in his sputum since before September. It has been on and off. Patient on Eliquis for history of atrial fibrillation. Patient has not missed any doses. He states that he is concerned he might have cancer in his throat or his neck because it sometimes hurts. He points to the right side of his neck and then points to the back of his neck and around to the left. He states it is moving. Denies any trouble swallowing or breathing. He states that he told his of this months ago. He states that she called the on-call nurse for an assessment but did not tell them it has been going on for months and so they referred to the emergency room for evaluation of hemoptysis. Patient denies any chest pain. He is not nauseous or vomiting. No black or bloody stools. No fevers. No weight loss PFSH PFSH Medical History Actinic keratosis Acute bronchitis, unspecified Alcohol use Anemia Arthritis Asthma Paiz esophagus Benign prostate hyperplasia Cancer Cardiology follow-up encounter Carotid artery disease COPD (chronic obstructive pulmonary disease) COPD (chronic obstructive pulmonary disease) CPAP (continuous positive airway pressure) dependence Essential (primary) hypertension Former smoker GERD (gastroesophageal reflux disease) Glaucoma Hiatal hernia High cholesterol History of atrial fibrillation History of edema History of hiatal hernia History of stress test History of upper gastrointestinal bleeding (12/2013) Hx of echocardiogram Hyperlipidemia Hypertension Inguinal hernia Longstanding persistent atrial fibrillation Loss of hearing Obstructive sleep apnea Prostate disease Restless legs Secondary pulmonary arterial hypertension Shortness of breath on exertion Sleep apnea SOB (shortness of breath) Vocal cord dysfunction Wears glasses Home Medications albuterol sulfate 90 mcg/actuation aerosol inhaler 2 puff inhalation Q4H PRN PRN WHEEZING/SOB 01/23/18 [History Last Taken 10/28/23] aspirin 81 mg tablet,delayed release (Adult Aspirin Regimen) 81 mg PO DAILY 01/30/19 [History Last Taken 10/25/23] riboflavin (vitamin B2) 100 mg tablet 100 mg PO DAILY 02/03/19 [History Last Taken 10/27/23] compress.stocking,knee,reg,med #2 ea 02/20/21 [Rx Last Taken Unknown] fluorometholone 0.1 % eye drops,suspension 1 drp ophthalmic (eye) BID 03/11/21 [History Last Taken 10/27/23] cholecalciferol (vitamin D3) 25 mcg (1,000 unit) capsule 25 mcg PO DAILY 12/18/21 [History Last Taken 10/27/23] multivitamin with minerals 1 tab PO DAILY 12/18/21 [History Last Taken 10/27/23] ipratropium 20 mcg-albuterol 100 mcg/actuation mist for inhalation 1 puff inhalation BID #4 grams 09/23/22 [Rx Last Taken 10/28/23] ascorbic acid (vitamin C) 500 mg tablet 500 mg PO DAILY 12/24/22 [History Last Taken 10/27/23] magnesium 250 mg tablet 250 mg PO DAILY 12/24/22 [History Last Taken 10/27/23] triamcinolone acetonide 55 mcg nasal spray aerosol (Nasacort) 1 spray intranasal DAILY 12/24/22 [History Last Taken 10/28/23] simvastatin 20 mg tablet 20 mg PO DAILY #90 tabs 05/31/23 [Rx Last Taken 10/28/23] omeprazole 40 mg capsule,delayed release 40 mg PO BID #180 caps 06/17/23 [Rx Last Taken 10/28/23] tamsulosin 0.4 mg capsule 0.4 mg PO QHS #90 caps 06/17/23 [Rx Last Taken 10/28/23] apixaban 5 mg tablet 5 mg PO BID #180 tabs 07/08/23 [Rx Last Taken 10/24/23] amlodipine 5 mg tablet 5 mg PO DAILY This is a dose decrease #90 tabs 09/08/23 [Rx Last Taken 10/28/23] albuterol sulfate 90 mcg/actuation aerosol inhaler 1 inh inhalation Q6H PRN shortness of breath or wheezing #8.5 grams 09/22/23 [Rx Last Taken 10/27/23] budesonide-formoterol HFA 160 mcg-4.5 mcg/actuation aerosol inhaler (Symbicort) 2 puff inhalation BID 90 days #30.4 grams 09/28/23 [Rx Last Taken 10/28/23] tiotropium bromide 18 mcg capsule with inhalation device (Spiriva with HandiHaler) 1 cap inhalation DAILY #90 inhalations 10/25/23 [Rx Last Taken 10/28/23] benzonatate 200 mg capsule 200 mg PO TID PRN cough #14 caps 11/02/23 [Rx Last Taken Unknown] levofloxacin 750 mg tablet 750 mg PO DAILY #10 tabs 11/02/23 [Rx Last Taken Unknown] nitroglycerin 0.4 mg sublingual tablet 0.4 mg sublingual Q5-15M PRN CP #25 tabs 11/08/23 [Rx Last Taken Unknown] furosemide 40 mg tablet (Lasix) 40 mg PO DAILY #90 tabs 11/29/23 [Rx Last Taken Unknown] gabapentin 100 mg capsule See Rx Instructions PO .COMPLEX #150 caps 11/29/23 [Rx Last Taken Unknown] isosorbide mononitrate 30 mg tablet,extended release 24 hr 30 mg PO DAILY #90 tabs 11/29/23 [Rx Last Taken Unknown] lisinopril 30 mg tablet 30 mg PO DAILY #90 tabs 11/29/23 [Rx Last Taken Unknown] levofloxacin 500 mg tablet 500 mg PO DAILY #7 tabs 12/09/23 [Rx Last Taken Unknown] Allergy/AdvReac Type Severity Reaction Status Date / Time ondansetron [From Zofran] AdvReac Intermediate Restless Verified 12/09/23 09:17 legs, twitchy Family History Father Asthma CVA (cerebral vascular accident) Mother Hypertension Cancer Sister Hypertension Diabetes Grandfather Myocardial infarction Surgical History History of bilateral cataract extraction History of esophagogastroduodenoscopy (EGD) History of repair of hiatal hernia History of right inguinal hernia repair History of skin surgery Hx of oral surgery Hx of tonsillectomy Social History Smoking Status: Former smoker quit date: 10/04/94 second hand exposure: No alcohol intake: current alcohol intake frequency: a few times a month Alcohol type: beer substance use type: does not use caffeine: Yes Type: tea Number of servings: 1 what type of physical activity do you participate in: none frequency: does not exercise ROS ROS ED Constitutional Constitutional ED: Denies chills, fever(s) or sweats Eyes Eyes: Denies blurry vision or change in vision ENT ENT ED: Reports sore throat; Denies ear pain Cardiovascular Cardiovascular: Denies chest pain, palpitations or racing heartbeat Respiratory/Chest Respiratory/Chest: Reports other Details: Hemoptysis ; Denies cough, dyspnea or sputum Gastrointestinal Gastrointestinal: Denies abdominal pain, constipation, diarrhea, nausea or vomiting Genitourinary Genitourinary ED: Denies dysuria, hematuria or urinary frequency Musculoskeletal Musculoskeletal: Denies arthralgias, myalgias or neck pain Integumentary Denies abscess, Abrasions or rash Neurologic Neurologic: Denies headache(s), paresthesias or weakness Psychiatric Psychiatric: Denies anxiety, depression, suicidal ideation or suicidal thoughts Endocrine Endocrinology: Denies polydipsia or polyuria EXAM Physical Exam Const Vital Signs: 12/09/23 09:18 12/09/23 09:49 12/09/23 11:04 Temperature 98.3 F Temperature Source Temporal Pulse Rate 68 Respiratory Rate 14 Respiratory Effort Normal Respiratory Depth Normal Respiratory Pattern Normal Blood Pressure 118/73 Blood Pressure Mean 88 Pulse Ox 96 Oxygen Delivery Method Room Air Room Air Room Air 12/09/23 11:31 12/09/23 12:58 12/09/23 14:07 Temperature Temperature Source Pulse Rate 56 L 60 55 L Respiratory Rate 14 14 24 H Respiratory Effort Respiratory Depth Respiratory Pattern Blood Pressure 123/88 H 129/88 H 139/85 H Blood Pressure Mean 99 101 103 Pulse Ox 94 94 95 Oxygen Delivery Method Room Air Room Air Room Air 12/09/23 14:52 Temperature 98.6 F Temperature Source Pulse Rate 62 Respiratory Rate 23 H Respiratory Effort Respiratory Depth Respiratory Pattern Blood Pressure 138/88 H Blood Pressure Mean 104 Pulse Ox 95 Oxygen Delivery Method Positive well nourished General Appearance ED: NAD; Negative for pallor HEENT Reports moist mucous membranes Negative for trauma Eyes PERRL and EOMs intact bilaterally Neck no lymphadenopathy, supple and no JVD Neck Narrative: No stridor Chest Wall inspection of chest normal Resp normal respiratory effort and clear to auscultation bilaterally Auscultation: Negative for rales, rhonchi or wheezes Cardio regular rate and regular rhythm Neuro oriented x3 and CN's II-XII intact bilaterally Sensorium / Orientation: alert Psych mental status grossly normal Skin no rashes or lesions noted General Skin Exam: Negative for jaundice or pallor MDM MDM MDM Narrative Medical decision making narrative: Patient presenting with hemoptysis. States this is new issue and says been going on since well before September. His apparently called the nurses line today and did not mention that it been a long-term issue and was referred to the ER for evaluation. This is on his problem list as an old problem. He is on Eliquis for history of A-fib. Patient specifically concerned that he might have a cancer in his throat although he does not have any swelling, difficulty swallowing or breathing. He is concerned that the hemoptysis is secondary to cancer. CBC to assess white blood cell count, hemoglobin, platelets, BMP to assess renal function, electrolytes. High-sensitivity troponin EKG to assess for ischemia/dysrhythmia. BNP to assess for CHF. Chest x-ray to rule out pneumonia or CHF. COVID, influenza, RSV will be obtained. Since the patient has concerned about cancer I will obtain a CT soft tissue neck and CT of the chest with both with IV contrast. CBC shows normal white blood cell count 7.5. Hemoglobin 13.1. Platelets 307. Renal function and electrolytes within normal limits. High-sensitivity troponin 54. BNP slightly elevated at 770.9 although the patient has recent echocardiogram shows normal EKG on my interpretation shows A-fib with controlled ventricular response at 55 bpm. Chest x-ray my interpretation shows no acute process. CT soft tissue neck shows no acute process. CT of the chest shows concern for small pleural effusions with right being greater than left. There is also a pleural-based nodule measuring approximately 2 cm. Left lower lobe infiltrate versus atelectasis noted. Patient also has large hiatal hernia. Discussed all findings with Dr. Hernandez and we will send him home on Levaquin to cover for pneumonia. It sounds like the hemoptysis is a chronic issue and he does not need to be admitted for this as he has normal hemoglobin. He states has been having this for months and it is even noted as part of his medical record. We also discussed follow-up for the lung nodule and for the pleural effusions. Return precautions discussed. Impression: 1. Hemoptysis 2. Pneumonia 3. Bilateral pleural effusions 4. Pleural-based nodule Lab Data Attestation: I reviewed the patient's lab results. Labs: Laboratory Results - last 24 hr 12/09/23 11:28 WBC 7.5 RBC 4.51 L Hgb 13.1 Hct 40.3 MCV 89.4 MCH 29.0 MCHC 32.5 RDW Std Deviation 47.1 H RDW Coeff of [place] 14.5 Plt Count 307 MPV 9.4 Immature Gran % (Auto) 0.500 Neut % (Auto) 63.9 Lymph % (Auto) 19.0 [place] % (Auto) 15.0 H Eos % (Auto) 0.8 Baso % (Auto) 0.8 Absolute Neuts (auto) 4.8 Absolute Lymphs (auto) 1.43 Nucleated RBC % 0 Sodium 135 L Potassium 4.1 Chloride 101 Carbon Dioxide 28.0 Anion Gap 6 BUN 11 Creatinine 0.58 L Estim Creat Clear Calc 71.84 Est GFR (MDRD) Af Amer 173 Est GFR (MDRD) Non-Af 143 BUN/Creatinine Ratio 19.1 Glucose 94 Calcium 8.7 Troponin I High Sens 54 B-Natriuretic Peptide 170.9 H Radiography Diagnostic Testing: Clinical Impression(s) from Imaging Studies Chest X-Ray 12/09/23 11:35 IMPRESSION: Atelectatic changes in the right lung base. Electronically Signed: Curt Cornelius MD at 12:29 EST , Chest CT 12/09/23 12:39 IMPRESSION: 1. Left lower lobe infiltrate/atelectasis. 2. Pleural-based 2 cm density in the medial aspect of the left lower lobe could be due to focal atelectasis. Tumor cannot be excluded. Follow-up exam in 3 months is recommended. 3. Small bilateral pleural effusions larger on the right side. 4. Cardiomegaly and small pericardial effusion. 5. Large hiatal hernia. Electronically Signed: Curt Cornelius MD at 13:43 EST , Soft Tissue Neck CT 12/09/23 12:39 IMPRESSION: 1. Unremarkable airway. 2. No focal mass is seen. 3. Atherosclerotic calcifications of the right carotid artery without significant stenosis. Electronically Signed: Curt Cornelius MD at 13:17 EST , Discharge Plan Triage Chief Complaint: Cough ED Provider: Pablo Quan Dx/Rx/DC Orders Instructions: ED Hemoptysis, ED Pneumonia (Adult), ED Pulmonary Nodule, Solitary Prescriptions: New levofloxacin 500 mg tablet 500 mg PO DAILY Qty: 7 0RF No Action aspirin [Adult Aspirin Regimen] 81 mg tablet,delayed release (DR/EC) 81 mg PO DAILY riboflavin (vitamin B2) 100 mg tablet 100 mg PO DAILY magnesium 250 mg tablet 250 mg PO DAILY (DME) compress.stocking,knee,reg,med Misc See Rx Instructions .ROUTE .MEDSUPPLY Qty: 2 0RF Rx Instructions: On AM, off bedtime. fluorometholone 0.1 % drops,suspension 1 drp ophthalmic (eye) BID multivitamin with minerals Tablet 1 tab PO DAILY cholecalciferol (vitamin D3) 25 mcg (1,000 unit) capsule 25 mcg PO DAILY ascorbic acid (vitamin C) 500 mg tablet 500 mg PO DAILY triamcinolone acetonide [Nasacort] 55 mcg aerosol,spray 1 spray intranasal DAILY Rx Instructions: administer into each nostril albuterol sulfate 90 mcg/actuation HFA aerosol inhaler 1 inh inhalation Q6H PRN (Reason: shortness of breath or wheezing) Qty: 8.5 1RF levofloxacin 750 mg tablet 750 mg PO DAILY Qty: 10 0RF benzonatate 200 mg capsule 200 mg PO TID PRN (Reason: cough) Qty: 14 0RF albuterol sulfate 1 PUFF inhaler 2 puff inhalation Q4H PRN PRN (Reason: WHEEZING/SOB) ipratropium-albuterol 20-100 mcg/actuation mist 1 puff inhalation BID Qty: 4 3RF simvastatin 20 mg tablet 20 mg PO DAILY Qty: 90 3RF omeprazole 40 mg capsule,delayed release(DR/EC) 40 mg PO BID Qty: 180 3RF tamsulosin 0.4 mg capsule 0.4 mg PO QHS Qty: 90 3RF apixaban 5 mg tablet 5 mg PO BID Qty: 180 3RF amlodipine 5 mg tablet 5 mg PO DAILY Qty: 90 3RF Symbicort 160-4.5 mcg/actuation HFA aerosol inhaler 2 puff INHALATION BID 90 Days Qty: 30.4 3RF Hold Instructions: side effects tiotropium bromide [Spiriva with HandiHaler] 18 mcg capsule, w/inhalation device 1 cap INHALATION DAILY Qty: 90 3RF nitroglycerin 0.4 mg tablet, sublingual 0.4 mg SUBLINGUAL Q5-15M PRN (Reason: CP) Qty: 25 3RF furosemide [Lasix] 40 mg tablet 40 mg PO DAILY Qty: 90 3RF gabapentin 100 mg capsule See Rx Instructions PO .COMPLEX Qty: 150 3RF Rx Instructions: Take two 100 mg capsules in the AM, 1 capsule mid day, and 2 capsules at bedtime; isosorbide mononitrate 30 mg tablet extended release 24 hr 30 mg PO DAILY Qty: 90 3RF lisinopril 30 mg tablet 30 mg PO DAILY Qty: 90 3RF Primary Care Provider: Mariaa Collazo Referrals: Mariaa Collazo MD [Primary Care Provider] - Disposition Disposition: Home, Self Care
[2023-12-09 12:58] VITALS: BP 129/88; PULSE 60; RESP 14; O2SAT 94
[2023-12-09 14:07] VITALS: BP 139/85; PULSE 55; RESP 24; O2SAT 95
[2023-12-09 14:52] VITALS: BP 138/88; PULSE 62; RESP 23; TEMP 37; O2SAT 95
[2023-12-09] MEDS: levoFLOXacin 500 MG Tablet PO (15:05)
== END 2023-12-09 15:06 | disposition home or self-care (01) ==
PROVIDERS: Emergency Provider Student in an Organized Health Care Education/Training Program; PCP Internal Medicine; Visit Provider Student in an Organized Health Care Education/Training Program
DX: J18.9 Pneumonia, unspecified organism (principal); J44.0 Chronic obstructive pulmonary disease with (acute) lower respiratory infection; I48.91 Unspecified atrial fibrillation; Z11.52 Encounter for screening for COVID-19; R04.2 Hemoptysis; R91.1 Solitary pulmonary nodule; I10 Essential (primary) hypertension; J90 Pleural effusion, not elsewhere classified; E78.00 Pure hypercholesterolemia, unspecified; K44.9 Diaphragmatic hernia without obstruction or gangrene; Z79.01 Long term (current) use of anticoagulants; Z79.82 Long term (current) use of aspirin; Z79.899 Other long term (current) drug therapy; Z87.891 Personal history of nicotine dependence
CPT/HCPCS: 70491; 71045; 71260; 80048; 83880; 84484; 85025; 87631; 93005; 99284; Q9967

== ENCOUNTER → 2024-01-06 | Outpatient (CLI) | payer MEDICARE, SELFPAY ==
--- NOTE | 2024-01-06 12:42 | CT_ITS ---
INDICATION: New lung nodule left lower See CT 12/09/23 EXAMINATION: CT CHEST WITH CONTRAST - CT Chest W/ Contrast Injection TECHNIQUE: Helically acquired images were obtained of the chest following IV contrast. A radiation dose optimization technique was used for this scan. IV Contrast dosage and agent: 100 cc of Isovue-370 RADIATION DOSAGE (If Supplied By Facility): CTDIvol = ( 17.15 ) mGy, DLP = ( 540.67 ) mGycm COMPARISON: Prior study dated: 12/09/2023 FINDINGS: LUNGS, PLEURA AND LARGE AIRWAYS: Atelectatic changes in the lower lungs worse on the left side. Nodular density in the left lower lung unchanged could be due to atelectasis. The lungs remain hyperinflated. No new infiltrate is seen. Persistent small bilateral pleural effusions. No pneumothorax. THYROID: Small right lobe thyroid nodule is unchanged. HEART AND PERICARDIUM: Cardiomegaly. Small pericardial effusion again unchanged. VESSELS: Atherosclerotic calcifications and tortuosity of the thoracic aorta. No aortic dissection. No obvious central pulmonary embolism although this study was not performed with the pulmonary embolism protocol. MEDIASTINUM AND PAULETTE: Prominent mediastinal nodes could be reactive unchanged. Fluid-filled distal esophagus. Large hiatal hernia. UPPER ABDOMEN: Markedly distended stomach with residual/materials. Fecal retention. BONES: Unchanged. CT/Chest WITH Contrast IMPRESSION: 1. Persistent small bilateral pleural effusions. 2. Atelectatic changes in the lower lung with nodular density in the left lower lobe could be due to atelectasis. Follow-up exam in 3 months is recommended. 3. Persistent small pericardial effusion. 4. Mediastinal node probably reactive. 5. Large hiatal hernia. Electronically Signed: Curt Cornelius MD at 10:54 EDT ,
== END | disposition home or self-care (01) ==
LOC: CT 12:40
PROVIDERS: PCP Internal Medicine; Referring Provider Internal Medicine; Visit Provider Internal Medicine
DX: R91.1 Solitary pulmonary nodule (principal)
CPT/HCPCS: 71260; Q9967

== ENCOUNTER 2024-03-01 12:15 | Day surgery (SDC) | payer MEDICARE, SELFPAY ==
[2024-03-01] VITALS (7 sets, daily range): BP systolic 124–151; BP diastolic 76–102; PULSE 56–80; RESP 16–18; TEMP 36.1–36.6; O2SAT 89–99; BMI 27.1
--- NOTE | 2024-03-01 | FLU_PTH ---
PATIENT: ANNEMARIE OROSCO LOC: EN U#:[id number] AGE/SX: 83/M ROOM: RE03/01/[address]: Dr. Andrei Quiles MD : 1940 BED: DIS: 03/01/2024 SPEC #: [id number] RECD: 03/01/24 14:36 STATUS: ALYSSA KATHERINE #: [id number] DICK: 03/01/24 00:[address]: Andrei Quiles V DEPT: CYTOLOGY RECD BY: Chrystal Spence ENTERED: 03/02/24 11:59 SP TYPE: Fluid OTHR DR: Dr. Mariaa Collazo MD Tissues: A - Bronchus of right upper lobe B - Bronchus, NOS C - Bronchus of left lower lobe D - Bronchus of right lower lobe Procedures: Special Stain Group II Special Stain Group I Surgery Specimen Level IV AFB Stain (control) GMS Stain (control) Cytospin Fluid Cytology Other HEADER OPERATION: Bronchoscopy PRE-OP DIAGNOSIS: TISSUE SUBMITTED: A- Right upper lobe washing, B- [place] tip, C- Left lower lobe brushing, D- Right lower lobe brushing DIAGNOSIS CYTOLOGY A. Right upper lobe of lung washings (cytospin and cellblock): Abundant hemosiderin laden macrophages present. Negative for malignant cells. Negative for acid fast bacilli. Negative for fungal organisms. See comment. B. Left lower lobe lung brush tip (cytospin and cellblock): Negative for malignant cells. C. Left lower lobe brushings (smears): Negative for malignant cells. D. Right lower lobe brushings (smears): Negative for malignant cells. AM/mr 03/03/2024 COMMENT A. AFB, GMS and Iron stains with matched controls supports the above diagnosis. The presence of hemosiderin laden macrophages support the clinical history of hemoptysis. CYTOLOGY STUDY Slides are reviewed. CYTOLOGY GROSS A. Received is 10 ml of frausto mucoid fluid labeled with the patient's name and and designated per the requisition as Right upper lobe washing. Submitted for cytology preparation including cell block. B. Received is 0.2 ml of clear fluid labeled with the patient's name and and designated per the requisition as [place] tip. Submitted for cytology preparation including cell block. C. Received are 4 smears labeled with the patient's name and designated per the requisition as Left lower lobe brushing. Submitted for staining. D. Received are 3 smears labeled with the patient's name and designated per the requisition as Right lower lobe brushings. Submitted for staining. Mr 03/02/2024 TC:5 CPT: [id number]
[2024-03-01] MEDS: Lidocaine 2% (5ml sdv) 5 ML VIAL.MPF (12:43)
[2024-03-01] MEDS: Lidocaine Jelly 2% 20 ML Syringe (URO-JET) 1 APPLIC (12:43)
[2024-03-01] MEDS: Lactated Ringers 1,000 ML 15 ML IV (12:52)
[2024-03-01] MEDS: Phenylephrine 0.25% 15 ML NASAL.SRY 15 SPRAY NASAL (13:35)
--- NOTE | 2024-03-01 14:20 | OP.BRONCH_ITS ---
Patient Name: Eddi Suggs Procedure Date: 03/01/2024 1:19 PM Date of : 1940 Age: 83 Procedure: Bronchoscopy Indications: Hemoptysis, Emphysema Providers: Andrei Quiles MD Medicines: Lidocaine 2% Nebulizer 3 mL, Lidocaine 2% applied to cords 10 mL Complications: No immediate complications Procedure: Pre-Anesthesia Assessment: - Pre-procedure physical examination revealed no contraindications to sedation. - A History and Physical has been performed. The patient's medications, allergies and sensitivities have been reviewed. - The risks and benefits of the procedure and the sedation options and risks were discussed with the patient. All questions were answered and informed consent was obtained. After I obtained informed consent, the scope was passed under direct vision. Throughout the procedure, the patient's blood pressure, pulse, and oxygen saturations were monitored continuously. The bronchoscope was introduced through the left nostril and advanced to the tracheobronchial tree of both lungs. The total duration of the procedure was 23 minutes. The patient tolerated the procedure fairly well. Moderate Sedation: An independent trained observer was present and continuously monitored the patient. Findings: Left Lung Abnormalities: Erythema was found in the superior segment of the left lower lobe (B6). Brushings of a vascular mucosa lllobe, rllobe were obtained in the lateral basal segment of the right lower lobe with a cytology brush and sent for cell count, bacterial culture, viral smears & culture, and fungal & AFB analysis and cytology. One sample was obtained. BAL rul ant seg 60 cc 15 coudy return, no blood Impression: - Hemoptysis - Emphysema - Erythema was present in the superior segment of the left lower lobe (B6). - Brushings were obtained. - Brushings were obtained. Recommendation: - Await test results. Procedure Code(s): --- Professional --- 77703, Bronchoscopy, rigid or flexible, including fluoroscopic guidance, when performed; with brushing or protected brushings Diagnosis Code(s): --- Professional --- J43.9, Emphysema, unspecified R04.2, Hemoptysis CPT copyright 2021 [employer]. All rights reserved. The codes documented in this report are preliminary and upon care taker review may be revised to meet current compliance requirements. MD Andrei Walsh MD 03/01/2024 2:18:58 PM This report has been signed electronically. Number of Addenda: 0 Note Initiated On: 03/01/2024 1:19 PM
[2024-03-01 14:38] LABS: Cytology, Washings SEE PATHOLOGY REPORT
[2024-03-01 14:40] LABS: Cytology, Washings SEE PATHOLOGY REPORT
[2024-03-01 19:42] LABS: Appearance/Body Fluid CLOUDY; Color/Body Fluid LT YEL; Source- Body Fluid BRONCHIAL LAVAGE
[2024-03-01 19:43] LABS: Red Cell Count/Body Fluid 440 /mm3
[2024-03-01 19:44] LABS: White Blood Count/Body Fluid 48 /mm3
[2024-03-01 23:23] LABS: Body Fluid QC Type(s) BF5Q
[2024-03-02 13:43] LABS: Pathologist Comment/Body Fluid Reviewed
== END 2024-03-01 15:05 | disposition home or self-care (01) ==
LOC: EN 12:16 → AC 12:21
PROVIDERS: PCP Internal Medicine; Referring Provider Internal Medicine; Visit Provider Internal Medicine Pulmonary Disease
PROC: 0BJ08ZZ Inspection of Tracheobronchial Tree, Via Natural or Artificial Opening Endoscopic (ICD-10-PCS; CPT 31622; principal; 2024-03-01 13:15)
DX: R04.2 Hemoptysis (principal); J43.9 Emphysema, unspecified; J98.4 Other disorders of lung; G47.33 Obstructive sleep apnea (adult) (pediatric); Z99.89 Dependence on other enabling machines and devices
CPT/HCPCS: 31623; 87070; 87205; 88108; 88161; 88305; 88312; 88313; 89050; J7120

== ENCOUNTER 2024-04-04 13:59 | Emergency (ER) | payer MEDICARE, SELFPAY ==
[2024-04-04 13:59] VITALS: BP 124/85; PULSE 65; RESP 14; TEMP 36.2; O2SAT 95
[2024-04-04 14:02] VITALS: BMI 29.2
--- NOTE | 2024-04-04 14:04 | CT_ITS ---
STUDY: CT BRAIN WITHOUT CONTRAST REASON FOR EXAM: Male, 83 years old. Headache after fall, patient on ELIQUIS RADIATION DOSAGE (If Supplied By Facility): CTDIvol = ( 44.99 ) mGy, DLP = ( 815.79 ) mGycm TECHNIQUE: Transaxial CT imaging of the brain was performed without administration of intravenous contrast material. Individualized dose optimization techniques were used for this CT. COMPARISON: 12/28/2022 FINDINGS: Normal soft tissue structures. Normal calvarium. There is mild cerebral atrophy with widening of the extra-axial spaces and ventricular dilatation. There are areas of decreased attenuation within the white matter tracts of the supratentorial brain, consistent with microvascular disease changes. Normal basal ganglia and thalami. Normal brainstem. There is mild cerebellar atrophy. There is no intracranial hemorrhage. There are no findings of an acute ischemic infarction. Normal visualized paranasal sinuses. CT/Brain/Head without Contrast IMPRESSION: Chronic involutional changes of the brain. No acute hemorrhage or significant interval change Electronically Signed: Jose Arroyo MD at 14:44 EDT ,
--- NOTE | 2024-04-04 14:04 | CT_ITS ---
STUDY: CT CERVICAL SPINE WITHOUT CONTRAST REASON FOR EXAM: Male, 83 years old. Headache and neck pain after a fall RADIATION DOSAGE (If Supplied By Facility): CTDIvol = ( 25.39 ) mGy, DLP = ( 540.49 ) mGycm TECHNIQUE: High resolution transaxial imaging was performed without contrast material. Sagittal and coronal images were reconstructed. Individualized dose optimization techniques were used for this CT. COMPARISON: None FINDINGS: Normal craniovertebral junction. There are degenerative changes of the anterior atlantoaxial articulation. Normal odontoid process. Normal cervical lordosis. Bones are diffusely demineralized. C2-3: Normal endplates. Disc space narrowing. Normal central canal and intervertebral neuroforamina. C3-4: Sclerotic endplate changes. Disc space narrowing with broad-based central disc bulge. No central canal narrowing, bilateral foraminal narrowing due to facet joint hypertrophy. C4-5: Sclerotic endplate changes. Disc space narrowing without central canal narrowing, bilateral foraminal narrowing due to facet joint hypertrophy. C5-6: Sclerotic endplate changes. Disc space narrowing without central canal narrowing, bilateral foraminal narrowing due to facet joint hypertrophy. C6-7: Sclerotic endplate changes. Disc space narrowing with broad-based central disc bulge. No central canal narrowing, bilateral foraminal narrowing due to facet joint hypertrophy. C7-T1: Normal endplates. Disc space narrowing.. Normal central canal and intervertebral neuroforamina. Peripheral calcifications in the carotid artery bulbs. No airway narrowing or deviation. Thyroid gland is unremarkable, lung apices are clear CT/Spine Cervical without Contras IMPRESSION: Multilevel degenerative changes, as described above. Electronically Signed: Jose Arroyo MD at 14:49 EDT ,
[2024-04-04 14:59] VITALS: BP 135/92; PULSE 55; RESP 18; O2SAT 97
--- NOTE | 2024-04-04 15:15 | EX.ED.DYSGE1 ---
HPI History of Present Illness Chief Complaint: Dizziness Informant: patient Onset/Context/Timing Onset: Days Context: Gradual Onset Timing: Intermittent Current Severity: Mild Maximum Severity: Mild Narrative Narrative: 83-year-old male history of A-fib on Eliquis he also has a history of BPH is on Flomax. On Wednesday he was reaching for something while seated in the chair the chair, not moved he fell forward hit his head and the chair fell over. He was not seen at that time. Because he had some mild lightheadedness since the fall he wanted to be checked out. He had a mild headache. Denies any other injuries. He is superficial abrasion to his right elbow. Denies any recent illness. Denies nausea, vomiting, diarrhea or fever. No dysuria. He has urinary frequency has had that due to his BPH. Prior similar symptoms: Yes Recent Illness/Hospitalization: No PFSH PFS Medical History Acute bronchitis, unspecified Cancer Prostate disease Restless legs History of hiatal hernia Inguinal hernia Loss of hearing Wears glasses Alcohol use Anemia High cholesterol Former smoker CPAP (continuous positive airway pressure) dependence COPD (chronic obstructive pulmonary disease) Asthma Shortness of breath on exertion History of edema Hypertension Hx of echocardiogram History of stress test Cardiology follow-up encounter History of atrial fibrillation Arthritis Sleep apnea SOB (shortness of breath) Secondary pulmonary arterial hypertension Longstanding persistent atrial fibrillation GERD (gastroesophageal reflux disease) Essential (primary) hypertension Obstructive sleep apnea Carotid artery disease History of upper gastrointestinal bleeding (12/2013) Hyperlipidemia Vocal cord dysfunction Hiatal hernia Glaucoma Benign prostate hyperplasia Paiz esophagus COPD (chronic obstructive pulmonary disease) Actinic keratosis Home Medications ?Medication ?Instructions ?Recorded ?Last Taken ?Type riboflavin (vitamin B2) 100 mg 100 mg PO DAILY 02/03/19 02/29/24 History tablet compress.stocking,knee,reg,med #2 ea 02/20/21 Unknown Rx cholecalciferol (vitamin D3) 25 25 mcg PO DAILY 12/18/21 02/29/24 History mcg (1,000 unit) capsule multivitamin with minerals 1 tab PO DAILY 12/18/21 02/29/24 History ascorbic acid (vitamin C) 500 mg 500 mg PO DAILY 12/24/22 02/29/24 History tablet magnesium 250 mg tablet 250 mg PO DAILY 12/24/22 02/29/24 History triamcinolone acetonide 55 mcg 1 spray intranasal DAILY 12/24/22 03/01/24 History nasal spray aerosol (Nasacort) omeprazole 40 mg capsule,delayed 40 mg PO BID #180 caps 06/17/23 03/01/24 Rx release tamsulosin 0.4 mg capsule 0.4 mg PO QHS #90 caps 06/17/23 02/29/24 Rx apixaban 5 mg tablet 5 mg PO BID #180 tabs 07/08/23 02/25/24 Rx amlodipine 5 mg tablet 5 mg PO DAILY This is a dose 09/08/23 03/01/24 Rx decrease #90 tabs budesonide-formoterol HFA 160 2 puff inhalation BID 90 days 09/28/23 03/01/24 Rx mcg-4.5 mcg/actuation aerosol #30.4 grams inhaler (Symbicort) tiotropium bromide 18 mcg capsule 1 cap inhalation DAILY #90 10/25/23 03/01/24 Rx with inhalation device (Spiriva inhalations with HandiHaler) nitroglycerin 0.4 mg sublingual 0.4 mg sublingual Q5-15M PRN CP 11/08/23 Unknown Rx tablet #25 tabs furosemide 40 mg tablet (Lasix) 40 mg PO DAILY #90 tabs 11/29/23 02/29/24 Rx isosorbide mononitrate 30 mg 30 mg PO DAILY #90 tabs 11/29/23 03/01/24 Rx tablet,extended release 24 hr lisinopril 30 mg tablet 30 mg PO DAILY #90 tabs 11/29/23 03/01/24 Rx simvastatin 20 mg tablet 20 mg PO DAILY #90 tabs 12/10/23 02/29/24 Rx IBIZIA 1 drp EACH EYE DAILY 02/04/24 03/01/24 History gabapentin 100 mg capsule See Rx Instructions PO .COMPLEX 02/23/24 03/01/24 Rx #450 caps cholecalciferol (vitamin D3) 25 25 mcg PO DAILY 03/31/24 Unknown History mcg (1,000 unit) capsule Allergy/AdvReac Type Severity Reaction Status Date / Time ondansetron (From Zofran) AdvReac Intermediate Restless Verified 04/04/24 13:59 legs, twitchy Family History Father Asthma CVA (cerebral vascular accident) Mother Hypertension Cancer Sister Hypertension Diabetes Grandfather Myocardial infarction Surgical History History of right inguinal hernia repair History of skin surgery History of bilateral cataract extraction Hx of oral surgery History of esophagogastroduodenoscopy (EGD) History of repair of hiatal hernia Hx of tonsillectomy Social History Smoking Status: Former smoker quit date: 10/04/94 second hand exposure: No alcohol intake: current alcohol intake frequency: a few times a month Alcohol type: beer substance use type: does not use caffeine: Yes Type: tea Number of servings: 1 what type of physical activity do you participate in: none frequency: does not exercise ROS ROS ED ROS Narrative Denies recent illness. Review of Systems ROS Unobtainable: Denies due to encephalopathy Constitutional Constitutional ED: Denies chills or fever(s) Eyes Eyes: Denies blurry vision ENT ENT ED: Denies ear pain Cardiovascular Cardiovascular: Denies chest pain Respiratory/Chest Respiratory/Chest: Denies cough or dyspnea Gastrointestinal Gastrointestinal: Denies abdominal pain, constipation, diarrhea, melena, nausea or vomiting Genitourinary Genitourinary ED: Denies dysuria or hematuria Musculoskeletal Musculoskeletal: Denies arthralgias or back pain Integumentary Denies abscess Neurologic Neurologic: Reports headache(s) Psychiatric Psychiatric: Denies anxiety or depression Endocrine Endocrinology: Denies cold intolerance Hematologic/Lymphatic Hematologic/Lymphatic: Reports none Allergic/Immunologic Allergic/Immunologic ED: Denies mouth swelling, tongue swelling or urticaria EXAM Physical Exam Narrative Exam Narrative: Well-appearing 83-year-old male. Vital signs are stable afebrile. H EENT exam pupils round react to light. No facial droop. No facial trauma. Superficial laceration right posterior scalp. This is now 4 days old. It is together does not need stone. There is no significant hematoma. Neck nontender. Trachea midline. Back nontender. Lungs clear to auscultation bilaterally. Heart irregularly irregular history of A-fib rate about 65. Chest wall ribs nontender. Abdomen soft nontender. No bruising. Pelvic girdle intact. Hips are nontender. No shortening or rotation. Normal social services counselor strength bilaterally. Normal flexion extension of both elbows and shoulders. Normal flexion extension of both hips and knees. Dorsi and plantarflexion is intact. Both upper and lower extremities are nontender. Is a very mild abrasion to his right posterior elbow. Neurologically is awake and alert. Answering questions following commands. No focal motor deficits. Const Vital Signs: 04/04/24 13:59 04/04/24 14:59 Temperature 97.2 F L Temperature Source Temporal Pulse Rate 65 55 L Respiratory Rate 14 18 Blood Pressure 124/85 H 135/92 H Blood Pressure Mean 98 106 Pulse Ox 95 97 Oxygen Delivery Method Room Air Room Air Positive well nourished and well developed; Negative for cachectic, contractures or unkempt General Appearance ED: well developed and NAD; Negative for unkempt, cachectic, contractures, cyanotic, diaphoretic or pallor Nutritional Appearance: Negative for cachectic HEENT Reports moist mucous membranes; Denies dry mucous membranes HEENT Narrative: Minor laceration superficial right posterior scalp. Closed. Does not gape. No bleeding or hematoma. trauma; Negative for tenderness Mouth ED: No dry mucous membranes Mouth: No dry mucous membranes Eyes PERRL and EOMs intact bilaterally General Eye ED: Negative for pale conjunctiva, scleral icterus or other Neck no lymphadenopathy, supple and no JVD General: Negative for tenderness Lymph Lymphatic: Negative for other Chest Wall inspection of chest normal and palpation of chest normal Chest: Negative for other Resp normal respiratory effort and clear to auscultation bilaterally Effort and Inspection: Negative for retractions Auscultation: Negative for rales, rhonchi, wheezes or diminished lung sounds Cardio regular rhythm, S1 normal heart sound, S2 normal heart sound and no murmurs; Negative for regular rate Palpation: Negative for palpable S3 or palpable S4 Rate: other Other Details: A-fib rate about 65. Rhythm: abnormal rhythm irregularly irregular GI normal to inspection, nondistended, normoactive bowel sounds, non-tender, non-distended and no masses Inspection: Negative for abdominal distention Palpation: Negative for tender, guarding or rebound tenderness present Back/Spine no CVA tenderness General Back: Negative for CVA tenderness Cervical Spine: Negative for cervical spine tenderness Thoracic Spine / Upper Back: Negative for thoracic spinal tenderness Lumbar Spine / Lower Back: Negative for lumbar spinal tenderness Extremity normal to inspection Extremity Narrative: Minor abrasion behind right elbow. Normal range of motion both upper and lower extremities. Nontender. No deformity. General Extremety ED: Negative for edema General Extremity: Negative for edema Neuro oriented x3 and CN's II-XII intact bilaterally Sensorium / Orientation: alert; Negative for orientation impaired, lethargic or stuporous Motor Exam: strength 5/5 throughout; Negative for general weakness or strength abnormal Psych mental status grossly normal Appearance: Negative for unkempt Attitude: No agitated Mood & Affect: Negative for depressed, anxious or tearful Skin no rashes or lesions noted and no wounds General Skin Exam: Negative for jaundice or pallor Lesions: No lesion noted Rashes: No rashes noted Trauma: Negative for abrasion Wounds: Negative for wounds noted MDM MDM MDM Narrative Medical decision making narrative: 83-year-old male was sitting in a chair on Wednesday reached out the chair, wall when he fell forward hit his head. Is a superficial laceration does not need to be repaired. He is on EliACSIAN CAT scan his head and neck. CT of his brain shows chronic changes. CT of the neck shows chronic changes. No fracture.Patient be ambulated if he does well at all that he needs any labs today. He can be discharged home with outpatient follow-up. I did review his most recent labs and they were good. History & Record Review Discussion w/independent historian: Patient Additional record(s) reviewed:: Prior inpatient record, Prior outpatient record, Prior ED visit and Prior labs Radiography Diagnostic Testing: Clinical Impression(s) from Imaging Studies Brain CT 04/04/24 14:04 IMPRESSION: Chronic involutional changes of the brain. No acute hemorrhage or significant interval change Electronically Signed: Jose Arroyo MD at 14:44 EDT , Cervical Spine CT 04/04/24 14:04 IMPRESSION: Multilevel degenerative changes, as described above. Electronically Signed: Jose Arroyo MD at 14:49 EDT , Discharge Plan Triage Chief Complaint: Dizziness ED Provider: Hans Ji Dx/Rx/DC Orders Clinical Impression: Fall, Chronic anticoagulation, Closed head injury, Abrasion of elbow, History of chronic atrial fibrillation Instructions: ED Head Injury (Adult) Prescriptions: No Action riboflavin (vitamin B2) 100 mg tablet 100 mg PO DAILY magnesium 250 mg tablet 250 mg PO DAILY (DME) compress.stocking,knee,reg,med Misc See Rx Instructions .ROUTE .MEDSUPPLY Qty: 2 0RF Rx Instructions: On AM, off bedtime. multivitamin with minerals Tablet 1 tab PO DAILY cholecalciferol (vitamin D3) 25 mcg (1,000 unit) capsule 25 mcg PO DAILY ascorbic acid (vitamin C) 500 mg tablet 500 mg PO DAILY triamcinolone acetonide [Nasacort] 55 mcg aerosol,spray 1 spray intranasal DAILY Rx Instructions: administer into each nostril gabapentin 100 mg capsule See Rx Instructions PO .COMPLEX Qty: 450 3RF Rx Instructions: Take two 100 mg capsules in the AM, 1 capsule mid day, and 2 capsules at bedtime; cholecalciferol (vitamin D3) 25 mcg (1,000 unit) capsule 25 mcg PO DAILY IBIZIA 1 drp EACH EYE DAILY omeprazole 40 mg capsule,delayed release(DR/EC) 40 mg PO BID Qty: 180 3RF tamsulosin 0.4 mg capsule 0.4 mg PO QHS Qty: 90 3RF apixaban 5 mg tablet 5 mg PO BID Qty: 180 3RF Patient Comments: STOPPPING FOR 3 DAYS amlodipine 5 mg tablet 5 mg PO DAILY Qty: 90 3RF Symbicort 160-4.5 mcg/actuation HFA aerosol inhaler 2 puff INHALATION BID 90 Days Qty: 30.4 3RF tiotropium bromide [Spiriva with HandiHaler] 18 mcg capsule, w/inhalation device 1 cap INHALATION DAILY Qty: 90 3RF nitroglycerin 0.4 mg tablet, sublingual 0.4 mg SUBLINGUAL Q5-15M PRN (Reason: CP) Qty: 25 3RF furosemide [Lasix] 40 mg tablet 40 mg PO DAILY Qty: 90 3RF isosorbide mononitrate 30 mg tablet extended release 24 hr 30 mg PO DAILY Qty: 90 3RF lisinopril 30 mg tablet 30 mg PO DAILY Qty: 90 3RF simvastatin 20 mg tablet 20 mg PO DAILY Qty: 90 3RF Primary Care Provider: Mariaa Collazo Referrals: Mariaa Collazo MD [Primary Care Provider] - 1 Week if not improving Activity Restrictions/Additional Instructions: The CAT scan of both your brain and neck were good. Follow-up with your doctor as needed. Print Language: Romansh Disposition Disposition: Home, Self Care
[2024-04-04 15:28] VITALS: BP 135/92; PULSE 81; RESP 18; TEMP 37.1; O2SAT 98
== END 2024-04-04 15:39 | disposition home or self-care (01) ==
LOC: ED 15:37
PROVIDERS: Emergency Provider Emergency Medicine; PCP Internal Medicine; Visit Provider Emergency Medicine
DX: S01.01XA Laceration without foreign body of scalp, initial encounter (principal); I27.21 Secondary pulmonary arterial hypertension; J44.9 Chronic obstructive pulmonary disease, unspecified; I48.20 Chronic atrial fibrillation, unspecified; S50.311A Abrasion of right elbow, initial encounter; W07.XXXA Fall from chair, initial encounter; I10 Essential (primary) hypertension; E78.00 Pure hypercholesterolemia, unspecified; N40.1 Benign prostatic hyperplasia with lower urinary tract symptoms; R35.0 Frequency of micturition; Z79.01 Long term (current) use of anticoagulants; Z79.899 Other long term (current) drug therapy; Z87.891 Personal history of nicotine dependence
CPT/HCPCS: 70450; 72125; 99282

== ENCOUNTER 2024-04-07 11:30 | Outpatient (RCR) | payer MEDICARE, SELFPAY ==
--- NOTE | 2024-03-06 15:51 | HP.PTEVAL_ITS ---
Patient's Visit Information Visit Information Visit Information: ANNEMARIE OROSCO is a 83 year old M referred to Physical Therapy by Dr. Mariaa Collazo MD with a diagnosis of SYMPTOMS AND SIGNS INVOLVING MUSCULOSKELETAL SYSTEM. Date of Evaluation: 03/06/24 Physical Therapist: Lloyd Rush, PT, Cert MDT, OCS Visit Plan Frequency: 2x /Week Duration: 4 Weeks Plan: PT INTERVENTIONS ROM KNEE ,STRENGTHENING QUADS/HAMS/HIP ,FUNCTIONAL STRENGTHENING AND ACTIVITY MODIFICATION Subjective Subjective: This 83 y/o male presents to physical therapy with leg weakness . Patient weakness in legs which has progressively worsen thus recommended PT. Seen Dr Ramsey had x-rays showed progressive DJD knee Patient has injection in knee right . Patient has knee pain right > left global. Pain described as ache . Patient symptoms aggravated with walking/standing difficulty with stairs. Patient is unable to squat or kneel. Patient is uses cane for gait.Patient is s leeping good. Patient denies paresthesia/tingling. Patient pain affects QOL and function. Patient goals to decrease pain. SOCIAL: Pain Right Knee: Pain Intensity (Out of 10): 2 Pain Intensity Range: 10 Objective Objective: POSTURE: severe knee valgus GAIT: ambulates with straight cane with wide JEAN bilateral knee valgus antalgic gait BALANCE: fair+ NEUR0: intact ,denies paresthesia/tingling PALPATION: unremarkable AROM: supine knee flexion right 10-120 degrees ,left 10 -125 degrees MMT: ( peak force) quads right 24.7 ,left 25.9 ,hamstring right 22.1,left 23.4 ,hip flexion right 21.3 ,left 20.4 ,hip abd right 12.5,left 13.6 STAIRS: one step at time with rails Special Tests R Knee Valgus - MCL: Negative R Knee Varus - LCL: Negative R Knee Patellar Apprehension - PFS: Negative R Knee Patellar Grind - PFS: Negative Balance/Special Test Scores Lower Extremity Functional Score: 21 Goals Goal 1:: I with HEP for knee Goal Time Frame: 4-6 Weeks Goal 2:: Patient to demonstrate 4o% improvement with less pain and improved function Goal Time Frame: 4-6 Weeks Goal 3:: Patient to improve AROM knee by 5 degrees urbano improve stairs Goal Time Frame: 4-6 Weeks Goal 4:: Patient to improve peak force quads/hams /hip by 5 # to improve function Goal Time Frame: 4-6 Weeks Goal 5:: Patient to improve LFES score by 3-5 points to improve QOL and function Goal Time Frame: 4-6 Weeks Rehabilitation Potential Physical Therapy Diagnosis: This patient has right knee pain with DJD with bilateral knee varum with pain ,decrease ROM ,weakness impairs walking and standing thus benefit from skilled PT Rehabilitation Potential: Good Anticipated Interventions Patient/Client Instruction: Educate patient on: Condition and Plan of Care For the Purpose of:: To decrease pain, To increase ROM, To improve muscle performance and motor function, To improve ability to perform ADL's, To increase tolerance to activity/condition/position, To improve ability of physical actions for home/community/work/leisure, To improve health of tissue, To decrease soft tissue restriction, To increase flexibility/ROM, To improve endurance, To improve balance, To reduce risk of recurrence and To improve tolerance to ADL's Therapeutic Exercise to Include: Strength training, Endurance training, Balance training, Flexibilty training and Active ROM Comment: quads/hams/hip For the Purpose of:: To decrease pain, To increase ROM, To improve muscle performance and motor function, To improve ability to perform ADL's, To increase tolerance to activity/condition/position, To improve ability of physical actions for home/community/work/leisure, To improve gait and locomotor functions, To improve health of tissue, To decrease soft tissue restriction, To increase flexibility/ROM, To improve balance and To improve tolerance to ADL's Text: Thank you for the opportunity to evaluate your patient. For Medicare and Medicare HMO plans, please review the plan of care and approve it. It will need to be FAXED BACK to us at [phone] for Medicare purposes. For Medicare only, by signing this I certify the plan of care. Please let me know if there are questions or concerns regarding this plan of care. Physician Signature: Date:
--- NOTE | 2024-04-07 13:11 | HP.PTDCSUM_ITS ---
Discharge Summary D/C summary: It has been my pleasure to treat ANNEMARIE OROSCO referred by Dr. Mariaa Collazo MD, with the diagnosis of SYMPTOMS AND SIGNS INVOLVING MUSCULOSKELETAL SYSTEM for a total of 10 visit(s). Discharge Date: 04/07/24 Please see the following information for a summary of their discharge status. Subjective Subjective: Pt. reports being a lot better overall. Pt. reports minimal pain, stating that the injection was very helpful. Pain Right Knee: Pain Intensity (Out of 10): 0 Overall Improvement % Improvement: 75 Objective Objective/Function: ROM: 0-0-121deg. PT. has marked varus deformity in his R knee. MMT: R knee: ext 32.1#,flexion 23.3#; hip: flexion 23.7#. L knee: ext 34.5#, flexion 21.5#; hip: flexion 24.9#. GAIT: pt. has marked R knee varus. He walks with carrying his cane. He has wide JEAN. I did review his exercises with him for gym independence. Pt. was able to c omplete well. I gave him a handout with instructions as well. Pt. to continue to complete Goals Goal 1:: I with HEP for knee Goal Progress: Goal Met Goal 2:: Patient to demonstrate 40% improvement with less pain and improved function Goal Progress: Goal Met Goal 3:: Patient to improve AROM knee by 5 degrees to improve stairs Goal Progress: Goal Met Goal 4:: Patient to improve peak force quads/hams /hip by 5 # to improve function Goal Progress: Goal Met Goal 5:: Patient to improve LFES score by 3-5 points to improve QOL and function Goal Progress: Goal Met Plan Plan: Pt. to be DC from PT at this point in time. D/C Information d/c sentence: If there are questions or concerns regarding this patient's physical therapy, please feel free to call me at [phone]. Thank you for the referral of this patient. Sincerely, Salvador Lora Sipos, DPT Balance/Gait/Functional tests Balance/Special Test Scores Lower Extremity Functional Score: 45 Improvement % Improvement: 75
== END 2024-04-07 19:00 | disposition home or self-care (01) ==
LOC: PT 11:30
PROVIDERS: PCP Internal Medicine; Referring Provider Internal Medicine; Visit Provider Internal Medicine
DX: R29.898 Other symptoms and signs involving the musculoskeletal system (principal)
CPT/HCPCS: 97110; 97162; 97530

== ENCOUNTER 2024-04-09 21:07 | Emergency (ER) | payer MEDICARE, SELFPAY ==
[2024-04-09 21:08] VITALS: BP 102/71; PULSE 64; RESP 25; TEMP 36.2; O2SAT 94
--- NOTE | 2024-04-09 21:16 | RAD_ITS ---
STUDY: X-RAY XR Forearm 2 Views REASON FOR EXAM: Male, 83 years old. PAIN TECHNIQUE: XR Forearm 2 Views RIGHT COMPARISON: None. FINDINGS: There is no demonstrated soft tissue swelling. There is degenerative arthrosis of the radiocapitellar and ulnotrochlear articulations. Normal visualized radius. Normal visualized ulna. RAD/Forearm 2 Views IMPRESSION: There is degenerative arthrosis of the radiocapitellar and ulnotrochlear articulations. Electronically Signed: Manuel Le MD at 21:55 EDT ,
[2024-04-09 21:42] VITALS: BMI 30.3
--- NOTE | 2024-04-09 21:57 | EDS_ITS ---
HPI History of Present Illness HPI Narrative: Patient presents with right forearm pain that began yesterday. Patient denies any trauma or injury. Patient states the pain has gradually gotten worse. Patient describes the pain as stabbing. Patient states the pain is worse with any movement. Patient denies any paresthesias or weakness. Patient states nothing seems to help with the pain. Patient denies any discoloration of his fingers. Patient denies any coldness of his arm or hand. Patient states he has a history of arthritis. Chief Complaint: Upper Extremity Injury Informant: patient Onset/Context/Timing Onset: Yesterday Context: Gradual Onset Timing: Continuous Quality of Pain: Stabbing Location: Right forearm Worsened by: Movement Relieved by: Nothing Associated Symptoms Associated Symptoms: Negative for Parasthesia, Weakness or Loss of Funtion PFSH [facility] Medical History Acute bronchitis, unspecified Cancer Prostate disease Restless legs History of hiatal hernia Inguinal hernia Loss of hearing Wears glasses Alcohol use Anemia High cholesterol Former smoker CPAP (continuous positive airway pressure) dependence COPD (chronic obstructive pulmonary disease) Asthma Shortness of breath on exertion History of edema Hypertension Hx of echocardiogram History of stress test Cardiology follow-up encounter History of atrial fibrillation Arthritis Sleep apnea SOB (shortness of breath) Secondary pulmonary arterial hypertension Longstanding persistent atrial fibrillation GERD (gastroesophageal reflux disease) Essential (primary) hypertension Obstructive sleep apnea Carotid artery disease History of upper gastrointestinal bleeding (12/2013) Hyperlipidemia Vocal cord dysfunction Hiatal hernia Glaucoma Benign prostate hyperplasia Paiz esophagus COPD (chronic obstructive pulmonary disease) Actinic keratosis Home Medications ?Medication ?Instructions ?Recorded ?Last Taken ?Type riboflavin (vitamin B2) 100 mg 100 mg PO DAILY 02/03/19 02/29/24 History tablet compress.stocking,knee,reg,med #2 ea 02/20/21 Unknown Rx cholecalciferol (vitamin D3) 25 25 mcg PO DAILY 12/18/21 02/29/24 History mcg (1,000 unit) capsule multivitamin with minerals 1 tab PO DAILY 12/18/21 02/29/24 History ascorbic acid (vitamin C) 500 mg 500 mg PO DAILY 12/24/22 02/29/24 History tablet magnesium 250 mg tablet 250 mg PO DAILY 12/24/22 02/29/24 History triamcinolone acetonide 55 mcg 1 spray intranasal DAILY 12/24/22 03/01/24 Hist ory nasal spray aerosol (Nasacort) omeprazole 40 mg capsule,delayed 40 mg PO BID #180 caps 06/17/23 03/01/24 Rx release tamsulosin 0.4 mg capsule 0.4 mg PO QHS #90 caps 06/17/23 02/29/24 Rx apixaban 5 mg tablet 5 mg PO BID #180 tabs 07/08/23 02/25/24 Rx amlodipine 5 mg tablet 5 mg PO DAILY This is a dose 09/08/23 03/01/24 Rx decrease #90 tabs budesonide-formoterol HFA 160 2 puff inhalation BID 90 days 09/28/23 03/01/24 Rx mcg-4.5 mcg/actuation aerosol #30.4 grams inhaler (Symbicort) tiotropium bromide 18 mcg capsule 1 cap inhalation DAILY #90 10/25/23 03/01/24 Rx with inhalation device (Spiriva inhalations with HandiHaler) nitroglycerin 0.4 mg sublingual 0.4 mg sublingual Q5-15M PRN CP 11/08/23 Unknown Rx tablet #25 tabs furosemide 40 mg tablet (Lasix) 40 mg PO DAILY #90 tabs 11/29/23 02/29/24 Rx isosorbide mononitrate 30 mg 30 mg PO DAILY #90 tabs 11/29/23 03/01/24 Rx tablet,extended release 24 hr lisinopril 30 mg tablet 30 mg PO DAILY #90 tabs 11/29/23 03/01/24 Rx simvastatin 20 mg tablet 20 mg PO DAILY #90 tabs 12/10/23 02/29/24 Rx IBIZIA 1 drp EACH EYE DAILY 02/04/24 03/01/24 History gabapentin 100 mg capsule See Rx Instructions PO .COMPLEX 02/23/24 03/01/24 Rx #450 caps cholecalciferol (vitamin D3) 25 25 mcg PO DAILY 03/31/24 Unknown History mcg (1,000 unit) capsule hydrocodone-acetaminophen 5-325mg 1 tab PO Q6H PRN PRN Pain 3 days 04/09/24 Unknown Rx 5mg-325mg #10 TABLETS Allergy/AdvReac Type Severity Reaction Status Date / Time ondansetron (From Zofran) AdvReac Intermediate Restless Verified 04/04/24 13:59 legs, twitchy Family History Father Asthma CVA (cerebral vascular accident) Mother Hypertension Cancer Sister Hypertension Diabetes Grandfather Myocardial infarction Surgical History History of right inguinal hernia repair History of skin surgery History of bilateral cataract extraction Hx of oral surgery History of esophagogastroduodenoscopy (EGD) History of repair of hiatal hernia Hx of tonsillectomy Social History Smoking Status: Former smoker quit date: 10/04/94 second hand exposure: No alcohol intake: current alcohol intake frequency: a few times a month Alcohol type: beer substance use type: does not use caffeine: Yes Type: tea Number of servings: 1 what type of physical activity do you participate in: none frequency: does not exercise ROS ROS ED Constitutional Constitutional ED: Denies chills or fever(s) Eyes Eyes: Denies blurry vision or change in vision ENT ENT ED: Denies rhinorrhea or sore throat Cardiovascular Cardiovascular: Denies chest pain or palpitations Respiratory/Chest Respiratory/Chest: Reports cough; Denies dyspnea Gastrointestinal Gastrointestinal: Reports nausea; Denies vomiting Genitourinary Genitourinary ED: Denies dysuria or hematuria Musculoskeletal Musculoskeletal: Denies back pain or neck pain Integumentary Denies abscess or rash Neurologic Neurologic: Denies headache(s) or weakness Allergic/Immunologic Allergic/Immunologic ED: Denies mouth swelling or urticaria EXAM Physical Exam Const Vital Signs: 04/09/24 21:08 Temperature 97.2 F L Temperature Source Temporal Pulse Rate 64 Respiratory Rate 25 H Blood Pressure 102/71 Blood Pressure Mean 81 Pulse Ox 94 Oxygen Delivery Method Room Air Positive well nourished and well developed General Appearance ED: well developed and NAD HEENT Reports moist mucous membranes Neck full ROM and supple Extremity Extremity Narrative: There is tenderness over the right elbow and proximal forearm. There is no edema or ecchymosis. There is no bony crepitance or step-off. There is no deformity noted. Range of motion of the right elbow was limited in all motions secondary to pain. There is also limitation of pronation and supination of the forearm secondary to pain. Radial pulses are equal bilaterally. Capillary refill was less than 2 seconds in all digits. Strength is 5/5 in the radial, median, and ulnar areas. Sensation was intact to light touch in the radial, median, and ulnar areas. There is no discoloration of the fingers or hand. Neuro oriented x3, CN's II-XII intact bilaterally, moves all extremities, no focal motor deficits and no sensory deficits noted Sensorium / Orientation: alert Motor Exam: strength 5/5 throughout Psych mental status grossly normal MDM MDM MDM Narrative Medical decision making narrative: Differential diagnosis includes occult fracture, elbow effusion, sprain, and contusion. X-rays of the right forearm and right elbow will be obtained to assess for occult fracture and effusion. Radiography Diagnostic Testing: Clinical Impression(s) from Imaging Studies Forearm X-Ray 04/09/24 21:16 IMPRESSION: There is degenerative arthrosis of the radiocapitellar and ulnotrochlear articulations. Electronically Signed: Manuel Le MD at 21:55 EDT Reading Location ID and State: [facility] / [place] , Service support , X-rays of the right forearm were obtained. There are 2 views. There is no acute fracture noted. There are some degenerative changes noted. Radiologist also interpreted the x-rays and agrees. X-rays of the right elbow were obtained. There are 4 views. On my independent interpretation, there is no acute fracture noted. There is no joint effusion noted. There are degenerative changes noted. Radiologist also interpreted the x-rays and agrees. Treatment and Re-Evaluation Narrative: Patient was given a dose of [place] here. Patient was advised of his findings. Patient was instructed to ice and elevate the right elbow and forearm. Patient was given a sling. Patient was given a prescription for a short course of No rco. Patient was instructed to follow-up with his primary care physician in 5 to 7 days. Patient understood and was agreeable with the plan. All questions were answered. Discharge Plan Triage Chief Complaint: Upper Extremity Injury ED Provider: Sony Carlisle Dx/Rx/DC Orders Clinical Impression: Pain in right forearm, Arthritis of elbow, right, degenerative Instructions: ED Osteoarthritis, ED RICE Prescriptions: New hydrocodone-acetaminophen 5-325 mg tablet 1 tab PO Q6H PRN PRN (Reason: Pain) 3 Days Qty: 10 0RF No Action riboflavin (vitamin B2) 100 mg tablet 100 mg PO DAILY magnesium 250 mg tablet 250 mg PO DAILY (DME) compress.stocking,knee,reg,med Misc See Rx Instructions .ROUTE .MEDSUPPLY Qty: 2 0RF Rx Instructions: On AM, off bedtime. multivitamin with minerals Tablet 1 tab PO DAILY cholecalciferol (vitamin D3) 25 mcg (1,000 unit) capsule 25 mcg PO DAILY ascorbic acid (vitamin C) 500 mg tablet 500 mg PO DAILY triamcinolone acetonide [Nasacort] 55 mcg aerosol,spray 1 spray intranasal DAILY Rx Instructions: administer into each nostril gabapentin 100 mg capsule See Rx Instructions PO .COMPLEX Qty: 450 3RF Rx Instructions: Take two 100 mg capsules in the AM, 1 capsule mid day, and 2 capsules at bedtime; cholecalciferol (vitamin D3) 25 mcg (1,000 unit) capsule 25 mcg PO DAILY IBIZIA 1 drp EACH EYE DAILY omeprazole 40 mg capsule,delayed release(DR/EC) 40 mg PO BID Qty: 180 3RF tamsulosin 0.4 mg capsule 0.4 mg PO QHS Qty: 90 3RF apixaban 5 mg tablet 5 mg PO BID Qty: 180 3RF Patient Comments: STOPPPING FOR 3 DAYS amlodipine 5 mg tablet 5 mg PO DAILY Qty: 90 3RF Symbicort 160-4.5 mcg/actuation HFA aerosol inhaler 2 puff INHALATION BID 90 Days Qty: 30.4 3RF tiotropium bromide [Spiriva with HandiHaler] 18 mcg capsule, w/inhalation device 1 cap INHALATION DAILY Qty: 90 3RF nitroglycerin 0.4 mg tablet, sublingual 0.4 mg SUBLINGUAL Q5-15M PRN (Reason: CP) Qty: 25 3RF furosemide [Lasix] 40 mg tablet 40 mg PO DAILY Qty: 90 3RF isosorbide mononitrate 30 mg tablet extended release 24 hr 30 mg PO DAILY Qty: 90 3RF lisinopril 30 mg tablet 30 mg PO DAILY Qty: 90 3RF simvastatin 20 mg tablet 20 mg PO DAILY Qty: 90 3RF Primary Care Provider: Mariaa Collazo Referrals: Mariaa Collazo MD [Primary Care Provider] - 3-5 Days Print Language: Korean Disposition Disposition: Home, Self Care
--- NOTE | 2024-04-09 22:05 | RAD_ITS ---
EXAM: XR RIGHT ELBOW COMPLETE, 3 OR MORE VIEWS CLINICAL INDICATION: PAIN TECHNIQUE: Frontal, lateral and oblique views of the right elbow. COMPARISON: No relevant prior studies available. FINDINGS: BONES/JOINTS: There are degenerative changes with narrowing of the elbow joint space. Small osteophytes are also present. There is a spur off the olecranon. There is no displacement of the anterior or posterior fat pads. No acute fracture. No subluxation. Normal alignment. No destructive or sclerotic lesions. SOFT TISSUES: Unremarkable. No soft tissue swelling or gas. No radiopaque foreign body. RAD/Elbow min 3 Views IMPRESSION: Degenerative changes with joint space narrowing. There are no acute abnormalities of the right elbow. Electronically Signed: Harvey Michael MD at 22:40 EDT ,
[2024-04-09] MEDS: HYDROcodone Bitartrate/Apap 5/325 Tablet PO (23:25)
[2024-04-09 23:28] VITALS: BP 144/88; PULSE 80; RESP 16; TEMP 36.7; O2SAT 91
== END 2024-04-09 23:40 | disposition home or self-care (01) ==
PROVIDERS: Emergency Provider Emergency Medicine; PCP Internal Medicine; Visit Provider Emergency Medicine
DX: M19.021 Primary osteoarthritis, right elbow (principal); I27.21 Secondary pulmonary arterial hypertension; J44.9 Chronic obstructive pulmonary disease, unspecified; I48.11 Longstanding persistent atrial fibrillation; I10 Essential (primary) hypertension; E78.00 Pure hypercholesterolemia, unspecified; M79.631 Pain in right forearm; N40.0 Benign prostatic hyperplasia without lower urinary tract symptoms; G47.33 Obstructive sleep apnea (adult) (pediatric); K21.9 Gastro-esophageal reflux disease without esophagitis; Z79.01 Long term (current) use of anticoagulants; Z79.899 Other long term (current) drug therapy; Z87.891 Personal history of nicotine dependence
CPT/HCPCS: 73080; 73090; 99283

== ENCOUNTER → 2024-05-04 | Outpatient (CLI) | payer MEDICARE, SELFPAY ==
--- NOTE | 2024-05-04 13:19 | CT_ITS ---
STUDY: CT CHEST WITHOUT CONTRAST REASON FOR EXAM: Male, 83 years old. Lung nodule LLmedial, see scans jan 2024 RADIATION DOSAGE (If Supplied By Facility): CTDIvol = ( 14.46 ) mGy, DLP = ( 481.39 ) mGycm TECHNIQUE: Transaxial imaging was performed without the administration of intravenous contrast material. Multiplanar coronal and sagittal images were reformatted. Individualized dose optimization techniques were used for this CT. COMPARISON: Comparison is made with prior study dated January 06, 2024. FINDINGS: CHEST Findings suggestive of a gastric pull-through procedure due to esophageal cancer. Clinical correlation recommended. The previously seen small bilateral pleural effusions have cleared. Mild residual increased markings with areas of confluence more prominent at the right lung base persists. Questionable 1.4 cm spiculated nodule in the anterior aspect of the right lower lobe as seen on axial image #86 and coronal image #50. Correlation with the PET scan recommended. Calcified nodule at the right lung base inferiorly. There is no demonstrated pleural abnormality. There is enlargement of the left atrium. There are calcifications of the coronary arteries. Pericardial thickening more prominent at the posterior aspect. There are small lymph nodes within the mediastinum, which are normal in size and morphology most compatible with reactive lymph hyperplasia. Normal hilar regions. Normal unenhanced pulmonary arteries. There is atherosclerotic calcification of the aortic arch with tortuosity and elongation of the aortic arch and descending thoracic aorta. There are multi-level degenerative changes of the thoracic spine. Findings suggest delayed gastric pull-through procedure. CT/Chest without Contrast IMPRESSION: 1.4 semi spectral nodule in the anterior aspect of the right lower lobe as seen on axial image #86. Correlation with a PET scan is recommended. Distended esophagus with air fluid particles suggestive a gastric pull-through procedure. Electronically Signed: Yakov Dc MD at 13:24 EDT ,
== END | disposition home or self-care (01) ==
LOC: CT 13:19
PROVIDERS: PCP Internal Medicine; Referring Provider Internal Medicine; Visit Provider Internal Medicine
DX: R91.1 Solitary pulmonary nodule (principal)
CPT/HCPCS: 71250

== ENCOUNTER → 2024-07-25 | Outpatient (CLI) | payer MEDICARE, SELFPAY ==
--- NOTE | 2024-07-25 09:30 | PET_ITS ---
EXAMINATION: FDG PET-CT INDICATIONS: An 84-year-old male with history of pulmonary nodularity. COMPARISON EXAMINATION: CT of the chest report dated 05/04/24 INDEX LESION SIZE SUV INTERPRETATION Right inguinal region 2.7 (max) Soft tissue with fatty hilus formation, low likelihood of viable neoplasm TECHNIQUE: Following the intravenous administration of 12.72 mCi of F-18 deoxyglucose via the right forearm, multiplanar image acquisitions of the neck, chest, abdomen and pelvis to level of mid thigh, obtained at one hour post radiopharmaceutical administration contemporaneously interpreted with the current CT of the neck, chest, abdomen and pelvis, to level of mid thigh, dated 07/25/[address] of the chest report dated 05/04/24 reveals: BLOOD GLUCOSE LEVEL:?? 111 mg/dl?HEIGHT:?67 inches?WEIGHT: 188 lbs. FINDINGS: HEAD/NECK: There is no evidence of abnormal increased glucose metabolism in the pharyngeal mucosal space, parapharyngeal space, bilateral-lateral and anterior neck, hypopharynx and distribution of the laryngeal structures. The visualized portion of the cerebral cortical-subcortical structures demonstrate symmetric and preserved glucose metabolism. CHEST: There is no quantitative scintigraphic evidence of abnormal increased glucose metabolism within the context of the bilateral hemithorax pulmonary parenchyma, right and left hemithorax pleural interface, mediastinal structures and right-left thoracic perihilum. Pertinent chest CT findings are as follows. There is atherosclerotic calcification defined in the thoracic aorta without evidence of dilatation-aneurysm formation. Coronary arterial calcification is observed. A large pericardial effusion demonstrates no evidence of increased tracer uptake. A hiatal hernia is defined. Right and left pleural effusions demonstrate no evidence of increased FDG concentration. There are no parenchymal densities-nodules defined in the right and left hemithorax with quantitatively significant increased FDG uptake. ABDOMEN/PELVIS: Facilitated uptake is noted in the right inguinal region generating a calculated maximal standard uptake value of 2.7. A corresponding soft tissue abnormality demonstrates fatty hilus formation. Normal physiologic distribution of the radiopharmaceutical is apparent in the hepatic (3.1) and splenic parenchyma, both renal units, bladder and visualized intestinal tract. The abdomen and pelvis CT findings are as follows. Calcified phlebolith formation is noted in the bilateral lower hemipelvis. Additional right and left inguinal soft tissue densities are non-glucose avid. There is atherosclerotic calcification defined in the abdominal aorta without evidence of dilatation-aneurysm formation. Pelvic arterial calcification is observed. SKELETAL: Degenerative changes are noted in the cervical, thoracic and lumbar spine without evidence of increased radiopharmaceutical concentration. PET/PET/CT Tumor Base -Thigh Init IMPRESSION: 1. NEGATIVE EXAMINATION. There is no definitive quantitative scintigraphic evidence of recurrent-metastatic/viable neoplasm. 2. Enhanced tracer uptake visualized in the right inguinal region is associated with a low likelihood of viable neoplasm secondary to the presence of fatty hilus formation. (Kendra Odonnell, Cancer Imaging 9:104, 2009). Electronic Signature Ed Cooper D.O. Accurate Quantification of SUVs for this report are calculated using the exclusive [employer], ([place]. Patent No. [id number] [id number] [phone] patent [id number] [phone] ). Standardization and correction of the FDG SUV metric exclusively available with [employer] intellectual property, allow for vendor non-specific objective quantitative sequential FDG PET-CT comparison and otherwise unobtainable optimization of the sensitivity and specificity of the examination. [email or web address] Electronically Signed: Ed Cooper DO at 8:42 EDT ,
== END | disposition home or self-care (01) ==
PROVIDERS: PCP Internal Medicine; Referring Provider Internal Medicine; Visit Provider Internal Medicine
DX: R91.1 Solitary pulmonary nodule (principal)
CPT/HCPCS: 78815; A9552

== ENCOUNTER → 2024-08-03 | Outpatient (CLI) | payer MEDICARE, SELFPAY ==
--- NOTE | 2024-08-03 09:47 | ECHOL_ITS ---
Reason For Study: Re evaluate Pericardial Effusion Procedure This was a limited 2D transthoracic echocardiogram. Technically difficult due to arrhythmia. Exam performed in department. Left Ventricle Normal LV size. Apical false tendon noted. Severe concentric left ventricular hypertrophy. Left ventricular systolic function is normal. The left ventricular ejection fraction is 65 %. No regional wall motion abnormalities noted. Right Ventricle Normal RV size. Normal systolic function. Atria The left atrium is severely enlarged. The right atrium is moderately enlarged. Mitral Valve Mild focal mitral valve calcification of the anterior leaflet. There is mild mitral annular calcification. Mild (1+) eccentric mitral valve insufficiency. Tricuspid Valve Normal tricuspid valve. Aortic Valve Trisinus/trileaflet aortic valve. Moderate focal aortic valve calcification. Pulmonic Valve Normal pulmonic valve. Pericardium/Pleural Moderate (1.0-2.0 cm) pericardial effusion. There are no echocardiographic indications of cardiac tamponade. Compared to the previous pericardial effusion the above findings are essentially unchanged. MMode/2D Measurements & Calculations LVIDd: 3.6 cm IVSd: 2.1 cm LAV(MOD-bp): 172.3 ml LVIDs: 2.3 cm LVPWd: 2.2 cm LAV(MOD-bp) Indexed: 85.0 ml/m2 FS: 37.0 % LAV(MOD-sp2): 154.0 ml LAV(MOD-sp4): 189.9 ml LA A4 area: 41.9 cm2 LA dimension(2D): 5.9 cm RA A4 area: 31.6 cm2 Doppler Measurements & Calculations TR max nidia: 323.4 cm/sec TR max P.8 mmHg ECHO/Echo, Limited Study Interpretation Summary Normal LV size. Apical false tendon noted. Severe concentric left ventricular hypertrophy. Left ventricular systolic function is normal. The left ventricular ejection fraction is 65 %. Compared to the previous pericardial effusion the above findings are essentiall y unchanged. Ordering Physician: Ko Malcolm Referring Physician: Ko Malcolm Performed By: Cody Bunn RCS
== END | disposition home or self-care (01) ==
LOC: CVS 09:46
PROVIDERS: PCP Internal Medicine; Referring Provider Nurse Practitioner Family; Visit Provider Nurse Practitioner Family
DX: I31.39 Other pericardial effusion (noninflammatory) (principal)
CPT/HCPCS: 93308

== ENCOUNTER → 2024-11-10 | Outpatient (CLI) | payer MEDICARE, SELFPAY ==
[2024-11-10 12:31] LABS: Absolute Lymphocyte Count 0.79 X10^3/uL (0.83-4.51); Absolute Neutrophil Count 5.2 X10^3/uL (2.0-7.7); Basophil# 0.04 X10^3/uL; Basophil% 0.6 % (0-1); Eosinophil# 0.04 X10^3/uL; Eosinophils% 0.6 % (0-5); Hematocrit 31.2 % (40-54); Hemoglobin 9.4 g/dL (13.0-16.5); Lymphocyte # 0.79 X10^3/ul (0.83-4.51); Lymphocyte % 11.3 % (19-41); Mean Corp Hgb Conc 30.1 g/dL (32-36); Mean Corpuscular Hgb 23.6 pg (27.0-32.0); Mean Corpuscular Volume 78.2 fL (80-94); Mean Platelet Vol. 9.6 fl (6.2-12.0); Monocyte# 0.92 X10^3/uL; Monocyte% 13.2 % (0-10); NRBC Flagged by Analyzer 0 % (0-5); Neutrophil # 5.15 X10^3/uL (2.7-7.7); Neutrophil % 73.9 % (47-70); Platelet Count 357 K/mm3 (150-450); RBC Distribution Width CV 17.4 % (11.6-14.6); RBC Distribution Width SD 49.1 fl (35.1-43.9); Red Blood Count 3.99 M/mm3 (4.6-6.2)
[2024-11-10 12:44] LABS: Vitamin B12 1120 pg/mL (211-911); Vitamin D,25 Hydroxy 31.4 ng/mL
[2024-11-10 13:10] LABS: AST(SGOT) 47 U/L (15-37); Alanine Aminotransfer ALT/SGPT 66 U/L (16-61); Albumin, Serum 3.2 g/dL (3.2-5.0); Alkaline Phosphatase 65 U/L (45-117); Anion Gap 7 (5-15); BUN 14 mg/dL (7-18); BUN/Creat Ratio 19.3 RATIO (10-20); Calcium,Total 8.8 mg/dL (8.5-10.1); Chloride 98 mmol/L (98-107); Cholesterol 119 mg/dL (200); Creatinine, Serum 0.72 mg/dL (0.70-1.30); EST Glomerular Filtration Rate 109 mL/min (>60); Est Glom Filt Rate - Afr Amer 132 mL/min (>60); Globulin 3.2 g/dL (2.2-4.2); Glucose 119 mg/dL (74-106); High Density Lipoprotein 79 mg/dL; Magnesium 2.3 mg/dL (1.6-2.6); PSA,Total - Annual Screen 3.63 ng/mL (0.00-4.00); Potassium 4.1 mmol/L (3.5-5.1); Protein, Total 6.4 g/dL (6.4-8.2); Sodium Level 132 mmol/L (136-145); Triglycerides 42 mg/dL; Very Low Density Lipoprotein 8 mg/dL (5-40)
[2024-11-10 16:09] LABS: Iron 19 ug/dL (65-175); Iron Binding Capacity,Total 455 ug/dL (250-450); PERCENT IRON SATURATION 4.2 % (15.0-55.0)
== END | disposition home or self-care (01) ==
LOC: BIMLAB 08:19
PROVIDERS: PCP Internal Medicine; Referring Provider Internal Medicine; Visit Provider Internal Medicine
DX: I48.11 Longstanding persistent atrial fibrillation (principal); J44.9 Chronic obstructive pulmonary disease, unspecified; L98.9 Disorder of the skin and subcutaneous tissue, unspecified; R91.1 Solitary pulmonary nodule; Z79.01 Long term (current) use of anticoagulants; I10 Essential (primary) hypertension; E78.5 Hyperlipidemia, unspecified; G47.33 Obstructive sleep apnea (adult) (pediatric); K22.70 Barrett's esophagus without dysplasia; E55.9 Vitamin D deficiency, unspecified; Z12.5 Encounter for screening for malignant neoplasm of prostate
CPT/HCPCS: 36415; 80053; 80061; 82306; 82607; 83540; 83550; 83735; 84153; 84443; 85025; G0103

== ENCOUNTER → 2024-11-15 | Outpatient (CLI) | payer MEDICARE, SELFPAY | END | disposition home or self-care (01) | LOC: LABSPEC 11:42 | PROVIDERS: PCP Internal Medicine; Referring Provider Internal Medicine; Visit Provider Internal Medicine | DX: D64.9 Anemia, unspecified (principal) | CPT/HCPCS: 82274 ==